=== PATIENT | male | born 1940 | race American Indian/Alaskan Native ===

== ENCOUNTER 2016-05-28 15:01 | Emergency (ER) | payer MEDICARE, OTHER ==
[~2016-05-28 15:01] MED LIST: AMAR1TAB PO; ASPI1TAB PO; ATOR1TAB19 PO; ATOR1TAB21 PO; BD P31MI2 XX; CARV6.25 PO; FERR325T PO; JANU100T PO; LACT10SO29 PO; LACT20EL PO; LANTINJ4 SC; METF1000 PO; METO50TA2 PO; OMEP40CA2 PO; PANT40TA2 PO; VITA-193 PO; VITA100066 PO; VITA400C2 PO; VOLT1GEL24 TOP; XIFA550T PO
[2016-05-28] MEDS ORDERED: MORPHINE 4 MG/ML 1ML SYRINGE As Ordered ONE ×3 (16:36→18:04)
[2016-05-28] MEDS ORDERED: ONDANSETRON 4MG/2ML VIAL (J2405) As Ordered ONE (16:36)
--- NOTE | 2016-05-28 17:15 | REP ---
Clinical: Trauma. Technique: Axial images through the thoracic spine from T1 through T12 with coronal and sagittal re-formations. Findings: There is a mild acute compression fracture involving T12 with approximately 20% loss of anterior superior vertebral body height. No retropulsed fracture fragment is identified and the spinal canal appears relatively patent. Remainder of the thoracic spine demonstrates mild to moderate degenerative changes including anterior osteophytes at multiple levels. Paravertebral soft tissues appear normal. Visualized lung morrissey demonstrate pulmonary vascular congestion with interstitial edema and possible atelectasis. Some dental note is made of TIPS. Impression: 1. Acute mild compression fracture involving T12 without retropulsed fracture fragment or further obvious abnormality. 2. Mild multilevel degenerative changes. Signed by Toney Cortes MD 05/28/2016 05:07 P
--- NOTE | 2016-05-28 17:24 | REP ---
Clinical: Trauma. Technique: AP and lateral views of the right humerus. Findings: Age-related changes at the shoulder and elbow noted. No obvious acute fracture dislocation. No subcutaneous emphysema or radiodense foreign body. Impression: No acute fracture or dislocation. Signed by Toney Cortes MD 05/28/2016 05:16 P
[2016-05-28] MEDS ORDERED: ISOVUE-370 76% 100ML VIAL (Q9967) As Ordered ONE (18:21)
--- NOTE | 2016-05-28 18:41 | REP ---
CT LUMBAR SPINE WITHOUT CONTRAST: HISTORY: Trauma. A diffuse disc bulge is present at the L1-2 level. There is minimal compression of the thecal sac. The L1 nerves exit the neural foramina without compression. A diffuse disc bulge is present at the L2-3 level. There is minimal compression of the thecal sac. The L2 nerves exit the neural foramina without compression. A diffuse disc bulge is present at the L3-4 level. There is hypertrophy of the ligamenta flava and posterior articulating facets. These findings produce minimal central canal stenosis. The L3 nerves exit the neural foramina without compression. A diffuse disc bulge is present at the L4-5 level. There is minimal compression of the thecal sac. There is hypertrophy of the posterior articulating facets. The L4 nerves exit the neural foramina without compression. A diffuse disc bulge is present at the L5-S1 level. There is minimal compression of the thecal sac. There is hypertrophy of the posterior articulating facets. There are 7 mm of grade 1 spondylolisthesis of L5 on S1. This is associated with L5 pars defects. There is compression of the L5 nerves in the neural foramina. The L1-2, L3-4, and L5-S1 intervertebral discs are decreased in height consistent with disc degeneration. There is an old compression fracture of the T12 vertebral body with minimal height loss. IMPRESSION: 1. Diffuse disc bulges at the L1-2, L2-3 and L4-5 levels with minimal thecal sac compression. 2. Minimal central canal stenosis at the L3-4 level secondary to disc bulge, ligamentous and facet hypertrophy. 3. Diffuse disc bulge at the L5-S1 level with minimal thecal sac compression. There is grade 1 spondylolisthesis of L5 on S1 with associated L5 pars defects. There is compression of the L5 nerves in the neural foramina. Signed by Jerald Sheffield MD 05/29/2016 08:22 A
[2016-05-28 18:43] LABS: MEAN CORPUSCULAR HEMOGLOBIN 35.1 pg (27.0-33.0); MEAN CORPUSCULAR HGB CONC 35.8 g/dl (32.0-36.5); MEAN CORPUSCULAR VOLUME 97.8 fl (80.0-96.0); RED CELL DISTRIBUTION WIDTH 16.6 % (11.5-14.5); WHITE BLOOD COUNT 6.5 K/mm3 (4.0-10.0)
--- NOTE | 2016-05-28 18:53 | REP ---
Clinical: Trauma with acute compression fracture at T12 and continued left-sided abdominal pain. Technique: Axial contrast enhanced images from the lung bases to the pubic symphysis using 100 ml Isovue 370 intravenous contrast material with coronal and sagittal re-formations. Comparison: Multiple examinations dating through 01/05/2014. Findings: Lung bases demonstrate cardiomegaly with pulmonary venous congestion. There is no evidence for solid organ injury. There is evidence for cirrhosis with portal hypertension and prior TIPS. Splenomegaly is appreciated. Pancreas, bilateral adrenal glands and kidneys are essentially normal/stable. Complex cyst with perinephric stranding involving the posterolateral aspect of the left kidney is essentially unchanged compared to 2014. The enteric system demonstrates moderate fecal stasis and possible constipation without acute obstruction or inflammatory process. Pelvis demonstrates normal bladder and age appropriate prostate/seminal vesicles. No ascites. Abdominal aorta and vasculature is relatively normal and without evidence for trauma. Surrounding musculoskeletal structures demonstrate degenerative changes as well as known subtle compression fracture at T12 and grade 1 anterolisthesis at the L5-S1 level with chronic spondylolysis. Impression: No evidence for solid organ injury. Diagnosed new acute T12 compression fracture. Cardiomegaly with evidence for pulmonary venous congestion. Chronic changes including cirrhosis and portal hypertension with splenomegaly as well as generative changes the musculoskeletal structures including chronic anterolisthesis at L5-S1 with spondylolysis. Signed by Toney Cortes MD 05/28/2016 06:44 P
[2016-05-28 18:59] LABS: ANION GAP 8 MEQ/L (8-16); BLOOD UREA NITROGEN 17 MG/DL (7-18); CALCIUM LEVEL 8.6 MG/DL (8.8-10.2); CARBON DIOXIDE LEVEL 24 MEQ/L (21-32); CHLORIDE LEVEL 110 MEQ/L (98-107); GLOMERULAR FILTRATION RATE > 60.0 (>42); GLUCOSE, FASTING 179 MG/DL (83-110); POTASSIUM SERUM 4.4 MEQ/L (3.5-5.1); SODIUM LEVEL 142 MEQ/L (136-145)
--- NOTE | 2016-05-28 19:17 | EDDOCDS ---
Physician Documentation [facility] Name: Joaquín Sterling Age: 75 yrs Sex: Male : 1940 Arrival Date: 05/28/2016 Time: 15:01 Bed 11 Private MD: Cedrick King E. Disposition: 05/28/16 18:50 Discharged to Home/Self Care. Impression: Fall on and from ladder, Wedge compression fracture of T11-T12 vertebra. - Condition is Stable. - Discharge Instructions: Back, Compression Fracture, Fall Prevention and Home Safety. - Prescriptions for Percocet 5- 325 mg Oral Tablet - take 1 tablet by ORAL route every 6 hours As needed MDD: 4 tabs; 20 tablet. - Medication Reconciliation, Local Pharmacy Hours form. - Follow up: Cedrick King; When: 4 - 5 days; Reason: Recheck today's complaints, Continuance of care. - Problem is new. - Symptoms are unchanged. - Notes: ICE 20 MIN AN HOUR Historical: - Allergies: Lisinopril"flu-like symptoms"; - Home Meds: 1. carvedilol 6.25 mg oral tab 1 tab 2 times per day 2. Lantus 100 unit/mL Sub-Q soln 32 unit 20 units at night and 32 in am 3. omeprazole 40 mg Oral cpDR 1 cap 2 times per day 4. Protonix 40 mg Oral grps once daily 5. Constulose 10 gram/15 mL oral soln 45 mL every 6 hours 6. atorvastatin 20 mg oral tab 1 tab once daily 7. Xifaxan 550 mg oral tab 1 tab 2 times per day 8. metoprolol tartrate 50 mg oral tab - PMHx: Diabetes - NIDDM: uncontrolled; Hypertension; Anemia; Hypercholesterolemia; Cirrhosis; GIvarices; Aortic Aneurysm; UT; - PSHx: Pacemaker Insertion; Cholecystectomy; Hernia repair; TIPS; - Social history: Smoking status: Patient states was never smoker of tobacco. No barriers to communication noted, The patient speaks fluent Wolof. - Family history: Not pertinent. - : The pt / caregiver states he / she is not on anticoagulants. Home medication list is obtained from the patient, [employer] import data. - Exposure Risk Screening:: None identified. Vital Signs: 05/28 15:02 BP 145 / 70; Pulse 98; Resp 20 S; Temp 96(O); Pulse Ox 97% on R/A; Weight 72.57 kg / gr2 159.99 lbs (M); Height 5 ft. 9 in. (175.26 cm) (M); Pain 10/10; 17:02 BP 138 / 87; Pulse 82; Resp 16; Pulse Ox 97% on R/A; Pain 8/10; ml6 17:22 BP 138 / 62; Pulse 83; Resp 18; Pulse Ox 98% on R/A; Pain 6/10; ml6 18:38 BP 144 / 68; Pulse 85; Resp 16; Temp 98.3; Pulse Ox 98% on R/A; Pain 6/10; ml6 18:40 BP 155 / 87; Pulse 86; Resp 18; Pulse Ox 98% on R/A; Pain 6/10; ml6 15:02 Body Mass Index 23.63 (72.57 kg, 175.26 cm) gr2 MDM: 16:16 ED course: THIS RESORT DESK CLERK INITIALLY EVALUATED PATIENT, PT PRESENTATION AND EXAM REVIEWED ck7 WITH DR CANNON, WILL MOVE PT TO MAIN ED FOR FURTHER EVALUATION AND TREATMENT. 16:31 IV Saline Lock ordered. ke 16:31 NS 0.9% 1000 ml IV at 100 mL/hr continuous ordered. ke 16:31 Ondansetron 4 mg IVP once ordered. ke 16:31 morphine 4 mg IVP every 30 minutes; Document pain score/vitals after each dose (Hold if ke SBP < 90mmHg) x2 ordered. 16:33 Humerus Ordered. EDMS 16:33 CT Spine, Lumbar W/o Contrast Ordered. EDMS 16:33 CT Spine,Thoracic W/o Contrast Ordered. EDMS 16:44 Financial registration complete. lg 17:37 [facility] Payment Agreement was scanned into [employer] and attached to record. gjb 18:02 CT ABD & PELVIS: IV Contrast Only Ordered. EDMS 18:06 Type & Screen Ordered. EDMS 18:07 CBC Ordered. EDMS 18:07 BMP Ordered. EDMS 18:11 morphine 4 mg IVP once ordered. ke Administered Medications: 16:53 Drug: Ondansetron 4 mg [ondansetron HCl 2 mg/mL intravenous solution (2 mL)] Route: ml6 IVP; Site: left antecubital; 16:53 Drug: morphine 4 mg [morphine 4 mg/mL intravenous cartridge (1 mL)] Route: IVP; Site: 6 left antecubital; 16:54 Drug: NS 0.9% 1000 ml [sodium chloride 0.9 % intravenous solution] Route: IV; Rate: 100 ml6 mL/hr; Site: left antecubital; 17:02 Drug: morphine 4 mg [morphine 4 mg/mL intravenous cartridge (1 mL)] Route: IVP; Site: ml6 left antecubital; 17:02 Follow up: BP 138 / 87; Pulse 82 bpm; Resp 16 bpm; Pulse Ox 97% RA; Pain 8/10 Adult ml6 17:22 Follow up: BP 138 / 62; Pulse 83 bpm; Resp 18 bpm; Pulse Ox 98% RA; Pain 6/10 Adult ml6 18:18 Drug: morphine 4 mg [morphine 4 mg/mL intravenous cartridge (1 mL)] Route: IVP; Site: ml6 left antecubital; 18:40 Follow up: BP 155 / 87; Pulse 86 bpm; Resp 18 bpm; Pulse Ox 98% RA; Pain 6/10 Adult ml6 Signatures: Dispatcher [employer] EDMS Heather Thrasher RN RN Deisi Boyd, Reg Reg lg Torito Rodriguez, MANAGER CATEGORY MANAGER CATEGORY Bernarda Mathew RN RN rs3 Misbah Gayle RN RN ml6 Mayo Andrade, RPA-C [id number] Marilu AjRN Kathryn Hilliard The chart was reviewed and I authenticate all verbal orders and agree with the evaluation and treatment provided.Corrections: (The following items were deleted from the chart) 15:21 15:05 Social history Smoking status: Patient states was never smoker of tobacco. No rs3 barriers to communication noted, The patient speaks fluent Wolof, [facility] : 15:10 Allergies: Lisinopril; "flu-like symptoms" [Inactive]; [place] [id number] : 15:10 PMHx: Diabetes - NIDDM: uncontrolled [Inactive]; [place] [id number] : 15:10 PMHx: Hypertension [Inactive]; [place] [id number] : 15:10 PMHx: Anemia [Inactive]; [place] [id number] : 15:10 PMHx: Hypercholesterolemia [Inactive]; [place] [id number] : 15:10 PMHx: Cirrhosis [Inactive]; kcs ml6 15:10 PMHx: GIvarices [Inactive]; kcs ml6 15:10 PMHx: Aortic Aneurysm [Inactive]; kcs ml6 15:10 PMHx: UT [Inactive]; kcs ml6 Attachments: 17:37 [facility] Payment Agreement gjb [email or web address]
--- NOTE | 2016-05-28 19:17 | EDDOCDS ---
Nurse's Notes [facility] Name: Joaquín Sterling Age: 75 yrs Sex: Male : 1940 Arrival Date: 05/28/2016 Time: 15:01 Bed 11 Private MD: Cedrick King E. Diagnosis: Fall on and from ladder;Wedge compression fracture of T11-T12 vertebra Presentation: 05/28 15:05 Presenting complaint: states: patient was in the garage on a ladder and fell off kcs the second step on to his back - happened at 0900 - still having a lot of low back pain. also has pain in his right arm and shoulder. Mechanism of Injury: Fall. Adult Sepsis Screening: The patient does not have new or worsening altered mentation. Patient's respiratory rate is less than 22. Systolic blood pressure is greater than 100. Patient has a qSOFA score of 0- Negative Sepsis Screen. Suicide/Homicide risk assessment- the patient denies having any suicidal and/or homicidal ideations and does not present with any other emotional, behavioral or mental health complaints. Status: Patient is not a director nursing service or dependent. Transition of care: patient was not received from another setting of care. 15:05 Acuity: CALLI Level 3 kcs 15:05 Method Of Arrival: Walkin/Carried/Asstd kcs Triage Assessment: 15:05 General: Appears uncomfortable, well developed, well nourished, well groomed, Behavior kcs is cooperative, crying. Pain: Location: low back, right shoulder and right arm Pain currently is 10 out of 10 on a pain scale. Neurological: Level of Consciousness is awake, alert. Respiratory: Airway is patent Respiratory effort is even, unlabored, Respiratory pattern is regular, symmetrical. Derm: Skin is intact, is healthy with good turgor, Skin is dry, Skin is normal. Historical: - Allergies: Lisinopril"flu-like symptoms"; - Home Meds: 1. carvedilol 6.25 mg oral tab 1 tab 2 times per day 2. Lantus 100 unit/mL Sub-Q soln 32 unit 20 units at night and 32 in am 3. omeprazole 40 mg Oral cpDR 1 cap 2 times per day 4. Protonix 40 mg Oral grps once daily 5. Constulose 10 gram/15 mL oral soln 45 mL every 6 hours 6. atorvastatin 20 mg oral tab 1 tab once daily 7. Xifaxan 550 mg oral tab 1 tab 2 times per day 8. metoprolol tartrate 50 mg oral tab - PMHx: Diabetes - NIDDM: uncontrolled; Hypertension; Anemia; Hypercholesterolemia; Cirrhosis; GIvarices; Aortic Aneurysm; DE; - PSHx: Pacemaker Insertion; Cholecystectomy; Hernia repair; TIPS; - Social history: Smoking status: Patient states was never smoker of tobacco. No barriers to communication noted, The patient speaks fluent Tajik. - Family history: Not pertinent. - : The pt / caregiver states he / she is not on anticoagulants. Home medication list is obtained from the patient, [employer] import data. - Exposure Risk Screening:: None identified. Screenin:04 Screening information is obtained from the patient. Fall risk: No risks identified. ml6 Assistance ADL's: requires no assistance with activities of daily living. Abuse/DV Screen: The patient / caregiver reports he/she is: not in a situation that causes fear, pain or injury. Nutritional screening: No deficits noted. Advance Directives: Currently, there is. home support is adequate. Assessment: 16:56 General: Appears in no apparent distress, comfortable, Behavior is appropriate for age, ml6 cooperative. Pain: Location: lumbar area, left low back and right low back Pain currently is 7 out of 10 on a pain scale. Pain does not radiate. Quality of pain is described as aching, Pain began 4 hours ago Is continuous. Cardiovascular: No deficits noted. Capillary refill < 3 seconds is brisk in bilateral fingers toes. Respiratory: No deficits noted. Airway is patent Respiratory effort is even, unlabored, Respiratory pattern is regular, symmetrical. Musculoskeletal: Circulation, motion, and sensation intact Capillary refill < 3 seconds is brisk in bilateral fingers toes Range of motion intact in all extremities. No deformity noted Swelling absent Signs and Symptoms of Compartment Syndrome: no signs of compartment syndrome Reports pain in back. 18:05 Reassessment: Patient appears in no apparent distress at this time. Patient states ml6 symptoms have not improved. Pain: Location: back Pain currently is 6 out of 10 on a pain scale. Quality of pain is described as aching, Pain began 4 hours ago Is continuous. Cardiovascular: No deficits noted. 19:14 General: Appears in no apparent distress, Behavior is cooperative. Neurological: Level mlc of Consciousness is awake, alert, Oriented to person, place, time. Respiratory: Airway is patent Respiratory effort is even, unlabored, Respiratory pattern is regular. Derm: Skin is pink, warm & dry. Vital Signs: 15:02 BP 145 / 70; Pulse 98; Resp 20 S; Temp 96(O); Pulse Ox 97% on R/A; Weight 72.57 kg (M); gr2 Height 5 ft. 9 in. (175.26 cm) (M); Pain 10/10; 17:02 BP 138 / 87; Pulse 82; Resp 16; Pulse Ox 97% on R/A; Pain 8/10; ml6 17:22 BP 138 / 62; Pulse 83; Resp 18; Pulse Ox 98% on R/A; Pain 6/10; ml6 18:38 BP 144 / 68; Pulse 85; Resp 16; Temp 98.3; Pulse Ox 98% on R/A; Pain 6/10; ml6 18:40 BP 155 / 87; Pulse 86; Resp 18; Pulse Ox 98% on R/A; Pain 6/10; ml6 15:02 Body Mass Index 23.63 (72.57 kg, 175.26 cm) gr2 Vitals: 15:02 Log In Time: May 28, 2016 at 15:02. gr2 ED Course: 15:02 Patient visited by Dustin Mcdowell. gr2 15:02 Cedrick King is Private Physician. gr2 15:02 Patient moved to Waiting gr2 15:04 Patient visited by Dustin Mcdowell. gr2 15:04 Patient moved to Pre RCE gr2 15:06 Triage Initiated kcs 15:11 Patient moved to Triage 2 kcs 16:02 Mayo Andrade RPA-C is [facility]. ck7 16:02 Wesley Gilmore MD is Attending Physician. ck7 16:02 Patient visited by Mayo Andrade RPA-C. ck7 16:15 Patient moved to 11 mk4 16:24 Torito Rodriguez FNP is [facility]. ke 16:24 Patient visited by Torito Rodriguez FNP. ke 16:26 Patient visited by Torito Rodriguez FNP. ke 16:26 Patient visited by Torito Rodriguez FNP. ke 16:46 Inserted saline lock: 18 gauge in left forearm. jo3 16:47 Patient visited by Mee Figueredo,MOY. jo3 17:17 Patient visited by Misbah Gayle, MOY. ml6 17:33 CT Spine,Thoracic W/o Contrast Returned. EDMS 17:33 Humerus Returned. EDMS 17:37 [facility] [place] into [employer] and attached to record. gjb 17:49 Patient visited by Torito Rodriguez FNP. ke 18:18 Patient visited by Torito Rodriguez FNP. ke 18:38 Patient visited by Misbah Gayle, MOY. ml6 18:49 Cedrick King is Referral Physician. ke 19:00 Marilu Aj,MOY is Primary Nurse. mlc 19:03 Patient visited by Danie Sanderson PCA. kb5 19:12 CT Spine, Lumbar W/o Contrast Returned. EDMS 19:12 CT ABD & PELVIS: IV Contrast Only Returned. EDMS 19:14 The patient / caregiver is instructed regarding the plan of care and ED course. mlc 19:14 Discontinued IV lock intact, bleeding controlled, pressure dressing applied, No mlc redness/swelling at site. No procedures done that require assistance. Administered Medications: 16:53 Drug: Ondansetron 4 mg [ondansetron HCl 2 mg/mL intravenous solution (2 mL)] Route: ml6 IVP; Site: left antecubital; 16:53 Drug: morphine 4 mg [morphine 4 mg/mL intravenous cartridge (1 mL)] Route: IVP; Site: ml6 left antecubital; 16:54 Drug: NS 0.9% 1000 ml [sodium chloride 0.9 % intravenous solution] Route: IV; Rate: 100 ml6 mL/hr; Site: left antecubital; 17:02 Drug: morphine 4 mg [morphine 4 mg/mL intravenous cartridge (1 mL)] Route: IVP; Site: ml6 left antecubital; 17:02 Follow up: BP 138 / 87; Pulse 82 bpm; Resp 16 bpm; Pulse Ox 97% RA; Pain 8/10 Adult ml6 17:22 Follow up: BP 138 / 62; Pulse 83 bpm; Resp 18 bpm; Pulse Ox 98% RA; Pain 6/10 Adult ml6 18:18 Drug: morphine 4 mg [morphine 4 mg/mL intravenous cartridge (1 mL)] Route: IVP; Site: ml6 left antecubital; 18:40 Follow up: BP 155 / 87; Pulse 86 bpm; Resp 18 bpm; Pulse Ox 98% RA; Pain 10/24 Adult ml6 Order Results: Lab Order: CBC; SPEC'M 05/28/16 18:17 Test: WHITE BLOOD COUNT; Value: 6.5; Range: 4.0-10.0; Units: K/mm3; Status: F Test: RED BLOOD COUNT; Value: 3.31; Range: 4.30-6.10; Abnormal: Below low normal; Units: M/mm3; Status: F Test: HEMOGLOBIN; Value: 11.6; Range: 14.0-18.0; Abnormal: Below low normal; Units: g/dl; Status: F Test: HEMATOCRIT; Value: 32.3; Range: 42.0-52.0; Abnormal: Below low normal; Units: %; Status: F Test: MEAN CORPUSCULAR VOLUME; Value: 97.8; Range: 80.0-96.0; Abnormal: Above high normal; Units: fl; Status: F Test: MEAN CORPUSCULAR HEMOGLOBIN; Value: 35.1; Range: 27.0-33.0; Abnormal: Above high normal; Units: pg; Status: F Test: MEAN CORPUSCULAR HGB CONC; Value: 35.8; Range: 32.0-36.5; Units: g/dl; Status: F Test: RED CELL DISTRIBUTION WIDTH; Value: 16.6; Range: 11.5-14.5; Abnormal: Above high normal; Units: %; Status: F Test: PLATELET COUNT, AUTOMATED; Value: 63; Range: 150-450; Abnormal: Below low normal; Units: k/mm3; Status: F Test Note: ; RESULTS Lab Order: BMP; SPEC'M 05/28/16 18:17 Test: GLUCOSE, FASTING; Value: 179; Range: 83-110; Abnormal: Above high normal; Units: MG/DL; Status: F Test: BLOOD UREA NITROGEN; Value: 17; Range: 7-18; Units: MG/DL; Status: F Test: CREATININE FOR GFR; Value: 1.20; Range: 0.70-1.30; Units: MG/DL; Status: F Test: GLOMERULAR FILTRATION RATE; Value: > 60.0; Range: >42; Status: F Test: SODIUM LEVEL; Value: 142; Range: 136-145; Units: MEQ/L; Status: F Test: POTASSIUM SERUM; Value: 4.4; Range: 3.5-5.1; Units: MEQ/L; Status: F Test: CHLORIDE LEVEL; Value: 110; Range: 98-107; Abnormal: Above high normal; Units: MEQ/L; Status: F Test: CARBON DIOXIDE LEVEL; Value: 24; Range: 21-32; Units: MEQ/L; Status: F Test: ANION GAP; Value: 8; Range: 8-16; Units: MEQ/L; Status: F Test: CALCIUM LEVEL; Value: 8.6; Range: 8.8-10.2; Abnormal: Below low normal; Units: MG/DL; Status: F Test Note: ; Units are mL/min/1.73 m2 Chronic Kidney Disease Staging per NKF: Stage I & II GFR >=60 Normal to Mildly Decreased Stage III GFR 30-59 Moderately Decreased Stage IV GFR 15-29 Severely Decreased Stage V GFR <15 Very Little GFR Left ESRD GFR <15 on [employer] Lab Order: Type & Screen; SPEC'M 05/28/16 18:18 Test: BLOOD TYPE; Value: A NEG; Status: F Test: AB SCREEN (INDIRECT PAYTON)GEL; Value: NEGATIVE; Status: F Radiology Order: CT Spine, Lumbar W/o Contrast Test: CT Spine, Lumbar W/o Contrast REASON FOR EXAMINATION: Trauma; ; CT LUMBAR SPINE WITHOUT CONTRAST:; ; HISTORY: Trauma.; ; A diffuse disc bulge is present at the L1-2 level. There is minimal compression; of the thecal sac. The L1 nerves exit the neural foramina without compression.; ; A diffuse disc bulge is present at the L2-3 level. There is minimal compression; of the thecal sac. The L2 nerves exit the neural foramina without compression.; ; A diffuse disc bulge is present at the L3-4 level. There is hypertrophy of the; ligamenta flava and posterior articulating facets. These findings produce minimal; central canal stenosis. The L3 nerves exit the neural foramina without; compression.; ; A diffuse disc bulge is present at the L4-5 level. There is minimal compression; of the thecal sac. There is hypertrophy of the posterior articulating facets. The; L4 nerves exit the neural foramina without compression.; ; A diffuse disc bulge is present at the L5-S1 level. There is minimal compression; of the thecal sac. There is hypertrophy of the posterior articulating facets.; There are 7 mm of grade 1 spondylolisthesis of L5 on S1. This is associated with; L5 pars defects. There is compression of the L5 nerves in the neural foramina.; ; The L1-2, L3-4, and L5-S1 intervertebral discs are decreased in height consistent; with disc degeneration. There is an old compression fracture of the T12 vertebral; body with minimal height loss.; ; IMPRESSION:; 1. Diffuse disc bulges at the L1-2, L2-3 and L4-5 levels with minimal thecal sac; compression.; 2. Minimal central canal stenosis at the L3-4 level secondary to disc bulge,; ligamentous and facet hypertrophy.; 3. Diffuse disc bulge at the L5-S1 level with minimal thecal sac compression.; There is grade 1 spondylolisthesis of L5 on S1 with associated L5 pars defects.; There is compression of the L5 nerves in the neural foramina.; ; Unreviewed; Radiology Order: CT Spine,Thoracic W/o Contrast Test: CT Spine,Thoracic W/o Contrast REASON FOR EXAMINATION: Trauma; Clinical: Trauma.; ; Technique: Axial images through the thoracic spine from T1 through T12 with; coronal and sagittal re-formations.; ; Findings:; There is a mild acute compression fracture involving T12 with approximately 20%; loss of anterior superior vertebral body height. No retropulsed fracture; fragment is identified and the spinal canal appears relatively patent. Remainder; of the thoracic spine demonstrates mild to moderate degenerative changes; including anterior osteophytes at multiple levels. Paravertebral soft tissues; appear normal. Visualized lung morrissey demonstrate pulmonary vascular congestion; with interstitial edema and possible atelectasis. Some dental note is made of; TIPS.; ; Impression:; 1. Acute mild compression fracture involving T12 without retropulsed fracture; fragment or further obvious abnormality.; 2. Mild multilevel degenerative changes.; ; ; Signed by; Toney Cortes MD 05/28/2016 05:07 P; Radiology Order: Humerus Test: Humerus REASON FOR EXAMINATION: Trauma; Clinical: Trauma.; ; Technique: AP and lateral views of the right humerus.; ; Findings:; Age-related changes at the shoulder and elbow noted. No obvious acute fracture; dislocation. No subcutaneous emphysema or radiodense foreign body.; ; Impression:; No acute fracture or dislocation.; ; ; Signed by; Toney Cortes MD 05/28/2016 05:16 P; Radiology Order: CT ABD & PELVIS: IV Contrast Only Test: CT ABD & PELVIS: IV Contrast Only REASON FOR EXAMINATION: LUQ PAIN;Trauma; Clinical: Trauma with acute compression fracture at T12 and continued left-sided; abdominal pain.; ; Technique: Axial contrast enhanced images from the lung bases to the pubic; symphysis using 100 ml Isovue 370 intravenous contrast material with coronal and; sagittal re-formations.; ; Comparison: Multiple examinations dating through 01/05/2014.; ; Findings:; Lung bases demonstrate cardiomegaly with pulmonary venous congestion.; ; There is no evidence for solid organ injury. There is evidence for cirrhosis; with portal hypertension and prior TIPS. Splenomegaly is appreciated. Pancreas,; bilateral adrenal glands and kidneys are essentially normal/stable. Complex cyst; with perinephric stranding involving the posterolateral aspect of the left kidney; is essentially unchanged compared to 2013. The enteric system demonstrates; moderate fecal stasis and possible constipation without acute obstruction or; inflammatory process. Pelvis demonstrates normal bladder and age appropriate; prostate/seminal vesicles. No ascites. Abdominal aorta and vasculature is; relatively normal and without evidence for trauma. Surrounding musculoskeletal; structures demonstrate degenerative changes as well as known subtle compression; fracture at T12 and grade 1 anterolisthesis at the L5-S1 level with chronic; spondylolysis.; ; Impression:; No evidence for solid organ injury.; Diagnosed new acute T12 compression fracture.; Cardiomegaly with evidence for pulmonary venous congestion.; Chronic changes including cirrhosis and portal hypertension with splenomegaly as; well as generative changes the musculoskeletal structures including chronic; anterolisthesis at L5-S1 with spondylolysis.; ; ; Signed by; Toney Cortes MD 05/28/2016 06:44 P; Outcome: 18:50 Discharge ordered by Provider. ke 19:14 Discharge Assessment: Patient awake, alert and oriented x 3. No cognitive and/or mlc functional deficits noted. Patient verbalized understanding of disposition instructions. patient administered narcotics - yes. Pt provided with safe discharge. The following High Risk Discharge criteria are identified: None. Discharged to home via wheelchair, with family. Condition: good Condition: stable. Discharge instructions given to patient, Instructed on discharge instructions, follow up and referral plans. medication usage, no driving heavy equipment, Demonstrated understanding of instructions, medications, Pt was receptive of discharge instructions/ teaching. Prescriptions given X 1. CT Study completed. Property sent home with patient. 19:15 Patient left the ED. mlc Signatures: Dispatcher [employer] EDHeather Rodríguez RN RN Torito Gonzalez FNP FNP ke [place], JenniferRN RN jo3 Danie Sanderson, PLANT SPECIALIST PLANT SPECIALIST kb5 Bernarda BerryRN RN rs3 Misbah Gayle RN RN ml6 Mayo Andrade, RPA-C [id number] Dustin Mcdowell gr2 Tamera Florentino RN RN Marilu AzulRN RN Kathryn Viveros Corrections: (The following items were deleted from the chart) 15:21 15:05 Social history Smoking status: Patient states was never smoker of tobacco. No rs3 barriers to communication noted, The patient speaks fluent Tajik, [facility] 15:10 Allergies: Lisinopril; "flu-like symptoms" [Inactive]; [place] [id number] 15:10 PMHx: Diabetes - NIDDM: uncontrolled [Inactive]; [place] [id number] 15:10 PMHx: Hypertension [Inactive]; [place] [id number] 15:10 PMHx: Anemia [Inactive]; [place] [id number] 15:10 PMHx: Hypercholesterolemia [Inactive]; [place] [id number] 15:10 PMHx: Cirrhosis [Inactive]; [place] [id number] 15:10 PMHx: GIvarices [Inactive]; [place] [id number] 15:10 PMHx: Aortic Aneurysm [Inactive]; [place] [id number] 15:10 PMHx: DE [Inactive]; [place] [id number] MTDD
[2016-05-29] MEDS ORDERED: PANT40TA2 PO (17:01)
[2016-05-29] MEDS ORDERED: VITA100072 PO (17:01)
[2016-05-29] MEDS ORDERED: OXYC1TAB23 PO (17:01)
--- NOTE | 2016-05-30 20:16 | EDDOCDS ---
Physician Documentation [facility] Name: Joaqíun Sterling Age: 75 yrs Sex: Male : 1940 Arrival Date: 05/28/2016 Time: 15:01 Bed 11 Private MD: Cedrick King E. Disposition: 05/28/16 18:50 Discharged to Home/Self Care. Impression: Fall on and from ladder, Wedge compression fracture of T11-T12 vertebra. - Condition is Stable. - Discharge Instructions: Back, Compression Fracture, Fall Prevention and Home Safety. - Prescriptions for Percocet 5- 325 mg Oral Tablet - take 1 tablet by ORAL route every 6 hours As needed MDD: 4 tabs; 20 tablet. - Medication Reconciliation, Local Pharmacy Hours form. - Follow up: Cedrick King; When: 4 - 5 days; Reason: Recheck today's complaints, Continuance of care. - Problem is new. - Symptoms are unchanged. - Notes: ICE 20 MIN AN HOUR Historical: - Allergies: Lisinopril"flu-like symptoms"; - Home Meds: 1. carvedilol 6.25 mg oral tab 1 tab 2 times per day 2. Lantus 100 unit/mL Sub-Q soln 32 unit 20 units at night and 32 in am 3. omeprazole 40 mg Oral cpDR 1 cap 2 times per day 4. Protonix 40 mg Oral grps once daily 5. Constulose 10 gram/15 mL oral soln 45 mL every 6 hours 6. atorvastatin 20 mg oral tab 1 tab once daily 7. Xifaxan 550 mg oral tab 1 tab 2 times per day 8. metoprolol tartrate 50 mg oral tab - PMHx: Diabetes - NIDDM: uncontrolled; Hypertension; Anemia; Hypercholesterolemia; Cirrhosis; GIvarices; Aortic Aneurysm; NM; - PSHx: Pacemaker Insertion; Cholecystectomy; Hernia repair; TIPS; - Social history: Smoking status: Patient states was never smoker of tobacco. No barriers to communication noted, The patient speaks fluent [place]olian. - Family history: Not pertinent. - : The pt / caregiver states he / she is not on anticoagulants. Home medication list is obtained from the patient, [employer] import data. - Exposure Risk Screening:: None identified. Vital Signs: 05/28 15:02 BP 145 / 70; Pulse 98; Resp 20 S; Temp 96(O); Pulse Ox 97% on R/A; Weight 72.57 kg / gr2 159.99 lbs (M); Height 5 ft. 9 in. (175.26 cm) (M); Pain 10/10; 17:02 BP 138 / 87; Pulse 82; Resp 16; Pulse Ox 97% on R/A; Pain 8/10; ml6 17:22 BP 138 / 62; Pulse 83; Resp 18; Pulse Ox 98% on R/A; Pain 6/10; ml6 18:38 BP 144 / 68; Pulse 85; Resp 16; Temp 98.3; Pulse Ox 98% on R/A; Pain 6/10; ml6 18:40 BP 155 / 87; Pulse 86; Resp 18; Pulse Ox 98% on R/A; Pain 6/10; ml6 15:02 Body Mass Index 23.63 (72.57 kg, 175.26 cm) gr2 MDM: 16:16 ED course: THIS AERIAL PHOTOGRAPHER INITIALLY EVALUATED PATIENT, PT PRESENTATION AND EXAM REVIEWED ck7 WITH DR CANNON, WILL MOVE PT TO MAIN ED FOR FURTHER EVALUATION AND TREATMENT. 16:31 IV Saline Lock ordered. ke 16:31 NS 0.9% 1000 ml IV at 100 mL/hr continuous ordered. ke 16:31 Ondansetron 4 mg IVP once ordered. ke 16:31 morphine 4 mg IVP every 30 minutes; Document pain score/vitals after each dose (Hold if ke SBP < 90mmHg) x2 ordered. 16:33 Humerus Ordered. EDMS 16:33 CT Spine, Lumbar W/o Contrast Ordered. EDMS 16:33 CT Spine,Thoracic W/o Contrast Ordered. EDMS 16:44 Financial registration complete. lg 17:37 [facility] Payment Agreement was scanned into [employer] and attached to record. gjb 18:02 CT ABD & PELVIS: IV Contrast Only Ordered. EDMS 18:06 Type & Screen Ordered. EDMS 18:07 CBC Ordered. EDMS 18:07 BMP Ordered. EDMS 18:11 morphine 4 mg IVP once ordered. ke 05/29 09:43 T-Sheet-- Draft Copy was scanned into [employer] and attached to record. gb Administered Medications: 05/28 16:53 Drug: Ondansetron 4 mg [ondansetron HCl 2 mg/mL intravenous solution (2 mL)] Route: ml6 IVP; Site: left antecubital; 16:53 Drug: morphine 4 mg [morphine 4 mg/mL intravenous cartridge (1 mL)] Route: IVP; Site: ml6 left antecubital; 16:54 Drug: NS 0.9% 1000 ml [sodium chloride 0.9 % intravenous solution] Route: IV; Rate: 100 ml6 mL/hr; Site: left antecubital; 17:02 Drug: morphine 4 mg [morphine 4 mg/mL intravenous cartridge (1 mL)] Route: IVP; Site: ml6 left antecubital; 17:02 Follow up: BP 138 / 87; Pulse 82 bpm; Resp 16 bpm; Pulse Ox 97% RA; Pain 8/10 Adult ml6 17:22 Follow up: BP 138 / 62; Pulse 83 bpm; Resp 18 bpm; Pulse Ox 98% RA; Pain 6/10 Adult ml6 18:18 Drug: morphine 4 mg [morphine 4 mg/mL intravenous cartridge (1 mL)] Route: IVP; Site: ml6 left antecubital; 18:40 Follow up: BP 155 / 87; Pulse 86 bpm; Resp 18 bpm; Pulse Ox 98% RA; Pain 6/10 Adult ml6 Signatures: Dispatcher MedHost EDMS Heather Thrasher RN RN kcs La Gutierrez, Reg Reg gb Deisi Kirkland, Reg Reg lg Torito Rodriguez, DENTAL RECEPTIONIST DENTAL RECEPTIONIST Bernarda Mathew RN RN rs3 Misbah Gayle RN RN ml6 Mayo Andrade, RPA-C [id number] Marilu Aj RN RN mlc Beck, Gabriela gjb The chart was reviewed and I authenticate all verbal orders and agree with the evaluation and treatment provided.Corrections: (The following items were deleted from the chart) 15:21 15:05 Social history Smoking status: Patient states was never smoker of tobacco. No rs3 barriers to communication noted, The patient speaks fluent [place]ian, [facility] : 15:10 Allergies: Lisinopril; "flu-like symptoms" [Inactive]; [place] [id number] 17: 15:10 PMHx: Diabetes - NIDDM: uncontrolled [Inactive]; [place] [id number] 17: 15:10 PMHx: Hypertension [Inactive]; [place] [id number] 17: 15:10 PMHx: Anemia [Inactive]; kj hill6 15:10 PMHx: Hypercholesterolemia [Inactive]; kj hill6 15:10 PMHx: Cirrhosis [Inactive]; kj gannon 15:10 PMHx: GIvarices [Inactive]; kj hill6 15:10 PMHx: Aortic Aneurysm [Inactive]; kj gannon 15:10 PMHx: NM [Inactive]; kj hill6 Attachments: 17:37 [facility] Payment Agreement gjb 05/29 09:43 T-Sheet-- Draft Copy gb Chart Complete MTDD
--- NOTE | 2016-05-30 20:16 | EDDOCDS ---
Nurse's Notes [facility] Name: Joaquín Sterling Age: 75 yrs Sex: Male : 1940 Arrival Date: 05/28/2016 Time: 15:01 Bed 11 Private MD: Cedrick King E. Diagnosis: Fall on and from ladder;Wedge compression fracture of T11-T12 vertebra Presentation: 05/28 15:05 Presenting complaint: states: patient was in the garage on a ladder and fell off kcs the second step on to his back - happened at 0900 - still having a lot of low back pain. also has pain in his right arm and shoulder. Mechanism of Injury: Fall. Adult Sepsis Screening: The patient does not have new or worsening altered mentation. Patient's respiratory rate is less than 22. Systolic blood pressure is greater than 100. Patient has a qSOFA score of 0- Negative Sepsis Screen. Suicide/Homicide risk assessment- the patient denies having any suicidal and/or homicidal ideations and does not present with any other emotional, behavioral or mental health complaints. Status: Patient is not a mechanical technical service specialist or dependent. Transition of care: patient was not received from another setting of care. 15:05 Acuity: CALLI Level 3 kcs 15:05 Method Of Arrival: Walkin/Carried/Asstd kcs Triage Assessment: 15:05 General: Appears uncomfortable, well developed, well nourished, well groomed, Behavior kcs is cooperative, crying. Pain: Location: low back, right shoulder and right arm Pain currently is 10 out of 10 on a pain scale. Neurological: Level of Consciousness is awake, alert. Respiratory: Airway is patent Respiratory effort is even, unlabored, Respiratory pattern is regular, symmetrical. Derm: Skin is intact, is healthy with good turgor, Skin is dry, Skin is normal. Historical: - Allergies: Lisinopril"flu-like symptoms"; - Home Meds: 1. carvedilol 6.25 mg oral tab 1 tab 2 times per day 2. Lantus 100 unit/mL Sub-Q soln 32 unit 20 units at night and 32 in am 3. omeprazole 40 mg Oral cpDR 1 cap 2 times per day 4. Protonix 40 mg Oral grps once daily 5. Constulose 10 gram/15 mL oral soln 45 mL every 6 hours 6. atorvastatin 20 mg oral tab 1 tab once daily 7. Xifaxan 550 mg oral tab 1 tab 2 times per day 8. metoprolol tartrate 50 mg oral tab - PMHx: Diabetes - NIDDM: uncontrolled; Hypertension; Anemia; Hypercholesterolemia; Cirrhosis; GIvarices; Aortic Aneurysm; [place]; - PSHx: Pacemaker Insertion; Cholecystectomy; Hernia repair; TIPS; - Social history: Smoking status: Patient states was never smoker of tobacco. No barriers to communication noted, The patient speaks fluent American. - Family history: Not pertinent. - : The pt / caregiver states he / she is not on anticoagulants. Home medication list is obtained from the patient, [employer] import data. - Exposure Risk Screening:: None identified. Screenin:04 Screening information is obtained from the patient. Fall risk: No risks identified. ml6 Assistance ADL's: requires no assistance with activities of daily living. Abuse/DV Screen: The patient / caregiver reports he/she is: not in a situation that causes fear, pain or injury. Nutritional screening: No deficits noted. Advance Directives: Currently, there is. home support is adequate. Assessment: 16:56 General: Appears in no apparent distress, comfortable, Behavior is appropriate for age, ml6 cooperative. Pain: Location: lumbar area, left low back and right low back Pain currently is 7 out of 10 on a pain scale. Pain does not radiate. Quality of pain is described as aching, Pain began 4 hours ago Is continuous. Cardiovascular: No deficits noted. Capillary refill < 3 seconds is brisk in bilateral fingers toes. Respiratory: No deficits noted. Airway is patent Respiratory effort is even, unlabored, Respiratory pattern is regular, symmetrical. Musculoskeletal: Circulation, motion, and sensation intact Capillary refill < 3 seconds is brisk in bilateral fingers toes Range of motion intact in all extremities. No deformity noted Swelling absent Signs and Symptoms of Compartment Syndrome: no signs of compartment syndrome Reports pain in back. 18:05 Reassessment: Patient appears in no apparent distress at this time. Patient states ml6 symptoms have not improved. Pain: Location: back Pain currently is 6 out of 10 on a pain scale. Quality of pain is described as aching, Pain began 4 hours ago Is continuous. Cardiovascular: No deficits noted. 19:14 General: Appears in no apparent distress, Behavior is cooperative. Neurological: Level mlc of Consciousness is awake, alert, Oriented to person, place, time. Respiratory: Airway is patent Respiratory effort is even, unlabored, Respiratory pattern is regular. Derm: Skin is pink, warm & dry. Vital Signs: 15:02 BP 145 / 70; Pulse 98; Resp 20 S; Temp 96(O); Pulse Ox 97% on R/A; Weight 72.57 kg (M); gr2 Height 5 ft. 9 in. (175.26 cm) (M); Pain 10/10; 17:02 BP 138 / 87; Pulse 82; Resp 16; Pulse Ox 97% on R/A; Pain 8/10; ml6 17:22 BP 138 / 62; Pulse 83; Resp 18; Pulse Ox 98% on R/A; Pain 6/10; ml6 18:38 BP 144 / 68; Pulse 85; Resp 16; Temp 98.3; Pulse Ox 98% on R/A; Pain 6/10; ml6 18:40 BP 155 / 87; Pulse 86; Resp 18; Pulse Ox 98% on R/A; Pain 6/10; ml6 15:02 Body Mass Index 23.63 (72.57 kg, 175.26 cm) gr2 Vitals: 15:02 Log In Time: May 28, 2016 at 15:02. gr2 ED Course: 15:02 Patient visited by Dustin Mcdowell. gr2 15:02 Cedrick King is Private Physician. gr2 15:02 Patient moved to Waiting gr2 15:04 Patient visited by Dustin Mcdowell. gr2 15:04 Patient moved to Pre RCE gr2 15:06 Triage Initiated kcs 15:11 Patient moved to Triage 2 kcs 16:02 Mayo Andrade RPA-C is [facility]. ck7 16:02 Wesley Gilmore MD is Attending Physician. ck7 16:02 Patient visited by Mayo Andrade RPA-C. ck7 16:15 Patient moved to 11 mk4 16:24 Torito Rodriguez FNP is [facility]. ke 16:24 Patient visited by Torito Rodriguez FNP. ke 16:26 Patient visited by Torito Rodriguez FNP. ke 16:26 Patient visited by Torito Rodriguez FNP. ke 16:46 Inserted saline lock: 18 gauge in left forearm. jo3 16:47 Patient visited by Mee Figueredo,MOY. jo3 17:17 Patient visited by Misbah Gayle, RN. ml6 17:33 CT Spine,Thoracic W/o Contrast Returned. EDMS 17:33 Humerus Returned. EDMS 17:37 [facility] Payment Agreement was scanned into ROBAUT[employer] and attached to record. gjb 17:49 Patient visited by Torito Rodriguez FNP. ke 18:18 Patient visited by Torito Rodriguez FNP. ke 18:38 Patient visited by Misbah Gayle, MOY. ml6 18:49 Cedrick King is Referral Physician. ke 19:00 Marilu Aj,MOY is Primary Nurse. mlc 19:03 Patient visited by Danie Sanderson PCA. kb5 19:12 CT Spine, Lumbar W/o Contrast Returned. EDMS 19:12 CT ABD & PELVIS: IV Contrast Only Returned. EDMS 19:14 The patient / caregiver is instructed regarding the plan of care and ED course. mlc 19:14 Discontinued IV lock intact, bleeding controlled, pressure dressing applied, No mlc redness/swelling at site. No procedures done that require assistance. 05/29 09:43 T-Sheet-- Draft Copy was scanned into ROBAUTO and attached to record. gb Administered Medications: 05/28 16:53 Drug: Ondansetron 4 mg [ondansetron HCl 2 mg/mL intravenous solution (2 mL)] Route: ml6 IVP; Site: left antecubital; 16:53 Drug: morphine 4 mg [morphine 4 mg/mL intravenous cartridge (1 mL)] Route: IVP; Site: ml6 left antecubital; 16:54 Drug: NS 0.9% 1000 ml [sodium chloride 0.9 % intravenous solution] Route: IV; Rate: 100 ml6 mL/hr; Site: left antecubital; 17:02 Drug: morphine 4 mg [morphine 4 mg/mL intravenous cartridge (1 mL)] Route: IVP; Site: ml6 left antecubital; 17:02 Follow up: BP 138 / 87; Pulse 82 bpm; Resp 16 bpm; Pulse Ox 97% RA; Pain 8/10 Adult ml6 17:22 Follow up: BP 138 / 62; Pulse 83 bpm; Resp 18 bpm; Pulse Ox 98% RA; Pain 6/10 Adult ml6 18:18 Drug: morphine 4 mg [morphine 4 mg/mL intravenous cartridge (1 mL)] Route: IVP; Site: ml6 left antecubital; 18:40 Follow up: BP 155 / 87; Pulse 86 bpm; Resp 18 bpm; Pulse Ox 98% RA; Pain 6/10 Adult ml6 Order Results: Lab Order: CBC; SPEC'M 05/28/16 18:17 Test: WHITE BLOOD COUNT; Value: 6.5; Range: 4.0-10.0; Units: K/mm3; Status: F Test: RED BLOOD COUNT; Value: 3.31; Range: 4.30-6.10; Abnormal: Below low normal; Units: M/mm3; Status: F Test: HEMOGLOBIN; Value: 11.6; Range: 14.0-18.0; Abnormal: Below low normal; Units: g/dl; Status: F Test: HEMATOCRIT; Value: 32.3; Range: 42.0-52.0; Abnormal: Below low normal; Units: %; Status: F Test: MEAN CORPUSCULAR VOLUME; Value: 97.8; Range: 80.0-96.0; Abnormal: Above high normal; Units: fl; Status: F Test: MEAN CORPUSCULAR HEMOGLOBIN; Value: 35.1; Range: 27.0-33.0; Abnormal: Above high normal; Units: pg; Status: F Test: MEAN CORPUSCULAR HGB CONC; Value: 35.8; Range: 32.0-36.5; Units: g/dl; Status: F Test: RED CELL DISTRIBUTION WIDTH; Value: 16.6; Range: 11.5-14.5; Abnormal: Above high normal; Units: %; Status: F Test: PLATELET COUNT, AUTOMATED; Value: 63; Range: 150-450; Abnormal: Below low normal; Units: k/mm3; Status: F Test Note: ; RESULTS Lab Order: BMP; SPEC'M 05/28/16 18:17 Test: GLUCOSE, FASTING; Value: 179; Range: 83-110; Abnormal: Above high normal; Units: MG/DL; Status: F Test: BLOOD UREA NITROGEN; Value: 17; Range: 7-18; Units: MG/DL; Status: F Test: CREATININE FOR GFR; Value: 1.20; Range: 0.70-1.30; Units: MG/DL; Status: F Test: GLOMERULAR FILTRATION RATE; Value: > 60.0; Range: >42; Status: F Test: SODIUM LEVEL; Value: 142; Range: 136-145; Units: MEQ/L; Status: F Test: POTASSIUM SERUM; Value: 4.4; Range: 3.5-5.1; Units: MEQ/L; Status: F Test: CHLORIDE LEVEL; Value: 110; Range: 98-107; Abnormal: Above high normal; Units: MEQ/L; Status: F Test: CARBON DIOXIDE LEVEL; Value: 24; Range: 21-32; Units: MEQ/L; Status: F Test: ANION GAP; Value: 8; Range: 8-16; Units: MEQ/L; Status: F Test: CALCIUM LEVEL; Value: 8.6; Range: 8.8-10.2; Abnormal: Below low normal; Units: MG/DL; Status: F Test Note: ; Units are mL/min/1.73 m2 Chronic Kidney Disease Staging per NKF: Stage I & II GFR >=60 Normal to Mildly Decreased Stage III GFR 30-59 Moderately Decreased Stage IV GFR 15-29 Severely Decreased Stage V GFR <15 Very Little GFR Left ESRD GFR <15 on AIRCRAFT [employer]CH [employer]OV[employer] TECHNICIAN Lab Order: Type & Screen; SPEC'M 05/28/16 18:18 Test: BLOOD TYPE; Value: A NEG; Status: F Test: AB SCREEN (INDIRECT PAYTON)GEL; Value: NEGATIVE; Status: F Radiology Order: CT Spine, Lumbar W/o Contrast Test: CT Spine, Lumbar W/o Contrast REASON FOR EXAMINATION: Trauma; CT LUMBAR SPINE WITHOUT CONTRAST:; ; HISTORY: Trauma.; ; A diffuse disc bulge is present at the L1-2 level. There is minimal compression; of the thecal sac. The L1 nerves exit the neural foramina without compression.; ; A diffuse disc bulge is present at the L2-3 level. There is minimal compression; of the thecal sac. The L2 nerves exit the neural foramina without compression.; ; A diffuse disc bulge is present at the L3-4 level. There is hypertrophy of the; ligamenta flava and posterior articulating facets. These findings produce minimal; central canal stenosis. The L3 nerves exit the neural foramina without; compression.; ; A diffuse disc bulge is present at the L4-5 level. There is minimal compression; of the thecal sac. There is hypertrophy of the posterior articulating facets. The; L4 nerves exit the neural foramina without compression.; ; A diffuse disc bulge is present at the L5-S1 level. There is minimal compression; of the thecal sac. There is hypertrophy of the posterior articulating facets.; There are 7 mm of grade 1 spondylolisthesis of L5 on S1. This is associated with; L5 pars defects. There is compression of the L5 nerves in the neural foramina.; ; The L1-2, L3-4, and L5-S1 intervertebral discs are decreased in height consistent; with disc degeneration. There is an old compression fracture of the T12 vertebral; body with minimal height loss.; ; IMPRESSION:; ; 1. Diffuse disc bulges at the L1-2, L2-3 and L4-5 levels with minimal thecal sac; compression.; ; 2. Minimal central canal stenosis at the L3-4 level secondary to disc bulge,; ligamentous and facet hypertrophy.; ; 3. Diffuse disc bulge at the L5-S1 level with minimal thecal sac compression.; There is grade 1 spondylolisthesis of L5 on S1 with associated L5 pars defects.; There is compression of the L5 nerves in the neural foramina.; ; ; Signed by; Jerald Sheffield MD 05/29/2016 08:22 A; Radiology Order: CT Spine,Thoracic W/o Contrast Test: CT Spine,Thoracic W/o Contrast REASON FOR EXAMINATION: Trauma; Clinical: Trauma.; ; Technique: Axial images through the thoracic spine from T1 through T12 with; coronal and sagittal re-formations.; ; Findings:; There is a mild acute compression fracture involving T12 with approximately 20%; loss of anterior superior vertebral body height. No retropulsed fracture; fragment is identified and the spinal canal appears relatively patent. Remainder; of the thoracic spine demonstrates mild to moderate degenerative changes; including anterior osteophytes at multiple levels. Paravertebral soft tissues; appear normal. Visualized lung morrissey demonstrate pulmonary vascular congestion; with interstitial edema and possible atelectasis. Some dental note is made of; TIPS.; ; Impression:; 1. Acute mild compression fracture involving T12 without retropulsed fracture; fragment or further obvious abnormality.; 2. Mild multilevel degenerative changes.; ; ; Signed by; Toney Cortes MD 05/28/2016 05:07 P; Radiology Order: Humerus Test: Humerus REASON FOR EXAMINATION: Trauma; Clinical: Trauma.; ; Technique: AP and lateral views of the right humerus.; ; Findings:; Age-related changes at the shoulder and elbow noted. No obvious acute fracture; dislocation. No subcutaneous emphysema or radiodense foreign body.; ; Impression:; No acute fracture or dislocation.; ; ; Signed by; Toney Cortes MD 05/28/2016 05:16 P; Radiology Order: CT ABD & PELVIS: IV Contrast Only Test: CT ABD & PELVIS: IV Contrast Only REASON FOR EXAMINATION: LUQ PAIN;Trauma; Clinical: Trauma with acute compression fracture at T12 and continued left-sided; abdominal pain.; ; Technique: Axial contrast enhanced images from the lung bases to the pubic; symphysis using 100 ml Isovue 370 intravenous contrast material with coronal and; sagittal re-formations.; ; Comparison: Multiple examinations dating through 01/05/2014.; ; Findings:; Lung bases demonstrate cardiomegaly with pulmonary venous congestion.; ; There is no evidence for solid organ injury. There is evidence for cirrhosis; with portal hypertension and prior TIPS. Splenomegaly is appreciated. Pancreas,; bilateral adrenal glands and kidneys are essentially normal/stable. Complex cyst; with perinephric stranding involving the posterolateral aspect of the left kidney; is essentially unchanged compared to 2013. The enteric system demonstrates; moderate fecal stasis and possible constipation without acute obstruction or; inflammatory process. Pelvis demonstrates normal bladder and age appropriate; prostate/seminal vesicles. No ascites. Abdominal aorta and vasculature is; relatively normal and without evidence for trauma. Surrounding musculoskeletal; structures demonstrate degenerative changes as well as known subtle compression; fracture at T12 and grade 1 anterolisthesis at the L5-S1 level with chronic; spondylolysis.; ; Impression:; No evidence for solid organ injury.; Diagnosed new acute T12 compression fracture.; Cardiomegaly with evidence for pulmonary venous congestion.; Chronic changes including cirrhosis and portal hypertension with splenomegaly as; well as generative changes the musculoskeletal structures including chronic; anterolisthesis at L5-S1 with spondylolysis.; ; ; Signed by; Toney Cortes MD 05/28/2016 06:44 P; Outcome: 18:50 Discharge ordered by Provider. sherry 19:14 Discharge Assessment: Patient awake, alert and oriented x 3. No cognitive and/or mlc functional deficits noted. Patient verbalized understanding of disposition instructions. patient administered narcotics - yes. Pt provided with safe discharge. The following High Risk Discharge criteria are identified: None. Discharged to home via wheelchair, with family. Condition: good Condition: stable. Discharge instructions given to patient, Instructed on discharge instructions, follow up and referral plans. medication usage, no driving heavy equipment, Demonstrated understanding of instructions, medications, Pt was receptive of discharge instructions/ teaching. Prescriptions given X 1. CT Study completed. Property sent home with patient. 19:15 Patient left the ED. [facility] [place] Signatures: Dispatcher [employer] EDMS Heather Thrasher, RN RN kcs La Gutierrez, Joon Reg Torito Calloway, AGENCY SERVICE COORDINATOR AGENCY SERVICE COORDINATOR Mee Daley,RN RN jo3 Danie Sanderson, METEOROLOGY FACULTY MEMBER METEOROLOGY FACULTY MEMBER kb5 Bernarda BerryRN RN rs3 Misbah Gayle RN RN ml6 Mayo Andrade, RPA-C RPA-Cck7 Dustin Mcdowell gr2 Tamera Florentino RN RN Marilu AzulRN RN Kathryn Viveros Corrections: (The following items were deleted from the chart) 15:21 15:05 Social history Smoking status: Patient states was never smoker of tobacco. No rs3 barriers to communication noted, The patient speaks fluent American, [facility] 15:10 Allergies: Lisinopril; "flu-like symptoms" [Inactive]; [place] [id number] 15:10 PMHx: Diabetes - NIDDM: uncontrolled [Inactive]; [place] [id number] 15:10 PMHx: Hypertension [Inactive]; [place] [address] 15:10 PMHx: Anemia [Inactive]; [place] [id number] : 15:10 PMHx: Hypercholesterolemia [Inactive]; [place] [address] 15:10 PMHx: Cirrhosis [Inactive]; [place] [address] 15:10 PMHx: GIvarices [Inactive]; [place] [address] 15:10 PMHx: Aortic Aneurysm [Inactive]; [place] [address] 15:10 PMHx: NJ [Inactive]; kcs ml6 Chart Complete MTDD
--- NOTE | 2016-05-30 20:16 | EDDOCDS ---
Physician Documentation [facility] Name: Joaquín Sterling Age: 75 yrs Sex: Male : 1940 Arrival Date: 05/28/2016 Time: 15:01 Bed 11 Private MD: Cedrick King E. Disposition: 05/28/16 18:50 Discharged to Home/Self Care. Impression: Fall on and from ladder, Wedge compression fracture of T11-T12 vertebra. - Condition is Stable. - Discharge Instructions: Back, Compression Fracture, Fall Prevention and Home Safety. - Prescriptions for Percocet 5- 325 mg Oral Tablet - take 1 tablet by ORAL route every 6 hours As needed MDD: 4 tabs; 20 tablet. - Medication Reconciliation, Local Pharmacy Hours form. - Follow up: Cedrick King; When: 4 - 5 days; Reason: Recheck today's complaints, Continuance of care. - Problem is new. - Symptoms are unchanged. - Notes: ICE 20 MIN AN HOUR Historical: - Allergies: Lisinopril"flu-like symptoms"; - Home Meds: 1. carvedilol 6.25 mg oral tab 1 tab 2 times per day 2. Lantus 100 unit/mL Sub-Q soln 32 unit 20 units at night and 32 in am 3. omeprazole 40 mg Oral cpDR 1 cap 2 times per day 4. Protonix 40 mg Oral grps once daily 5. Constulose 10 gram/15 mL oral soln 45 mL every 6 hours 6. atorvastatin 20 mg oral tab 1 tab once daily 7. Xifaxan 550 mg oral tab 1 tab 2 times per day 8. metoprolol tartrate 50 mg oral tab - PMHx: Diabetes - NIDDM: uncontrolled; Hypertension; Anemia; Hypercholesterolemia; Cirrhosis; GIvarices; Aortic Aneurysm; MD; - PSHx: Pacemaker Insertion; Cholecystectomy; Hernia repair; TIPS; - Social history: Smoking status: Patient states was never smoker of tobacco. No barriers to communication noted, The patient speaks fluent Amharic. - Family history: Not pertinent. - : The pt / caregiver states he / she is not on anticoagulants. Home medication list is obtained from the patient, [employer] import data. - Exposure Risk Screening:: None identified. Vital Signs: 05/28 15:02 BP 145 / 70; Pulse 98; Resp 20 S; Temp 96(O); Pulse Ox 97% on R/A; Weight 72.57 kg / gr2 159.99 lbs (M); Height 5 ft. 9 in. (175.26 cm) (M); Pain 10/10; 17:02 BP 138 / 87; Pulse 82; Resp 16; Pulse Ox 97% on R/A; Pain 8/10; ml6 17:22 BP 138 / 62; Pulse 83; Resp 18; Pulse Ox 98% on R/A; Pain 6/10; ml6 18:38 BP 144 / 68; Pulse 85; Resp 16; Temp 98.3; Pulse Ox 98% on R/A; Pain 6/10; ml6 18:40 BP 155 / 87; Pulse 86; Resp 18; Pulse Ox 98% on R/A; Pain 6/10; ml6 15:02 Body Mass Index 23.63 (72.57 kg, 175.26 cm) gr2 MDM: 16:16 ED course: THIS BLEACH MAKER INITIALLY EVALUATED PATIENT, PT PRESENTATION AND EXAM REVIEWED ck7 WITH DR CANNON, WILL MOVE PT TO MAIN ED FOR FURTHER EVALUATION AND TREATMENT. 16:31 IV Saline Lock ordered. ke 16:31 NS 0.9% 1000 ml IV at 100 mL/hr continuous ordered. ke 16:31 Ondansetron 4 mg IVP once ordered. ke 16:31 morphine 4 mg IVP every 30 minutes; Document pain score/vitals after each dose (Hold if ke SBP < 90mmHg) x2 ordered. 16:33 Humerus Ordered. EDMS 16:33 CT Spine, Lumbar W/o Contrast Ordered. EDMS 16:33 CT Spine,Thoracic W/o Contrast Ordered. EDMS 16:44 Financial registration complete. lg 17:37 [facility] was scanned into qcue and attached to record. gjb 18:02 CT ABD & PELVIS: IV Contrast Only Ordered. EDMS 18:06 Type & Screen Ordered. EDMS 18:07 CBC Ordered. EDMS 18:07 BMP Ordered. EDMS 18:11 morphine 4 mg IVP once ordered. ke 05/29 09:43 T-Sheet-- Draft Copy was scanned into qcue and attached to record. gb Administered Medications: 05/28 16:53 Drug: Ondansetron 4 mg [ondansetron HCl 2 mg/mL intravenous solution (2 mL)] Route: ml6 IVP; Site: left antecubital; 16:53 Drug: morphine 4 mg [morphine 4 mg/mL intravenous cartridge (1 mL)] Route: IVP; Site: ml6 left antecubital; 16:54 Drug: NS 0.9% 1000 ml [sodium chloride 0.9 % intravenous solution] Route: IV; Rate: 100 ml6 mL/hr; Site: left antecubital; 17:02 Drug: morphine 4 mg [morphine 4 mg/mL intravenous cartridge (1 mL)] Route: IVP; Site: ml6 left antecubital; 17:02 Follow up: BP 138 / 87; Pulse 82 bpm; Resp 16 bpm; Pulse Ox 97% RA; Pain 8/10 Adult ml6 17:22 Follow up: BP 138 / 62; Pulse 83 bpm; Resp 18 bpm; Pulse Ox 98% RA; Pain 6/10 Adult ml6 18:18 Drug: morphine 4 mg [morphine 4 mg/mL intravenous cartridge (1 mL)] Route: IVP; Site: ml6 left antecubital; 18:40 Follow up: BP 155 / 87; Pulse 86 bpm; Resp 18 bpm; Pulse Ox 98% RA; Pain 6/10 Adult ml6 Signatures: Dispatcher [employer] EDMS Heather Thrasher RN RN kcs La Gutierrez, Reg Reg gb Deisi Kirkland, Reg Reg lg Torito Rodriguez, FINAL INSPECTOR PAPER FINAL INSPECTOR PAPER Bernarda Mathew RN RN rs3 Misbah Gayle RN RN ml6 Mayo Andrade, RPA-C RPA-Cck7 Marilu Aj RN RN mlc Beck, Gabriela gjb The chart was reviewed and I authenticate all verbal orders and agree with the evaluation and treatment provided.Corrections: (The following items were deleted from the chart) 15:21 15:05 Social history Smoking status: Patient states was never smoker of tobacco. No rs3 barriers to communication noted, The patient speaks fluent Amharic, [facility] : 15:10 Allergies: Lisinopril; "flu-like symptoms" [Inactive]; [place] [id number] 17: 15:10 PMHx: Diabetes - NIDDM: uncontrolled [Inactive]; [place] [id number] 17: 15:10 PMHx: Hypertension [Inactive]; [place] [address] 17: 15:10 PMHx: Anemia [Inactive]; [place] 15:10 PMHx: Hypercholesterolemia [Inactive]; [place] 15:10 PMHx: Cirrhosis [Inactive]; kj [place] 15:10 PMHx: GIvarices [Inactive]; kj [place]6 15:10 PMHx: Aortic Aneurysm [Inactive]; kj gnanon 15:10 PMHx: MD [Inactive]; kj [place]6 Attachments: 17:37 [facility] Payment Agreement gjb 05/29 09:43 T-Sheet-- Draft Copy gb Chart Complete MTDD
== END 2016-05-28 19:15 | disposition home or self-care (01) ==
LOC: M ED 15:01
DX: S22.080A Wedge compression fracture of T11-T12 vertebra, initial encounter for closed fracture (principal); W11.XXXA Fall on and from ladder, initial encounter; Y92.015 Private garage of single-family (private) house as the place of occurrence of the external cause; Y93.89 Activity, other specified; Y99.8 Other external cause status; E11.9 Type 2 diabetes mellitus without complications; I10 Essential (primary) hypertension; D64.9 Anemia, unspecified; E78.00 Pure hypercholesterolemia, unspecified; K74.60 Unspecified cirrhosis of liver; I25.2 Old myocardial infarction; I71.9 Aortic aneurysm of unspecified site, without rupture; Z95.0 Presence of cardiac pacemaker; Z79.899 Other long term (current) drug therapy; Z79.4 Long term (current) use of insulin; Z79.2 Long term (current) use of antibiotics

== ENCOUNTER 2016-05-29 16:01 | Inpatient (IN) | payer MEDICARE, OTHER ==
[~2016-05-29] VITALS: Ht 172.7 cm; Wt 82.8 kg
[2016-05-29] MEDS ORDERED: ONDANSETRON 4MG/2ML VIAL (J2405) As Ordered ONE (16:32)
[2016-05-29] MEDS ORDERED: HYDROmorphone HCL 1 MG/ML SYRINGE (J1170) As Ordered ONE (16:33)
[2016-05-29] MEDS ORDERED: EPIDURAL/PCA KEYS XX PRN (17:00)
[2016-05-29] MEDS ORDERED: ONDANSETRON 4MG/2ML VIAL (J2405) IV PRN (17:00)
[2016-05-29] MEDS ORDERED: DEXTROSE 50% 50 ML SYRINGE IV PRN (17:00)
[2016-05-29] MEDS ORDERED: NALOXONE INJ 0.4 MG/1 ML VIAL (J2310) IV PRN (17:00)
[2016-05-29] MEDS ORDERED: diphenhydrAMINE INJ 50MG/ML VIAL (J1200) IV PRN (17:00)
[2016-05-29] MEDS ORDERED: MORPHINE PCA 1MG/ML 100ML CADD IV PRN (17:00)
[2016-05-29] MEDS ORDERED: GLUCOSE 4 GM CHEW TABLET PO PRN (17:00)
[2016-05-29] MEDS ORDERED: MOM 30ML SUSPENSION UDC PO PRN (17:00)
[2016-05-29] MEDS ORDERED: BISACODYL 5 MG TAB PO PRN (17:00)
[2016-05-29] MEDS ORDERED: MIRALAX *UNIT DOSE* 17GM PACKET PO PRN (17:00)
[2016-05-29] MEDS ORDERED: NALBUPHINE HCL 10 MG/ML AMP (J2300) IV PRN (17:00)
[2016-05-29] MEDS ORDERED: GLUCAGON FOR INJ 1 MG VIAL (J1610) SC PRN (17:00)
[2016-05-29] MEDS ORDERED: OXYC1TAB23 PO (17:01)
[2016-05-29] MEDS ORDERED: PANT40TA2 PO (17:01)
[2016-05-29] MEDS ORDERED: VITA100072 PO (17:01)
[2016-05-29 17:09] LABS: INR 1.29
[2016-05-29 17:10] LABS: BASO % 0.4 % (0.0-1.0); EOS # 0.2 K/mm3 (0.0-0.50); EOS % 3.6 % (0.0-3.0); LARGE UNSTAINED CELL # 0.2 K/mm3 (0.0-0.4); LARGE UNSTAINED CELL % 2.5 % (0.0-4.0); LYMPH % 16.3 % (24.0-44.0); MEAN CORPUSCULAR HEMOGLOBIN 35.3 pg (27.0-33.0); MEAN CORPUSCULAR HGB CONC 35.8 g/dl (32.0-36.5); MEAN CORPUSCULAR VOLUME 98.8 fl (80.0-96.0); MONO # 0.4 K/mm3 (0.0-0.8); MONO % 6.4 % (0.0-5.0); NEUTROPHILS # 4.5 K/mm3 (1.8-7.7); NEUTROPHILS % 70.8 % (36.0-66.0); RED CELL DISTRIBUTION WIDTH 15.5 % (11.5-14.5); WHITE BLOOD COUNT 6.3 K/mm3 (4.0-10.0)
[2016-05-29 17:12] LABS: PLATELET COUNT, AUTOMATED 75 k/mm3 (150-450)
[2016-05-29] MEDS: HumaLOG INSULIN (NovoLOG) PER UNIT SC SCH ×2 (17:30→21:00)
[2016-05-29 17:34] LABS: ALBUMIN/GLOBULIN RATIO 0.88 (1.00-1.93); BILIRUBIN,TOTAL 5.3 MG/DL (0.2-1.0); CALCIUM LEVEL 8.5 MG/DL (8.8-10.2); CREATININE FOR GFR 1.74 MG/DL (0.70-1.30); POTASSIUM SERUM 4.7 MEQ/L (3.5-5.1); TOTAL PROTEIN 6.4 GM/DL (6.4-8.2)
[2016-05-29] MEDS ORDERED: SODIUM CHLORIDE 0.9% 1000 ML IV ONE (19:15)
--- NOTE | 2016-05-29 19:15 | REP ---
Clinical: T12 compression fracture. Technique: AP and lateral views. Comparison: CT examinations dated 05/28/2016 and 04/12/2016. Findings: There is a compression fracture at T12 with approximately 20% loss of anterior superior vertebral body height which represents a new finding when compared to CT of the abdomen and pelvis dated 04/12/2016. Age related osteopenia and multilevel degenerative disc osteophyte complexes noted throughout the lumbosacral spine including anterior osteophytes, endplate sclerosis, disc space narrowing as well as chronic grade 1 anterolisthesis at the L5-S1 level. Impression: Compression fracture involving T12. Multilevel degenerative changes and osteopenia involving the lumbar spine. Signed by Toney Cortes MD 05/29/2016 07:07 P
--- NOTE | 2016-05-29 19:23 | HPEPDOC ---
General Date of Admission May 29, 2016 at 16:48 Primary Care Physician: Cedrick King M.D. Attending Physician: LELAND FERNANDO MD Chief Complaint The patient is a 75-year-old male admitted with a reason for visit of Compression Fracture Of Body Of Thoracic Vertebra. Source: Patient, Family Exam Limitations: No limitations History of Present Illness Mr. Sterling is a 75-year-old male who was in his usual state of health until yesterday when he fell from a ladder while working out a garage door and landed on concrete. He presented to the emergency department yesterday, and was diagnosed with a compression fracture of T12 with approximately 20% loss of anterior superior vertebral body height without retropulsed fracture, fragment, and the spinal canal appeared relatively patent. Imaging yesterday included a CT of the thoracic spine without contrast, a CT of the lumbar spine without contrast, an x-ray of the right humerus which had no acute fracture or dislocation, and a CT of the abdomen and pelvis with contrast. Because he was neurologically intact at the time, and there is no evidence of spinal compression on imaging he was discharged home. The patient continued to have intractable back pain, for which he called his primary care physician Dr. Cedrick King who advised him to return to the emergency room. He did not have any additional fall or injury since yesterday. He continues to be neurologically intact today, with no loss of motor or sensation in the lower extremities, he only has some loss of range of motion in the upper right extremity secondary to pain. His shoulder injury was sustained at the same time when he fell from the ladder yesterday. He is accompanied in the room by his and [id number] who also provide much of the story. Otherwise, he denies having any recent illness, as a matter fact since his TIPS procedure in the summer he has been feeling progressively well, and the reason he decided to attempt to fix a garage door was because of his improved sense of well-being. Home Medications Scheduled Atorvastatin Calcium (Atorvastatin Calcium) 10 Mg Tab 10 MG PO QHS (Reported) Carvedilol (Carvedilol) 6.25 Mg Tab 6.25 MG PO BID (Reported) Cholecalciferol (Vitamin D) 1,000 Unit Tab 1,000 UNIT PO DAILY (Reported) Cyanocobalamin (Vitamin B12) 1,000 Mcg Tab 1,000 MCG PO DAILY (Reported) Insulin Glargine (Lantus Solostar) 100 Unit/Ml Inj 20 UNITS SC QHS (Reported) Insulin Glargine (Lantus Solostar) 100 Unit/Ml Inj 42 UNITS SC QAM (Reported) Pantoprazole Sodium (Pantoprazole Sodium) 40 Mg Tab 40 MG PO BID (Reported) Rifaximin (Xifaxan) 550 Mg Tab 550 MG PO BID (Reported) Vitamin E (Vitamin E) 400 Unit Cap 400 UNIT PO BID (Reported) Scheduled PRN Lactulose (Lactulose) 10 Gm/15 Ml Gretchen 30 ML PO Q6H PRN PRN CONSTIPATION ( Reported) SEE COMMENTS Oxycodone/Acetaminophen (Oxycodone/Acetaminophen 5-325 mg) 1 Tab Tab 1 TAB PO Q6H PRN PRN PAIN (Reported) Allergies Coded Allergies: Lisinopril (Verified Adverse Reaction, Intermediate, ELEVATES POTASSIUM, Violently ill, emesis, 01/22/16) Past Medical History Medical History Anemia of chronic disease Diabetes mellitus type 2 Hypertension Hyperlipidemia Chronic kidney disease stage III 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 Johnson TIPS procedure in summer Remote cholecystectomy Remote hernia repair Family History Family History He has some paternal cousins with heart problems. His mother had diabetes. Father of infirmities of old age. He has 4 children, 3 sons who are healthy , and one daughter who has diabetes Social History * Smoker: non-smoker Alcohol: denies Drugs: denies Psychosocial History: No pertinent psych hx Social History Lives at home with his . 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 Review of Symptoms Constitutional: Denies: Chills, Fever, Night Sweats Eyes: Denies: Pain, Vision change ENT: Denies: Dysphagia, Ear Pain, Head Aches Skin: Reports: Jaundice, Denies: Breakdown, Itching, Lesions, Rash Pulmonary: Denies: Cough, Dyspnea Cardiovascular: Denies: Chest Pain, Palpitations Gastrointestinal: Denies: Abdominal Pain, Diarrhea, Nausea, Vomiting Musculoskeletal: Reports: Back Pain, Denies: Joint Pain, Muscle Pain, Neck Pain, Spasms Neurological: Denies: Change in speech, Confusion, Incoordination, Numbness, Weakness Psych: Reports: Mood Normal, Denies: Depression, Memory Issues Physical Examination General Exam: Positive: Cooperative, Severe Distress Eye Exam: Positive: EOMI, Sclera icteric ENT Exam: Positive: Atraumatic, Mucous membr. moist/pink, Pharynx Normal Chest Exam: Positive: Clear to auscultation, Normal air movement Heart Exam: Positive: Murmurs (1/6 systolic), Rate Normal, Regular Rhythm, Negative: Rubs Abdomen Exam: Positive: Normal bowel sounds, Soft, Negative: Hepatospenomegaly Extremity Exam: Positive: Normal pulses, Other (decreased range of motion in the right shoulder secondary to pain), Negative: Clubbing, Cyanosis, Edema Skin Exam: Positive: Nl turgor and temperature, Negative: Breakdown, Lesion Neuro Exam: Positive: Cranial Nerves 3-12 NL, Normal Speech, Normal Tone, Other (no bowel or bladder incontinence), Sensation Intact, Strength at 5/5 X4 ext Psych Exam: Positive: Mental status NL, Mood NL, Oriented x 3 Vital Signs Blood pressure 144/87, pulse 88, respirations 14, temperature 98.2, oxygen 98% on room air Laboratory Data Labs 24H Laboratory Tests 2 05/29/16 16:46: Aspartate Amino Transf (AST/SGOT) 98H, Alanine Aminotransferase (ALT/SGPT) 69, Alkaline Phosphatase 259H, Total Bilirubin 5.3H, Direct Bilirubin 1.0H, Albumin 3.0L, Albumin/Globulin Ratio 0.88L, Amylase Level 66, Anion Gap 10, White Blood Count 6.3, Red Blood Count 3.52L, Hemoglobin 12.5L, Hematocrit 34.8L, Mean Corpuscular Volume 98.8H, Mean Corpuscular Hemoglobin 35.3H, Mean Corpuscular Hemoglobin Concent 35.8, Red Cell Distribution Width 15.5H, Platelet Count 75L, Neutrophils (%) (Auto) 70.8H, Lymphocytes (%) (Auto) 16.3L, Monocytes (%) (Auto ) 6.4H, Eosinophils (%) (Auto) 3.6H, Basophils (%) (Auto) 0.4, Neutrophils # ( Auto) 4.5, Lymphocytes # (Auto) 1.0L, Monocytes # (Auto) 0.4, Eosinophils # ( Auto) 0.2, Basophils # (Auto) 0.0, Calcium Level 8.5L, Glomerular Filtration Rate 41.0L, Large Unclassified Cells # 0.2, Large Unclassified Cells % 2.5, Lipase 260, Prothromb Time International Ratio 1.29, Prothrombin Time 16.2H, Total Protein 6.4 CBC/BMP Laboratory Tests 05/29/16 16:46 Red Blood Count 3.52 L, Mean Corpuscular Volume 98.8 H, Mean Corpuscular Hemoglobin 35.3 H, Mean Corpuscular Hemoglobin Concent 35.8, Red Cell Distribution Width 15.5 H, Neutrophils (%) (Auto) 70.8 H, Lymphocytes (%) (Auto ) 16.3 L, Monocytes (%) (Auto) 6.4 H, Eosinophils (%) (Auto) 3.6 H, Basophils (% ) (Auto) 0.4, Neutrophils # (Auto) 4.5, Lymphocytes # (Auto) 1.0 L, Monocytes # (Auto) 0.4, Eosinophils # (Auto) 0.2, Basophils # (Auto) 0.0 Assessment/Plan Problems: (1) Compression fracture of body of thoracic vertebra Status: Acute (2) Intractable back pain Status: Acute (3) Acute kidney injury Status: Acute (4) Anemia Status: Chronic (5) CAD (coronary artery disease) Status: Chronic (6) HLD (hyperlipidemia) Status: Chronic (7) Diabetes type 2, uncontrolled Status: Chronic (8) HTN, goal below 130/80 Status: Chronic (9) Esophageal varices determined by endoscopy Status: Chronic (10) Cirrhosis of liver Status: Chronic (11) S/P TIPS (transjugular intrahepatic portosystemic shunt) Status: Chronic Plan / VTE VTE Prophylaxis Ordered?: Yes (Heparin) Plan Plan Will admit patient for observation to [facility] under the care of Dr. Cedrick King for intractable back pain. Orthopedic surgeon Dr. Wang has already been contacted and has agreed to see the patient in consultation. The patient remains neurologically intact at this time. Pain control will be through DESIGN MAINTENANCE ENGINEER pump. We will order thoracolumbar spine films and to determine if there is any change since yesterday, and will also order an MRI of the right shoulder as the patient continues to have pain and decreased range of motion as well. We will request physical therapy to evaluate and treat. He regards to his acute kidney injury, we will give him a 500 mL bolus of normal saline and recheck in the morning, and he does have a very slow IV fluids running with the DESIGN MAINTENANCE ENGINEER pump. Otherwise, we will continue with his home regimen for his chronic conditions. GME ATTESTATION GME ATTESTATION My preceptor for this patient encounter was physically present in the building during the encounter and was fully available. As needed, all aspects of the patient interview, examination, medical decision making process, and medical care plan development were reviewed and approved by the preceptor. Preceptor is aware and concurs with the plan as stated in the body of this note and will attest to such by his/her cosignature. JEFFERY VARELA DO May 29, 2016 19:23
[2016-05-29] MEDS ORDERED: LEVEMIR (INSULIN DETEMIR) 1 UNITS/0.01ML SC SCH (21:00)
[2016-05-29] MEDS ORDERED: HEPARIN SOD (PORCINE) 5000 UNITS/ML VIAL SC SCH (22:00)
--- NOTE | 2016-05-29 22:09 | EDDOCDS ---
Nurse's Notes [facility] Name: Joaquín Sterling Age: 75 yrs Sex: Male : 1940 Arrival Date: 05/29/2016 Time: 16:01 Bed 10 Private MD: Diagnosis: Wedge compression fracture of T11-T12 vertebra Presentation: 05/29 16:07 Presenting complaint: EMS states: seen yesterday from fall ladder, seen here. diagnosed jmb with compression fracture. discharged home, this a.m. pain has gotten worse since yesterday. Called Dr. King whom stated to transport by ambulance to [facility]. Suicide/Homicide risk assessment- the patient denies having any suicidal and/or homicidal ideations and does not present with any other emotional, behavioral or mental health complaints. 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 Transition of care: patient was not received from another setting of care. 16:07 Acuity: CALLI Level 3 b 16:07 Method Of Arrival: Ambulance [facility] 21:44 Adult Sepsis Screening: The patient does not have new or worsening altered mentation. kas2 Patient's respiratory rate is less than 22. Systolic blood pressure is greater than 100. Patient has a qSOFA score of 0- Negative Sepsis Screen. Triage Assessment: 16:09 General: Appears uncomfortable, Behavior is restless. Pain: Location: back Pain jmb currently is 10 out of 10 on a pain scale. Neurological: Level of Consciousness is awake, alert, Oriented to person, place, time, Speech is normal, Facial symmetry appears normal, Facial symmetry: tongue is midline. Respiratory: Airway is patent Respiratory effort is even, unlabored, Respiratory pattern is regular, symmetrical. GI: Abdomen is non- distended. Derm: Skin is pink, warm & dry. Musculoskeletal: Range of motion limited in all extremities. Historical: - Allergies: Lisinopril"flu-like symptoms"; - Home Meds: 1. atorvastatin 20 mg oral tab 1 tab once daily 2. carvedilol 6.25 mg oral tab 1 tab 2 times per day 3. Constulose 10 gram/15 mL oral soln 45 mL every 6 hours 4. Lantus 100 unit/mL Sub-Q soln 32 unit 20 units at night and 32 in am 5. metoprolol tartrate 50 mg Oral tab 6. omeprazole 40 mg Oral cpDR 1 cap 2 times per day 7. Protonix 40 mg Oral grps once daily 8. Xifaxan 550 mg oral tab 1 tab 2 times per day - PMHx: Anemia; Aortic Aneurysm; Cirrhosis; Diabetes - NIDDM: uncontrolled; GIvarices; Hypercholesterolemia; Hypertension; MT; - PSHx: Pacemaker Insertion; Cholecystectomy; Hernia repair; TIPS; - Social history: Smoking status: Patient states was never smoker of tobacco. No barriers to communication noted, The patient speaks fluent Maldivian, Speaks appropriately for age. - Family history: Not pertinent. - : The pt / caregiver states he / she is not on anticoagulants. Home medication list is obtained from the patient. - Exposure Risk Screening:: None identified. Screenin:12 Screening information is obtained from the patient. Fall risk: No risks identified. ml6 Assistance ADL's: requires no assistance with activities of daily living. Abuse/DV Screen: The patient / caregiver reports he/she is: not in a situation that causes fear, pain or injury. Nutritional screening: No deficits noted. Advance Directives: Currently, there is no health care proxy. home support is adequate. Assessment: 16:10 General: Appears distressed, Behavior is flat. Pain: Location: thoracic area Pain ml6 currently is 10 out of 10 on a pain scale. Pain does not radiate. Quality of pain is described as aching, Pain began 2-3 days ago Is continuous Alleviated by nothing. Neurological: No deficits noted. Cardiovascular: No deficits noted. Capillary refill < 3 seconds is brisk in bilateral fingers toes Heart tones S1 S2 present Edema is absent. Pulses are all present. Respiratory: No deficits noted. Airway is patent Respiratory effort is even, unlabored, Respiratory pattern is regular, symmetrical. GI: Abdomen is flat, non- distended Bowel sounds present X 4 quads. Injury Description: No known injury. 17:05 Reassessment: Patient appears in no apparent distress at this time. Patient states ml6 feeling better. Patient states symptoms have improved. patient states pain is 6/10, patient sleeping intermittently. 18:05 Reassessment: Patient appears in no apparent distress at this time. Patient states ml6 feeling better. Patient states symptoms have improved. patient sleeping intermittently, Dr. Bonilla in to see patient. 18:35 General: Spoke with Dr. Chad via phone. Made aware that patient has a pacemaker, jc4 therefore, MRI unable to be done. 19:03 General: Verbal report given by Wolf Gayle RN. Assumed care of patient at this time.. kas2 19:48 General: Appears in no apparent distress, uncomfortable, well nourished, well groomed, kas2 Behavior is appropriate for age, cooperative. Pain: Location: thoracic area and back Pain currently is 2 out of 10 on a pain scale. Pain does not radiate. Neurological: Level of Consciousness is awake, alert, Oriented to person, place, time. Cardiovascular: Capillary refill < 3 seconds Heart tones S1 S2 present Rhythm is sinus rhythm No ectopy. Respiratory: Airway is patent Respiratory effort is even, unlabored, Respiratory pattern is regular, symmetrical, Breath sounds are clear bilaterally. GI: Abdomen is flat, non- distended Bowel sounds present X 4 quads. Derm: Skin is intact, Skin is dry, Skin is pink, warm & dry. Skin temperature is warm. Injury Description: No known injury. 20:50 General: Patient laying in bed with family at bedside. Appears comfortable. Denies pain kas2 or discomfort at this time. No apparent distress noted. Call trinidad within reach. Will continue to monitor.. 21:42 General: Patient sleeping at this time with family at bedside. No apparent distress. kas2 Appears comfortable at this time. Call trinidad within reach. Will continue to monitor.. Vital Signs: 16:09 BP 155 / 84; Pulse 89; Resp 18; Temp 98.2(O); Pulse Ox 98% on R/A; Pain 10/10; ml6 17:20 BP 144 / 87; Pulse 88; Resp 14; Pulse Ox 98% on R/A; Pain 6/10; ml6 19:08 BP 134 / 67 (auto/); kas2 19:08 Pulse 78 MON; Pulse Ox 98% ; kas2 19:50 Resp 18; Temp 97.9(O); Pain 2/10; kas2 21:09 BP 136 / 72; Pulse 89; Resp 18; Temp 98.0; Pulse Ox 99% on R/A; Pain 0/10; kas2 21:45 BP 132 / 62; Pulse 83; Resp 20; Temp 98.8(TE); Pulse Ox 100% on 2 lpm NC; Pain 6/10; jmv Vitals: 16:09 Log In Time N/A - ambulance arrival. [facility] ED Course: 16:02 Patient visited by Angie Bravo, Laborer Tree Tapping. lbd 16:02 Patient moved to Waiting lbd 16:03 Misbah Gayle, RN is Primary Nurse. lbd 16:03 Patient moved to 10 lbd 16:08 Triage Initiated jmb 16:25 Carolann Lange MD is Attending Physician. sd1 16:25 Patient visited by Carolann Lange MD. sd1 16:39 [facility] Payment Agreement was scanned into viblast and attached to record. gjb 16:58 Patient visited by Leonidas Fontaine, JOHN. jlf 17:12 Maintain field IV. Dressing intact. Good blood return noted. Site clean & dry. Gauge & ml6 site: 20g Right FA. 17:13 Patient visited by Misbah Gayle RN. ml6 17:25 Coni Bonilla is Hospitalizing Provider. sd1 19:02 Cate MarieRN is Primary Nurse. kas2 19:03 Patient visited by Cate Marie RN. kas2 19:50 Patient visited by Cate Marie RN. kas2 20:04 Spine, Lumbosacral, partial Returned. EDMS 21:10 Patient visited by Cate Marie RN. kas2 21:44 Patient visited by Cate Marie RN. kas2 21:44 The patient / caregiver is instructed regarding the plan of care and ED course. kas2 21:44 No procedures done that require assistance. kas2 21:46 Patient visited by Boris Barcenas PCA. [facility] Administered Medications: 16:50 Drug: Dilaudid - HYDROmorphone 0.5 mg [hydromorphone 1 mg/mL injection syringe (0.5 ml6 mL)] Route: IVP; Site: right hand; 17:20 Follow up: BP 144 / 87; Pulse 88 bpm; Resp 14 bpm; Pulse Ox 98% RA; Pain 6/10 Adult ml6 16:50 Drug: Ondansetron 4 mg [ondansetron HCl 2 mg/mL intravenous solution (2 mL)] Route: ml6 IVP; Site: right hand; 17:00 Drug: NS 0.9% 1000 ml [sodium chloride 0.9 % intravenous solution] Route: IV; Rate: 100 ml6 mL/hr; Site: right forearm; Order Results: Lab Order: Amylase; SPEC'M 05/29/16 16:46 Test: AMYLASE; Value: 66; Range: 25-115; Units: U/L; Status: F Lab Order: Basic Metabolic Profile; SPEC'M 05/29/16 16:46 Test: GLUCOSE, FASTING; Value: 202; Range: 83-110; Abnormal: Above high normal; Units: MG/DL; Status: F Test: BLOOD UREA NITROGEN; Value: 27; Range: 7-18; Abnormal: High; Units: MG/DL; Status: F Test: CREATININE FOR GFR; Value: 1.74; Range: 0.70-1.30; Abnormal: Above high normal; Units: MG/DL; Status: F Test: GLOMERULAR FILTRATION RATE; Value: 41.0; Range: >42; Abnormal: Below low normal; Status: F Test: SODIUM LEVEL; Value: 140; Range: 136-145; Units: MEQ/L; Status: F Test: POTASSIUM SERUM; Value: 4.7; Range: 3.5-5.1; Units: MEQ/L; Status: F Test: CHLORIDE LEVEL; Value: 106; Range: 98-107; Units: MEQ/L; Status: F Test: CARBON DIOXIDE LEVEL; Value: 24; Range: 21-32; Units: MEQ/L; Status: F Test: ANION GAP; Value: 10; Range: 8-16; Units: MEQ/L; Status: F Test: CALCIUM LEVEL; Value: 8.5; Range: 8.8-10.2; Abnormal: Below low normal; Units: MG/DL; Status: F Test Note: ; Units are mL/min/1.73 m2 Chronic Kidney Disease Staging per NKF: Stage I & II GFR >=60 Normal to Mildly Decreased Stage III GFR 30-59 Moderately Decreased Stage IV GFR 15-29 Severely Decreased Stage V GFR <15 Very Little GFR Left ESRD GFR <15 on PROFESSOR OF THEATRE Lab Order: CBC with Diff; SPEC'M 05/29/16 16:46 Test: WHITE BLOOD COUNT; Value: 6.3; Range: 4.0-10.0; Units: K/mm3; Status: F Test: RED BLOOD COUNT; Value: 3.52; Range: 4.30-6.10; Abnormal: Below low normal; Units: M/mm3; Status: F Test: HEMOGLOBIN; Value: 12.5; Range: 14.0-18.0; Abnormal: Below low normal; Units: g/dl; Status: F Test: HEMATOCRIT; Value: 34.8; Range: 42.0-52.0; Abnormal: Below low normal; Units: %; Status: F Test: MEAN CORPUSCULAR VOLUME; Value: 98.8; Range: 80.0-96.0; Abnormal: Above high normal; Units: fl; Status: F Test: MEAN CORPUSCULAR HEMOGLOBIN; Value: 35.3; Range: 27.0-33.0; Abnormal: Above high normal; Units: pg; Status: F Test: MEAN CORPUSCULAR HGB CONC; Value: 35.8; Range: 32.0-36.5; Units: g/dl; Status: F Test: RED CELL DISTRIBUTION WIDTH; Value: 15.5; Range: 11.5-14.5; Abnormal: Above high normal; Units: %; Status: F Test: PLATELET COUNT, AUTOMATED; Value: 75; Range: 150-450; Abnormal: Below low normal; Units: k/mm3; Status: F Test: NEUTROPHILS %; Value: 70.8; Range: 36.0-66.0; Abnormal: Above high normal; Units: %; Status: F Test: LYMPH %; Value: 16.3; Range: 24.0-44.0; Abnormal: Below low normal; Units: %; Status: F Test: MONO %; Value: 6.4; Range: 0.0-5.0; Abnormal: Above high normal; Units: %; Status: F Test: EOS %; Value: 3.6; Range: 0.0-3.0; Abnormal: Above high normal; Units: %; Status: F Test: BASO %; Value: 0.4; Range: 0.0-1.0; Units: %; Status: F Test: LARGE UNSTAINED CELL %; Value: 2.5; Range: 0.0-4.0; Units: %; Status: F Test: NEUTROPHILS #; Value: 4.5; Range: 1.8-7.7; Units: K/mm3; Status: F Test: LYMPH #; Value: 1.0; Range: 1.5-4.5; Abnormal: Below low normal; Units: K/mm3; Status: F Test: MONO #; Value: 0.4; Range: 0.0-0.8; Units: K/mm3; Status: F Test: EOS #; Value: 0.2; Range: 0.0-0.50; Units: K/mm3; Status: F Test: BASO #; Value: 0.0; Range: 0.0-0.2; Units: K/mm3; Status: F Test: LARGE UNSTAINED CELL #; Value: 0.2; Range: 0.0-0.4; Units: K/mm3; Status: F Lab Order: Lipase; SPEC' 05/29/16 16:46 Test: LIPASE; Value: 260; Range: 73-393; Units: U/L; Status: F Lab Order: Liver Profile; SPEC' 05/29/16 16:46 Test: AST/SGOT; Value: 98; Range: 15-37; Abnormal: Above high normal; Units: U/L; Status: F Test: ALT/SGPT; Value: 69; Range: 12-78; Units: U/L; Status: F Test: ALKALINE PHOSPHATASE; Value: 259; Range: 45-117; Abnormal: Above high normal; Units: U/L; Status: F Test: BILIRUBIN,TOTAL; Value: 5.3; Range: 0.2-1.0; Abnormal: Above high normal; Units: MG/DL; Status: F Test: BILIRUBIN,DIRECT; Value: 1.0; Range: 0.0-0.2; Abnormal: Above high normal; Units: MG/DL; Status: F Test: TOTAL PROTEIN; Value: 6.4; Range: 6.4-8.2; Units: GM/DL; Status: F Test: ALBUMIN; Value: 3.0; Range: 3.2-5.2; Abnormal: Below low normal; Units: GM/DL; Status: F Test: ALBUMIN/GLOBULIN RATIO; Value: 0.88; Range: 1.00-1.93; Abnormal: Below low normal; Status: F Lab Order: Prothrombin Time Profile\\E\\INR; SPEC' 05/29/16 16:46 Test: PROTHROMBIN TIME; Value: 16.2; Range: 12.3-14.5; Abnormal: Above high normal; Units: SECONDS; Status: F Test: INR; Value: 1.29; Status: F Test Note: ; THERAPUTIC HUMAN INR VALUES INDICATIONS NORMAL RANGES PROPHYLAXIS/TREATMENT OF: VENOUS THROMBOSIS 2.0-3.0 PULMONARY EMBOLISM 2.0-3.0 PREVENTION OF SYSTEMIC EMBOLISM FROM: TISSUE HEART VALVES 2.0-3.0 ACUTE MYOCARDIAL INFARCTION 2.0-3.0 VALVULAR HEART DISEASE 2.0-3.0 ATRIAL FIBRILLATION 2.0-3.0 MECHANICAL VALVES(HIGH RISK) 2.5-3.5 RECURRENT MYOCARDIAL INFARCTION 2.5-3.5 Radiology Order: Spine, Lumbosacral, partial Test: Spine, Lumbosacral, partial REASON FOR EXAMINATION: AP / Lateral only. Prior T12 compression fracture.; Clinical: T12 compression fracture.; ; Technique: AP and lateral views.; ; Comparison: CT examinations dated 05/28/2016 and 04/12/2016.; ; Findings:; There is a compression fracture at T12 with approximately 20% loss of anterior; superior vertebral body height which represents a new finding when compared to CT; of the abdomen and pelvis dated 04/12/2016.; ; Age related osteopenia and multilevel degenerative disc osteophyte complexes; noted throughout the lumbosacral spine including anterior osteophytes, endplate; sclerosis, disc space narrowing as well as chronic grade 1 anterolisthesis at the; L5-S1 level.; ; Impression:; Compression fracture involving T12.; Multilevel degenerative changes and osteopenia involving the lumbar spine.; ; ; Signed by; Toney Cortes MD 05/29/2016 07:07 P; Outcome: 17:25 Decision to Hospitalize by Provider. sd1 21:43 Discharge Assessment: patient administered narcotics - yes. Patient was admitted to the [address] or transferred to another facility. The following High Risk Discharge criteria are identified: None. Admitted to Med/Surg accompanied by tech, family with patient, via stretcher, with chart. Condition: good Condition: stable Condition: improved. CT Study completed. Property :Personal belongings accompany Pt. 22:09 Patient left the ED. [facility] Signatures: Dispatcher [employer] EDMS Carolann Lange MD MD sd1 Angie Bravo, Laborer Tree Tapping Unit lbd Misbah Gayle, RN RN ml6 Shabbir, Mee, RN RN jc4 Abraham Nelson,RN RN beckyb Minal, Leonidas, VENEER SPLICER VENEER SPLICER juliettef Kathryn Rodirguez Kim,RN RN kas2 Boris Barcenas, VENEER SPLICER VENEER SPLICER jmv MTDD
--- NOTE | 2016-05-29 22:09 | EDDOCDS ---
Physician Documentation [facility] Name: Joaquín Sterling Age: 75 yrs Sex: Male : 1940 Arrival Date: 05/29/2016 Time: 16:01 Bed 10 Private MD: Disposition: 05/29/16 17:25 Hospitalization ordered by Coni Bonilla for Inpatient Admission. Preliminary diagnosis is Wedge compression fracture of T11-T12 vertebra. - Bed requested for 5 Wagner. - Status is Inpatient Admission. kas2 - Condition is Stable. - Problem is new. - Symptoms have improved. Historical: - Allergies: Lisinopril"flu-like symptoms"; - Home Meds: 1. atorvastatin 20 mg oral tab 1 tab once daily 2. carvedilol 6.25 mg oral tab 1 tab 2 times per day 3. Constulose 10 gram/15 mL oral soln 45 mL every 6 hours 4. Lantus 100 unit/mL Sub-Q soln 32 unit 20 units at night and 32 in am 5. metoprolol tartrate 50 mg Oral tab 6. omeprazole 40 mg Oral cpDR 1 cap 2 times per day 7. Protonix 40 mg Oral grps once daily 8. Xifaxan 550 mg oral tab 1 tab 2 times per day - PMHx: Anemia; Aortic Aneurysm; Cirrhosis; Diabetes - NIDDM: uncontrolled; GIvarices; Hypercholesterolemia; Hypertension; MT; - PSHx: Pacemaker Insertion; Cholecystectomy; Hernia repair; TIPS; - Social history: Smoking status: Patient states was never smoker of tobacco. No barriers to communication noted, The patient speaks fluent [place] Islander, Speaks appropriately for age. - Family history: Not pertinent. - : The pt / caregiver states he / she is not on anticoagulants. Home medication list is obtained from the patient. - Exposure Risk Screening:: None identified. Vital Signs: 05/29 16:09 BP 155 / 84; Pulse 89; Resp 18; Temp 98.2(O); Pulse Ox 98% on R/A; Pain 10/10; ml6 17:20 BP 144 / 87; Pulse 88; Resp 14; Pulse Ox 98% on R/A; Pain 6/10; ml6 19:08 BP 134 / 67 (auto/); kas2 19:08 Pulse 78 MON; Pulse Ox 98% ; kas2 19:50 Resp 18; Temp 97.9(O); Pain 2/10; kas2 21:09 BP 136 / 72; Pulse 89; Resp 18; Temp 98.0; Pulse Ox 99% on R/A; Pain 0/10; kas2 21:45 BP 132 / 62; Pulse 83; Resp 20; Temp 98.8(TE); Pulse Ox 100% on 2 lpm NC; Pain 6/10; jmv MDM: 16:30 IV Saline Lock ordered. sd1 16:31 Dilaudid - HYDROmorphone 0.5 mg IVP once ordered. sd1 16:31 Ondansetron 4 mg IVP once ordered. sd1 16:31 NS 0.9% 1000 ml IV at 100 mL/hr continuous ordered. sd1 16:31 Amylase Ordered. EDMS 16:31 Basic Metabolic Profile Ordered. EDMS 16:31 CBC with Diff Ordered. EDMS 16:31 Lipase Ordered. EDMS 16:31 Liver Profile Ordered. EDMS 16:31 Prothrombin Time Profile\\E\\INR Ordered. EDMS 16:32 BED REQUEST+ADM ordered. EDMS 16:39 [facility] Payment Agreement was scanned into [employer] and attached to record. gjb 16:39 Financial registration complete. gjb 16:57 PHYSICAL THERAPY EVAL & TREAT ordered. EDMS 16:58 Admission / Observation Status ordered. EDMS 16:58 CONSISTENT CARBOHYDRATES ordered. EDMS 18:43 Spine, Lumbosacral, partial Ordered. EDMS 19:31 BASIC METABOLIC PROFILE Ordered. EDMS 19:31 CBC WITH DIFFERENTIAL Ordered. EDMS 19:32 HEMOGLOBIN A1C Ordered. EDMS 20:42 CARDIAC RISK PROFILE Ordered. EDMS Administered Medications: 16:50 Drug: Dilaudid - HYDROmorphone 0.5 mg [hydromorphone 1 mg/mL injection syringe (0.5 ml6 mL)] Route: IVP; Site: right hand; 17:20 Follow up: BP 144 / 87; Pulse 88 bpm; Resp 14 bpm; Pulse Ox 98% RA; Pain 6/10 Adult ml6 16:50 Drug: Ondansetron 4 mg [ondansetron HCl 2 mg/mL intravenous solution (2 mL)] Route: ml6 IVP; Site: right hand; 17:00 Drug: NS 0.9% 1000 ml [sodium chloride 0.9 % intravenous solution] Route: IV; Rate: 100 ml6 mL/hr; Site: right forearm; Signatures: Dispatcher MedHost EDMS Carolann Lange MD MD sd1 Gage SCHULTZ, Kim, RN RN Abraham AnneRN RN Kathryn Serrano Kim, RN RN kas2 Misbah Gayle RN ml6 The chart was reviewed and I authenticate all verbal orders and agree with the evaluation and treatment provided.Corrections: (The following items were deleted from the chart) 16:58 16:55 NO ADDED SALT DIET ordered. EDMS EDMS 18:26 17:50 MRI Shoulder W/O CONTRAST ordered. EDMS EDMS 18:54 18:05 Spine, THORACOLUMBAR 2 VIEW ordered. EDMS EDMS 20:42 19:32 CARDIAC RISK PROFILE ordered. EDMS EDMS Attachments: 16:39 [facility] Payment Agreement gj MTDD
[2016-05-29 22:20] VITALS: BP 160/76
[2016-05-29] MEDS: OMEPRAZOLE 20 MG CAP PO SCH (23:27)
[2016-05-29] MEDS: SENOKOT S TAB PO SCH (23:27)
[2016-05-29] MEDS: ATORVASTATIN 20 MG TAB PO SCH (23:27)
[2016-05-29] MEDS: LIDOCAINE 5% (LIDODERM) PATCH TD SCH (23:28)
[2016-05-29 23:30] VITALS: BP 144/90
[2016-05-30] MEDS ORDERED: LACTULOSE 20 GM/30 ML SYRUP UD PO PRN
[2016-05-30] MEDS: rifAXIMin 550 MG TAB (XIFAXAN) PO SCH ×3 (00:12→20:13)
[2016-05-30] MEDS: CARVedilol 6.25 MG TAB PO SCH ×3 (00:17→20:14)
[2016-05-30] MEDS: NS 1,000 ML IV SCH ×4 (00:20→20:17)
[2016-05-30 02:00] VITALS: BP 142/82
[2016-05-30 06:00] VITALS: BP 146/65
[2016-05-30 06:40] LABS: BASO % 0.2 % (0.0-1.0); EOS # 0.2 K/mm3 (0.0-0.50); EOS % 2.2 % (0.0-3.0); LARGE UNSTAINED CELL # 0.2 K/mm3 (0.0-0.4); LARGE UNSTAINED CELL % 2.3 % (0.0-4.0); LYMPH # 0.7 K/mm3 (1.5-4.5); LYMPH % 9.7 % (24.0-44.0); MEAN CORPUSCULAR HEMOGLOBIN 35.2 pg (27.0-33.0); MEAN CORPUSCULAR HGB CONC 35.7 g/dl (32.0-36.5); MEAN CORPUSCULAR VOLUME 98.7 fl (80.0-96.0); MONO # 0.4 K/mm3 (0.0-0.8); MONO % 5.8 % (0.0-5.0); NEUTROPHILS # 5.4 K/mm3 (1.8-7.7); NEUTROPHILS % 79.8 % (36.0-66.0); RED CELL DISTRIBUTION WIDTH 15.6 % (11.5-14.5); WHITE BLOOD COUNT 6.7 K/mm3 (4.0-10.0)
[2016-05-30 06:43] LABS: PLATELET COUNT, AUTOMATED 60 k/mm3 (150-450)
[2016-05-30 06:57] LABS: CALCIUM LEVEL 8.3 MG/DL (8.8-10.2); CREATININE FOR GFR 1.72 MG/DL (0.70-1.30); GLOMERULAR FILTRATION RATE 41.6 (>42); POTASSIUM SERUM 4.5 MEQ/L (3.5-5.1)
[2016-05-30] MEDS: HumaLOG INSULIN (NovoLOG) PER UNIT SC SCH ×4 (07:30→20:23)
[2016-05-30] MEDS ORDERED: LEVEMIR (INSULIN DETEMIR) 1 UNITS/0.01ML SC SCH ×2 (09:00)
[2016-05-30] MEDS: **NOTE PATIENT COMMENT** MISC XX SCH (09:00)
[2016-05-30] MEDS ORDERED: LACTULOSE 20 GM/30 ML SYRUP UD PO ONE (09:45)
--- NOTE | 2016-05-30 09:49 | IPNPDOC ---
Assessment/Plan Date Seen The patient was seen on 05/30/16. Problems Problems: (1) Compression fracture of body of thoracic vertebra Status: Acute Problem Text: Severe pain Continue PAPER WRAPPING MACHINE OPERATOR ( instructed that patient is the only one who should push PAPER WRAPPING MACHINE OPERATOR button) Dr. Wang on consult as well (2) Intractable back pain Status: Acute Problem Text: This is a very dangerous circumstance for this patient - made aware Pain is limiting his desire and ability to take deep breaths therefore, high risk for developing pneumonia Will attempt to encourage IS as much as possible while getting pain under conttol with PAPER WRAPPING MACHINE OPERATOR He is unable to get anticoagulation for DVT pcx due to thrombocytopenia from cirrhosis - Sequentials are ordered but his risk for DVT is fairly high due to immobility His Cirrhosis makes use of narcotic analgesics difficult due to chronic encephalopathy and AMS and decreased clearance poh pain meds though the liver with risk of toxicity No apnea witnessed thus far. Goal is for him to rest without significant pain but remain arousable. (3) Acute kidney injury Status: Acute Problem Text: Renal function unchanged. May need IVF, but has some pulm venous congestion on Ct abd/pelvis. Start slow rate IVF since he is not taking much po and monitor resp and fluid status. (4) Hepatic encephalopathy Status: Chronic Response to Treatment: Worse Problem Text: He has not moved his bowels luis angel couple of days and his mental status is foggy suggesting his lactulose is likely higher than baseline. Check Ammonia level today and follow daily Increase Lactulose dose to 45 ml q 6H in effort to promote BMs. Continue Rifaximan (Hopefully he will be able to sit up to take the Lactulose - mayneed NG tube to administer if not alert enough or if pain to severe to sit up and take it) (5) Cirrhosis of liver Status: Chronic Problem Text: s/p TIPS. Chronic anemia and thrombocytopenia (6) Anemia Status: Chronic Problem Text: Hgb down since admission but likely dilutional related to IVF bolus given in ER. 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 Events since last encounter Per patient's - he is in a "brain fog" similar to when his ammonia level is high. She reports taht he did not get his Lactulose until after coming up from [facility] ER last night. He has not moved his bowels in a couple of days. He is in severe pain with minimal movement. She was pushing his PAPER WRAPPING MACHINE OPERATOR for him through the night because she felt he was in severe pain but too confused to know how to push the button Constitutional: Denies: Chills, Fever Pulmonary: Denies: Cough, Dyspnea Cardiovascular: Denies: Chest Pain, Palpitations Gastrointestinal: Reports: Constipation, Denies: Abdominal Pain, Diarrhea, Nausea, Vomiting Musculoskeletal: Reports: Back Pain (Severe) Objective Physical Examination General Exam: Positive: Other (Patient is laying with is eyes clothes, grimmacing with pain at times. Arousable but groggy. Knows where he is. ) Chest Exam: Positive: Normal air movement, Rales (+ Bibasilar crackles. No wheezes) Heart Exam: Positive: Murmurs (1/6 systolic), Rate Normal, Regular Rhythm, Negative: Rubs Abdomen Exam: Positive: Normal bowel sounds, Soft, Tenderness (Patient c/o back pain with minimal palpation of his abdomen), Negative: Hepatospenomegaly Extremity Exam: Positive: Other (decreased range of motion in the right shoulder secondary to pain), Negative: Clubbing, Cyanosis, Edema Skin Exam: Negative: Breakdown, Lesion Vital Signs/I&O Vital Signs Date Time Temp Pulse Resp B/P Pulse Ox O2 Delivery O2 Flow Rate FiO2 05/30/16 06:00 99.5 86 20 146/65 96 Room Air I&O- Last 24 Hours up to 6 AM 05/30/16 06:00 Intake Total 500 ml Output Total 500 ml Balance 0 ml Laboratory Data Labs 24H Laboratory Tests 2 05/29/16 16:46: Aspartate Amino Transf (AST/SGOT) 98H, Alanine Aminotransferase (ALT/SGPT) 69, Alkaline Phosphatase 259H, Total Bilirubin 5.3H, Direct Bilirubin 1.0H, Albumin 3.0L, Albumin/Globulin Ratio 0.88L, Amylase Level 66, Anion Gap 10, White Blood Count 6.3, Red Blood Count 3.52L, Hemoglobin 12.5L, Hematocrit 34.8L, Mean Corpuscular Volume 98.8H, Mean Corpuscular Hemoglobin 35.3H, Mean Corpuscular Hemoglobin Concent 35.8, Red Cell Distribution Width 15.5H, Platelet Count 75L, Neutrophils (%) (Auto) 70.8H, Lymphocytes (%) (Auto) 16.3L, Monocytes (%) (Auto ) 6.4H, Eosinophils (%) (Auto) 3.6H, Basophils (%) (Auto) 0.4, Neutrophils # ( Auto) 4.5, Lymphocytes # (Auto) 1.0L, Monocytes # (Auto) 0.4, Eosinophils # ( Auto) 0.2, Basophils # (Auto) 0.0, Calcium Level 8.5L, Glomerular Filtration Rate 41.0L, Large Unclassified Cells # 0.2, Large Unclassified Cells % 2.5, Lipase 260, Prothromb Time International Ratio 1.29, Prothrombin Time 16.2H, Total Protein 6.4 05/29/16 22:19: Bedside Glucose (Misc Panel) 197H 05/30/16 06:15: Anion Gap 7L, White Blood Count 6.7, Red Blood Count 3.00L, Hemoglobin 10.6L, Hematocrit 29.6L, Mean Corpuscular Volume 98.7H, Mean Corpuscular Hemoglobin 35.2H, Mean Corpuscular Hemoglobin Concent 35.7, Red Cell Distribution Width 15.6H, Platelet Count 60L, Neutrophils (%) (Auto) 79.8H, Lymphocytes (%) (Auto) 9.7L, Monocytes (%) (Auto) 5.8H, Eosinophils (%) (Auto) 2.2, Basophils (%) (Auto ) 0.2, Neutrophils # (Auto) 5.4, Lymphocytes # (Auto) 0.7L, Monocytes # (Auto) 0.4, Eosinophils # (Auto) 0.2, Basophils # (Auto) 0.0, Calcium Level 8.3L, Glomerular Filtration Rate 41.6L, Large Unclassified Cells # 0.2, Large Unclassified Cells % 2.3, Triglycerides Level 109, Cholesterol Level 88, HDL Cholesterol 39L, LDL Cholesterol 27.2, Cholesterol/HDL Ratio 2.256, Estimated Mean Plasma Glucose 177H, Hemoglobin A1c 7.8H, Non-HDL Cholesterol (LDL + VLDL) 49 CBC/BMP Laboratory Tests 05/29/16 16:46 Red Blood Count 3.52 L, Mean Corpuscular Volume 98.8 H, Mean Corpuscular Hemoglobin 35.3 H, Mean Corpuscular Hemoglobin Concent 35.8, Red Cell Distribution Width 15.5 H, Neutrophils (%) (Auto) 70.8 H, Lymphocytes (%) (Auto ) 16.3 L, Monocytes (%) (Auto) 6.4 H, Eosinophils (%) (Auto) 3.6 H, Basophils (% ) (Auto) 0.4, Neutrophils # (Auto) 4.5, Lymphocytes # (Auto) 1.0 L, Monocytes # (Auto) 0.4, Eosinophils # (Auto) 0.2, Basophils # (Auto) 0.0 05/30/16 06:15 Red Blood Count 3.00 L, Mean Corpuscular Volume 98.7 H, Mean Corpuscular Hemoglobin 35.2 H, Mean Corpuscular Hemoglobin Concent 35.7, Red Cell Distribution Width 15.6 H, Neutrophils (%) (Auto) 79.8 H, Lymphocytes (%) (Auto ) 9.7 L, Monocytes (%) (Auto) 5.8 H, Eosinophils (%) (Auto) 2.2, Basophils (%) ( Auto) 0.2, Neutrophils # (Auto) 5.4, Lymphocytes # (Auto) 0.7 L, Monocytes # ( Auto) 0.4, Eosinophils # (Auto) 0.2, Basophils # (Auto) 0.0 FSBS Laboratory Tests Test 05/29/16 22:19 Range/Units Bedside Glucose (Misc Panel) 197 83-110 MG/DL HAMMAD HESTER PA-C May 30, 2016 09:49
[2016-05-30] MEDS: OMEPRAZOLE 20 MG CAP PO SCH ×2 (10:32→20:12)
[2016-05-30] MEDS: SENOKOT S TAB PO SCH ×2 (10:32→20:13)
--- NOTE | 2016-05-30 12:34 | CR ---
DATE OF CONSULTATION: 05/30/2016 REASON FOR CONSULTATION: To evaluate back discomfort and associated T12 compression fracture. HISTORY: This is a 75-year-old gentleman who was injured on 05/28/2016 when he fell from a ladder in his garage, diagnosed with a compression fracture of T12. Was sent home initially from the emergency department on pain medicine. He came back yesterday with intractable discomfort and was admitted to the primary service for management of pain. The patient has a complex medical history, which includes cirrhosis of liver and stent placement among the medical issues. ALLERGIES: LISINOPRIL. MEDICATIONS AT HOME: Include: - atorvastatin - carvedilol - vitamin D - vitamin B12 - Lantus - pantoprazole - Xifaxan - vitamin E As needed medications include: - Lactulose - oxycodone MEDICAL HISTORY: Includes: 1. Anemia of chronic disease. 2. Diabetes mellitus. 3. Hypertension. 4. Hyperlipidemia. 5. Chronic kidney disease. 6. Cirrhosis of the liver. 7. Heart block with pacemaker placement. 8. Three myocardial infarctions. SURGICAL HISTORY: Includes: 1. Pacemaker placement. 2. TIPS procedure in 2016. 3. Cholecystectomy. 4. Herniorrhaphy. FAMILY HISTORY: Not contributory. SOCIAL HISTORY: He does not smoke, does not drink. He lives with his . REVIEW OF SYSTEMS: Unable to complete review of systems, the patient is lethargic. CLINICAL EXAMINATION: The patient is lethargic. He is arousable. He complains of some back pain. He is not very communicative. He is not in distress. He is not short of breath. There is no abdominal distension. LABORATORY DATA: Studies reviewed include a hematocrit of 35, creatinine of 1.75, white count 6.3. CT scan reviewed. T12 compression fracture, mild loss of height. No retropulsion. No widening of pedicles appreciated on CT scan. No significant change appreciated on plain films. IMPRESSION 1. T12 compression fracture in a medically complex patient. RECOMMENDATIONS: 1. The patient will require pain management; however, I suspect that he may be getting sedated due to pain control medication at this point. 2. Management of his medical issues with primary care. 3. Brace placement. The patient may benefit symptomatically from use of a [place] brace, and I do recommend contacting [facility] for placement of a [place] brace.
[2016-05-30 14:00] VITALS: BP 140/80
[2016-05-30] MEDS: LACTULOSE 20 GM/30 ML SYRUP UD PO SCH (16:36)
[2016-05-30] MEDS: ACETAMINOPHEN TAB 650MG DOSE (2X325MG) PO PRN (16:36)
[2016-05-30] MEDS: ATORVASTATIN 20 MG TAB PO SCH (20:13)
[2016-05-30] MEDS: LIDOCAINE 5% (LIDODERM) PATCH TD SCH (20:13)
[2016-05-30 22:00] VITALS: BP 135/60
[2016-05-31] MEDS: LACTULOSE 20 GM/30 ML SYRUP UD PO SCH ×4 (00:32→17:08)
[2016-05-31] MEDS: NS 1,000 ML IV SCH ×3 (05:48→17:09)
[2016-05-31 06:00] VITALS: BP 132/64
[2016-05-31 06:22] LABS: MEAN CORPUSCULAR HGB CONC 34.9 g/dl (32.0-36.5); MEAN CORPUSCULAR VOLUME 100.2 fl (80.0-96.0); RED CELL DISTRIBUTION WIDTH 15.3 % (11.5-14.5); WHITE BLOOD COUNT 5.1 K/mm3 (4.0-10.0)
[2016-05-31 06:43] LABS: ALBUMIN/GLOBULIN RATIO 0.74 (1.00-1.93); CREATININE FOR GFR 1.28 MG/DL (0.70-1.30); GLOMERULAR FILTRATION RATE 58.5 (>42); POTASSIUM SERUM 4.3 MEQ/L (3.5-5.1); TOTAL PROTEIN 5.4 GM/DL (6.4-8.2)
[2016-05-31 06:51] LABS: ALBUMIN 2.3 GM/DL (3.2-5.2)
[2016-05-31] MEDS: HumaLOG INSULIN (NovoLOG) PER UNIT SC SCH ×4 (07:30→21:00)
[2016-05-31] MEDS: rifAXIMin 550 MG TAB (XIFAXAN) PO SCH ×2 (08:42→20:38)
[2016-05-31] MEDS: CARVedilol 6.25 MG TAB PO SCH ×2 (08:42→20:39)
[2016-05-31] MEDS: OMEPRAZOLE 20 MG CAP PO SCH ×2 (08:42→20:39)
[2016-05-31] MEDS: SENOKOT S TAB PO SCH ×2 (08:43→20:38)
[2016-05-31] MEDS: LEVEMIR (INSULIN DETEMIR) 1 UNITS/0.01ML SC SCH (08:44)
[2016-05-31] MEDS: **NOTE PATIENT COMMENT** MISC XX SCH (08:44)
--- NOTE | 2016-05-31 12:07 | IPNPDOC ---
Assessment/Plan Date Seen The patient was seen on 05/31/16. Problems Problems: (1) Compression fracture of body of thoracic vertebra Status: Acute Problem Text: Severe pain Continue [employer] ( instructed that patient is the only one who should push [employer] button) Dr. 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 (2) Intractable back pain Status: Acute Problem Text: This is a very dangerous circumstance for this patient - made aware Pain is limiting his desire and ability to take deep breaths therefore, high risk for developing pneumonia Will attempt to encourage IS as much as possible while getting pain under conttol with [employer] He is unable to get anticoagulation for DVT pcx due to thrombocytopenia from cirrhosis - Sequentials are ordered but his risk for DVT is fairly high due to immobility His Cirrhosis makes use of narcotic analgesics difficult due to chronic encephalopathy and AMS and decreased clearance poh pain meds though the liver with risk of toxicity No apnea witnessed thus far. Goal is for him to rest without significant pain but remain arousable. (3) Acute kidney injury Status: Acute Problem Text: Renal function unchanged. May need IVF, but has some pulm venous congestion on Ct abd/pelvis. Start slow rate IVF since he is not taking much po and monitor resp and fluid status. 05/31 - Renal function improving with IVF. Continue IVF x today - probably can d /c in am (4) Hepatic encephalopathy Status: Chronic Response to Treatment: Worse Problem Text: He has not moved his bowels luis angel couple of days and his mental status is foggy suggesting his lactulose is likely higher than baseline. Check Ammonia level today and follow daily Increase Lactulose dose to 45 ml q 6H in effort to promote BMs. Continue Rifaximan (Hopefully he will be able to sit up to take the Lactulose - mayneed NG tube to administer if not alert enough or if pain to severe to sit up and take it) 05/31 - Ammonia level improving with LActulose restarted and usual dose Rifaximin. Still groggy. Ammonia level 70 Monitor trend (5) Cirrhosis of liver Status: Chronic Problem Text: s/p TIPS. Chronic anemia and thrombocytopenia (6) Anemia Status: Chronic Problem Text: Hgb down since admission but likely dilutional related to IVF bolus given in ER. 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 Events since last encounter Still with severe pain. Still groggy. 3 BMs this am Constitutional: Denies: Chills, Fever Pulmonary: Denies: Cough, Dyspnea Cardiovascular: Denies: Chest Pain, Orthopnea, Palpitations Gastrointestinal: Denies: Abdominal Pain, Constipation, Diarrhea, Nausea, Vomiting Objective Physical Examination General Exam: Positive: Other (Patient is laying with is eyes clothes, grimmacing with pain at times. Arousable but groggy. Knows where he is. ) Chest Exam: Positive: Normal air movement, Rales (+ Bibasilar crackles. No wheezes) Heart Exam: Positive: Murmurs (1/6 systolic), Rate Normal, Regular Rhythm, Negative: Rubs Abdomen Exam: Positive: Normal bowel sounds, Soft, Tenderness (Patient c/o back pain with minimal palpation of his abdomen), Negative: Hepatospenomegaly Extremity Exam: Positive: Other (decreased range of motion in the right shoulder secondary to pain), Negative: Clubbing, Cyanosis, Edema Skin Exam: Negative: Breakdown, Lesion Vital Signs/I&O Vital Signs Date Time Temp Pulse Resp B/P Pulse Ox O2 Delivery O2 Flow Rate FiO2 05/31/16 08:42 85 132/64 05/31/16 06:00 98.9 18 97 Room Air I&O- Last 24 Hours up to 6 AM 05/31/16 06:00 Intake Total 1860 ml Output Total 300 ml Balance 1560 ml Laboratory Data Labs 24H Laboratory Tests 2 05/30/16 17:16: Bedside Glucose (Misc Panel) 144H 05/30/16 19:59: Bedside Glucose (Misc Panel) 104 05/31/16 05:48: Blood Urea Nitrogen 26H, Creatinine 1.28, Sodium Level 143, Potassium Level 4.3 , Chloride Level 112H, Carbon Dioxide Level 25, Calcium Level 8.0L, Aspartate Amino Transf (AST/SGOT) 59H, Alanine Aminotransferase (ALT/SGPT) 44, Alkaline Phosphatase 259H, Total Bilirubin 4.0H, Total Protein 5.4L, Albumin 2.3#L, Albumin/Globulin Ratio 0.74L, Ammonia 72H, Anion Gap 6L, Glomerular Filtration Rate 58.5 05/31/16 11:40: Bedside Glucose (Misc Panel) 151H CBC/BMP Laboratory Tests 05/31/16 05:48 Calcium Level 8.0 L, Aspartate Amino Transf (AST/SGOT) 59 H, Alanine Aminotransferase (ALT/SGPT) 44, Alkaline Phosphatase 259 H, Total Bilirubin 4.0 H, Total Protein 5.4 L, Albumin 2.3 #L, Red Blood Count 2.90 L, Mean Corpuscular Volume 100.2 H, Mean Corpuscular Hemoglobin 35.0 H, Mean Corpuscular Hemoglobin Concent 34.9, Red Cell Distribution Width 15.3 H FSBS Laboratory Tests Test 05/30/16 17:16 05/30/16 19:59 05/31/16 11:40 Range/Units Bedside Glucose (Misc Panel) 144 104 151 83-110 MG/DL HAMMAD HESTER PA-C May 31, 2016 12:07
[2016-05-31 14:00] VITALS: BP 131/61
[2016-05-31] MEDS: ACETAMINOPHEN TAB 650MG DOSE (2X325MG) PO PRN (17:08)
[2016-05-31] MEDS: ATORVASTATIN 20 MG TAB PO SCH (20:39)
[2016-05-31] MEDS: LIDOCAINE 5% (LIDODERM) PATCH TD SCH (20:40)
[2016-05-31 22:00] VITALS: BP 159/72
--- NOTE | 2016-05-31 23:10 | EDDOCDS ---
Physician Documentation [facility] Name: Joaquín Sterling Age: 75 yrs Sex: Male : 1940 Arrival Date: 05/29/2016 Time: 16:01 Bed 10 Private MD: Disposition: 05/29/16 17:25 Hospitalization ordered by Coni Bonilla for Inpatient Admission. Preliminary diagnosis is Wedge compression fracture of T11-T12 vertebra. - Bed requested for 5 Wagner. - Status is Inpatient Admission. kas2 - Condition is Stable. - Problem is new. - Symptoms have improved. Historical: - Allergies: Lisinopril"flu-like symptoms"; - Home Meds: 1. atorvastatin 20 mg oral tab 1 tab once daily 2. carvedilol 6.25 mg oral tab 1 tab 2 times per day 3. Constulose 10 gram/15 mL oral soln 45 mL every 6 hours 4. Lantus 100 unit/mL Sub-Q soln 32 unit 20 units at night and 32 in am 5. metoprolol tartrate 50 mg Oral tab 6. omeprazole 40 mg Oral cpDR 1 cap 2 times per day 7. Protonix 40 mg Oral grps once daily 8. Xifaxan 550 mg oral tab 1 tab 2 times per day - PMHx: Anemia; Aortic Aneurysm; Cirrhosis; Diabetes - NIDDM: uncontrolled; GIvarices; Hypercholesterolemia; Hypertension; WA; - PSHx: Pacemaker Insertion; Cholecystectomy; Hernia repair; TIPS; - Social history: Smoking status: Patient states was never smoker of tobacco. No barriers to communication noted, The patient speaks fluent Tu[place], Speaks appropriately for age. - Family history: Not pertinent. - : The pt / caregiver states he / she is not on anticoagulants. Home medication list is obtained from the patient. - Exposure Risk Screening:: None identified. Vital Signs: 05/29 16:09 BP 155 / 84; Pulse 89; Resp 18; Temp 98.2(O); Pulse Ox 98% on R/A; Pain 10/10; ml6 17:20 BP 144 / 87; Pulse 88; Resp 14; Pulse Ox 98% on R/A; Pain 6/10; ml6 19:08 BP 134 / 67 (auto/); kas2 19:08 Pulse 78 MON; Pulse Ox 98% ; kas2 19:50 Resp 18; Temp 97.9(O); Pain 2/10; kas2 21:09 BP 136 / 72; Pulse 89; Resp 18; Temp 98.0; Pulse Ox 99% on R/A; Pain 0/10; kas2 21:45 BP 132 / 62; Pulse 83; Resp 20; Temp 98.8(TE); Pulse Ox 100% on 2 lpm NC; Pain 6/10; jmv MDM: 16:30 IV Saline Lock ordered. sd1 16:31 Dilaudid - HYDROmorphone 0.5 mg IVP once ordered. sd1 16:31 Ondansetron 4 mg IVP once ordered. sd1 16:31 NS 0.9% 1000 ml IV at 100 mL/hr continuous ordered. sd1 16:31 Amylase Ordered. EDMS 16:31 Basic Metabolic Profile Ordered. EDMS 16:31 CBC with Diff Ordered. EDMS 16:31 Lipase Ordered. EDMS 16:31 Liver Profile Ordered. EDMS 16:31 Prothrombin Time Profile\\E\\INR Ordered. EDMS 16:32 BED REQUEST+ADM ordered. EDMS 16:39 [facility] [place] into [employer] and attached to record. gjb 16:39 Financial registration complete. gjb 16:57 PHYSICAL THERAPY EVAL & TREAT ordered. EDMS 16:58 Admission / Observation Status ordered. EDMS 16:58 CONSISTENT CARBOHYDRATES ordered. EDMS 18:43 Spine, Lumbosacral, partial Ordered. EDMS 19:31 BASIC METABOLIC PROFILE Ordered. EDMS 19:31 CBC WITH DIFFERENTIAL Ordered. EDMS 19:32 HEMOGLOBIN A1C Ordered. EDMS 20:42 CARDIAC RISK PROFILE Ordered. EDMS 05/30 08:39 T-Sheet-- Draft Copy was scanned into [employer] and attached to record. [facility] 11:15 PCR was scanned into [employer] and attached to record. gb Administered Medications: 05/29 16:50 Drug: Dilaudid - HYDROmorphone 0.5 mg [hydromorphone 1 mg/mL injection syringe (0.5 ml6 mL)] Route: IVP; Site: right hand; 17:20 Follow up: BP 144 / 87; Pulse 88 bpm; Resp 14 bpm; Pulse Ox 98% RA; Pain 6/10 Adult ml6 16:50 Drug: Ondansetron 4 mg [ondansetron HCl 2 mg/mL intravenous solution (2 mL)] Route: ml6 IVP; Site: right hand; 17:00 Drug: NS 0.9% 1000 ml [sodium chloride 0.9 % intravenous solution] Route: IV; Rate: 100 ml6 mL/hr; Site: right forearm; Signatures: Dispatcher [employer] EDMS Carolann Lange MD MD sd1 Kim Laguerre RN RN daq Barnhardt, Gloria, Joon Reg Abraham Vallejo RN RN jmb Beck, Gabriela gjb Smith, Kim, RN RN kas2 Hoffert, Sarah seh Lowe, Matthew RN ml6 The chart was reviewed and I authenticate all verbal orders and agree with the evaluation and treatment provided.Corrections: (The following items were deleted from the chart) 16:58 16:55 NO ADDED SALT DIET ordered. EDMS EDMS 18:26 17:50 MRI Shoulder W/O CONTRAST ordered. EDMS EDMS 18:54 18:05 Spine, THORACOLUMBAR 2 VIEW ordered. EDMS EDMS 20:42 19:32 CARDIAC RISK PROFILE ordered. EDMS EDMS Attachments: 16:39 [facility] Payment Agreement gjb 05/30 08:39 T-Sheet-- Draft Copy [facility] Chart Complete MTDD
--- NOTE | 2016-05-31 23:10 | EDDOCDS ---
Nurse's Notes [facility] Name: Joaquín Sterling Age: 75 yrs Sex: Male : 1940 Arrival Date: 05/29/2016 Time: 16:01 Bed 10 Private MD: Diagnosis: Wedge compression fracture of T11-T12 vertebra Presentation: 05/29 16:07 Presenting complaint: EMS states: seen yesterday from fall ladder, seen here. diagnosed jmb with compression fracture. discharged home, this a.m. pain has gotten worse since yesterday. Called Dr. King whom stated to transport by ambulance to [facility]. Suicide/Homicide risk assessment- the patient denies having any suicidal and/or homicidal ideations and does not present with any other emotional, behavioral or mental health complaints. Status: Patient is not a travel service consultant or dependent. Transition of care: patient was not received from another setting of care. 16:07 Acuity: CALLI Level 3 b 16:07 [facility] 21[facility]44 Adult Sepsis Screening: The patient does not have new or worsening altered mentation. kas2 Patient's respiratory rate is less than 22. Systolic blood pressure is greater than 100. Patient has a qSOFA score of 0- Negative Sepsis Screen. Triage Assessment: 16:09 General: Appears uncomfortable, Behavior is restless. Pain: Location: back Pain jmb currently is 10 out of 10 on a pain scale. Neurological: Level of Consciousness is awake, alert, Oriented to person, place, time, Speech is normal, Facial symmetry appears normal, Facial symmetry: tongue is midline. Respiratory: Airway is patent Respiratory effort is even, unlabored, Respiratory pattern is regular, symmetrical. GI: Abdomen is non- distended. Derm: Skin is pink, warm & dry. Musculoskeletal: Range of motion limited in all extremities. Historical: - Allergies: Lisinopril"flu-like symptoms"; - Home Meds: 1. atorvastatin 20 mg oral tab 1 tab once daily 2. carvedilol 6.25 mg oral tab 1 tab 2 times per day 3. Constulose 10 gram/15 mL oral soln 45 mL every 6 hours 4. Lantus 100 unit/mL Sub-Q soln 32 unit 20 units at night and 32 in am 5. metoprolol tartrate 50 mg Oral tab 6. omeprazole 40 mg Oral cpDR 1 cap 2 times per day 7. Protonix 40 mg Oral grps once daily 8. Xifaxan 550 mg oral tab 1 tab 2 times per day - PMHx: Anemia; Aortic Aneurysm; Cirrhosis; Diabetes - NIDDM: uncontrolled; GIvarices; Hypercholesterolemia; Hypertension; [place]; - PSHx: Pacemaker Insertion; Cholecystectomy; Hernia repair; TIPS; - Social history: Smoking status: Patient states was never smoker of tobacco. No barriers to communication noted, The patient speaks fluent East [place]orese, Speaks appropriately for age. - Family history: Not pertinent. - : The pt / caregiver states he / she is not on anticoagulants. Home medication list is obtained from the patient. - Exposure Risk Screening:: None identified. Screenin:12 Screening information is obtained from the patient. Fall risk: No risks identified. ml6 Assistance ADL's: requires no assistance with activities of daily living. Abuse/DV Screen: The patient / caregiver reports he/she is: not in a situation that causes fear, pain or injury. Nutritional screening: No deficits noted. Advance Directives: Currently, there is no health care proxy. home support is adequate. Assessment: 16:10 General: Appears distressed, Behavior is flat. Pain: Location: thoracic area Pain ml6 currently is 10 out of 10 on a pain scale. Pain does not radiate. Quality of pain is described as aching, Pain began 2-3 days ago Is continuous Alleviated by nothing. Neurological: No deficits noted. Cardiovascular: No deficits noted. Capillary refill < 3 seconds is brisk in bilateral fingers toes Heart tones S1 S2 present Edema is absent. Pulses are all present. Respiratory: No deficits noted. Airway is patent Respiratory effort is even, unlabored, Respiratory pattern is regular, symmetrical. GI: Abdomen is flat, non- distended Bowel sounds present X 4 quads. Injury Description: No known injury. 17:05 Reassessment: Patient appears in no apparent distress at this time. Patient states ml6 feeling better. Patient states symptoms have improved. patient states pain is 6/10, patient sleeping intermittently. 18:05 Reassessment: Patient appears in no apparent distress at this time. Patient states ml6 feeling better. Patient states symptoms have improved. patient sleeping intermittently, Dr. Bonilla in to see patient. 18:35 General: Spoke with Dr. Chad via phone. Made aware that patient has a pacemaker, jc4 therefore, MRI unable to be done. 19:03 General: Verbal report given by Wolf Gayle RN. Assumed care of patient at this time.. kas2 19:48 General: Appears in no apparent distress, uncomfortable, well nourished, well groomed, kas2 Behavior is appropriate for age, cooperative. Pain: Location: thoracic area and back Pain currently is 2 out of 10 on a pain scale. Pain does not radiate. Neurological: Level of Consciousness is awake, alert, Oriented to person, place, time. Cardiovascular: Capillary refill < 3 seconds Heart tones S1 S2 present Rhythm is sinus rhythm No ectopy. Respiratory: Airway is patent Respiratory effort is even, unlabored, Respiratory pattern is regular, symmetrical, Breath sounds are clear bilaterally. GI: Abdomen is flat, non- distended Bowel sounds present X 4 quads. Derm: Skin is intact, Skin is dry, Skin is pink, warm & dry. Skin temperature is warm. Injury Description: No known injury. 20:50 General: Patient laying in bed with family at bedside. Appears comfortable. Denies pain kas2 or discomfort at this time. No apparent distress noted. Call trinidad within reach. Will continue to monitor.. 21:42 General: Patient sleeping at this time with family at bedside. No apparent distress. kas2 Appears comfortable at this time. Call trinidad within reach. Will continue to monitor.. Vital Signs: 16:09 BP 155 / 84; Pulse 89; Resp 18; Temp 98.2(O); Pulse Ox 98% on R/A; Pain 10/10; ml6 17:20 BP 144 / 87; Pulse 88; Resp 14; Pulse Ox 98% on R/A; Pain 6/10; ml6 19:08 BP 134 / 67 (auto/); kas2 19:08 Pulse 78 MON; Pulse Ox 98% ; kas2 19:50 Resp 18; Temp 97.9(O); Pain 2/10; kas2 21:09 BP 136 / 72; Pulse 89; Resp 18; Temp 98.0; Pulse Ox 99% on R/A; Pain 0/10; kas2 21:45 BP 132 / 62; Pulse 83; Resp 20; Temp 98.8(TE); Pulse Ox 100% on 2 lpm NC; Pain 6/10; jmv Vitals: 16:09 Log In Time N/A - [facility] Course: 16:02 Patient visited by Angie Bravo, Team Leader Surgery. lbd 16:02 Patient moved to Waiting lbd 16:03 Misbah Gayle, RN is Primary Nurse. lbd 16:03 Patient moved to 10 lbd 16:08 Triage Initiated jmb 16:25 Carolann Lange MD is Attending Physician. sd1 16:25 Patient visited by Carolann Lange MD. sd1 16:39 [facility] Payment Agreement was scanned into [employer] and attached to record. gjb 16:58 Patient visited by Leonidas Fontaine PCA. jlf 17:12 Maintain field IV. Dressing intact. Good blood return noted. Site clean & dry. Gauge & ml6 site: 20g Right FA. 17:13 Patient visited by Misbah Gayle RN. ml6 17:25 Coni Bonilla is Hospitalizing Provider. sd1 19:02 Cate MarieRN is Primary Nurse. kas2 19:03 Patient visited by Cate Marie RN. kas2 19:50 Patient visited by Cate Marie RN. kas2 20:04 Spine, Lumbosacral, partial Returned. EDMS 21:10 Patient visited by Cate Marie RN. kas2 21:44 Patient visited by Cate Marie RN. kas2 21:44 The patient / caregiver is instructed regarding the plan of care and ED course. kas2 21:44 No procedures done that require assistance. kas2 21:46 Patient visited by Boris Barcenas PCA. [facility] 05/30 08:39 T-Sheet-- Draft Copy was scanned into [employer] and attached to record. [facility] 11:15 PCR was scanned into [employer] and attached to record. gb Administered Medications: 05/29 16:50 Drug: Dilaudid - HYDROmorphone 0.5 mg [hydromorphone 1 mg/mL injection syringe (0.5 ml6 mL)] Route: IVP; Site: right hand; 17:20 Follow up: BP 144 / 87; Pulse 88 bpm; Resp 14 bpm; Pulse Ox 98% RA; Pain 6/10 Adult ml6 16:50 Drug: Ondansetron 4 mg [ondansetron HCl 2 mg/mL intravenous solution (2 mL)] Route: ml6 IVP; Site: right hand; 17:00 Drug: NS 0.9% 1000 ml [sodium chloride 0.9 % intravenous solution] Route: IV; Rate: 100 ml6 mL/hr; Site: right forearm; Order Results: Lab Order: Amylase; SPEC'M 05/29/16 16:46 Test: AMYLASE; Value: 66; Range: 25-115; Units: U/L; Status: F Lab Order: Basic Metabolic Profile; SPEC' 05/29/16 16:46 Test: GLUCOSE, FASTING; Value: 202; Range: 83-110; Abnormal: Above high normal; Units: MG/DL; Status: F Test: BLOOD UREA NITROGEN; Value: 27; Range: 7-18; Abnormal: High; Units: MG/DL; Status: F Test: CREATININE FOR GFR; Value: 1.74; Range: 0.70-1.30; Abnormal: Above high normal; Units: MG/DL; Status: F Test: GLOMERULAR FILTRATION RATE; Value: 41.0; Range: >42; Abnormal: Below low normal; Status: F Test: SODIUM LEVEL; Value: 140; Range: 136-145; Units: MEQ/L; Status: F Test: POTASSIUM SERUM; Value: 4.7; Range: 3.5-5.1; Units: MEQ/L; Status: F Test: CHLORIDE LEVEL; Value: 106; Range: 98-107; Units: MEQ/L; Status: F Test: CARBON DIOXIDE LEVEL; Value: 24; Range: 21-32; Units: MEQ/L; Status: F Test: ANION GAP; Value: 10; Range: 8-16; Units: MEQ/L; Status: F Test: CALCIUM LEVEL; Value: 8.5; Range: 8.8-10.2; Abnormal: Below low normal; Units: MG/DL; Status: F Test Note: ; Units are mL/min/1.73 m2 Chronic Kidney Disease Staging per NKF: Stage I & II GFR >=60 Normal to Mildly Decreased Stage III GFR 30-59 Moderately Decreased Stage IV GFR 15-29 Severely Decreased Stage V GFR <15 Very Little GFR Left ESRD GFR <15 on [employer] UNDERWRITER Lab Order: CBC with Diff; SPEC'M 05/29/16 16:46 Test: WHITE BLOOD COUNT; Value: 6.3; Range: 4.0-10.0; Units: K/mm3; Status: F Test: RED BLOOD COUNT; Value: 3.52; Range: 4.30-6.10; Abnormal: Below low normal; Units: M/mm3; Status: F Test: HEMOGLOBIN; Value: 12.5; Range: 14.0-18.0; Abnormal: Below low normal; Units: g/dl; Status: F Test: HEMATOCRIT; Value: 34.8; Range: 42.0-52.0; Abnormal: Below low normal; Units: %; Status: F Test: MEAN CORPUSCULAR VOLUME; Value: 98.8; Range: 80.0-96.0; Abnormal: Above high normal; Units: fl; Status: F Test: MEAN CORPUSCULAR HEMOGLOBIN; Value: 35.3; Range: 27.0-33.0; Abnormal: Above high normal; Units: pg; Status: F Test: MEAN CORPUSCULAR HGB CONC; Value: 35.8; Range: 32.0-36.5; Units: g/dl; Status: F Test: RED CELL DISTRIBUTION WIDTH; Value: 15.5; Range: 11.5-14.5; Abnormal: Above high normal; Units: %; Status: F Test: PLATELET COUNT, AUTOMATED; Value: 75; Range: 150-450; Abnormal: Below low normal; Units: k/mm3; Status: F Test: NEUTROPHILS %; Value: 70.8; Range: 36.0-66.0; Abnormal: Above high normal; Units: %; Status: F Test: LYMPH %; Value: 16.3; Range: 24.0-44.0; Abnormal: Below low normal; Units: %; Status: F Test: MONO %; Value: 6.4; Range: 0.0-5.0; Abnormal: Above high normal; Units: %; Status: F Test: EOS %; Value: 3.6; Range: 0.0-3.0; Abnormal: Above high normal; Units: %; Status: F Test: BASO %; Value: 0.4; Range: 0.0-1.0; Units: %; Status: F Test: LARGE UNSTAINED CELL %; Value: 2.5; Range: 0.0-4.0; Units: %; Status: F Test: NEUTROPHILS #; Value: 4.5; Range: 1.8-7.7; Units: K/mm3; Status: F Test: LYMPH #; Value: 1.0; Range: 1.5-4.5; Abnormal: Below low normal; Units: K/mm3; Status: F Test: MONO #; Value: 0.4; Range: 0.0-0.8; Units: K/mm3; Status: F Test: EOS #; Value: 0.2; Range: 0.0-0.50; Units: K/mm3; Status: F Test: BASO #; Value: 0.0; Range: 0.0-0.2; Units: K/mm3; Status: F Test: LARGE UNSTAINED CELL #; Value: 0.2; Range: 0.0-0.4; Units: K/mm3; Status: F Lab Order: Lipase; SPEC' 05/29/16 16:46 Test: LIPASE; Value: 260; Range: 73-393; Units: U/L; Status: F Lab Order: Liver Profile; SPEC' 05/29/16 16:46 Test: AST/SGOT; Value: 98; Range: 15-37; Abnormal: Above high normal; Units: U/L; Status: F Test: ALT/SGPT; Value: 69; Range: 12-78; Units: U/L; Status: F Test: ALKALINE PHOSPHATASE; Value: 259; Range: 45-117; Abnormal: Above high normal; Units: U/L; Status: F Test: BILIRUBIN,TOTAL; Value: 5.3; Range: 0.2-1.0; Abnormal: Above high normal; Units: MG/DL; Status: F Test: BILIRUBIN,DIRECT; Value: 1.0; Range: 0.0-0.2; Abnormal: Above high normal; Units: MG/DL; Status: F Test: TOTAL PROTEIN; Value: 6.4; Range: 6.4-8.2; Units: GM/DL; Status: F Test: ALBUMIN; Value: 3.0; Range: 3.2-5.2; Abnormal: Below low normal; Units: GM/DL; Status: F Test: ALBUMIN/GLOBULIN RATIO; Value: 0.88; Range: 1.00-1.93; Abnormal: Below low normal; Status: F Lab Order: Prothrombin Time Profile\\E\\INR; SPEC'M 05/29/16 16:46 Test: PROTHROMBIN TIME; Value: 16.2; Range: 12.3-14.5; Abnormal: Above high normal; Units: SECONDS; Status: F Test: INR; Value: 1.29; Status: F Test Note: ; THERAPUTIC HUMAN INR VALUES INDICATIONS NORMAL RANGES PROPHYLAXIS/TREATMENT OF: VENOUS THROMBOSIS 2.0-3.0 PULMONARY EMBOLISM 2.0-3.0 PREVENTION OF SYSTEMIC EMBOLISM FROM: TISSUE HEART VALVES 2.0-3.0 ACUTE MYOCARDIAL INFARCTION 2.0-3.0 VALVULAR HEART DISEASE 2.0-3.0 ATRIAL FIBRILLATION 2.0-3.0 MECHANICAL VALVES(HIGH RISK) 2.5-3.5 RECURRENT MYOCARDIAL INFARCTION 2.5-3.5 Lab Order: Fingerstick Blood Sugar; SPEC'M 05/29/16 22:19 Test: BEDSIDE GLUCOSE; Value: 197; Range: 83-110; Abnormal: Above high normal; Units: MG/DL; Status: F Radiology Order: Spine, Lumbosacral, partial Test: Spine, Lumbosacral, partial REASON FOR EXAMINATION: AP / Lateral only. Prior T12 compression fracture.; Clinical: T12 compression fracture.; ; Technique: AP and lateral views.; ; Comparison: CT examinations dated 05/28/2016 and 04/12/2016.; ; Findings:; There is a compression fracture at T12 with approximately 20% loss of anterior; superior vertebral body height which represents a new finding when compared to CT; of the abdomen and pelvis dated 04/12/2016.; ; Age related osteopenia and multilevel degenerative disc osteophyte complexes; noted throughout the lumbosacral spine including anterior osteophytes, endplate; sclerosis, disc space narrowing as well as chronic grade 1 anterolisthesis at the; L5-S1 level.; ; Impression:; Compression fracture involving T12.; Multilevel degenerative changes and osteopenia involving the lumbar spine.; ; ; Signed by; Toney Cortes MD 05/29/2016 07:07 P; Outcome: 17:25 Decision to Hospitalize by Provider. sd1 21:43 Discharge Assessment: patient administered narcotics - yes. Patient was admitted to the [address] or transferred to another facility. The following High Risk Discharge criteria are identified: None. Admitted to Med/Surg accompanied by tech, family with patient, via stretcher, with chart. Condition: good Condition: stable Condition: improved. CT Study completed. Property :Personal belongings accompany Pt. 22:09 Patient left the ED. [email or web address] Signatures: Dispatcher [employer] EDMS Carolann Lange MD MD sd1 Angie Bravo, Team Leader Surgery Unit lbd La Gutierrez, Reg Reg gb Misbah Gayle, RN RN ml6 Mee Shea, RN RN jc4 Abraham Nelson,RN RN beckyb Leonidas Fontaine, OUTPATIENT THERAPIST OUTPATIENT THERAPIST Kathryn Alcantar Kim,RN RN kas2 Carolann Perez Jose, OUTPATIENT THERAPIST OUTPATIENT THERAPIST jm Chart Complete JASON
--- NOTE | 2016-05-31 23:11 | EDDOCDS ---
Physician Documentation [facility] Name: Joaquín Sterling Age: 75 yrs Sex: Male : 1940 Arrival Date: 05/29/2016 Time: 16:01 Bed 10 Private MD: Disposition: 05/29/16 17:25 Hospitalization ordered by Coni Bonilla for Inpatient Admission. Preliminary diagnosis is Wedge compression fracture of T11-T12 vertebra. - Bed requested for 5 Wagner. - Status is Inpatient Admission. kas2 - Condition is Stable. - Problem is new. - Symptoms have improved. Historical: - Allergies: Lisinopril"flu-like symptoms"; - Home Meds: 1. atorvastatin 20 mg oral tab 1 tab once daily 2. carvedilol 6.25 mg oral tab 1 tab 2 times per day 3. Constulose 10 gram/15 mL oral soln 45 mL every 6 hours 4. Lantus 100 unit/mL Sub-Q soln 32 unit 20 units at night and 32 in am 5. metoprolol tartrate 50 mg Oral tab 6. omeprazole 40 mg Oral cpDR 1 cap 2 times per day 7. Protonix 40 mg Oral grps once daily 8. Xifaxan 550 mg oral tab 1 tab 2 times per day - PMHx: Anemia; Aortic Aneurysm; Cirrhosis; Diabetes - NIDDM: uncontrolled; GIvarices; Hypercholesterolemia; Hypertension; [place]; - PSHx: Pacemaker Insertion; Cholecystectomy; Hernia repair; TIPS; - Social history: Smoking status: Patient states was never smoker of tobacco. No barriers to communication noted, The patient speaks fluent Uruguayan, Speaks appropriately for age. - Family history: Not pertinent. - : The pt / caregiver states he / she is not on anticoagulants. Home medication list is obtained from the patient. - Exposure Risk Screening:: None identified. Vital Signs: 05/29 16:09 BP 155 / 84; Pulse 89; Resp 18; Temp 98.2(O); Pulse Ox 98% on R/A; Pain 10/10; ml6 17:20 BP 144 / 87; Pulse 88; Resp 14; Pulse Ox 98% on R/A; Pain 6/10; ml6 19:08 BP 134 / 67 (auto/); kas2 19:08 Pulse 78 MON; Pulse Ox 98% ; kas2 19:50 Resp 18; Temp 97.9(O); Pain 2/10; kas2 21:09 BP 136 / 72; Pulse 89; Resp 18; Temp 98.0; Pulse Ox 99% on R/A; Pain 0/10; kas2 21:45 BP 132 / 62; Pulse 83; Resp 20; Temp 98.8(TE); Pulse Ox 100% on 2 lpm NC; Pain 6/10; jmv MDM: 16:30 IV Saline Lock ordered. sd1 16:31 Dilaudid - HYDROmorphone 0.5 mg IVP once ordered. sd1 16:31 Ondansetron 4 mg IVP once ordered. sd1 16:31 NS 0.9% 1000 ml IV at 100 mL/hr continuous ordered. sd1 16:31 Amylase Ordered. EDMS 16:31 Basic Metabolic Profile Ordered. EDMS 16:31 CBC with Diff Ordered. EDMS 16:31 Lipase Ordered. EDMS 16:31 Liver Profile Ordered. EDMS 16:31 Prothrombin Time Profile\\E\\INR Ordered. EDMS 16:32 BED REQUEST+ADM ordered. EDMS 16:39 [facility] Payment Agreement was scanned into [employer] and attached to record. gjb 16:39 Financial registration complete. gjb 16:57 PHYSICAL THERAPY EVAL & TREAT ordered. EDMS 16:58 Admission / Observation Status ordered. EDMS 16:58 CONSISTENT CARBOHYDRATES ordered. EDMS 18:43 Spine, Lumbosacral, partial Ordered. EDMS 19:31 BASIC METABOLIC PROFILE Ordered. EDMS 19:31 CBC WITH DIFFERENTIAL Ordered. EDMS 19:32 HEMOGLOBIN A1C Ordered. EDMS 20:42 CARDIAC RISK PROFILE Ordered. EDMS 05/30 08:39 T-Sheet-- Draft Copy was scanned into [employer] and attached to record. [facility] 11:15 PCR was scanned into [employer] and attached to record. gb Administered Medications: 05/29 16:50 Drug: Dilaudid - HYDROmorphone 0.5 mg [hydromorphone 1 mg/mL injection syringe (0.5 ml6 mL)] Route: IVP; Site: right hand; 17:20 Follow up: BP 144 / 87; Pulse 88 bpm; Resp 14 bpm; Pulse Ox 98% RA; Pain 6/10 Adult ml6 16:50 Drug: Ondansetron 4 mg [ondansetron HCl 2 mg/mL intravenous solution (2 mL)] Route: ml6 IVP; Site: right hand; 17:00 Drug: NS 0.9% 1000 ml [sodium chloride 0.9 % intravenous solution] Route: IV; Rate: 100 ml6 mL/hr; Site: right forearm; Signatures: Dispatcher [employer] EDMS Carolann Lange MD MD sd1 Kim Laguerre RN RN daq Barnhardt, Gloria, Joon Reg Abraham Vallejo RN RN jmb Beck, Gabriela gjb Smith, Kim, RN RN kas2 Hoffert, Sarah seh Lowe, Matthew RN ml6 The chart was reviewed and I authenticate all verbal orders and agree with the evaluation and treatment provided.Corrections: (The following items were deleted from the chart) 16:58 16:55 NO ADDED SALT DIET ordered. EDMS EDMS 18:26 17:50 MRI Shoulder W/O CONTRAST ordered. EDMS EDMS 18:54 18:05 Spine, THORACOLUMBAR 2 VIEW ordered. EDMS EDMS 20:42 19:32 CARDIAC RISK PROFILE ordered. EDMS EDMS Attachments: 16:39 [facility] Payment Agreement gjb 05/30 08:39 T-Sheet-- Draft Copy [facility] Chart Complete MTDD
[2016-06-01] MEDS: LACTULOSE 20 GM/30 ML SYRUP UD PO SCH ×4 (00:52→18:00)
[2016-06-01] MEDS: NS 1,000 ML IV SCH ×3 (00:53→20:50)
[2016-06-01 02:00] VITALS: BP 132/65
[2016-06-01 06:00] VITALS: BP 139/65
[2016-06-01 06:45] LABS: MEAN CORPUSCULAR HEMOGLOBIN 36.5 pg (27.0-33.0); MEAN CORPUSCULAR HGB CONC 36.7 g/dl (32.0-36.5); MEAN CORPUSCULAR VOLUME 99.6 fl (80.0-96.0); RED CELL DISTRIBUTION WIDTH 15.2 % (11.5-14.5); WHITE BLOOD COUNT 4.2 K/mm3 (4.0-10.0)
[2016-06-01 07:03] LABS: ALBUMIN 2.2 GM/DL (3.2-5.2); ALBUMIN/GLOBULIN RATIO 0.79 (1.00-1.93); ALKALINE PHOSPHATASE 288 U/L (45-117); ALT/SGPT 37 U/L (12-78); ANION GAP 8 MEQ/L (8-16); AST/SGOT 51 U/L (15-37); BILIRUBIN,TOTAL 3.3 MG/DL (0.2-1.0); BLOOD UREA NITROGEN 21 MG/DL (7-18); CALCIUM LEVEL 7.4 MG/DL (8.8-10.2); CARBON DIOXIDE LEVEL 24 MEQ/L (21-32); CHLORIDE LEVEL 109 MEQ/L (98-107); CREATININE FOR GFR 1.16 MG/DL (0.70-1.30); GLOMERULAR FILTRATION RATE > 60.0 (>42); GLUCOSE, FASTING 145 MG/DL (83-110); POTASSIUM SERUM 4.6 MEQ/L (3.5-5.1); SODIUM LEVEL 141 MEQ/L (136-145)
[2016-06-01] MEDS: HumaLOG INSULIN (NovoLOG) PER UNIT SC SCH ×4 (07:54→20:50)
[2016-06-01] MEDS ORDERED: ONDANSETRON 4 MG TAB (S0181) PO PRN (08:00)
[2016-06-01] MEDS ORDERED: PERCOCET 5MG/325MG TAB PO PRN (08:00)
[2016-06-01] MEDS: LEVEMIR (INSULIN DETEMIR) 1 UNITS/0.01ML SC SCH (09:00)
[2016-06-01] MEDS: **NOTE PATIENT COMMENT** MISC XX SCH (09:00)
[2016-06-01] MEDS: SENOKOT S TAB PO SCH ×2 (09:12→20:48)
[2016-06-01] MEDS: MIRALAX *UNIT DOSE* 17GM PACKET PO SCH (09:12)
[2016-06-01] MEDS: OMEPRAZOLE 20 MG CAP PO SCH ×2 (09:12→20:48)
[2016-06-01] MEDS: rifAXIMin 550 MG TAB (XIFAXAN) PO SCH ×2 (09:13→20:49)
[2016-06-01] MEDS: CARVedilol 6.25 MG TAB PO SCH ×2 (09:13→20:49)
[2016-06-01] MEDS: PERCOCET 5MG/325MG TAB PO PRN (09:48)
--- NOTE | 2016-06-01 10:50 | REP ---
RIGHT SHOULDER SERIES: Three views. HISTORY: Question fracture. 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 There is mild glenohumeral osteoarthritic spurring. No fracture is seen. Diffuse osteopenia. IMPRESSION: No fracture noted. 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 Signed by Marcial Meade MD 06/01/2016 01:36 P
[2016-06-01 14:00] VITALS: BP 126/60
[2016-06-01] MEDS: CALCITONIN NASAL SPRAY 3.7 ML BTL SCH (15:51)
--- NOTE | 2016-06-01 16:24 | IPNPDOC ---
Assessment/Plan Date Seen The patient was seen on 06/01/16. Problems Problems: (1) Compression fracture of body of thoracic vertebra Status: Acute Problem Text: Pain controlled off of MEDICAL OFFICER PSYCHIATRY. Pt OOB with TLSO. Will add calcitonin nasal spray for pain. - PO pain management -calcitonin nasal spray - Discharge planning for rehab (2) Intractable back pain Status: Acute Problem Text: - Now on PO percocet and oxy IR. (3) Acute kidney injury Status: Acute Problem Text: Renal function near baseline. (4) Hepatic encephalopathy Status: Chronic Response to Treatment: Improving Problem Text: Pt now on home lactulose and rifaxamin. Mentation improving. (5) Cirrhosis of liver Status: Chronic Problem Text: s/p TIPS. Chronic anemia and thrombocytopenia (6) Anemia Status: Chronic Problem Text: Stable. No sign of bleeding. (7) CAD (coronary artery disease) Status: Chronic Response to Treatment: Stable Problem Text: On Coreg and Statin (8) HLD (hyperlipidemia) Status: Chronic (9) Diabetes type 2, uncontrolled Status: Chronic (10) HTN, goal below 130/80 Status: Chronic (11) Esophageal varices determined by endoscopy Status: Chronic (12) S/P TIPS (transjugular intrahepatic portosystemic shunt) Status: Chronic Plan / VTE VTE Prophylaxis Ordered?: Yes (Heparin) Disposition Discharge planning Subjective Review of Systems CC/HPI The patient is a 75-year-old male admitted with a reason for visit of Compression Fracture Of Body Of Thoracic Vertebra. Events since last encounter Pt cont to have severe pain, although he is managing without MEDICAL OFFICER PSYCHIATRY. He has been up with PT using his TLSO. Constitutional: Denies: Chills, Fever Pulmonary: Denies: Cough, Dyspnea Musculoskeletal: Reports: Back Pain Psych: Reports: Mood Normal Other systems 10 pt ROS otherwise negative Objective Physical Examination General Exam: Positive: Alert, Cooperative, No Acute Distress ENT Exam: Positive: Mucous membr. moist/pink Neck Exam: Positive: JVD Chest Exam: Positive: Clear to auscultation, Normal air movement Heart Exam: Positive: Murmurs (1/6 systolic), Rate Normal, Regular Rhythm, Negative: Rubs Abdomen Exam: Positive: Normal bowel sounds, Soft, Tenderness, Negative: Hepatospenomegaly Extremity Exam: Positive: Other (decreased range of motion in the right shoulder secondary to pain), Negative: Clubbing, Cyanosis, Edema Skin Exam: Negative: Breakdown, Lesion Vital Signs/I&O Vital Signs Date Time Temp Pulse Resp B/P Pulse Ox O2 Delivery O2 Flow Rate FiO2 06/01/16 14:00 97.4 69 20 126/60 96 06/01/16 06:00 Room Air I&O- Last 24 Hours up to 6 AM 06/01/16 06:00 Intake Total 3317 ml Output Total 1728 ml Balance 1589 ml Laboratory Data Labs 24H Laboratory Tests 2 05/31/16 16:45: Bedside Glucose (Misc Panel) 178H 05/31/16 19:53: Bedside Glucose (Misc Panel) 126H 06/01/16 06:15: Blood Urea Nitrogen 21H, Creatinine 1.16, Sodium Level 141, Potassium Level 4.6 , Chloride Level 109H, Carbon Dioxide Level 24, Calcium Level 7.4L, Aspartate Amino Transf (AST/SGOT) 51H, Alanine Aminotransferase (ALT/SGPT) 37, Alkaline Phosphatase 288H, Total Bilirubin 3.3H, Total Protein 5.0L, Albumin 2.2L, Albumin/Globulin Ratio 0.79L, Ammonia 55H, Anion Gap 8, Glomerular Filtration Rate > 60.0 06/01/16 11:45: Bedside Glucose (Misc Panel) 225H CBC/BMP Laboratory Tests 06/01/16 06:15 Calcium Level 7.4 L, Aspartate Amino Transf (AST/SGOT) 51 H, Alanine Aminotransferase (ALT/SGPT) 37, Alkaline Phosphatase 288 H, Total Bilirubin 3.3 H, Total Protein 5.0 L, Albumin 2.2 L, Red Blood Count 2.69 L, Mean Corpuscular Volume 99.6 H, Mean Corpuscular Hemoglobin 36.5 H, Mean Corpuscular Hemoglobin Concent 36.7 H, Red Cell Distribution Width 15.2 H FSBS Laboratory Tests Test 05/31/16 16:45 05/31/16 19:53 06/01/16 11:45 Range/Units Bedside Glucose (Misc Panel) 178 126 225 83-110 MG/DL PRANAY COX MD Jun 01, 2016 16:24 06/01/16 06:15 Calcium Level 7.4 L, Aspartate Amino Transf (AST/SGOT) 51 H, Alanine Aminotransferase (ALT/SGPT) 37, Alkaline Phosphatase 288 H, Total Bilirubin 3.3 H, Total Protein 5.0 L, Albumin 2.2 L, Red Blood Count 2.69 L, Mean Corpuscular Volume 99.6 H, Mean Corpuscular Hemoglobin 36.5 H, Mean Corpuscular Hemoglobin Concent 36.7 H, Red Cell Distribution Width 15.2 H FSBS Laboratory Tests Test 05/31/16 16:45 05/31/16 19:53 06/01/16 11:45 Range/Units Bedside Glucose (Misc Panel) 178 126 225 83-110 MG/DL PRANAY COX MD Jun 01, 2016 16:24
[2016-06-01] MEDS: ATORVASTATIN 20 MG TAB PO SCH (20:49)
[2016-06-01] MEDS: LIDOCAINE 5% (LIDODERM) PATCH TD SCH (20:50)
[2016-06-01 22:00] VITALS: BP 136/63
[2016-06-02] MEDS: LACTULOSE 20 GM/30 ML SYRUP UD PO SCH ×3 (00:06→12:40)
[2016-06-02 06:00] VITALS: BP 130/65
[2016-06-02 07:08] LABS: MEAN CORPUSCULAR HEMOGLOBIN 35.9 pg (27.0-33.0); MEAN CORPUSCULAR HGB CONC 36.2 g/dl (32.0-36.5); MEAN CORPUSCULAR VOLUME 99.3 fl (80.0-96.0); RED CELL DISTRIBUTION WIDTH 15.2 % (11.5-14.5); WHITE BLOOD COUNT 4.1 K/mm3 (4.0-10.0)
[2016-06-02 07:21] LABS: ALBUMIN 2.1 GM/DL (3.2-5.2); ALBUMIN/GLOBULIN RATIO 0.68 (1.00-1.93); ALKALINE PHOSPHATASE 312 U/L (45-117); ALT/SGPT 35 U/L (12-78); ANION GAP 7 MEQ/L (8-16); AST/SGOT 48 U/L (15-37); BILIRUBIN,TOTAL 2.1 MG/DL (0.2-1.0); BLOOD UREA NITROGEN 18 MG/DL (7-18); CALCIUM LEVEL 7.8 MG/DL (8.8-10.2); CARBON DIOXIDE LEVEL 25 MEQ/L (21-32); CHLORIDE LEVEL 107 MEQ/L (98-107); CREATININE FOR GFR 1.15 MG/DL (0.70-1.30); GLOMERULAR FILTRATION RATE > 60.0 (>42); GLUCOSE, FASTING 211 MG/DL (83-110); POTASSIUM SERUM 4.3 MEQ/L (3.5-5.1); SODIUM LEVEL 139 MEQ/L (136-145); TOTAL PROTEIN 5.2 GM/DL (6.4-8.2)
[2016-06-02] MEDS: OMEPRAZOLE 20 MG CAP PO SCH (08:36)
[2016-06-02] MEDS: LEVEMIR (INSULIN DETEMIR) 1 UNITS/0.01ML SC SCH (08:36)
[2016-06-02] MEDS: HumaLOG INSULIN (NovoLOG) PER UNIT SC SCH ×2 (08:36→13:05)
[2016-06-02 08:37] VITALS: BP 130/65
[2016-06-02] MEDS: CARVedilol 6.25 MG TAB PO SCH (08:37)
[2016-06-02] MEDS: SENOKOT S TAB PO SCH (08:37)
[2016-06-02] MEDS: rifAXIMin 550 MG TAB (XIFAXAN) PO SCH (08:37)
[2016-06-02] MEDS: PERCOCET 5MG/325MG TAB PO PRN (08:38)
[2016-06-02] MEDS: NS 1,000 ML IV SCH (08:39)
[2016-06-02] MEDS: CALCITONIN NASAL SPRAY 3.7 ML BTL SCH (08:39)
[2016-06-02] MEDS: MIRALAX *UNIT DOSE* 17GM PACKET PO SCH (08:39)
[2016-06-02] MEDS: **NOTE PATIENT COMMENT** MISC XX SCH (08:40)
[2016-06-02] MEDS ORDERED: PERCOCET PO (14:07)
--- NOTE | 2016-06-02 14:24 | DS.PDOC ---
Discharge Summary General Date of Admission May 30, 2016 at 09:56 Date of Discharge 06/02/16 Discharge Summary PROCEDURES PERFORMED DURING STAY: [None.] COMPLICATIONS/CHIEF COMPLAINT: Compression Fracture Of Body Of Thoracic Vertebra ADMISSION DIAGNOSES: 1. . 2. . 3. . DISCHARGE DIAGNOSES: 1. . 2. . 3. . HISTORY OF PRESENT ILLNESS: Patient is a [AGE]-year-old [GENDER] with HOSPITAL COURSE: Patient was admitted for DISCHARGE MEDICATIONS: Please see below. ALLERGIES: Please see below. PHYSICAL EXAMINATION ON DISCHARGE: VITAL SIGNS: Please see below. GENERAL: HEENT: NECK: CARDIOVASCULAR EXAMINATION: RESPIRATORY EXAMINATION: ABDOMINAL EXAMINATION: EXTREMITIES: SKIN: NEUROLOGICAL EXAMINATION: PSYCHIATRIC EXAMINATION: LABORATORY DATA: Please see below. IMAGING: VTE Prophylaxis ordered?: DISCHARGE CONDITION: DISPOSITION: ACTIVITY: DIET: ITEMS TO FOLLOWUP ON OUTPATIENT: 1. . 2. . 3. . DISCHARGE PLAN AND INSTRUCTIONS: 1. . 2. . 3. . TIME SPENT ON DISCHARGE: Greater than minutes. Vital Signs/I&Os Vital Signs Date Time Temp Pulse Resp B/P Pulse Ox O2 Delivery O2 Flow Rate FiO2 06/02/16 13:53 16 06/02/16 08:42 Room Air 06/02/16 08:37 74 130/65 06/02/16 06:00 96.7 96 I&O- Last 24 Hours up to 6 AM 06/02/16 06:00 Intake Total 1780 ml Output Total 1075 ml Balance 705 ml Laboratory Data Labs 24H Laboratory Tests 2 06/01/16 16:59: Bedside Glucose (Misc Panel) 191H 06/01/16 20:14: Bedside Glucose (Misc Panel) 241H 06/02/16 06:49: Blood Urea Nitrogen 18, Creatinine 1.15, Sodium Level 139, Potassium Level 4.3, Chloride Level 107, Carbon Dioxide Level 25, Calcium Level 7.8L, Aspartate Amino Transf (AST/SGOT) 48H, Alanine Aminotransferase (ALT/SGPT) 35, Alkaline Phosphatase 312H, Total Bilirubin 2.1H, Total Protein 5.2L, Albumin 2.1L, Albumin/Globulin Ratio 0.68L, Ammonia 68H, Anion Gap 7L, Glomerular Filtration Rate > 60.0 06/02/16 11:57: Bedside Glucose (Misc Panel) 238H CBC/BMP Laboratory Tests 06/02/16 06:49 Calcium Level 7.8 L, Aspartate Amino Transf (AST/SGOT) 48 H, Alanine Aminotransferase (ALT/SGPT) 35, Alkaline Phosphatase 312 H, Total Bilirubin 2.1 H, Total Protein 5.2 L, Albumin 2.1 L, Red Blood Count 2.69 L, Mean Corpuscular Volume 99.3 H, Mean Corpuscular Hemoglobin 35.9 H, Mean Corpuscular Hemoglobin Concent 36.2, Red Cell Distribution Width 15.2 H FSBS Laboratory Tests Test 06/01/16 16:59 06/01/16 20:14 06/02/16 11:57 Range/Units Bedside Glucose (Misc Panel) 191 241 238 83-110 MG/DL Medications Scheduled Atorvastatin Calcium (Atorvastatin Calcium) 10 Mg Tab 10 MG PO QHS Carvedilol (Carvedilol) 6.25 Mg Tab 6.25 MG PO BID Cholecalciferol (Vitamin D) 1,000 Unit Tab 1,000 UNIT PO DAILY Cyanocobalamin (Vitamin B12) 1,000 Mcg Tab 1,000 MCG PO DAILY Insulin Glargine (Lantus Solostar) 100 Unit/Ml Inj 20 UNITS SC QHS Insulin Glargine (Lantus Solostar) 100 Unit/Ml Inj 42 UNITS SC QAM Pantoprazole Sodium (Pantoprazole Sodium) 40 Mg Tab 40 MG PO BID Rifaximin (Xifaxan) 550 Mg Tab 550 MG PO BID Vitamin E (Vitamin E) 400 Unit Cap 400 UNIT PO BID Scheduled PRN Lactulose (Lactulose) 10 Gm/15 Ml Gretchen 30 ML PO Q6H PRN PRN CONSTIPATION SEE COMMENTS Oxycodone/Acetaminophen (Percocet 5MG/325MG Tablet) 1 Tab Tab 1 TAB PO Q6HP PRN PRN SEVERE PAIN (PS 8-10) Allergies Coded Allergies: Lisinopril (Verified Adverse Reaction, Intermediate, ELEVATES POTASSIUM, Violently ill, emesis, 01/22/16) PRANAY COX MD Jun 02, 2016 14:24
== END 2016-06-02 14:45 | DRG 552 ==
LOC: M ED 16:01 → M ED INP 16:48 → M MS5PR 22:10 → OBSVTOIN 05-30 09:56
PROVIDERS: ADMIT General Practice; ATTEND Family Medicine
DX: S22.080A Wedge compression fracture of T11-T12 vertebra, initial encounter for closed fracture (principal); I85.10 Secondary esophageal varices without bleeding; I44.2 Atrioventricular block, complete; N17.9 Acute kidney failure, unspecified; W11.XXXA Fall on and from ladder, initial encounter; I25.10 Atherosclerotic heart disease of native coronary artery without angina pectoris; Y92.015 Private garage of single-family (private) house as the place of occurrence of the external cause; Y93.H9 Activity, other involving exterior property and land maintenance, building and construction; E11.65 Type 2 diabetes mellitus with hyperglycemia; D63.8 Anemia in other chronic diseases classified elsewhere; I25.2 Old myocardial infarction; I12.9 Hypertensive chronic kidney disease with stage 1 through stage 4 chronic kidney disease, or unspecified chronic kidney disease; E78.5 Hyperlipidemia, unspecified; N18.3 Chronic kidney disease, stage 3 (moderate); K74.60 Unspecified cirrhosis of liver; Z95.0 Presence of cardiac pacemaker; Z79.4 Long term (current) use of insulin; Z79.899 Other long term (current) drug therapy; K72.90 Hepatic failure, unspecified without coma

== ENCOUNTER 2016-06-02 13:54 | Inpatient (IN) | payer MEDICARE, OTHER ==
[~2016-06-02] VITALS: Ht 175.3 cm; Wt 82.3 kg
[~2016-06-02 13:54] MED LIST changes: +OXYC1TAB23 PO; +VITA100072 PO
[2016-06-02] MEDS ORDERED: PERCOCET PO (14:07)
[2016-06-02 14:49] VITALS: BP 129/63
--- NOTE | 2016-06-02 15:19 | HPEPDOC ---
Lockstitch Machine Operator Note ADMISSION H&P + CODI DATE OF ADMISSION: 06/02/2016 DATE OF SERVICE: 06/02/2016 IDENTIFICATION STATEMENT: Patient is a 75-year-old man status post fall off a ladder with acute T12 compression fracture, hepatic encephalopathy and acute kidney injury admitted for comprehensive integrated inpatient rehabilitation. There have been no significant changes in the patients condition since the preadmission screening. HISTORY OF PRESENT ILLNESS: Patient is a 75-year-old man with multiple medical comorbidities including diabetes mellitus type 2 (insulin-dependent) prior myocardial infarctions and cirrhosis of the liver who initially presented on 04/2017 status post a fall off a ladder whileworking on a garage door. Patient was found to have a T12 compression fracture. He was discharged home from the emergency room with [place] brace and pain medication. He presented the following day on 05/29/2016 with intractable back pain. At that point he was found to have acute kidney injury with encephalopathy. He was started on IV fluids and provided with lactulose. Both his mental status and renal function gradually improved, although he continued to suffer significant pain. Due to decline in the patients baseline functional status and need for continued medical care, recommendation was for acute rehabilitation. On 06/02/2016 the patient was deemed stable for discharge to [facility] inpatient rehabilitation unit. Today, the patient reports persistent severe pain both in his back and right shoulder. He denies any chronic pain issues prior to his fall. He does report falling onto the right side when he fell off a ladder. Pain is a constant dull ache with intermittent sharp pain. It exacerbated by any movement, reduced by rest and neutral positioning. He denies any shooting pain into his lower limbs. He denies any associated neck pain. Denies any paresthesias or numbness. No incontinence of bladder or bowel. PAST MEDICAL HISTORY: Hypertension Hyperlipidemia Diabetes mellitus type 2 (on insulin Anemia chronic disease Chronic kidney disease, stage III Cirrhosis of the liver with esophageal varices status post TIPs procedure 2015 High-grade heart block status post pacemaker in 2016 Myocardial infarctions x 3, last one February 2006 Infection in his mouth at the age of [age] years old resulting in loss of his teeth , has had upper and lower dentures since he was 13 years old. Ariza cataracts PAST SURGICAL HISTORY: Cholecystectomy Abdominal hernia repair Pacemaker insertion 2005 (Dr. Johnson) TIPS procedure summer ALLERGIES: Lisinopril MEDICATIONS: MiraLAX 1 packet by mouth daily Calcitonin 1 spray in nares daily Percocet 1-2 tabs 4 hours when necessary Zofran 4 mg by mouth every 4 hours when necessary Insulin detemir 10 units subcutaneous every morning Lactulose 45 mL by mouth every 6 hours IV normal saline at 100 mLs per hour Lidoderm patch to the low back every 12 hours Senokot-S 1 tab by mouth twice a day Insulin sliding scale before meals and at bedtime Coreg 6.25 mg by mouth twice a day Prilosec 40 mg by mouth twice a day Lipitor 20 mg by mouth daily at bedtime Rifaximin 550mg by mouth twice a day Tylenol 650 mg every 4 hours when necessary Dulcolax 5 mg by mouth daily as needed Zofran 4 mg IV every 6 hours as needed Milk of magnesia 30 mL by mouth every 4 hours as needed SOCIAL HISTORY: Patient lives with his in a two-story home, but there their master bedroom and bathroom on the first floor. There is one 4 inch step to enter the house. 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 He reports a distant history of mild cigarette smoking (2-3 cigarettes per day for less than 1 year) when he was in the . He reports a history of drinking beer over the weekend with his friends when he was younger, as an adult she reports occasional alcohol use sliding beer. He states his last drink was 2-3 years ago. Denies any illicit drug use, past or present. Review of Systems: General: no chills, +fatigue, no weight changes. Eyes: + decreased vision, chronic. no recent change of vision. Ears, Nose & Throat: no sore throat, decreased hearing or nasal discharge. Cardiovascular: + intermittent LL edema, no chest pain, claudication, syncopal episodes. Pul: no cough, SOB, orthopnea. GI: +abdominal pain (radiates from him mid back), no N/V , C/D, loose stools 2nd lactulose, no incontinence. Genitourinary: no frequency or dysuria. Musculoskeletal: Back and right shoulder pain as above, no neck, no muscle pain. Neurological: No numbness, paresthesias, no tremors, progressive weakness, seizures, DAMON. Hematological: No known bleeding disorders. Skin: no rashes. Psychiatric: no depression, anxiety, behavioral issues. VITAL SIGNS: 96.7F, pulse 74, respiratory rate 16, 130/65, 96% saturation on room air. PHYSICAL EXAMINATION: GENERAL: Well nourished, well developed, lying in bed, no acute distress. HEENT: Normocephalic, atraumatic. No facial droop. PERRL, EOMI CARDIOVASCULAR: S1, S2, regular rate. No lower limb edema or calf tenderness LUNGS: Clear to auscultation bilaterally, no wheezing rhonchi or rales ABDOMEN: Soft, nontender, mildly distended, no varcosities. Normoactive bowel sounds throughout. MUSCULOSKELETAL: Right shoulder forward flexion to 60 with end range pain, positive tenderness over right shoulder. MMT: 2/5 Right shoulder forward flexion , 3/5 right elbow flexion (may be give way) 3/5 right rhinologist strength (may be give way). 5/5 left upper limb in all major muscle groups. 5/5 bilateral lower limb strength in all major muscle groups although unable to sustain hip flexion secondary to back pain. Sensation: Intact to soft touch bilateral upper and lower limbs. Deep tendon reflexes: 2+ biceps and patellar bilaterally NEUROLOGICAL: Alert and oriented x 3. Answers all questions appropriately although has some difficulty recollecting correct years. Able to follow commands without difficulty. SKIN: No skin breakdown. LABORATORY DATA: 06/02/2016: WBC 4.1, hemoglobin 9.7, hematocrit 26.8, platelets 65, sodium 139, potassium 4.3, chloride 107, carbon dioxide 25, BUN 18, creatinine 1.15, GFR greater than 60, glucose 211, calcium 7.8, total bili 2.1, AST 48, ALT 35, alkaline phosphatase 12, ammonia 68. IMAGING: CT the record lumbar spine 05/28/2016: T12 compression fracture with approximately 20% loss of anterior superior vertebral body height without retropulsed fracture fragment, the spinal canal relatively patent. X-ray of the right humerus: No acute fracture or dislocation Shoulder x-ray 06/01/2016: Mild degenerative changes, no acute fracture. FUNCTIONAL STATUS: Premorbid: Independent with ADLs and ambulation. Did not drive since the summer secondary to his vision. On Admission: Able to ambulate 3 feet with max assist and a rolling walker, max to mod assist for transfers and bed mobility, min assist for most ADLs. ASSESSMENT AND PLAN: 1. Acute T12 compression fracture and right shoulder injury secondary to fall off a ladder with resultant gait abnormality and dysfunctional ADLs: Continue Deric brace. Due to cirrhosis, will discontinue acetaminophen. Will also change his Percocet to Roxicet on an as-needed basis. Will monitor closely for any cognitive side effects. Pending his demand, may consider long-acting opiate. Regarding his right shoulder pain, imaging was reviewed and did not show any dislocation or fracture. On differential diagnosis includes rotator cuff injury, although it is difficult to assess at this point secondary to his level of pain. Well provide the patient with a Flector patch to the right shoulder along with intermittent nice. Will reassess right shoulder dysfunction and the next 1-2 days. 2. Acute kidney injury: Patient currently on IV and fluids with improvement in his renal function. Likely will be able to discontinue fluids today or tomorrow. Repeat morning labs. 3. 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 Will continue lactulose. It is noted that his ammonium level is slightly increased today as compared to yesterdays. Will repeat labs in the morning. 4. Gait abnormality and dysfunctional ADLs as related to items #1 through 3: Patient will undergo thorough physical and occupational therapy evaluations followed by daily intensive therapy. Rehabilitation nursing for bladder, bowel and medication management 5. Diabetes mellitus type 2, insulin-dependent: Well continue patient on insulin detemir along with sliding scale insulin. Adjustments as needed. 6. Hypertension: Adequately controlled at this time. Maintain Coreg. 7. Diet/nutrition: Well obtain a prealbumin with morning labs. Maintain patient on eye car consistent diet. Nutritional supplements if indicated. POST ADMISSION PHYSICIAN EVALUATION: On evaluation of the patient today there' ve been no significant medical issues or functional changes as compared to those noted in the preadmission screening document. This patient's inpatient rehabilitation remains necessary in light of the above conditions. The patient' s medical condition requires specialized care with physicians specially trained in physical medicine rehabilitation. The patient is capable motivated to participate in a minimum of 3 hours of therapy daily, 5 days minimum per week, and requires intensive inpatient rehabilitation to improve their functional status so that they can be safely to discharge back to their home. PROGNOSIS: Good ESTIMATED LENGTH OF STAY: 14 days. / Vital Signs Vital Sign - Last 24 Hours 06/02/16 14:49 Temp 96.5 Pulse 68 Resp 20 B/P 129/63 Pulse Ox 97 O2 Delivery Room Air Home Medications Scheduled Atorvastatin Calcium (Atorvastatin Calcium) 10 Mg Tab 10 MG PO QHS (Reported) Carvedilol (Carvedilol) 6.25 Mg Tab 6.25 MG PO BID (Reported) Cholecalciferol (Vitamin D) 1,000 Unit Tab 1,000 UNIT PO DAILY (Reported) Cyanocobalamin (Vitamin B12) 1,000 Mcg Tab 1,000 MCG PO DAILY (Reported) Insulin Glargine (Lantus Solostar) 100 Unit/Ml Inj 20 UNITS SC QHS (Reported) Insulin Glargine (Lantus Solostar) 100 Unit/Ml Inj 42 UNITS SC QAM (Reported) Pantoprazole Sodium (Pantoprazole Sodium) 40 Mg Tab 40 MG PO BID (Reported) Rifaximin (Xifaxan) 550 Mg Tab 550 MG PO BID (Reported) Vitamin E (Vitamin E) 400 Unit Cap 400 UNIT PO BID (Reported) Scheduled PRN Lactulose (Lactulose) 10 Gm/15 Ml Gretchen 30 ML PO Q6H PRN PRN CONSTIPATION ( Reported) SEE COMMENTS Oxycodone/Acetaminophen (Percocet 5MG/325MG Tablet) 1 Tab Tab 1 TAB PO Q6HP PRN PRN SEVERE PAIN (PS 8-10) Allergies Coded Allergies: Lisinopril (Verified Adverse Reaction, Intermediate, ELEVATES POTASSIUM, Violently ill, emesis, 01/22/16) TOMASA LYNCH MD Jun 02, 2016 15:19 TOMASA LYNCH MD Jun 02, 2016 15:19
[2016-06-02] MEDS ORDERED: DEXTROSE 50% 50 ML SYRINGE IV PRN (16:45)
[2016-06-02] MEDS ORDERED: GLUCAGON FOR INJ 1 MG VIAL (J1610) SC PRN (16:45)
[2016-06-02] MEDS ORDERED: GLUCOSE 4 GM CHEW TABLET PO PRN (16:45)
[2016-06-02] MEDS: LACTULOSE 20 GM/30 ML SYRUP UD PO SCH (17:43)
[2016-06-02] MEDS: HumaLOG INSULIN (NovoLOG) PER UNIT SC SCH ×2 (17:43→20:51)
[2016-06-02 20:00] VITALS: BP 141/63
[2016-06-02] MEDS: CARVedilol 6.25 MG TAB PO SCH (20:57)
[2016-06-02] MEDS: rifAXIMin 550 MG TAB (XIFAXAN) PO SCH (20:57)
[2016-06-02] MEDS: OMEPRAZOLE 20 MG CAP PO SCH (20:58)
[2016-06-02] MEDS: ATORVASTATIN 20 MG TAB PO SCH (20:58)
[2016-06-02] MEDS: oxyCODONE 5MG TAB PO PRN (20:59)
[2016-06-02] MEDS: DICLOFENAC EPOLAMINE 1.3 % PATCH TOP SCH (20:59)
[2016-06-03] MEDS: LACTULOSE 20 GM/30 ML SYRUP UD PO SCH ×4 (00:23→17:00)
[2016-06-03 06:00] VITALS: BP 131/62
[2016-06-03] MEDS: oxyCODONE 5MG TAB PO PRN ×3 (06:06→16:58)
[2016-06-03 06:58] LABS: MEAN CORPUSCULAR HEMOGLOBIN 35.8 pg (27.0-33.0); MEAN CORPUSCULAR HGB CONC 34.7 g/dl (32.0-36.5); RED CELL DISTRIBUTION WIDTH 16.6 % (11.5-14.5); WHITE BLOOD COUNT 4.1 K/mm3 (4.0-10.0)
[2016-06-03 07:24] LABS: ANION GAP 9 MEQ/L (8-16); BLOOD UREA NITROGEN 14 MG/DL (7-18); CALCIUM LEVEL 7.7 MG/DL (8.8-10.2); CARBON DIOXIDE LEVEL 25 MEQ/L (21-32); CHLORIDE LEVEL 105 MEQ/L (98-107); CREATININE FOR GFR 1.12 MG/DL (0.70-1.30); GLOMERULAR FILTRATION RATE > 60.0 (>42); GLUCOSE, FASTING 197 MG/DL (83-110); POTASSIUM SERUM 4.2 MEQ/L (3.5-5.1); SODIUM LEVEL 139 MEQ/L (136-145)
[2016-06-03] MEDS: OMEPRAZOLE 20 MG CAP PO SCH ×2 (08:13→20:39)
[2016-06-03] MEDS: CARVedilol 6.25 MG TAB PO SCH ×2 (08:13→20:38)
[2016-06-03] MEDS: rifAXIMin 550 MG TAB (XIFAXAN) PO SCH ×2 (08:13→20:39)
[2016-06-03] MEDS: HumaLOG INSULIN (NovoLOG) PER UNIT SC SCH ×4 (08:14→20:44)
[2016-06-03] MEDS: LEVEMIR (INSULIN DETEMIR) 1 UNITS/0.01ML SC SCH (08:14)
[2016-06-03] MEDS: DICLOFENAC EPOLAMINE 1.3 % PATCH TOP SCH ×2 (08:14→20:40)
[2016-06-03] MEDS: CALCIUM/VITAMIN D 500 MG TAB PO SCH ×3 (09:47→20:38)
[2016-06-03] MEDS: GABAPENTIN 100 MG CAP PO SCH ×3 (10:43→20:37)
--- NOTE | 2016-06-03 12:19 | IPNPDOC ---
Portal Developer Progress Note PROGRESS NOTE DATE OF ADMISSION: 06/02/2016 DATE OF SERVICE: 06/03/2016 IDENTIFICATION STATEMENT: Patient is a 75-year-old man status post fall off a ladder with acute T12 compression fracture, hepatic encephalopathy and acute kidney injury admitted for comprehensive integrated inpatient rehabilitation. 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 Ariza cataracts PAST SURGICAL HISTORY: Cholecystectomy Abdominal hernia repair Pacemaker insertion 2005 (Dr. Johnson) TIPS procedure summer ALLERGIES: Lisinopril MEDICATIONS: Insulin detemir 10 units subcutaneous every morning Lactulose 45 mL by mouth every 6 hours Roxicodone 5-10mg q4h prn pain Flector patch to shoulder every 12 hours Insulin sliding scale before meals and at bedtime Coreg 6.25 mg by mouth twice a day Prilosec 40 mg by mouth twice a day Lipitor 20 mg by mouth daily at bedtime Rifaximin 550mg by mouth twice a day SUBJECTIVE: Patient without new complaints. Still with mid back and right shoulder pain, although pain is somewhat better than yesterday. Sharp, achy and intermittent, usually with movement/activity, decreased with rest. Continues to have BMs that are loose, urinating well without any dysuria. Denies any chest pain, shortness of breath, nausea vomiting. VITAL SIGNS: 96.7F, pulse 74, respiratory rate 16, 130/65, 96% saturation on room air. PHYSICAL EXAMINATION: GENERAL: Well nourished, well developed, lying in bed, no acute distress. HEENT: Normocephalic, atraumatic. No facial droop. PERRL, EOMI CARDIOVASCULAR: S1, S2, regular rate. No lower limb edema or calf tenderness LUNGS: Clear to auscultation bilaterally, no wheezing rhonchi or rales ABDOMEN: Soft, LUQ tenderness, mildly distended (~stable). Normoactive bowel sounds throughout. MUSCULOSKELETAL: Right shoulder forward flexion to 60 with end range pain, positive diffuse tenderness over right shoulder. MMT: 2/5 Right shoulder forward flexion, 5/5 right elbow flexion, 4/5 right rooms director strength (may be give way). 5/5 left upper limb in all major muscle groups. 5/5 bilateral lower limb strength in all major muscle groups although unable to sustain hip flexion secondary to back pain. NEUROLOGICAL: Alert and oriented x 3. Answers all questions appropriately. Able to follow commands without difficulty. SKIN: No skin breakdown. LABORATORY DATA: 06/03/2016: reviewed, see below 06/02/2016: WBC 4.1, hemoglobin 9.7, hematocrit 26.8, platelets 65, sodium 139, potassium 4.3, chloride 107, carbon dioxide 25, BUN 18, creatinine 1.15, GFR greater than 60, glucose 211, calcium 7.8, total bili 2.1, AST 48, ALT 35, alkaline phosphatase 12, ammonia 68. IMAGING: CT abdomen & pelvis 05/28/16: reviewed, non acute CT the thoracic & lumbar spine 05/28/2016: T12 compression fracture with approximately 20% loss of anterior superior vertebral body height without retropulsed fracture fragment, the spinal canal relatively patent. X-ray of the right humerus: No acute fracture or dislocation Shoulder x-ray 06/01/2016: Mild degenerative changes, no acute fracture. FUNCTIONAL STATUS: Premorbid: Independent with ADLs and ambulation. Did not drive since the summer secondary to his vision. On Admission: Able to ambulate 3 feet with max assist and a rolling walker, max to mod assist for transfers and bed mobility, min assist for most ADLs. ASSESSMENT AND PLAN: 1. Acute T12 compression fracture and right shoulder injury secondary to fall off a ladder: Continue Deric brace. Pain control (see below). Right shoulder pain differential diagnosis includes rotator cuff injury. Pain management as below. 2. Pain: Due to cirrhosis, discontinued acetaminophen and changed Percocet to Roxicet. Monitor closely for any cognitive side effects. Pending his demand, may consider long-acting opiate. Will trial low dose gabapentin for myofascial pain. Right shoulder pain: Flector patch along with intermittent nice. Will reassess right shoulder dysfunction in am. 3. Acute kidney injury: Resolved status post IV fluids. 4. 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 Continue lactulose. 5. Gait abnormality and dysfunctional ADLs as related to items #1 through 4: Continue daily physical and occupational therapy. Rehabilitation nursing for bladder, bowel and medication management 6. Diabetes mellitus type 2, insulin-dependent: Continue patient on insulin detemir along with sliding scale insulin. Adjustments as needed. 7. Hypertension: Adequately controlled at this time. Maintain Coreg. 8. Diet/severe malnutrition: Prealbumin low. Maintain patient on carb consistent diet with Glucerna nutritional supplements. / Vital Signs Vital Sign - Last 24 Hours 06/02/16 06/02/16 06/02/16 06/02/16 14:49 20:00 20:00 20:57 Temp 96.5 98.0 Pulse 68 77 77 Resp 20 18 B/P 129/63 141/63 141/63 Pulse Ox 97 96 O2 Delivery Room Air Room Air Room Air 06/02/16 06/02/16 06/03/16 06/03/16 20:59 21:29 06:00 06:06 Temp 98.2 Pulse 75 Resp 18 18 18 18 B/P 131/62 Pulse Ox 98 O2 Delivery Room Air 06/03/16 06/03/16 06/03/16 06:36 08:13 12:18 Pulse 75 Resp 18 20 B/P 131/62 Laboratory Data CBC/BMP Laboratory Tests 06/03/16 06:23 Calcium Level 7.7 L, Red Blood Count 2.73 L, Mean Corpuscular Volume 103.0 H, Mean Corpuscular Hemoglobin 35.8 H, Mean Corpuscular Hemoglobin Concent 34.7, Red Cell Distribution Width 16.6 H Labs 24H Laboratory Tests 2 06/02/16 17:00: Bedside Glucose (Misc Panel) 207H 06/02/16 20:10: Bedside Glucose (Misc Panel) 216H 06/03/16 06:23: Anion Gap 9, Blood Urea Nitrogen 14, Creatinine 1.12, Sodium Level 139, Potassium Level 4.2, Chloride Level 105, Carbon Dioxide Level 25, Calcium Level 7.7L, Glomerular Filtration Rate > 60.0, Prealbumin 5.7L 06/03/16 11:32: Bedside Glucose (Misc Panel) 216H FSBS Laboratory Tests Test 06/02/16 17:00 06/02/16 20:10 06/03/16 11:32 Range/Units Bedside Glucose (Misc Panel) 207 216 216 83-110 MG/DL Allergies Allergies: Coded Allergies: Lisinopril (Verified Adverse Reaction, Intermediate, ELEVATES POTASSIUM, Violently ill, emesis, 01/22/16) Current Medications Current Medications Current Medications Atorvastatin Calcium (Lipitor) 20 mg QHS PO Last administered on 06/02/16 20: 58; Start 06/02/16 at 21:00; Stop 07/02/16 at 20:59 Calcium/Vitamin D (Oscal D) 500 mg TID PO Last administered on 06/03/16 09:47 ; Start 06/03/16 at 09:00; Stop 07/03/16 at 08:59 Carvedilol (COReg) 6.25 mg BID PO Last administered on 06/03/16 08:13; Start 06/02/16 at 21:00; Stop 07/02/16 at 20:59 Dextrose (Dextrose 50%) 25 ml ASDIRECTED PRN IV SEE LABEL COMMENTS; Start 06/02 at 16:45; Stop 07/02/16 at 16:44 Diclofenac Epolamine (Flector 1.3%) 1 patch Q12H TOP Last administered on 08:14; Start 06/02/16 at 21:00; Stop 07/02/16 at 20:59 Gabapentin (Neurontin) 100 mg TID PO Last administered on 06/03/16 10:43; Start 06/03/16 at 09:00; Stop 07/03/16 at 08:59 Glucagon (Glucagon) 1 mg ASDIRECTED PRN SC SEE LABEL COMMENTS; Start 06/02/16 at 16:45; Stop 07/02/16 at 16:44 Glucose (Glucose) 16 GM ASDIRECTED PRN PO SEE LABEL COMMENTS; Start 06/02/16 at 16:45; Stop 07/02/16 at 16:44 Insulin Detemir (Levemir Insulin) 10 units DAILY SC Last administered on 08:14; Start 06/03/16 at 09:00; Stop 07/03/16 at 08:59 Insulin Human Lispro (HumaLOG INSULIN) See Protocol Table AC SC Last administered on 06/03/16 12:16; Start 06/02/16 at 17:30; Stop 07/02/16 at 17:29 Insulin Human Lispro (HumaLOG INSULIN) See Protocol Table QHS SC ; Start at 21:00; Stop 07/02/16 at 20:59 Lactulose (Cephulac) 45 ml Q6H PO Last administered on 06/03/16 12:16; Start 06/02/16 at 18:00; Stop 07/02/16 at 17:59 Omeprazole (PriLOSEC) 40 mg BID PO Last administered on 06/03/16 08:13; Start 06/02/16 at 21:00; Stop 07/02/16 at 20:59 Oxycodone HCl (Roxicodone, Oxyir) 5 mg Q4HP PRN PO MILD/MODERATE PAIN (PS 1-7) Last administered on 06/03/16 12:18; Start 06/02/16 at 14:30; Stop 06/09/16 at 14:29 Oxycodone HCl (Roxicodone, Oxyir) 10 mg Q4HP PRN PO SEVERE PAIN (PS 8-10) Last administered on 06/03/16 06:06; Start 06/02/16 at 14:30; Stop 06/09/16 at 14:29 Rifaximin (Xifaxan) 550 mg BID PO Last administered on 06/03/16 08:13; Start 06/02/16 at 21:00; Stop 07/02/16 at 20:59 TOMASA LYNCH MD Jun 03, 2016 12:19
[2016-06-03 14:00] VITALS: BP 139/64
[2016-06-03 19:50] VITALS: BP 140/71
[2016-06-03] MEDS: ATORVASTATIN 20 MG TAB PO SCH (20:38)
[2016-06-04] MEDS: oxyCODONE 5MG TAB PO PRN ×2 (00:16→08:26)
[2016-06-04] MEDS: LACTULOSE 20 GM/30 ML SYRUP UD PO SCH ×4 (00:17→18:10)
[2016-06-04 06:28] VITALS: BP 132/62
[2016-06-04] MEDS: HumaLOG INSULIN (NovoLOG) PER UNIT SC SCH ×4 (07:59→21:00)
[2016-06-04] MEDS: LEVEMIR (INSULIN DETEMIR) 1 UNITS/0.01ML SC SCH (08:20)
[2016-06-04] MEDS: DICLOFENAC EPOLAMINE 1.3 % PATCH TOP SCH ×2 (08:21→21:18)
[2016-06-04] MEDS: OMEPRAZOLE 20 MG CAP PO SCH ×2 (08:26→21:17)
[2016-06-04] MEDS: CALCIUM/VITAMIN D 500 MG TAB PO SCH ×3 (08:26→21:17)
[2016-06-04] MEDS: GABAPENTIN 100 MG CAP PO SCH ×3 (08:27→21:17)
[2016-06-04] MEDS: rifAXIMin 550 MG TAB (XIFAXAN) PO SCH ×2 (08:27→21:17)
[2016-06-04] MEDS: CARVedilol 6.25 MG TAB PO SCH ×2 (08:27→21:18)
--- NOTE | 2016-06-04 12:27 | IPNPDOC ---
Oxygen Therapist Progress Note PROGRESS NOTE DATE OF ADMISSION: 06/02/2016 DATE OF SERVICE: 06/04/2016 IDENTIFICATION STATEMENT: Patient is a 75-year-old man status post fall off a ladder with acute T12 compression fracture, hepatic encephalopathy and acute kidney injury admitted for comprehensive integrated inpatient rehabilitation. 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 Ariza cataracts PAST SURGICAL HISTORY: Cholecystectomy Abdominal hernia repair Pacemaker insertion 2005 (Dr. Johnson) TIPS procedure summer ALLERGIES: Lisinopril MEDICATIONS: Insulin detemir 10 units subcutaneous every morning Lactulose 45 mL by mouth every 6 hours Flector patch to shoulder every 12 hours Insulin sliding scale before meals and at bedtime Coreg 6.25 mg by mouth twice a day Prilosec 40 mg by mouth twice a day Lipitor 20 mg by mouth daily at bedtime Rifaximin 550mg by mouth twice a day Gabapentin 100mg PO tid SUBJECTIVE: Patient without new complaints. Pain less in back and shoulder. Still with abdominal tenderness. Denies any chest pain, shortness of breath, nausea vomiting, diaphoresis. VITAL SIGNS: 96.8F, pulse 80, respiratory rate 18, 140/74, 98% saturation on room air. PHYSICAL EXAMINATION: GENERAL: Well nourished, well developed, sitting in chair, no acute distress. HEENT: Normocephalic, atraumatic. No facial droop. PERRL, EOMI CARDIOVASCULAR: S1, S2, regular rate. No lower limb edema or calf tenderness LUNGS: Clear to auscultation bilaterally, no wheezing rhonchi or rales ABDOMEN: Soft, diffuse L>R tenderness to mild palpation, no rebound, mildly distended (~stable). Normoactive bowel sounds throughout. MUSCULOSKELETAL: Right shoulder forward flexion to 60 with end range pain, positive tenderness over right shoulder. 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 5/5 left upper limb in all major muscle groups. 5/5 bilateral lower limb strength in all major muscle groups although unable to sustain hip flexion secondary to back pain. NEUROLOGICAL: Alert and oriented x 3. Answers all questions appropriately. Able to follow commands without difficulty. SKIN: No skin breakdown. LABORATORY DATA: 06/03/2016: reviewed, see below 06/02/2016: WBC 4.1, hemoglobin 9.7, hematocrit 26.8, platelets 65, sodium 139, potassium 4.3, chloride 107, carbon dioxide 25, BUN 18, creatinine 1.15, GFR greater than 60, glucose 211, calcium 7.8, total bili 2.1, AST 48, ALT 35, alkaline phosphatase 12, ammonia 68. IMAGING: CT abdomen & pelvis 05/28/16: reviewed, non-acute CT the thoracic & lumbar spine 05/28/2016: T12 compression fracture with approximately 20% loss of anterior superior vertebral body height without retropulsed fracture fragment, the spinal canal relatively patent. X-ray of the right humerus: No acute fracture or dislocation Shoulder x-ray 06/01/2016: Mild degenerative changes, no acute fracture. FUNCTIONAL STATUS: Premorbid: Independent with ADLs and ambulation. Did not drive since the summer secondary to his vision. On Admission: Able to ambulate 3 feet with max assist and a rolling walker, max to mod assist for transfers and bed mobility, min assist for most ADLs. ASSESSMENT AND PLAN: 1. Acute T12 compression fracture and right shoulder injury secondary to fall off a ladder: Continue Cisco brace. Pain control (see below). Right shoulder pain differential diagnosis includes rotator cuff injury. Pain management as below. 2. Pain: Due to cirrhosis, discontinued acetaminophen and changed Percocet to Roxicet. Usage reviewed. No cognitive side effects noted. Continue current regimen. Right shoulder pain: Decreased. Continue Flector patch along with intermittent nice. 3. Acute kidney injury: Resolved status post IV fluids. 4. 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 Seems to be at baseline. Ammonia level decreased. Continue lactulose. 5. Gait abnormality and dysfunctional ADLs as related to items #1 through 4: Patient making progress. Continue daily physical and occupational therapy. Rehabilitation nursing for bladder, bowel and medication management 6. Diabetes mellitus type 2, insulin-dependent: Continue patient on insulin detemir along with sliding scale insulin. Adjustments as needed. 7. Hypertension: Adequately controlled. Maintain Coreg. 8. Diet/severe malnutrition: Prealbumin low. Maintain patient on carb consistent diet with Glucerna nutritional supplements. / Vital Signs Vital Sign - Last 24 Hours 06/03/16 06/03/16 06/03/16 06/03/16 14:00 16:58 19:50 20:38 Temp 97.3 97.5 Pulse 69 75 75 Resp 18 20 16 B/P 139/64 140/71 140/71 Pulse Ox 99 98 O2 Delivery Room Air Room Air 06/04/16 06/04/16 06/04/16 06/04/16 00:16 00:46 06:28 08:26 Temp 96.8 Pulse 72 Resp 18 16 18 18 B/P 132/62 Pulse Ox 98 06/04/16 06/04/16 08:27 09:26 Pulse 80 Resp 18 B/P 140/74 Laboratory Data Labs 24H Laboratory Tests 2 06/03/16 12:36: Ammonia 50H 06/03/16 16:39: Bedside Glucose (Misc Panel) 290H 06/03/16 20:32: Bedside Glucose (Misc Panel) 201H 06/04/16 06:33: Bedside Glucose (Misc Panel) 195H 06/04/16 11:31: Bedside Glucose (Misc Panel) 265H FSBS Laboratory Tests Test 06/03/16 16:39 06/03/16 20:32 06/04/16 06:33 06/04/16 11:31 Range/Units Bedside Glucose (Misc Panel) 290 201 195 265 83-110 MG/DL Allergies Allergies: Coded Allergies: Lisinopril (Verified Adverse Reaction, Intermediate, ELEVATES POTASSIUM, Violently ill, emesis, 01/22/16) Current Medications Current Medications Current Medications Atorvastatin Calcium (Lipitor) 20 mg QHS PO Last administered on 06/03/16 20: 38; Start 06/02/16 at 21:00; Stop 07/02/16 at 20:59 Calcium/Vitamin D (Oscal D) 500 mg TID PO Last administered on 06/04/16 08:26 ; Start 06/03/16 at 09:00; Stop 07/03/16 at 08:59 Carvedilol (COReg) 6.25 mg BID PO Last administered on 06/04/16 08:27; Start 06/02/16 at 21:00; Stop 07/02/16 at 20:59 Dextrose (Dextrose 50%) 25 ml ASDIRECTED PRN IV SEE LABEL COMMENTS; Start 06/02 at 16:45; Stop 07/02/16 at 16:44 Diclofenac Epolamine (Flector 1.3%) 1 patch Q12H TOP Last administered on 08:21; Start 06/02/16 at 21:00; Stop 07/02/16 at 20:59 Gabapentin (Neurontin) 100 mg TID PO Last administered on 06/04/16 08:27; Start 06/03/16 at 09:00; Stop 07/03/16 at 08:59 Glucagon (Glucagon) 1 mg ASDIRECTED PRN SC SEE LABEL COMMENTS; Start 06/02/16 at 16:45; Stop 07/02/16 at 16:44 Glucose (Glucose) 16 GM ASDIRECTED PRN PO SEE LABEL COMMENTS; Start 06/02/16 at 16:45; Stop 07/02/16 at 16:44 Insulin Detemir (Levemir Insulin) 10 units DAILY SC Last administered on 08:20; Start 06/03/16 at 09:00; Stop 07/03/16 at 08:59 Insulin Human Lispro (HumaLOG INSULIN) See Protocol Table AC SC Last administered on 06/04/16 12:14; Start 06/02/16 at 17:30; Stop 07/02/16 at 17:29 Insulin Human Lispro (HumaLOG INSULIN) See Protocol Table QHS SC ; Start at 21:00; Stop 07/02/16 at 20:59 Lactulose (Cephulac) 45 ml Q6H PO Last administered on 06/04/16 12:10; Start 06/02/16 at 18:00; Stop 07/02/16 at 17:59 Omeprazole (PriLOSEC) 40 mg BID PO Last administered on 06/04/16 08:26; Start 06/02/16 at 21:00; Stop 07/02/16 at 20:59 Oxycodone HCl (Roxicodone, Oxyir) 5 mg Q4HP PRN PO MILD/MODERATE PAIN (PS 1-7) Last administered on 06/04/16 00:16; Start 06/02/16 at 14:30; Stop 06/09/16 at 14:29 Oxycodone HCl (Roxicodone, Oxyir) 10 mg Q4HP PRN PO SEVERE PAIN (PS 8-10) Last administered on 06/04/16 08:26; Start 06/02/16 at 14:30; Stop 06/09/16 at 14:29 Rifaximin (Xifaxan) 550 mg BID PO Last administered on 06/04/16 08:27; Start 06/02/16 at 21:00; Stop 07/02/16 at 20:59 TOMASA LYNCH MD Jun 04, 2016 12:27
[2016-06-04 14:00] VITALS: BP 125/58
[2016-06-04 20:00] VITALS: BP 124/65
[2016-06-04] MEDS: ATORVASTATIN 20 MG TAB PO SCH (21:17)
[2016-06-05] MEDS: LACTULOSE 20 GM/30 ML SYRUP UD PO SCH ×4 (00:20→17:47)
[2016-06-05] MEDS: oxyCODONE 5MG TAB PO PRN ×3 (05:01→21:58)
[2016-06-05 06:00] VITALS: BP 131/74
[2016-06-05 07:41] LABS: MEAN CORPUSCULAR HEMOGLOBIN 36.1 pg (27.0-33.0); MEAN CORPUSCULAR HGB CONC 35.9 g/dl (32.0-36.5); MEAN CORPUSCULAR VOLUME 100.4 fl (80.0-96.0); RED CELL DISTRIBUTION WIDTH 15.8 % (11.5-14.5)
[2016-06-05 07:55] LABS: ANION GAP 6 MEQ/L (8-16); BLOOD UREA NITROGEN 14 MG/DL (7-18); CALCIUM LEVEL 8.7 MG/DL (8.8-10.2); CARBON DIOXIDE LEVEL 32 MEQ/L (21-32); CHLORIDE LEVEL 101 MEQ/L (98-107); CREATININE FOR GFR 1.15 MG/DL (0.70-1.30); GLOMERULAR FILTRATION RATE > 60.0 (>42); GLUCOSE, FASTING 185 MG/DL (83-110); POTASSIUM SERUM 4.8 MEQ/L (3.5-5.1); SODIUM LEVEL 139 MEQ/L (136-145)
[2016-06-05] MEDS: rifAXIMin 550 MG TAB (XIFAXAN) PO SCH ×2 (09:20→21:57)
[2016-06-05] MEDS: CALCIUM/VITAMIN D 500 MG TAB PO SCH ×3 (09:20→21:58)
[2016-06-05] MEDS: HumaLOG INSULIN (NovoLOG) PER UNIT SC SCH ×4 (09:21→21:00)
[2016-06-05] MEDS: GABAPENTIN 100 MG CAP PO SCH ×3 (09:21→21:58)
[2016-06-05] MEDS: CARVedilol 6.25 MG TAB PO SCH ×2 (09:21→22:00)
[2016-06-05] MEDS: OMEPRAZOLE 20 MG CAP PO SCH ×2 (09:21→21:57)
[2016-06-05] MEDS: DICLOFENAC EPOLAMINE 1.3 % PATCH TOP SCH ×2 (09:22→22:00)
[2016-06-05] MEDS: LEVEMIR (INSULIN DETEMIR) 1 UNITS/0.01ML SC SCH (09:22)
--- NOTE | 2016-06-05 11:47 | IPNPDOC ---
Foot Tender Progress Note PROGRESS NOTE DATE OF ADMISSION: 06/02/2016 DATE OF SERVICE: 06/05/2016 IDENTIFICATION STATEMENT: Patient is a 75-year-old man status post fall off a ladder with acute T12 compression fracture, hepatic encephalopathy and acute kidney injury admitted for comprehensive integrated inpatient rehabilitation. 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 Ariza cataracts PAST SURGICAL HISTORY: Cholecystectomy Abdominal hernia repair Pacemaker insertion 2005 (Dr. Johnson) TIPS procedure summer ALLERGIES: Lisinopril MEDICATIONS: Insulin detemir 10 units subcutaneous every morning Lactulose 45 mL by mouth every 6 hours Flector patch to shoulder every 12 hours Insulin sliding scale before meals and at bedtime Coreg 6.25 mg by mouth twice a day Prilosec 40 mg by mouth twice a day Lipitor 20 mg by mouth daily at bedtime Rifaximin 550mg by mouth twice a day Gabapentin 100mg PO tid SUBJECTIVE: Patient reports increased pain this morning, state it back stomach and right shoulder. He says current pain medication definitely helps. Abdominal pain described as tenderness, non-radiaiting from back, no associated N/V, has moved bowels, urinating w/o difficulty. Didnt sleep well. Denies any chest pain, shortness of breath, nausea vomiting, diaphoresis. VITAL SIGNS: 97.0F, pulse 80, respiratory rate 18, 131/74, 99% saturation on room air. PHYSICAL EXAMINATION: GENERAL: Well nourished, well developed, sitting in chair, no acute distress. HEENT: Normocephalic, atraumatic. No facial droop. PERRL, EOMI CARDIOVASCULAR: S1, S2, regular rate. No lower limb edema or calf tenderness LUNGS: Clear to auscultation bilaterally, no wheezing rhonchi or rales ABDOMEN: Soft, diffuse tenderness to mild palpation, no rebound, and increased distention since yesterday. + bowel sounds. MUSCULOSKELETAL: Right shoulder: + diffuse tenderness, worse posterior. Forward flexion to 60 with end range pain, positive tenderness over right shoulder. MMT: 3/5 Right shoulder forward flexion, 5/5 right elbow flexion, 4/5 right drafting layout man strength (may be give way). 5/5 left upper limb in all major muscle groups. 5/5 bilateral lower limb strength in all major muscle groups although unable to sustain hip flexion secondary to back pain. NEUROLOGICAL: Alert and oriented x 3. Answers all questions appropriately. Able to follow commands without difficulty. SKIN: No skin breakdown. LABORATORY DATA: 06/05/2016: reviewed, see below 06/02/2016: WBC 4.1, hemoglobin 9.7, hematocrit 26.8, platelets 65, sodium 139, potassium 4.3, chloride 107, carbon dioxide 25, BUN 18, creatinine 1.15, GFR greater than 60, glucose 211, calcium 7.8, total bili 2.1, AST 48, ALT 35, alkaline phosphatase 12, ammonia 68. IMAGING: CT abdomen & pelvis 05/28/16: reviewed, non-acute CT the thoracic & lumbar spine 05/28/2016: T12 compression fracture with approximately 20% loss of anterior superior vertebral body height without retropulsed fracture fragment, the spinal canal relatively patent. X-ray of the right humerus: No acute fracture or dislocation Shoulder x-ray 06/01/2016: Mild degenerative changes, no acute fracture. FUNCTIONAL STATUS: Premorbid: Independent with ADLs and ambulation. Did not drive since the summer secondary to his vision. On Admission: Able to ambulate 3 feet with max assist and a rolling walker, max to mod assist for transfers and bed mobility, min assist for most ADLs. ASSESSMENT AND PLAN: 1. Acute T12 compression fracture and right shoulder injury secondary to fall off a ladder: Continue Deric brace. Pain control (see below). Right shoulder pain differential diagnosis includes rotator cuff injury. Will consider MRI. Pain management as below. 2. Pain: Patient states pain medication effective, but still with significant pain. Reviewed usage oxycodone, per RN patient gets sedated with 10mg dose. So have d/cd 10mg and continued 5mg dose. Have ordered CT abdomen. Will increase nighttime dose gabapentin [Hx; Patient due to cirrhosis, discontinued acetaminophen and changed Percocet to Roxicet]. Right shoulder pain: Continue Flector patch which patient reports effective along with intermittent nice. Consider MRI to eval for RC pathology. 3. Acute kidney injury: Resolved status post IV fluids. 4. 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 Seems to be at baseline. Ammonia level decreased. Continue lactulose. 5. Gait abnormality and dysfunctional ADLs as related to items #1 through 4: Continue daily physical and occupational therapy. Rehabilitation nursing for bladder, bowel and medication management 6. Diabetes mellitus type 2, insulin-dependent: Continue patient on insulin detemir along with sliding scale insulin. Adjustments as needed. 7. Hypertension: Adequately controlled. Maintain Coreg. 8. Diet/severe malnutrition: Prealbumin low. Maintain patient on carb consistent diet with Glucerna nutritional supplements. / Vital Signs Vital Sign - Last 24 Hours 06/04/16 06/04/16 06/04/16 06/05/16 14:00 20:00 21:18 05:01 Temp 96.8 98.1 Pulse 71 77 77 Resp 18 18 18 B/P 125/58 124/65 124/65 Pulse Ox 98 98 O2 Delivery Room Air Room Air 06/05/16 06/05/16 06/05/16 06/05/16 06:00 06:26 09:20 09:21 Temp 97.0 Pulse 80 80 Resp 18 18 18 B/P 131/74 131/74 Pulse Ox 99 O2 Delivery Room Air 06/05/16 10:00 Resp 20 Laboratory Data CBC/BMP Laboratory Tests 06/05/16 07:20 Calcium Level 8.7 L, Red Blood Count 2.92 L, Mean Corpuscular Volume 100.4 H, Mean Corpuscular Hemoglobin 36.1 H, Mean Corpuscular Hemoglobin Concent 35.9, Red Cell Distribution Width 15.8 H Labs 24H Laboratory Tests 2 06/04/16 16:34: Bedside Glucose (Misc Panel) 204H 06/04/16 20:24: Bedside Glucose (Misc Panel) 246H 06/05/16 06:57: Bedside Glucose (Misc Panel) 200H 06/05/16 07:20: Ammonia 36H, Anion Gap 6L, Blood Urea Nitrogen 14, Creatinine 1.15, Sodium Level 139, Potassium Level 4.8, Chloride Level 101, Carbon Dioxide Level 32, Calcium Level 8.7L, Glomerular Filtration Rate > 60.0 FSBS Laboratory Tests Test 06/04/16 16:34 06/04/16 20:24 06/05/16 06:57 Range/Units Bedside Glucose (Misc Panel) 204 246 200 83-110 MG/DL Allergies Allergies: Coded Allergies: Lisinopril (Verified Adverse Reaction, Intermediate, ELEVATES POTASSIUM, Violently ill, emesis, 01/22/16) Current Medications Current Medications Current Medications Atorvastatin Calcium (Lipitor) 20 mg QHS PO Last administered on 06/04/16 21: 17; Start 06/02/16 at 21:00; Stop 07/02/16 at 20:59 Calcium/Vitamin D (Oscal D) 500 mg TID PO Last administered on 06/05/16 09:20 ; Start 06/03/16 at 09:00; Stop 07/03/16 at 08:59 Carvedilol (COReg) 6.25 mg BID PO Last administered on 06/05/16 09:21; Start 06/02/16 at 21:00; Stop 07/02/16 at 20:59 Dextrose (Dextrose 50%) 25 ml ASDIRECTED PRN IV SEE LABEL COMMENTS; Start 06/02 at 16:45; Stop 07/02/16 at 16:44 Diclofenac Epolamine (Flector 1.3%) 1 patch Q12H TOP Last administered on 09:22; Start 06/02/16 at 21:00; Stop 07/02/16 at 20:59 Gabapentin (Neurontin) 100 mg TID PO Last administered on 06/05/16 09:21; Start 06/03/16 at 09:00; Stop 07/03/16 at 08:59 Glucagon (Glucagon) 1 mg ASDIRECTED PRN SC SEE LABEL COMMENTS; Start 06/02/16 at 16:45; Stop 07/02/16 at 16:44 Glucose (Glucose) 16 GM ASDIRECTED PRN PO SEE LABEL COMMENTS; Start 06/02/16 at 16:45; Stop 07/02/16 at 16:44 Insulin Detemir (Levemir Insulin) 10 units DAILY SC Last administered on 09:22; Start 06/03/16 at 09:00; Stop 07/03/16 at 08:59 Insulin Human Lispro (HumaLOG INSULIN) See Protocol Table AC SC Last administered on 06/05/16 09:21; Start 06/02/16 at 17:30; Stop 07/02/16 at 17:29 Insulin Human Lispro (HumaLOG INSULIN) See Protocol Table QHS SC ; Start at 21:00; Stop 07/02/16 at 20:59 Lactulose (Cephulac) 45 ml Q6H PO Last administered on 06/05/16 05:02; Start 06/02/16 at 18:00; Stop 07/02/16 at 17:59 Omeprazole (PriLOSEC) 40 mg BID PO Last administered on 06/05/16 09:21; Start 06/02/16 at 21:00; Stop 07/02/16 at 20:59 Oxycodone HCl (Roxicodone, Oxyir) 5 mg Q4HP PRN PO MILD/MODERATE PAIN (PS 1-7) Last administered on 06/05/16 09:20; Start 06/02/16 at 14:30; Stop 06/09/16 at 14:29 Oxycodone HCl (Roxicodone, Oxyir) 10 mg Q4HP PRN PO SEVERE PAIN (PS 8-10) Last administered on 06/05/16 05:01; Start 06/02/16 at 14:30; Stop 06/05/16 at 09:04 ; Status DC Rifaximin (Xifaxan) 550 mg BID PO Last administered on 06/05/16 09:20; Start 06/02/16 at 21:00; Stop 07/02/16 at 20:59 TOMASA LYNCH MD Jun 05, 2016 11:47
[2016-06-05 14:00] VITALS: BP 112/56
[2016-06-05 20:00] VITALS: BP 146/65
[2016-06-05] MEDS: ATORVASTATIN 20 MG TAB PO SCH (21:57)
[2016-06-06] MEDS: LACTULOSE 20 GM/30 ML SYRUP UD PO SCH ×4 (00:03→17:12)
[2016-06-06 06:00] VITALS: BP 144/65
[2016-06-06] MEDS: HumaLOG INSULIN (NovoLOG) PER UNIT SC SCH ×4 (08:36→21:00)
[2016-06-06] MEDS: DICLOFENAC EPOLAMINE 1.3 % PATCH TOP SCH ×2 (08:37→20:54)
[2016-06-06] MEDS: rifAXIMin 550 MG TAB (XIFAXAN) PO SCH ×2 (08:37→20:54)
[2016-06-06] MEDS: LEVEMIR (INSULIN DETEMIR) 1 UNITS/0.01ML SC SCH (08:37)
[2016-06-06] MEDS: CALCIUM/VITAMIN D 500 MG TAB PO SCH ×3 (08:39→20:54)
[2016-06-06] MEDS: OMEPRAZOLE 20 MG CAP PO SCH ×2 (08:39→20:54)
[2016-06-06] MEDS: CARVedilol 6.25 MG TAB PO SCH ×2 (08:39→20:55)
[2016-06-06] MEDS: GABAPENTIN 100 MG CAP PO SCH ×3 (08:40→20:55)
[2016-06-06] MEDS: oxyCODONE 5MG TAB PO PRN ×2 (09:56→16:36)
[2016-06-06 14:47] VITALS: BP 138/62
[2016-06-06 20:00] VITALS: BP 135/60
[2016-06-06] MEDS: ATORVASTATIN 20 MG TAB PO SCH (20:54)
--- NOTE | 2016-06-06 22:00 | REP ---
CT abdomen and pelvis without contrast 06/05/2016 comparison: CT abdomen pelvis 05/28 16, and 04/12/2016, 01/05/2014 Indication: Increased abdominal pain and distension Technique: 3 mm contiguous spiral axial sections were obtained through the abdomen and pelvis without IV or oral contrast. Findings: Interstitial fibrotic scarring is present in the lung bases bilaterally, right greater than left. The heart is mild to moderately enlarged. Right atrial and ventricular pacer leads are present. There is slightly scalloped liver margin as can be seen with cirrhosis. Additionally the patient has a TIPS intravascular stent in the liver No focal hepatic lesions. The spleen is mildly enlarged, 13.8 cm cranial caudal dimension, and was previously 14.5 cm craniocaudal dimension on 05/28/16. Atrophic changes are seen in the pancreas. There has been a prior cholecystectomy. The adrenal glands are normal. Kidneys are without hydronephrosis. There is a complex cyst measuring 1.7 by 0.9 cm with irregular margins off the lower pole left kidney, increased when compared with CT abdomen of 01/05/2014. Stomach and small bowel are within normal limits. Terminal ileum is normal. The appendix is not visualized . Abdominal aorta is of normal course and caliber. Bladder is partially contracted, otherwise unremarkable. Prostate is not enlarged. There is some generalized distension of the colon most compatible with ileus. There is no free air or ascites. Impression 1. TIPS vascular stent again identified within the liver. 2. Mild splenomegaly, slightly improved from 05/28/2016 3. Complex exophytic cyst within the lower pole left kidney decreased in size when compared with studies dating back to 01/05/14. 4. Generalized colonic ileus Signed by Chasity Ragland MD 06/06/2016 09:51 P
[2016-06-07] MEDS: LACTULOSE 20 GM/30 ML SYRUP UD PO SCH ×4 (00:03→21:55)
[2016-06-07] MEDS: oxyCODONE 5MG TAB PO PRN ×4 (05:35→21:58)
[2016-06-07 06:00] VITALS: BP 132/67
[2016-06-07 07:49] LABS: MEAN CORPUSCULAR HEMOGLOBIN 36.9 pg (27.0-33.0); MEAN CORPUSCULAR HGB CONC 36.4 g/dl (32.0-36.5); MEAN CORPUSCULAR VOLUME 101.2 fl (80.0-96.0); RED CELL DISTRIBUTION WIDTH 15.8 % (11.5-14.5); WHITE BLOOD COUNT 5.1 K/mm3 (4.0-10.0)
[2016-06-07 08:00] LABS: ANION GAP 7 MEQ/L (8-16); BLOOD UREA NITROGEN 14 MG/DL (7-18); CALCIUM LEVEL 8.7 MG/DL (8.8-10.2); CARBON DIOXIDE LEVEL 33 MEQ/L (21-32); CHLORIDE LEVEL 99 MEQ/L (98-107); CREATININE FOR GFR 1.15 MG/DL (0.70-1.30); GLOMERULAR FILTRATION RATE > 60.0 (>42); GLUCOSE, FASTING 198 MG/DL (83-110); POTASSIUM SERUM 4.2 MEQ/L (3.5-5.1); SODIUM LEVEL 139 MEQ/L (136-145)
[2016-06-07] MEDS: DICLOFENAC EPOLAMINE 1.3 % PATCH TOP SCH ×2 (08:18→22:06)
[2016-06-07] MEDS: HumaLOG INSULIN (NovoLOG) PER UNIT SC SCH ×4 (08:18→21:00)
[2016-06-07] MEDS: CALCIUM/VITAMIN D 500 MG TAB PO SCH ×3 (08:18→21:56)
[2016-06-07] MEDS: LEVEMIR (INSULIN DETEMIR) 1 UNITS/0.01ML SC SCH (08:18)
[2016-06-07] MEDS: OMEPRAZOLE 20 MG CAP PO SCH ×2 (08:19→21:56)
[2016-06-07] MEDS: GABAPENTIN 100 MG CAP PO SCH ×3 (08:19→21:56)
[2016-06-07] MEDS: rifAXIMin 550 MG TAB (XIFAXAN) PO SCH ×2 (08:20→21:55)
[2016-06-07] MEDS: CARVedilol 6.25 MG TAB PO SCH ×2 (08:20→21:56)
[2016-06-07 14:07] VITALS: BP 108/58
[2016-06-07 20:00] VITALS: BP 116/57
[2016-06-07] MEDS: ATORVASTATIN 20 MG TAB PO SCH (21:56)
[2016-06-08] MEDS: LACTULOSE 20 GM/30 ML SYRUP UD PO SCH ×3 (05:47→17:41)
[2016-06-08] MEDS: oxyCODONE 5MG TAB PO PRN ×2 (05:48→10:19)
[2016-06-08 06:00] VITALS: BP 119/59
[2016-06-08 07:00] LABS: ANION GAP 10 MEQ/L (8-16); BLOOD UREA NITROGEN 17 MG/DL (7-18); CALCIUM LEVEL 8.5 MG/DL (8.8-10.2); CARBON DIOXIDE LEVEL 28 MEQ/L (21-32); CHLORIDE LEVEL 100 MEQ/L (98-107); CREATININE FOR GFR 1.25 MG/DL (0.70-1.30); GLOMERULAR FILTRATION RATE > 60.0 (>42); GLUCOSE, FASTING 175 MG/DL (83-110); POTASSIUM SERUM 4.5 MEQ/L (3.5-5.1); SODIUM LEVEL 138 MEQ/L (136-145)
[2016-06-08] MEDS: HumaLOG INSULIN (NovoLOG) PER UNIT SC SCH ×4 (08:04→20:38)
[2016-06-08 08:07] LABS: MEAN CORPUSCULAR HEMOGLOBIN 36.6 pg (27.0-33.0); MEAN CORPUSCULAR HGB CONC 36.2 g/dl (32.0-36.5); MEAN CORPUSCULAR VOLUME 101.3 fl (80.0-96.0); RED CELL DISTRIBUTION WIDTH 15.4 % (11.5-14.5); WHITE BLOOD COUNT 4.8 K/mm3 (4.0-10.0)
[2016-06-08] MEDS: DICLOFENAC EPOLAMINE 1.3 % PATCH TOP SCH ×2 (08:28→20:42)
[2016-06-08] MEDS: LEVEMIR (INSULIN DETEMIR) 1 UNITS/0.01ML SC SCH (08:29)
[2016-06-08] MEDS: GABAPENTIN 100 MG CAP PO SCH ×3 (08:30→20:39)
[2016-06-08] MEDS: OMEPRAZOLE 20 MG CAP PO SCH ×2 (08:30→20:44)
[2016-06-08] MEDS: rifAXIMin 550 MG TAB (XIFAXAN) PO SCH ×2 (08:30→20:41)
[2016-06-08] MEDS: CALCIUM/VITAMIN D 500 MG TAB PO SCH ×3 (08:30→20:41)
[2016-06-08] MEDS: CARVedilol 6.25 MG TAB PO SCH ×2 (08:30→20:41)
--- NOTE | 2016-06-08 10:53 | IPNPDOC ---
Expert Witness Progress Note PROGRESS NOTE DATE OF ADMISSION: 06/02/2016 DATE OF SERVICE: 06/08/2016 IDENTIFICATION STATEMENT: Patient is a 75-year-old man status post fall off a ladder with acute T12 compression fracture, hepatic encephalopathy and acute kidney injury admitted for comprehensive integrated inpatient rehabilitation. 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 Ariza cataracts PAST SURGICAL HISTORY: Cholecystectomy Abdominal hernia repair Pacemaker insertion 2005 (Dr. Johnson) TIPS procedure summer ALLERGIES: Lisinopril MEDICATIONS: Insulin detemir 10 units subcutaneous every morning Lactulose 45 mL by mouth every 6 hours Flector patch to shoulder every 12 hours Insulin sliding scale before meals and at bedtime Coreg 6.25 mg by mouth twice a day Prilosec 40 mg by mouth twice a day Lipitor 20 mg by mouth daily at bedtime Rifaximin 550mg by mouth twice a day Gabapentin 100mg PO qam and noon, 200mg qhs SUBJECTIVE: Patient reports persistent back and abdominal pain. Abdominal pain decreased as constant achiness/tenderness, exacerbated by palpation. Back pain intermittent, achy and sharp. Thinks gabapentin helping. Sleep well last night , but not the night before. Having BMs, last one this am, partially formed. Denies any chest pain, shortness of breath, nausea/vomiting, diaphoresis. VITAL SIGNS: 97.9F, pulse 80, respiratory rate 18, 119/59, 96% saturation on room air. PHYSICAL EXAMINATION: GENERAL: Well nourished, well developed, sitting in chair, no acute distress. HEENT: Normocephalic, atraumatic. No facial droop. PERRL, EOMI CARDIOVASCULAR: S1, S2, regular rate. + right calf tenderness, no on left, 1+ pitting edema b/l LUNGS: Clear to auscultation bilaterally, no wheezing rhonchi or rales ABDOMEN: Soft, diffuse tenderness to mild palpation(stable), decreased distention since wednesday. + bowel sounds. MUSCULOSKELETAL: MMT: 3/5 Right shoulder forward flexion, 5/5 right elbow flexion, 4/5 right tool grinding technician strength (may be give way). 5/5 left upper limb in all major muscle groups. 5/5 bilateral lower limb strength in all major muscle groups although unable to sustain hip flexion secondary to back pain. NEUROLOGICAL: Alert and oriented x 3. Answers all questions appropriately. Able to follow commands without difficulty. SKIN: + longitudinal lesion left posterior calf (new). LABORATORY DATA: 06/08/2016: reviewed, see below 06/02/2016: WBC 4.1, hemoglobin 9.7, hematocrit 26.8, platelets 65, sodium 139, potassium 4.3, chloride 107, carbon dioxide 25, BUN 18, creatinine 1.15, GFR greater than 60, glucose 211, calcium 7.8, total bili 2.1, AST 48, ALT 35, alkaline phosphatase 12, ammonia 68. IMAGING: CT abdomen & pelvis 05/28/16: reviewed, non-acute CT the thoracic & lumbar spine 05/28/2016: T12 compression fracture with approximately 20% loss of anterior superior vertebral body height without retropulsed fracture fragment, the spinal canal relatively patent. X-ray of the right humerus: No acute fracture or dislocation Shoulder x-ray 06/01/2016: Mild degenerative changes, no acute fracture. FUNCTIONAL STATUS: Premorbid: Independent with ADLs and ambulation. Did not drive since the summer secondary to his vision. On Admission: Able to ambulate 3 feet with max assist and a rolling walker, max to mod assist for transfers and bed mobility, min assist for most ADLs. ASSESSMENT AND PLAN: 1. Acute T12 compression fracture and right shoulder injury secondary to fall off a ladder: Continue Deric brace. Pain control (see below). Right shoulder pain possibly rotator cuff disorder. Pain management as below. 2. Pain: Patient states pain helpful, but still with significant pain. Continue current regimen at this time (defer adjustment until ammonia level decreased). [ Hx; Patient due to cirrhosis, discontinued acetaminophen and changed Percocet to Roxicet, added gabapentin which was increased 06/05/16]. Right shoulder pain: Continue Flector patch which patient reports effective along with intermittent nice. 3. Acute kidney injury: Resolved status post IV fluids. 4. Hepatic encephalopathy secondary to cirrhosis: Mental status stable although ammonia up today [Hx: lactulose decreased Sun 2nd watery diarrhea and ileus on CT, increased today 2nd elevated ammonia]. Continue Xifaxan. 5. Gait abnormality and dysfunctional ADLs as related to items #1 through 4: Continue daily physical and occupational therapy. Rehabilitation nursing for bladder, bowel and medication management 6. Diabetes mellitus type 2, insulin-dependent: Continue patient on insulin detemir along with sliding scale insulin. Adjustments as needed. 7. Hypertension: Adequately controlled. Maintain Coreg. 8. Diet/severe malnutrition: Prealbumin low. Maintain patient on carb consistent diet with Glucerna nutritional supplements. / Vital Signs Vital Sign - Last 24 Hours 06/07/16 06/07/16 06/07/16 06/07/16 14:07 14:48 20:00 21:56 Temp 96.6 97.0 Pulse 71 71 77 Resp 16 18 18 B/P 108/58 116/57 130/61 Pulse Ox 97 96 O2 Delivery Room Air Room Air 06/07/16 06/08/16 06/08/16 06/08/16 21:58 05:48 06:00 06:18 Temp 97.9 Pulse 80 Resp 18 18 18 18 B/P 119/59 Pulse Ox 96 O2 Delivery Room Air 06/08/16 06/08/16 08:30 10:19 Pulse 80 Resp 18 B/P 119/59 O2 Delivery Room Air Laboratory Data CBC/BMP Laboratory Tests 06/08/16 06:14 Calcium Level 8.5 L, Red Blood Count 2.84 L, Mean Corpuscular Volume 101.3 H, Mean Corpuscular Hemoglobin 36.6 H, Mean Corpuscular Hemoglobin Concent 36.2, Red Cell Distribution Width 15.4 H Labs 24H Laboratory Tests 2 06/07/16 11:20: Bedside Glucose (Misc Panel) 271H 06/07/16 16:10: Bedside Glucose (Misc Panel) 212H 06/07/16 19:58: Bedside Glucose (Misc Panel) 156H 06/08/16 06:14: Ammonia 101H, Anion Gap 10, Blood Urea Nitrogen 17, Creatinine 1.25, Sodium Level 138, Potassium Level 4.5, Chloride Level 100, Carbon Dioxide Level 28, Calcium Level 8.5L, Glomerular Filtration Rate > 60.0 06/08/16 06:36: Bedside Glucose (Misc Panel) 189H FSBS Laboratory Tests Test 06/07/16 11:20 06/07/16 16:10 06/07/16 19:58 06/08/16 06:36 Range/Units Bedside Glucose (Misc Panel) 271 212 156 189 83-110 MG/DL Allergies Allergies: Coded Allergies: Lisinopril (Verified Adverse Reaction, Intermediate, ELEVATES POTASSIUM, Violently ill, emesis, 01/22/16) Current Medications Current Medications Current Medications Atorvastatin Calcium (Lipitor) 20 mg QHS PO Last administered on 06/07/16 21: 56; Start 06/02/16 at 21:00; Stop 07/02/16 at 20:59 Calcium/Vitamin D (Oscal D) 500 mg TID PO Last administered on 06/08/16 08:30 ; Start 06/03/16 at 09:00; Stop 07/03/16 at 08:59 Carvedilol (COReg) 6.25 mg BID PO Last administered on 06/08/16 08:30; Start 06/02/16 at 21:00; Stop 07/02/16 at 20:59 Dextrose (Dextrose 50%) 25 ml ASDIRECTED PRN IV SEE LABEL COMMENTS; Start 06/02 at 16:45; Stop 07/02/16 at 16:44 Diclofenac Epolamine (Flector 1.3%) 1 patch Q12H TOP Last administered on 08:28; Start 06/02/16 at 21:00; Stop 07/02/16 at 20:59 Gabapentin (Neurontin) 100 mg BID@09,12 PO Last administered on 06/08/16 08:30 ; Start 06/05/16 at 12:00; Stop 07/05/16 at 11:59 Gabapentin (Neurontin) 100 mg TID PO Last administered on 06/05/16 09:21; Start 06/03/16 at 09:00; Stop 06/05/16 at 14:41; Status DC Gabapentin (Neurontin) 200 mg QHS PO Last administered on 06/07/16 21:56; Start 06/05/16 at 21:00; Stop 07/05/16 at 20:59 Glucagon (Glucagon) 1 mg ASDIRECTED PRN SC SEE LABEL COMMENTS; Start 06/02/16 at 16:45; Stop 07/02/16 at 16:44 Glucose (Glucose) 16 GM ASDIRECTED PRN PO SEE LABEL COMMENTS; Start 06/02/16 at 16:45; Stop 07/02/16 at 16:44 Insulin Detemir (Levemir Insulin) 10 units DAILY SC Last administered on 08:29; Start 06/03/16 at 09:00; Stop 07/03/16 at 08:59 Insulin Human Lispro (HumaLOG INSULIN) See Protocol Table AC SC Last administered on 06/08/16 08:04; Start 06/02/16 at 17:30; Stop 07/02/16 at 17:29 Insulin Human Lispro (HumaLOG INSULIN) See Protocol Table QHS SC ; Start at 21:00; Stop 07/02/16 at 20:59 Lactulose (Cephulac) 45 ml Q6H PO Last administered on 06/07/16 05:29; Start 06/02/16 at 18:00; Stop 06/07/16 at 10:32; Status DC Lactulose (Cephulac) 45 ml Q6H PO ; Start 06/08/16 at 12:00; Stop 07/08/16 at 11 :59 Lactulose (Cephulac) 45 ml Q8H PO Last administered on 06/08/16 05:47; Start 06/07/16 at 14:00; Stop 06/08/16 at 10:08; Status DC Omeprazole (PriLOSEC) 40 mg BID PO Last administered on 06/08/16 08:30; Start 06/02/16 at 21:00; Stop 07/02/16 at 20:59 Oxycodone HCl (Roxicodone, Oxyir) 5 mg Q4HP PRN PO MILD/MODERATE PAIN (PS 1-7) Last administered on 06/08/16 10:19; Start 06/02/16 at 14:30; Stop 06/09/16 at 14:29 Oxycodone HCl (Roxicodone, Oxyir) 10 mg Q4HP PRN PO SEVERE PAIN (PS 8-10) Last administered on 06/05/16 05:01; Start 06/02/16 at 14:30; Stop 06/05/16 at 09:04 ; Status DC Rifaximin (Xifaxan) 550 mg BID PO Last administered on 06/08/16 08:30; Start 06/02/16 at 21:00; Stop 07/02/16 at 20:59 TOMASA LYNCH MD Jun 08, 2016 10:53
[2016-06-08 14:00] VITALS: BP 116/55
[2016-06-08] MEDS: PERCOCET 5MG/325MG TAB PO PRN (18:00)
[2016-06-08 20:30] VITALS: BP 120/57
[2016-06-08] MEDS: ATORVASTATIN 20 MG TAB PO SCH (20:39)
[2016-06-09] MEDS: LACTULOSE 20 GM/30 ML SYRUP UD PO SCH ×4 (00:07→17:06)
[2016-06-09 06:00] VITALS: BP 148/70
[2016-06-09 07:05] LABS: MEAN CORPUSCULAR HEMOGLOBIN 35.3 pg (27.0-33.0); MEAN CORPUSCULAR HGB CONC 34.4 g/dl (32.0-36.5); MEAN CORPUSCULAR VOLUME 102.7 fl (80.0-96.0); RED CELL DISTRIBUTION WIDTH 16.6 % (11.5-14.5); WHITE BLOOD COUNT 5.3 K/mm3 (4.0-10.0)
[2016-06-09 07:33] LABS: ALBUMIN 2.4 GM/DL (3.2-5.2); ALBUMIN/GLOBULIN RATIO 0.83 (1.00-1.93); BILIRUBIN,TOTAL 2.3 MG/DL (0.2-1.0); CALCIUM LEVEL 8.6 MG/DL (8.8-10.2); CREATININE FOR GFR 1.29 MG/DL (0.70-1.30); POTASSIUM SERUM 4.5 MEQ/L (3.5-5.1); TOTAL PROTEIN 5.3 GM/DL (6.4-8.2)
[2016-06-09] MEDS: DICLOFENAC EPOLAMINE 1.3 % PATCH TOP SCH ×2 (08:16→20:57)
[2016-06-09] MEDS: CARVedilol 6.25 MG TAB PO SCH ×2 (08:17→20:57)
[2016-06-09] MEDS: GABAPENTIN 100 MG CAP PO SCH ×3 (08:17→20:57)
[2016-06-09] MEDS: rifAXIMin 550 MG TAB (XIFAXAN) PO SCH ×2 (08:17→20:56)
[2016-06-09] MEDS: OMEPRAZOLE 20 MG CAP PO SCH ×2 (08:17→20:56)
[2016-06-09] MEDS: HumaLOG INSULIN (NovoLOG) PER UNIT SC SCH ×4 (08:17→20:19)
[2016-06-09] MEDS: LEVEMIR (INSULIN DETEMIR) 1 UNITS/0.01ML SC SCH (08:17)
[2016-06-09] MEDS: PERCOCET 5MG/325MG TAB PO PRN ×2 (08:18→15:42)
[2016-06-09] MEDS: CALCIUM/VITAMIN D 500 MG TAB PO SCH ×3 (08:18→20:56)
--- NOTE | 2016-06-09 13:18 | IPNPDOC ---
Plunger Shovel Operator Progress Note PROGRESS NOTE DATE OF ADMISSION: 06/02/2016 DATE OF SERVICE: 06/09/2016 IDENTIFICATION STATEMENT: Patient is a 75-year-old man status post fall off a ladder with acute T12 compression fracture, hepatic encephalopathy and acute kidney injury admitted for comprehensive integrated inpatient rehabilitation. 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 Ariza cataracts PAST SURGICAL HISTORY: Cholecystectomy Abdominal hernia repair Pacemaker insertion 2005 (Dr. Johnson) TIPS procedure summer ALLERGIES: Lisinopril MEDICATIONS: Coreg 6.25 mg by mouth twice a day Prilosec 40 mg by mouth twice a day Lipitor 20 mg by mouth daily at bedtime Lactulose 45 mL by mouth every 6 hours Rifaximin 550mg by mouth twice a day Insulin detemir 10 units subcutaneous every morning Insulin sliding scale before meals and at bedtime Flector patch to shoulder every 12 hours Percocet 1 tab po q6h prn Gabapentin 100mg PO qam and noon, 200mg qhs SUBJECTIVE: Patient w/o new complaints, worst pain is stomach tenderness, constant. Having BMs, last one this am, soft, not watery. Denies any chest pain , shortness of breath, nausea/vomiting, diaphoresis. VITAL SIGNS: 97.2F, pulse 84, respiratory rate 20, 148/70, 98% saturation on room air. PHYSICAL EXAMINATION: GENERAL: Well nourished, well developed, lying in bed, no acute distress. HEENT: Normocephalic, atraumatic. No facial droop. PERRL, EOMI CARDIOVASCULAR: S1, S2, regular rate. LUNGS: Clear to auscultation bilaterally, no wheezing rhonchi or rales ABDOMEN: Soft, diffuse tenderness to mild palpation(stable), distention ~ stable. + bowel sounds. MUSCULOSKELETAL: MMT: 3/5 Right shoulder forward flexion, 5/5 right elbow flexion, 4/5 right chicken picker strength (may be give way). 5/5 left upper limb in all major muscle groups. 5/5 bilateral lower limb strength in all major muscle groups although unable to sustain hip flexion secondary to back pain. NEUROLOGICAL: Alert and oriented x 3. Answers all questions appropriately. Able to follow commands without difficulty. SKIN: + longitudinal lesion left posterior calf foam dressing not removed (no visable blood). LABORATORY DATA: 06/09/2016: reviewed, see below 06/02/2016: WBC 4.1, hemoglobin 9.7, hematocrit 26.8, platelets 65, sodium 139, potassium 4.3, chloride 107, carbon dioxide 25, BUN 18, creatinine 1.15, GFR greater than 60, glucose 211, calcium 7.8, total bili 2.1, AST 48, ALT 35, alkaline phosphatase 12, ammonia 68. IMAGING: CT abdomen & pelvis 05/28/16: reviewed, non-acute CT the thoracic & lumbar spine 05/28/2016: T12 compression fracture with approximately 20% loss of anterior superior vertebral body height without retropulsed fracture fragment, the spinal canal relatively patent. X-ray of the right humerus: No acute fracture or dislocation Shoulder x-ray 06/01/2016: Mild degenerative changes, no acute fracture. FUNCTIONAL STATUS: Premorbid: Independent with ADLs and ambulation. Did not drive since the summer secondary to his vision. On Admission: Able to ambulate 3 feet with max assist and a rolling walker, max to mod assist for transfers and bed mobility, min assist for most ADLs. ASSESSMENT AND PLAN: 1. Acute T12 compression fracture and right shoulder injury secondary to fall off a ladder: Continue [place] brace. Pain control (see below). Right shoulder pain possibly rotator cuff disorder. Pain management as below. 2. Pain: Changed to Percocet yesterday [Hx: discontinued acetaminophen and changed Percocet to Roxicet upon admission no significant improvement in pain levels so d/cd roxicet 06/08/16; added gabapentin which was increased 06/05/16]. Right shoulder pain: Continue Flector patch which patient reports effective along with intermittent nice. 3. Acute kidney injury: Resolved status post IV fluids. 4. Hepatic encephalopathy secondary to cirrhosis: Mental status stable, ammonia down today [Hx: lactulose decreased 06/07/16 2nd watery diarrhea and ileus on CT , increased 06/08/16 2nd elevated ammonia]. Continue Xifaxan. 5. Gait abnormality and dysfunctional ADLs as related to items #1 through 4: Continue daily physical and occupational therapy. Rehabilitation nursing for bladder, bowel and medication management 6. Abdominal pain and distention: Dr. Díaz consultation very much appreciated. Pt scheduled for abdominal US today. 7. Diabetes mellitus type 2, insulin-dependent: Continue patient on insulin detemir along with sliding scale insulin. Adjustments as needed. 8. Hypertension: Adequately controlled. Maintain Coreg. 9. Diet/severe malnutrition: Prealbumin low. Maintain patient on carb consistent diet with Glucerna nutritional supplements. / Vital Signs Vital Sign - Last 24 Hours 06/08/16 06/08/16 06/08/16 06/08/16 14:00 18:00 18:30 20:30 Temp 97.0 97.4 Pulse 78 79 Resp 18 18 20 B/P 116/55 120/57 Pulse Ox 97 99 O2 Delivery Room Air Room Air Room Air Room Air 06/08/16 06/09/16 06/09/16 06/09/16 20:41 06:00 08:17 08:18 Temp 97.2 Pulse 80 84 84 Resp 20 20 B/P 126/64 148/70 148/70 Pulse Ox 98 O2 Delivery Room Air 06/09/16 08:48 Resp 20 Laboratory Data CBC/BMP Laboratory Tests 06/09/16 06:22 Calcium Level 8.6 L, Aspartate Amino Transf (AST/SGOT) 68 H, Alanine Aminotransferase (ALT/SGPT) 47, Alkaline Phosphatase 432 H, Total Bilirubin 2.3 H, Total Protein 5.3 L, Albumin 2.4 L, Red Blood Count 2.96 L, Mean Corpuscular Volume 102.7 H, Mean Corpuscular Hemoglobin 35.3 H, Mean Corpuscular Hemoglobin Concent 34.4, Red Cell Distribution Width 16.6 H Labs 24H Laboratory Tests 2 06/08/16 17:32: Bedside Glucose (Misc Panel) 246H 06/08/16 20:09: Bedside Glucose (Misc Panel) 219H 06/09/16 06:22: Blood Urea Nitrogen 19H, Creatinine 1.29, Sodium Level 140, Potassium Level 4.5 , Chloride Level 100, Carbon Dioxide Level 31, Calcium Level 8.6L, Aspartate Amino Transf (AST/SGOT) 68H, Alanine Aminotransferase (ALT/SGPT) 47, Alkaline Phosphatase 432H, Total Bilirubin 2.3H, Total Protein 5.3L, Albumin 2.4L, Albumin/Globulin Ratio 0.83L, Ammonia 59H, Anion Gap 9, Glomerular Filtration Rate 58.0 06/09/16 06:46: Bedside Glucose (Misc Panel) 205H FSBS Laboratory Tests Test 06/08/16 17:32 06/08/16 20:09 06/09/16 06:46 Range/Units Bedside Glucose (Misc Panel) 246 219 205 83-110 MG/DL Allergies Allergies: Coded Allergies: Lisinopril (Verified Adverse Reaction, Intermediate, ELEVATES POTASSIUM, Violently ill, emesis, 01/22/16) Current Medications Current Medications Current Medications Atorvastatin Calcium (Lipitor) 20 mg QHS PO Last administered on 06/08/16 20: 39; Start 06/02/16 at 21:00; Stop 07/02/16 at 20:59 Calcium/Vitamin D (Oscal D) 500 mg TID PO Last administered on 06/09/16 08:18 ; Start 06/03/16 at 09:00; Stop 07/03/16 at 08:59 Carvedilol (COReg) 6.25 mg BID PO Last administered on 06/09/16 08:17; Start 06/02/16 at 21:00; Stop 07/02/16 at 20:59 Dextrose (Dextrose 50%) 25 ml ASDIRECTED PRN IV SEE LABEL COMMENTS; Start 06/02 at 16:45; Stop 07/02/16 at 16:44 Diclofenac Epolamine (Flector 1.3%) 1 patch Q12H TOP Last administered on 08:16; Start 06/02/16 at 21:00; Stop 07/02/16 at 20:59 Gabapentin (Neurontin) 100 mg BID@09,12 PO Last administered on 06/09/16 08:17 ; Start 06/05/16 at 12:00; Stop 07/05/16 at 11:59 Gabapentin (Neurontin) 100 mg TID PO Last administered on 06/05/16 09:21; Start 06/03/16 at 09:00; Stop 06/05/16 at 14:41; Status DC Gabapentin (Neurontin) 200 mg QHS PO Last administered on 06/08/16 20:39; Start 06/05/16 at 21:00; Stop 07/05/16 at 20:59 Glucagon (Glucagon) 1 mg ASDIRECTED PRN SC SEE LABEL COMMENTS; Start 06/02/16 at 16:45; Stop 07/02/16 at 16:44 Glucose (Glucose) 16 GM ASDIRECTED PRN PO SEE LABEL COMMENTS; Start 06/02/16 at 16:45; Stop 07/02/16 at 16:44 Insulin Detemir (Levemir Insulin) 10 units DAILY SC Last administered on 08:17; Start 06/03/16 at 09:00; Stop 07/03/16 at 08:59 Insulin Human Lispro (HumaLOG INSULIN) See Protocol Table AC SC Last administered on 06/09/16 08:17; Start 06/02/16 at 17:30; Stop 07/02/16 at 17:29 Insulin Human Lispro (HumaLOG INSULIN) See Protocol Table QHS SC ; Start at 21:00; Stop 07/02/16 at 20:59 Lactulose (Cephulac) 45 ml Q6H PO Last administered on 06/07/16 05:29; Start 06/02/16 at 18:00; Stop 06/07/16 at 10:32; Status DC Lactulose (Cephulac) 45 ml Q6H PO Last administered on 06/09/16 05:50; Start 06/08/16 at 12:00; Stop 07/08/16 at 11:59 Lactulose (Cephulac) 45 ml Q8H PO Last administered on 06/08/16 05:47; Start 06/07/16 at 14:00; Stop 06/08/16 at 10:08; Status DC Omeprazole (PriLOSEC) 40 mg BID PO Last administered on 06/09/16 08:17; Start 06/02/16 at 21:00; Stop 07/02/16 at 20:59 Oxycodone HCl (Roxicodone, Oxyir) 5 mg Q4HP PRN PO MILD/MODERATE PAIN (PS 1-7) Last administered on 06/08/16 10:19; Start 06/02/16 at 14:30; Stop 06/08/16 at 16:26; Status DC Oxycodone HCl (Roxicodone, Oxyir) 10 mg Q4HP PRN PO SEVERE PAIN (PS 8-10) Last administered on 06/05/16 05:01; Start 06/02/16 at 14:30; Stop 06/05/16 at 09:04 ; Status DC Oxycodone/ Acetaminophen (Percocet 5mg/ 325mg Tablet) 1 tab Q6HP PRN PO PAIN Last administered on 06/09/16 08:18; Start 06/08/16 at 16:30; Stop 06/15/16 at 16:29 Rifaximin (Xifaxan) 550 mg BID PO Last administered on 06/09/16 08:17; Start 06/02/16 at 21:00; Stop 07/02/16 at 20:59 TOMASA LYNCH MD Jun 09, 2016 13:18
[2016-06-09 14:00] VITALS: BP 108/52
--- NOTE | 2016-06-09 16:25 | REP ---
DUPLEX DOPPLER EVALUATION OF THE HEPATIC VASCULATURE AND TIPS SHUNT: Real-time ultrasound evaluation and duplex Doppler interrogation of the hepatic vasculature is performed with specific attention paid to the TIPS shunt. There is no evidence of acute thrombus involving the hepatic vasculature. The TIPS shunt is patent. Velocity in the proximal aspect of the shunt is 107.6 cm/second, mid-aspect 105.8 cm/second and distally 137.5 cm/second. There is normal direction of flow in the portal veins. There is normal direction of flow in the splenic vein, which is also patent. Peak systolic velocity in the main hepatic artery is 73.4 cm/second, resistive index 0.7. IMPRESSION: No evidence of thrombosis of TIPS shunt. Signed by Jesus Alberto Stokes MD 06/09/2016 07:59 P
[2016-06-09 20:00] VITALS: BP 134/58
[2016-06-09] MEDS: ATORVASTATIN 20 MG TAB PO SCH (20:56)
[2016-06-10] MEDS: LACTULOSE 20 GM/30 ML SYRUP UD PO SCH ×4 (00:40→18:02)
[2016-06-10 06:00] VITALS: BP 118/58
[2016-06-10] MEDS: HumaLOG INSULIN (NovoLOG) PER UNIT SC SCH ×4 (08:30→20:09)
[2016-06-10] MEDS: DICLOFENAC EPOLAMINE 1.3 % PATCH TOP SCH ×2 (08:30→20:09)
[2016-06-10] MEDS: LEVEMIR (INSULIN DETEMIR) 1 UNITS/0.01ML SC SCH (08:30)
[2016-06-10] MEDS: CARVedilol 6.25 MG TAB PO SCH ×2 (08:31→20:08)
[2016-06-10] MEDS: GABAPENTIN 100 MG CAP PO SCH ×2 (08:31→12:04)
[2016-06-10] MEDS: PERCOCET 5MG/325MG TAB PO PRN ×2 (08:31→14:23)
[2016-06-10] MEDS: rifAXIMin 550 MG TAB (XIFAXAN) PO SCH ×2 (08:31→20:07)
[2016-06-10] MEDS: OMEPRAZOLE 20 MG CAP PO SCH ×2 (08:31→20:08)
[2016-06-10] MEDS: CALCIUM/VITAMIN D 500 MG TAB PO SCH ×3 (08:31→20:07)
--- NOTE | 2016-06-10 12:11 | IPNPDOC ---
Transformation Consultant Progress Note PROGRESS NOTE DATE OF ADMISSION: 06/02/2016 DATE OF SERVICE: 06/10/2016 IDENTIFICATION STATEMENT: Patient is a 75-year-old man status post fall off a ladder with acute T12 compression fracture, hepatic encephalopathy and acute kidney injury admitted for comprehensive integrated inpatient rehabilitation. 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 Ariza cataracts PAST SURGICAL HISTORY: Cholecystectomy Abdominal hernia repair Pacemaker insertion 2005 (Dr. Johnson) TIPS procedure summer ALLERGIES: Lisinopril MEDICATIONS: Coreg 6.25 mg by mouth twice a day Prilosec 40 mg by mouth twice a day Lipitor 20 mg by mouth daily at bedtime Lactulose 45 mL by mouth every 6 hours Rifaximin 550mg by mouth twice a day Insulin detemir 10 units subcutaneous every morning Insulin sliding scale before meals and at bedtime Flector patch to shoulder every 12 hours Percocet 1 tab po q6h prn Gabapentin 100mg PO qam and noon, 200mg qhs SUBJECTIVE: No new complaints, still with stomach pain/tenderness. Also back pain. Having BMs soft, not watery. Didnt sleep well last evening since phone kept ringing. Denies any chest pain, shortness of breath, nausea/vomiting, diaphoresis. VITAL SIGNS: 97.0F, pulse 82, respiratory rate 20, 118/58, 97% saturation on room air. PHYSICAL EXAMINATION: GENERAL: Well nourished, well developed, sitting in chair, no acute distress. HEENT: Normocephalic, atraumatic. PERRL, EOMI CARDIOVASCULAR: S1, S2, regular rate. LUNGS: Clear to auscultation bilaterally, no wheezing rhonchi or rales ABDOMEN: Soft, diffuse tenderness to mild palpation(sl less than yesterday), distention ~stable. + bowel sounds. MUSCULOSKELETAL: MMT: 3/5 Right shoulder forward flexion, 5/5 right elbow flexion, 4/5 right assistant golf course superintendent strength (may be give way). 5/5 left upper limb in all major muscle groups. 5/5 bilateral lower limb strength in all major muscle groups although unable to sustain hip flexion secondary to back pain. NEUROLOGICAL: Alert and oriented x 3. Answers all questions appropriately. Able to follow commands without difficulty. SKIN: + longitudinal lesion left posterior calf foam dressing not removed (no visible blood). LABORATORY DATA: 06/09/2016: reviewed, see below 06/02/2016: WBC 4.1, hemoglobin 9.7, hematocrit 26.8, platelets 65, sodium 139, potassium 4.3, chloride 107, carbon dioxide 25, BUN 18, creatinine 1.15, GFR greater than 60, glucose 211, calcium 7.8, total bili 2.1, AST 48, ALT 35, alkaline phosphatase 12, ammonia 68. IMAGING: CT abdomen & pelvis 05/28/16: reviewed, non-acute CT the thoracic & lumbar spine 05/28/2016: T12 compression fracture with approximately 20% loss of anterior superior vertebral body height without retropulsed fracture fragment, the spinal canal relatively patent. X-ray of the right humerus: No acute fracture or dislocation Shoulder x-ray 06/01/2016: Mild degenerative changes, no acute fracture. FUNCTIONAL STATUS: Premorbid: Independent with ADLs and ambulation. Did not drive since the summer secondary to his vision. On Admission: Able to ambulate 3 feet with max assist and a rolling walker, max to mod assist for transfers and bed mobility, min assist for most ADLs. ASSESSMENT AND PLAN: 1. Acute T12 compression fracture and right shoulder injury secondary to fall off a ladder: Continue [place] brace. Pain control (see below). Right shoulder pain possibly rotator cuff disorder. Pain management as below. 2. Pain: Changed to Percocet 06/08/16. Will increase evening dose gabapentin [ Hx: discontinued acetaminophen and changed Percocet to Roxicet upon admission no significant improvement in pain levels so d/cd roxicet 06/08/16; added gabapentin which was increased 06/05/16]. Right shoulder pain: Continue Flector patch which patient reports effective along with intermittent nice. 3. Acute kidney injury: Resolved status post IV fluids. 4. Hepatic encephalopathy secondary to cirrhosis: Mental status stable, ammonia down today [Hx: lactulose decreased 06/07/16 2nd watery diarrhea and ileus on CT , increased 06/08/16 2nd elevated ammonia]. Continue Xifaxan. 5. Gait abnormality and dysfunctional ADLs as related to items #1 through 4: Continue daily physical and occupational therapy. Rehabilitation nursing for bladder, bowel and medication management 6. Abdominal pain and distention: US w/o thrombisis. 7. Diabetes mellitus type 2, insulin-dependent: Continue patient on insulin detemir along with sliding scale insulin. Adjustments as needed. 8. Hypertension: Adequately controlled. Maintain Coreg. 9. Diet/severe malnutrition: Prealbumin low. Maintain patient on carb consistent diet with Glucerna nutritional supplements. / Vital Signs Vital Sign - Last 24 Hours 06/09/16 06/09/16 06/09/16 06/09/16 14:00 15:42 20:00 20:57 Temp 97.6 97.3 Pulse 69 77 77 Resp 20 20 19 B/P 108/52 134/58 134/58 Pulse Ox 100 97 O2 Delivery Room Air Room Air 06/10/16 06/10/16 06/10/16 06/10/16 06:00 08:31 08:31 09:01 Temp 97.0 Pulse 82 82 Resp 19 20 20 B/P 118/58 118/58 Pulse Ox 97 O2 Delivery Room Air Room Air Laboratory Data Labs 24H Laboratory Tests 2 06/09/16 15:45: Bedside Glucose (Misc Panel) 171H 06/09/16 19:54: Bedside Glucose (Misc Panel) 224H 06/10/16 06:43: Bedside Glucose (Misc Panel) 252H 06/10/16 11:11: Bedside Glucose (Misc Panel) 252H FSBS Laboratory Tests Test 06/09/16 15:45 06/09/16 19:54 06/10/16 06:43 06/10/16 11:11 Range/Units Bedside Glucose (Misc Panel) 171 224 252 252 83-110 MG/DL Allergies Allergies: Coded Allergies: Lisinopril (Verified Adverse Reaction, Intermediate, ELEVATES POTASSIUM, Violently ill, emesis, 01/22/16) Current Medications Current Medications Current Medications Atorvastatin Calcium (Lipitor) 20 mg QHS PO Last administered on 06/09/16 20: 56; Start 06/02/16 at 21:00; Stop 07/02/16 at 20:59 Calcium/Vitamin D (Oscal D) 500 mg TID PO Last administered on 06/10/16 08:31 ; Start 06/03/16 at 09:00; Stop 07/03/16 at 08:59 Carvedilol (COReg) 6.25 mg BID PO Last administered on 06/10/16 08:31; Start 06/02/16 at 21:00; Stop 07/02/16 at 20:59 Dextrose (Dextrose 50%) 25 ml ASDIRECTED PRN IV SEE LABEL COMMENTS; Start 06/02 at 16:45; Stop 07/02/16 at 16:44 Diclofenac Epolamine (Flector 1.3%) 1 patch Q12H TOP Last administered on 08:30; Start 06/02/16 at 21:00; Stop 07/02/16 at 20:59 Gabapentin (Neurontin) 100 mg BID@,12 PO Last administered on 06/10/16 12:04 ; Start 06/05/16 at 12:00; Stop 07/05/16 at 11:59 Gabapentin (Neurontin) 100 mg TID PO Last administered on 06/05/16 09:21; Start 06/03/16 at 09:00; Stop 06/05/16 at 14:41; Status DC Gabapentin (Neurontin) 200 mg QHS PO Last administered on 06/09/16 20:57; Start 06/05/16 at 21:00; Stop 07/05/16 at 20:59 Glucagon (Glucagon) 1 mg ASDIRECTED PRN SC SEE LABEL COMMENTS; Start 06/02/16 at 16:45; Stop 07/02/16 at 16:44 Glucose (Glucose) 16 GM ASDIRECTED PRN PO SEE LABEL COMMENTS; Start 06/02/16 at 16:45; Stop 07/02/16 at 16:44 Insulin Detemir (Levemir Insulin) 10 units DAILY SC Last administered on 08:30; Start 06/03/16 at 09:00; Stop 07/03/16 at 08:59 Insulin Human Lispro (HumaLOG INSULIN) See Protocol Table AC SC Last administered on 06/10/16 12:03; Start 06/02/16 at 17:30; Stop 07/02/16 at 17:29 Insulin Human Lispro (HumaLOG INSULIN) See Protocol Table QHS SC ; Start at 21:00; Stop 07/02/16 at 20:59 Lactulose (Cephulac) 45 ml Q6H PO Last administered on 06/07/16 05:29; Start 06/02/16 at 18:00; Stop 06/07/16 at 10:32; Status DC Lactulose (Cephulac) 45 ml Q6H PO Last administered on 06/10/16 12:03; Start 06/08/16 at 12:00; Stop 07/08/16 at 11:59 Lactulose (Cephulac) 45 ml Q8H PO Last administered on 06/08/16 05:47; Start 06/07/16 at 14:00; Stop 06/08/16 at 10:08; Status DC Omeprazole (PriLOSEC) 40 mg BID PO Last administered on 06/10/16 08:31; Start 06/02/16 at 21:00; Stop 07/02/16 at 20:59 Oxycodone HCl (Roxicodone, Oxyir) 5 mg Q4HP PRN PO MILD/MODERATE PAIN (PS 1-7) Last administered on 06/08/16 10:19; Start 06/02/16 at 14:30; Stop 06/08/16 at 16:26; Status DC Oxycodone HCl (Roxicodone, Oxyir) 10 mg Q4HP PRN PO SEVERE PAIN (PS 8-10) Last administered on 06/05/16 05:01; Start 06/02/16 at 14:30; Stop 06/05/16 at 09:04 ; Status DC Oxycodone/ Acetaminophen (Percocet 5mg/ 325mg Tablet) 1 tab Q6HP PRN PO PAIN Last administered on 06/10/16 08:31; Start 06/08/16 at 16:30; Stop 06/15/16 at 16:29 Rifaximin (Xifaxan) 550 mg BID PO Last administered on 06/10/16 08:31; Start 06/02/16 at 21:00; Stop 07/02/16 at 20:59 TOMASA LYNCH MD Jun 10, 2016 12:11
[2016-06-10 14:00] VITALS: BP 126/60
[2016-06-10 20:00] VITALS: BP 129/63
[2016-06-10] MEDS: ATORVASTATIN 20 MG TAB PO SCH (20:08)
[2016-06-10] MEDS: GABAPENTIN 300 MG CAP PO SCH (20:08)
[2016-06-11] MEDS: LACTULOSE 20 GM/30 ML SYRUP UD PO SCH ×5 (00:30→23:44)
[2016-06-11] MEDS: PERCOCET 5MG/325MG TAB PO PRN ×4 (00:34→23:43)
[2016-06-11 06:00] VITALS: BP 133/62
[2016-06-11 06:39] LABS: MEAN CORPUSCULAR HEMOGLOBIN 35.3 pg (27.0-33.0); MEAN CORPUSCULAR HGB CONC 33.9 g/dl (32.0-36.5); MEAN CORPUSCULAR VOLUME 104.4 fl (80.0-96.0); RED CELL DISTRIBUTION WIDTH 16.7 % (11.5-14.5); WHITE BLOOD COUNT 5.1 K/mm3 (4.0-10.0)
[2016-06-11 06:56] LABS: CALCIUM LEVEL 8.3 MG/DL (8.8-10.2); CREATININE FOR GFR 1.27 MG/DL (0.70-1.30); POTASSIUM SERUM 3.9 MEQ/L (3.5-5.1)
[2016-06-11] MEDS: DICLOFENAC EPOLAMINE 1.3 % PATCH TOP SCH ×2 (08:32→23:46)
[2016-06-11] MEDS: HumaLOG INSULIN (NovoLOG) PER UNIT SC SCH ×4 (08:35→23:44)
[2016-06-11] MEDS: CARVedilol 6.25 MG TAB PO SCH ×2 (08:37→23:43)
[2016-06-11] MEDS: rifAXIMin 550 MG TAB (XIFAXAN) PO SCH ×2 (08:37→23:42)
[2016-06-11] MEDS: OMEPRAZOLE 20 MG CAP PO SCH ×2 (08:38→23:42)
[2016-06-11] MEDS: CALCIUM/VITAMIN D 500 MG TAB PO SCH ×3 (08:38→23:42)
[2016-06-11] MEDS: GABAPENTIN 100 MG CAP PO SCH ×2 (08:38→12:20)
[2016-06-11] MEDS: LEVEMIR (INSULIN DETEMIR) 1 UNITS/0.01ML SC SCH (08:54)
--- NOTE | 2016-06-11 13:40 | IPNPDOC ---
[employer] Progress Note PROGRESS NOTE DATE OF ADMISSION: 06/02/2016 DATE OF SERVICE: 06/11/2016 IDENTIFICATION STATEMENT: Patient is a 75-year-old man status post fall off a ladder with acute T12 compression fracture, hepatic encephalopathy and acute kidney injury admitted for comprehensive integrated inpatient rehabilitation. 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 Ariza cataracts PAST SURGICAL HISTORY: Cholecystectomy Abdominal hernia repair Pacemaker insertion 2005 (Dr. Johnson) TIPS procedure summer ALLERGIES: Lisinopril MEDICATIONS: Coreg 6.25 mg by mouth twice a day Prilosec 40 mg by mouth twice a day Lipitor 20 mg by mouth daily at bedtime Lactulose 45 mL by mouth every 6 hours Rifaximin 550mg by mouth twice a day Insulin detemir 15U SQ every morning, 5U qhs Insulin sliding scale before meals and at bedtime Flector patch to shoulder every 12 hours Percocet 1 tab po q6h prn Gabapentin 100mg PO qam and noon, 300mg qhs SUBJECTIVE: Patient states feels good. No abdominal pain. Slept well. Still with some back pain but tolerable. Having BMs soft, not watery. Denies any chest pain, shortness of breath, nausea/vomiting, diaphoresis. VITAL SIGNS: 97.8F, pulse 75, respiratory rate 18, 124/60, 98% saturation on room air. PHYSICAL EXAMINATION: GENERAL: Well nourished, well developed, sitting in chair, no acute distress. HEENT: Normocephalic, atraumatic. PERRL, EOMI CARDIOVASCULAR: S1, S2, regular rate. LUNGS: Clear to auscultation bilaterally, no wheezing rhonchi or rales ABDOMEN: Soft, nontender, distention ~stable. + bowel sounds. MUSCULOSKELETAL: MMT: 3/5 Right shoulder forward flexion, 5/5 right elbow flexion, 4/5 right home care physical therapist strength (may be give way). 5/5 left upper limb in all major muscle groups. 5/5 bilateral lower limb strength in all major muscle groups although unable to sustain hip flexion secondary to back pain. NEUROLOGICAL: Alert and oriented x 3. Answers all questions appropriately. Able to follow commands without difficulty. SKIN: + longitudinal lesion left posterior calf foam dressing not removed (no visible blood). LABORATORY DATA: 06/11/2016: reviewed, see below 06/02/2016: WBC 4.1, hemoglobin 9.7, hematocrit 26.8, platelets 65, sodium 139, potassium 4.3, chloride 107, carbon dioxide 25, BUN 18, creatinine 1.15, GFR greater than 60, glucose 211, calcium 7.8, total bili 2.1, AST 48, ALT 35, alkaline phosphatase 12, ammonia 68. IMAGING: Abdominal US 06/09/16: no thrombosis CT abdomen & pelvis 05/28/16: reviewed, non-acute CT the thoracic & lumbar spine 05/28/2016: T12 compression fracture with approximately 20% loss of anterior superior vertebral body height without retropulsed fracture fragment, the spinal canal relatively patent. X-ray of the right humerus: No acute fracture or dislocation Shoulder x-ray 06/01/2016: Mild degenerative changes, no acute fracture. FUNCTIONAL STATUS: Premorbid: Independent with ADLs and ambulation. Did not drive since the summer secondary to his vision. On Admission: Able to ambulate 3 feet with max assist and a rolling walker, max to mod assist for transfers and bed mobility, min assist for most ADLs. ASSESSMENT AND PLAN: 1. Acute T12 compression fracture and right shoulder injury secondary to fall off a ladder: Continue Deric brace. Pain control (see below). Right shoulder pain possibly rotator cuff disorder. Pain management as below. 2. Pain: Abdominal pain resolved concurrently with increasing gabapentin and decreased ammonia level. [Hx: discontinued acetaminophen and changed Percocet to Roxicet upon admission no significant improvement in pain levels so d/cd roxicet and restarted Percocet 06/08/16; added gabapentin which was increased and again 06/10/16]. Right shoulder pain: Continue Flector patch which patient reports effective along with intermittent nice. 3. Acute kidney injury: Resolved status post IV fluids. 4. 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 Continue Xifaxan. 5. Gait abnormality and dysfunctional ADLs as related to items #1 through 4: Continue daily physical and occupational therapy. Rehabilitation nursing for bladder, bowel and medication management 6. Abdominal pain and distention: resolved [Hx: US w/o thrombosis]. 7. Diabetes mellitus type 2, insulin-dependent: Persistently elevated so increased detrimir. Continue sliding scale insulin. Further adjustments as needed. 8. Hypertension: Adequately controlled. Maintain Coreg. 9. Diet/severe malnutrition: Prealbumin low. Maintain patient on carb consistent diet with Glucerna nutritional supplements. / Vital Signs Vital Sign - Last 24 Hours 06/10/16 06/10/16 06/10/16 06/10/16 14:00 14:23 20:00 20:08 Temp 97.1 97.4 Pulse 76 78 76 Resp 18 20 18 B/P 126/60 129/63 129/63 Pulse Ox 98 96 O2 Delivery Room Air Room Air 06/11/16 06/11/16 06/11/16 06/11/16 00:34 06:00 06:55 07:25 Temp 97.8 Pulse 69 Resp 18 18 18 18 B/P 133/62 Pulse Ox 98 O2 Delivery Room Air 06/11/16 08:37 Pulse 75 B/P 124/60 Laboratory Data CBC/BMP Laboratory Tests 06/11/16 06:21 Calcium Level 8.3 L, Red Blood Count 3.02 L, Mean Corpuscular Volume 104.4 H, Mean Corpuscular Hemoglobin 35.3 H, Mean Corpuscular Hemoglobin Concent 33.9, Red Cell Distribution Width 16.7 H Labs 24H Laboratory Tests 2 06/10/16 16:45: Bedside Glucose (Misc Panel) 234H 06/10/16 19:54: Bedside Glucose (Misc Panel) 223H 06/11/16 06:21: Anion Gap 6L, Blood Urea Nitrogen 16, Creatinine 1.27, Sodium Level 141, Potassium Level 3.9, Chloride Level 102, Carbon Dioxide Level 33H, Calcium Level 8.3L, Glomerular Filtration Rate 59.0 06/11/16 06:22: Ammonia 34H 06/11/16 11:20: Bedside Glucose (Misc Panel) 247H FSBS Laboratory Tests Test 06/10/16 16:45 06/10/16 19:54 06/11/16 11:20 Range/Units Bedside Glucose (Misc Panel) 234 223 247 83-110 MG/DL Allergies Allergies: Coded Allergies: Lisinopril (Verified Adverse Reaction, Intermediate, ELEVATES POTASSIUM, Violently ill, emesis, 01/22/16) Current Medications Current Medications Current Medications Atorvastatin Calcium (Lipitor) 20 mg QHS PO Last administered on 06/10/16 20: 08; Start 06/02/16 at 21:00; Stop 07/02/16 at 20:59 Calcium/Vitamin D (Oscal D) 500 mg TID PO Last administered on 06/11/16 08:38 ; Start 06/03/16 at 09:00; Stop 07/03/16 at 08:59 Carvedilol (COReg) 6.25 mg BID PO Last administered on 06/11/16 08:37; Start 06/02/16 at 21:00; Stop 07/02/16 at 20:59 Dextrose (Dextrose 50%) 25 ml ASDIRECTED PRN IV SEE LABEL COMMENTS; Start 06/02 at 16:45; Stop 07/02/16 at 16:44 Diclofenac Epolamine (Flector 1.3%) 1 patch Q12H TOP Last administered on 08:32; Start 06/02/16 at 21:00; Stop 07/02/16 at 20:59 Gabapentin (Neurontin) 100 mg BID@09,12 PO Last administered on 06/11/16 12:20 ; Start 06/05/16 at 12:00; Stop 07/05/16 at 11:59 Gabapentin (Neurontin) 100 mg TID PO Last administered on 06/05/16 09:21; Start 06/03/16 at 09:00; Stop 06/05/16 at 14:41; Status DC Gabapentin (Neurontin) 200 mg QHS PO Last administered on 06/09/16 20:57; Start 06/05/16 at 21:00; Stop 06/10/16 at 12:13; Status DC Gabapentin (Neurontin) 300 mg QHS PO Last administered on 06/10/16 20:08; Start 06/10/16 at 21:00; Stop 07/10/16 at 20:59 Glucagon (Glucagon) 1 mg ASDIRECTED PRN SC SEE LABEL COMMENTS; Start 06/02/16 at 16:45; Stop 07/02/16 at 16:44 Glucose (Glucose) 16 GM ASDIRECTED PRN PO SEE LABEL COMMENTS; Start 06/02/16 at 16:45; Stop 07/02/16 at 16:44 Insulin Detemir (Levemir Insulin) 5 units QHS SC ; Start 06/11/16 at 21:00; Stop 07/11/16 at 20:59 Insulin Detemir (Levemir Insulin) 10 units DAILY SC Last administered on 08:30; Start 06/03/16 at 09:00; Stop 06/11/16 at 08:36; Status DC Insulin Detemir (Levemir Insulin) 15 units DAILY SC Last administered on 08:54; Start 06/11/16 at 09:00; Stop 07/11/16 at 08:59 Insulin Human Lispro (HumaLOG INSULIN) See Protocol Table AC SC Last administered on 06/11/16 12:21; Start 06/02/16 at 17:30; Stop 07/02/16 at 17:29 Insulin Human Lispro (HumaLOG INSULIN) See Protocol Table QHS SC ; Start at 21:00; Stop 07/02/16 at 20:59 Lactulose (Cephulac) 45 ml Q6H PO Last administered on 06/07/16 05:29; Start 06/02/16 at 18:00; Stop 06/07/16 at 10:32; Status DC Lactulose (Cephulac) 45 ml Q6H PO Last administered on 06/11/16 12:19; Start 06/08/16 at 12:00; Stop 07/08/16 at 11:59 Lactulose (Cephulac) 45 ml Q8H PO Last administered on 06/08/16 05:47; Start 06/07/16 at 14:00; Stop 06/08/16 at 10:08; Status DC Omeprazole (PriLOSEC) 40 mg BID PO Last administered on 06/11/16 08:38; Start 06/02/16 at 21:00; Stop 07/02/16 at 20:59 Oxycodone HCl (Roxicodone, Oxyir) 5 mg Q4HP PRN PO MILD/MODERATE PAIN (PS 1-7) Last administered on 06/08/16 10:19; Start 06/02/16 at 14:30; Stop 06/08/16 at 16:26; Status DC Oxycodone HCl (Roxicodone, Oxyir) 10 mg Q4HP PRN PO SEVERE PAIN (PS 8-10) Last administered on 06/05/16 05:01; Start 06/02/16 at 14:30; Stop 06/05/16 at 09:04 ; Status DC Oxycodone/ Acetaminophen (Percocet 5mg/ 325mg Tablet) 1 tab Q6HP PRN PO PAIN Last administered on 06/11/16 06:55; Start 06/08/16 at 16:30; Stop 06/15/16 at 16:29 Rifaximin (Xifaxan) 550 mg BID PO Last administered on 06/11/16 08:37; Start 06/02/16 at 21:00; Stop 07/02/16 at 20:59 TOMASA LYNCH MD Jun 11, 2016 13:40
[2016-06-11 14:00] VITALS: BP 120/56
[2016-06-11 16:00] VITALS: BP 125/59
[2016-06-11 20:00] VITALS: BP 126/58
[2016-06-11] MEDS ORDERED: LEVEMIR (INSULIN DETEMIR) 1 UNITS/0.01ML SC SCH (21:00)
[2016-06-11] MEDS: ATORVASTATIN 20 MG TAB PO SCH (23:42)
[2016-06-11] MEDS: GABAPENTIN 300 MG CAP PO SCH (23:42)
[2016-06-12 06:00] VITALS: BP 118/59
[2016-06-12] MEDS: LACTULOSE 20 GM/30 ML SYRUP UD PO SCH ×3 (06:14→17:00)
[2016-06-12] MEDS: PERCOCET 5MG/325MG TAB PO PRN (06:15)
[2016-06-12] MEDS: HumaLOG INSULIN (NovoLOG) PER UNIT SC SCH ×4 (08:19→21:09)
[2016-06-12] MEDS: CARVedilol 6.25 MG TAB PO SCH ×2 (08:19→21:04)
[2016-06-12] MEDS: rifAXIMin 550 MG TAB (XIFAXAN) PO SCH ×2 (08:19→21:04)
[2016-06-12] MEDS: CALCIUM/VITAMIN D 500 MG TAB PO SCH ×3 (08:19→21:04)
[2016-06-12] MEDS: DICLOFENAC EPOLAMINE 1.3 % PATCH TOP SCH ×2 (08:19→22:03)
[2016-06-12] MEDS: LEVEMIR (INSULIN DETEMIR) 1 UNITS/0.01ML SC SCH ×2 (08:19→21:05)
[2016-06-12] MEDS: GABAPENTIN 100 MG CAP PO SCH ×2 (08:19→12:16)
[2016-06-12] MEDS: OMEPRAZOLE 20 MG CAP PO SCH ×2 (08:19→21:09)
--- NOTE | 2016-06-12 11:57 | IPNPDOC ---
[employer] Progress Note PROGRESS NOTE DATE OF ADMISSION: 06/02/2016 DATE OF SERVICE: 06/12/2016 IDENTIFICATION STATEMENT: Patient is a 75-year-old man status post fall off a ladder with acute T12 compression fracture, hepatic encephalopathy and acute kidney injury admitted for comprehensive integrated inpatient rehabilitation. 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 Ariza cataracts PAST SURGICAL HISTORY: Cholecystectomy Abdominal hernia repair Pacemaker insertion 2005 (Dr. Johnson) TIPS procedure summer ALLERGIES: Lisinopril MEDICATIONS: Coreg 6.25 mg by mouth twice a day Prilosec 40 mg by mouth twice a day Lipitor 20 mg by mouth daily at bedtime Lactulose 45 mL by mouth every 6 hours Rifaximin 550mg by mouth twice a day Insulin detemir 15U SQ every morning, 5U qhs Insulin sliding scale before meals and at bedtime Flector patch to shoulder every 12 hours Percocet 1 tab po q6h prn Gabapentin 100mg PO qam and noon, 300mg qhs SUBJECTIVE: Patient states I have no complaints. No abdominal pain. Shoulder feels better, decreased back pain. Slept well. Having BMs soft, not watery. Denies any chest pain, shortness of breath, nausea/vomiting, diaphoresis. VITAL SIGNS: 97.5F, pulse 77, respiratory rate 18, 118/59, 96% saturation on room air. PHYSICAL EXAMINATION: GENERAL: Well nourished, well developed, sitting in chair, no acute distress. HEENT: Normocephalic, atraumatic. PERRL, EOMI CARDIOVASCULAR: S1, S2, regular rate. LUNGS: Clear to auscultation bilaterally, no wheezing rhonchi or rales ABDOMEN: Soft, nontender, distention ~stable. + bowel sounds. MUSCULOSKELETAL:AROM right shoulder 0-145 FF, 0-120 abduction w/o pain. MMT: 4/ 5 Right shoulder forward flexion, 5/5 right elbow flexion, 5/5 right hose mender strength (may be give way). 5/5 left upper limb in all major muscle groups. 5/5 bilateral lower limb strength in all major muscle groups. NEUROLOGICAL: Alert and oriented x 3. Answers all questions appropriately. Able to follow commands without difficulty. SKIN: + longitudinal lesion left posterior calf foam dressing not removed (no visible blood). LABORATORY DATA: 06/12/2016: reviewed, see below 06/02/2016: WBC 4.1, hemoglobin 9.7, hematocrit 26.8, platelets 65, sodium 139, potassium 4.3, chloride 107, carbon dioxide 25, BUN 18, creatinine 1.15, GFR greater than 60, glucose 211, calcium 7.8, total bili 2.1, AST 48, ALT 35, alkaline phosphatase 12, ammonia 68. IMAGING: Abdominal US 06/09/16: no thrombosis CT abdomen & pelvis 05/28/16: reviewed, non-acute CT the thoracic & lumbar spine 05/28/2016: T12 compression fracture with approximately 20% loss of anterior superior vertebral body height without retropulsed fracture fragment, the spinal canal relatively patent. X-ray of the right humerus: No acute fracture or dislocation Shoulder x-ray 06/01/2016: Mild degenerative changes, no acute fracture. FUNCTIONAL STATUS: Premorbid: Independent with ADLs and ambulation. Did not drive since the summer secondary to his vision. On Admission: Able to ambulate 3 feet with max assist and a rolling walker, max to mod assist for transfers and bed mobility, min assist for most ADLs. ASSESSMENT AND PLAN: 1. Acute T12 compression fracture and right shoulder injury secondary to fall off a ladder: Continue Leola brace. Pain control (see below). Right shoulder pain resolving. Pain management as below. 2. Pain: Abdominal pain resolved concurrently with increasing gabapentin and decreased ammonia level. Now shoulder pain significantly reduced and patient has significantly improved ROM [Hx: discontinued acetaminophen and changed Percocet to Roxicet upon admission no significant improvement in pain levels so d/cd Roxicet and restarted Percocet 06/08/16; added gabapentin which was increased 06/05/16 and again 06/10/16]. Right shoulder pain: Continue Flector patch which patient reports effective along with intermittent nice. 3. Acute kidney injury: Resolved status post IV fluids. 4. 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 Continue Xifaxan. 5. Gait abnormality and dysfunctional ADLs as related to items #1 through 4: Continue daily physical and occupational therapy. Rehabilitation nursing for bladder, bowel and medication management 6. Abdominal pain and distention: Resolved [Hx: US w/o thrombosis]. 7. Diabetes mellitus type 2, insulin-dependent: Persistently elevated BG still using 18u insulin via ISS so increased detrimir again today 06/12/16. Continue sliding scale insulin. Further adjustments as needed. 8. Hypertension: Adequately controlled. Maintain Coreg. 9. Diet/severe malnutrition: Prealbumin low. Maintain patient on carb consistent diet with Glucerna nutritional supplements. / Vital Signs Vital Sign - Last 24 Hours 06/11/16 06/11/16 06/11/16 06/11/16 14:00 16:00 16:47 20:00 Temp 98.7 98.1 97.4 Pulse 78 77 81 Resp 18 18 17 18 B/P 120/56 125/59 126/58 Pulse Ox 99 98 97 O2 Delivery Room Air Room Air 06/11/16 06/11/16 06/12/16 06/12/16 23:43 23:43 06:00 06:15 Temp 97.5 Pulse 89 77 Resp 18 18 18 B/P 130/69 118/59 Pulse Ox 96 O2 Delivery Room Air 06/12/16 06/12/16 06:45 08:19 Pulse 77 Resp 18 B/P 118/59 Laboratory Data Labs 24H Laboratory Tests 2 06/11/16 16:30: Bedside Glucose (Misc Panel) 261H 06/11/16 21:41: Bedside Glucose (Misc Panel) 337H 06/12/16 06:10: Bedside Glucose (Misc Panel) 183H 06/12/16 11:14: Bedside Glucose (Misc Panel) 286H FSBS Laboratory Tests Test 06/11/16 16:30 06/11/16 21:41 06/12/16 06:10 06/12/16 11:14 Range/Units Bedside Glucose (Misc Panel) 261 337 183 286 83-110 MG/DL Allergies Allergies: Coded Allergies: Lisinopril (Verified Adverse Reaction, Intermediate, ELEVATES POTASSIUM, Violently ill, emesis, 9/7/16) Current Medications Current Medications Current Medications Medications (Trade) Dose Ordered Sig/Pool Route PRN Reason Start Time Stop Time Status Last Admin Dose Admin Atorvastatin Calcium (Lipitor) 20 mg QHS PO 06/02/16 21:00 07/02/16 20:59 06/11/16 23:42 Calcium/Vitamin D (Oscal D) 500 mg TID PO 06/03/16 09:00 07/03/16 08:59 06/12/16 08:19 Carvedilol (COReg) 6.25 mg BID PO 06/02/16 21:00 07/02/16 20:59 06/12/16 08:19 Dextrose (Dextrose 50%) 25 ml ASDIRECTED PRN IV SEE LABEL COMMENTS 06/02/16 16:45 07/02/16 16:44 Diclofenac Epolamine (Flector 1.3%) 1 patch Q12H TOP 06/02/16 21:00 07/02/16 20:59 06/12/16 08:19 Gabapentin (Neurontin) 100 mg BID@09,12 PO 06/05/16 12:00 07/05/16 11:59 06/12/16 08:19 Gabapentin (Neurontin) 100 mg TID PO 06/03/16 09:00 06/05/16 14:41 DC 06/05/16 09:21 Gabapentin (Neurontin) 200 mg QHS PO 06/05/16 21:00 06/10/16 12:13 DC 06/09/16 20:57 Gabapentin (Neurontin) 300 mg QHS PO 06/10/16 21:00 07/10/16 20:59 06/11/16 23:42 Glucagon (Glucagon) 1 mg ASDIRECTED PRN SC SEE LABEL COMMENTS 06/02/16 16:45 07/02/16 16:44 Glucose (Glucose) 16 GM ASDIRECTED PRN PO SEE LABEL COMMENTS 06/02/16 16:45 07/02/16 16:44 Insulin Detemir (Levemir Insulin) 5 units QHS SC 06/11/16 21:00 06/12/16 10:08 DC 06/11/16 23:43 Insulin Detemir (Levemir Insulin) 10 units DAILY SC 06/03/16 09:00 06/11/16 08:36 DC 06/10/16 08:30 Insulin Detemir (Levemir Insulin) 10 units QHS SC 06/12/16 21:00 07/12/16 20:59 Insulin Detemir (Levemir Insulin) 15 units DAILY SC 06/11/16 09:00 07/11/16 08:59 06/12/16 08:19 Insulin Human Lispro (HumaLOG INSULIN) See Protocol Table AC SC 06/02/16 17:30 07/02/16 17:29 06/12/16 08:19 Insulin Human Lispro (HumaLOG INSULIN) See Protocol Table QHS IA 06/02/16 21:00 07/02/16 20:59 06/11/16 23:44 Lactulose (Cephulac) 45 ml Q6H PO 06/02/16 18:00 06/07/16 10:32 DC 06/07/16 05:29 Lactulose (Cephulac) 45 ml Q6H PO 06/08/16 12:00 07/08/16 11:59 06/12/16 06:14 Lactulose (Cephulac) 45 ml Q8H PO 06/07/16 14:00 06/08/16 10:08 DC 06/08/16 05:47 Omeprazole (PriLOSEC) 40 mg BID PO 06/02/16 21:00 07/02/16 20:59 06/12/16 08:19 Oxycodone HCl (Roxicodone, Oxyir) 5 mg Q4HP PRN PO MILD/MODERATE PAIN (PS 1-7) 06/02/16 14:30 06/08/16 16:26 DC 06/08/16 10:19 Oxycodone HCl (Roxicodone, Oxyir) 10 mg Q4HP PRN PO SEVERE PAIN (PS 8-10) 06/02/16 14:30 06/05/16 09:04 DC 06/05/16 05:01 Oxycodone/ Acetaminophen (Percocet 5mg/ 325mg Tablet) 1 tab Q6HP PRN PO PAIN 06/08/16 16:30 06/15/16 16:29 06/12/16 06:15 Rifaximin (Xifaxan) 550 mg BID PO 06/02/16 21:00 07/02/16 20:59 06/12/16 08:19 TOMASA LYNCH MD Jun 12, 2016 11:57
[2016-06-12 14:00] VITALS: BP 115/58
[2016-06-12 20:00] VITALS: BP 150/66
[2016-06-12] MEDS: ATORVASTATIN 20 MG TAB PO SCH (21:04)
[2016-06-12] MEDS: GABAPENTIN 300 MG CAP PO SCH (21:04)
[2016-06-13] MEDS: LACTULOSE 20 GM/30 ML SYRUP UD PO SCH ×4 (00:07→17:17)
[2016-06-13 06:12] LABS: MEAN CORPUSCULAR HEMOGLOBIN 35.6 pg (27.0-33.0); MEAN CORPUSCULAR HGB CONC 34.5 g/dl (32.0-36.5); MEAN CORPUSCULAR VOLUME 103.3 fl (80.0-96.0); RED CELL DISTRIBUTION WIDTH 15.4 % (11.5-14.5); WHITE BLOOD COUNT 3.2 K/mm3 (4.0-10.0)
[2016-06-13 06:20] LABS: ANION GAP 6 MEQ/L (8-16); BLOOD UREA NITROGEN 13 MG/DL (7-18); CALCIUM LEVEL 8.1 MG/DL (8.8-10.2); CARBON DIOXIDE LEVEL 31 MEQ/L (21-32); CHLORIDE LEVEL 105 MEQ/L (98-107); GLOMERULAR FILTRATION RATE > 60.0 (>42); GLUCOSE, FASTING 236 MG/DL (83-110); POTASSIUM SERUM 4.3 MEQ/L (3.5-5.1); SODIUM LEVEL 142 MEQ/L (136-145)
[2016-06-13 06:31] VITALS: BP 139/65
[2016-06-13 07:21] LABS: RETIC HEMOGLOBIN CONTENT CHr 36.7 PG (24-36); RETICULOCYTE % ADVIA2120 1.6 % (0.5-1.5)
[2016-06-13] MEDS: HumaLOG INSULIN (NovoLOG) PER UNIT SC SCH ×4 (07:53→20:38)
[2016-06-13 08:20] LABS: PERCENT SATURATION 27.2 % (19.7-37.4)
[2016-06-13] MEDS: LEVEMIR (INSULIN DETEMIR) 1 UNITS/0.01ML SC SCH ×2 (08:33→20:38)
[2016-06-13] MEDS: rifAXIMin 550 MG TAB (XIFAXAN) PO SCH ×2 (08:33→20:37)
[2016-06-13] MEDS: DICLOFENAC EPOLAMINE 1.3 % PATCH TOP SCH ×2 (08:33→20:39)
[2016-06-13] MEDS: CARVedilol 6.25 MG TAB PO SCH ×2 (08:34→20:41)
[2016-06-13] MEDS: GABAPENTIN 100 MG CAP PO SCH ×2 (08:34→12:32)
[2016-06-13] MEDS: CALCIUM/VITAMIN D 500 MG TAB PO SCH ×3 (08:34→20:37)
[2016-06-13] MEDS: OMEPRAZOLE 20 MG CAP PO SCH ×2 (08:34→20:37)
[2016-06-13] MEDS: PERCOCET 5MG/325MG TAB PO PRN (08:34)
[2016-06-13 14:00] VITALS: BP 119/59
[2016-06-13 20:00] VITALS: BP 135/63
[2016-06-13] MEDS: ATORVASTATIN 20 MG TAB PO SCH (20:37)
[2016-06-13] MEDS: GABAPENTIN 300 MG CAP PO SCH (20:37)
[2016-06-14] MEDS: LACTULOSE 20 GM/30 ML SYRUP UD PO SCH ×4 (00:44→17:44)
[2016-06-14 06:00] VITALS: BP 115/56
[2016-06-14] MEDS: LEVEMIR (INSULIN DETEMIR) 1 UNITS/0.01ML SC SCH ×2 (08:23→20:16)
[2016-06-14] MEDS: HumaLOG INSULIN (NovoLOG) PER UNIT SC SCH ×4 (08:24→20:10)
[2016-06-14] MEDS: CARVedilol 6.25 MG TAB PO SCH ×2 (08:24→19:58)
[2016-06-14] MEDS: OMEPRAZOLE 20 MG CAP PO SCH ×2 (08:24→19:57)
[2016-06-14] MEDS: DICLOFENAC EPOLAMINE 1.3 % PATCH TOP SCH ×2 (08:24→20:00)
[2016-06-14] MEDS: rifAXIMin 550 MG TAB (XIFAXAN) PO SCH ×2 (08:24→19:57)
[2016-06-14] MEDS: GABAPENTIN 100 MG CAP PO SCH ×2 (08:24→12:17)
[2016-06-14] MEDS: CALCIUM/VITAMIN D 500 MG TAB PO SCH ×3 (08:24→19:57)
[2016-06-14] MEDS: ASCORBIC ACID 500 MG TAB PO SCH ×2 (11:11→19:58)
[2016-06-14] MEDS: FERROUS GLUCONATE 324 MG TAB PO SCH ×2 (11:11→19:57)
[2016-06-14] MEDS: PERCOCET 5MG/325MG TAB PO PRN (11:15)
[2016-06-14 14:00] VITALS: BP 114/58
[2016-06-14 19:40] VITALS: BP 145/62
[2016-06-14] MEDS: GABAPENTIN 300 MG CAP PO SCH (19:57)
[2016-06-14] MEDS: ATORVASTATIN 20 MG TAB PO SCH (19:57)
[2016-06-15] MEDS: LACTULOSE 20 GM/30 ML SYRUP UD PO SCH ×4 (00:37→17:06)
[2016-06-15] MEDS: PERCOCET 5MG/325MG TAB PO PRN (05:40)
[2016-06-15 06:00] VITALS: BP 116/58
[2016-06-15 06:46] LABS: MEAN CORPUSCULAR HEMOGLOBIN 35.1 pg (27.0-33.0); MEAN CORPUSCULAR HGB CONC 33.8 g/dl (32.0-36.5); MEAN CORPUSCULAR VOLUME 103.7 fl (80.0-96.0); RED CELL DISTRIBUTION WIDTH 16.6 % (11.5-14.5); WHITE BLOOD COUNT 3.7 K/mm3 (4.0-10.0)
[2016-06-15 07:09] LABS: CALCIUM LEVEL 8.3 MG/DL (8.8-10.2); CREATININE FOR GFR 1.28 MG/DL (0.70-1.30); GLOMERULAR FILTRATION RATE 58.5 (>42); POTASSIUM SERUM 4.1 MEQ/L (3.5-5.1)
[2016-06-15] MEDS: HumaLOG INSULIN (NovoLOG) PER UNIT SC SCH ×4 (08:32→21:00)
[2016-06-15] MEDS: DICLOFENAC EPOLAMINE 1.3 % PATCH TOP SCH ×2 (08:32→20:43)
[2016-06-15] MEDS: LEVEMIR (INSULIN DETEMIR) 1 UNITS/0.01ML SC SCH (08:32)
[2016-06-15] MEDS: rifAXIMin 550 MG TAB (XIFAXAN) PO SCH ×2 (08:32→20:39)
[2016-06-15] MEDS: FERROUS GLUCONATE 324 MG TAB PO SCH ×2 (08:33→20:39)
[2016-06-15] MEDS: ASCORBIC ACID 500 MG TAB PO SCH ×2 (08:33→20:39)
[2016-06-15] MEDS: GABAPENTIN 100 MG CAP PO SCH ×2 (08:33→11:40)
[2016-06-15] MEDS: OMEPRAZOLE 20 MG CAP PO SCH ×2 (08:33→20:39)
[2016-06-15] MEDS: CARVedilol 6.25 MG TAB PO SCH ×2 (08:33→20:42)
[2016-06-15] MEDS: CALCIUM/VITAMIN D 500 MG TAB PO SCH ×3 (08:33→20:39)
--- NOTE | 2016-06-15 12:14 | IPNPDOC ---
Gin Inspector Progress Note PROGRESS NOTE DATE OF ADMISSION: 06/02/2016 DATE OF SERVICE: 06/15/2016 IDENTIFICATION STATEMENT: Patient is a 75-year-old man status post fall off a ladder with acute T12 compression fracture, hepatic encephalopathy and acute kidney injury admitted for comprehensive integrated inpatient rehabilitation. 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 Ariza cataracts PAST SURGICAL HISTORY: Cholecystectomy Abdominal hernia repair Pacemaker insertion 2005 (Dr. Johnson) TIPS procedure summer ALLERGIES: Lisinopril MEDICATIONS: Coreg 6.25 mg by mouth twice a day Prilosec 40 mg by mouth twice a day Lipitor 20 mg by mouth daily at bedtime Lactulose 45 mL by mouth every 6 hours Rifaximin 550mg by mouth twice a day Insulin detemir 20U SQ every morning, 10U qhs Insulin sliding scale before meals and at bedtime Flector patch to shoulder every 12 hours Percocet 1 tab po q6h prn Gabapentin 100mg PO qam and noon, 300mg qhs SUBJECTIVE: Patient w/o complaints. No abdominal pain. No shoulder pain, back pain pretty good now. Slept well. Having BMs soft, not watery. Denies any chest pain, shortness of breath, nausea/vomiting, diaphoresis. VITAL SIGNS: 97.6F, pulse 77, respiratory rate 18, 116/58, 100% saturation on room air. PHYSICAL EXAMINATION: GENERAL: Well nourished, well developed, sitting in chair, no acute distress. HEENT: Normocephalic, atraumatic. PERRL, EOMI CARDIOVASCULAR: S1, S2, regular rate. LUNGS: Clear to auscultation bilaterally, no wheezing rhonchi or rales ABDOMEN: Soft, nontender, distention ~stable. + bowel sounds. MUSCULOSKELETAL:AROM right shoulder 0-145 FF, 0-120 abduction w/o pain. MMT: 5/ 5 Right shoulder forward flexion, 5/5 right elbow flexion, 5/5 right business process modeler strength. 5/5 left upper limb in all major muscle groups. 5/5 bilateral lower limb strength in all major muscle groups. NEUROLOGICAL: Alert and oriented x 3. Answers all questions appropriately. Able to follow commands without difficulty. SKIN: + longitudinal lesion left posterior calf foam dressing not removed (no visible blood). LABORATORY DATA: 06/15/2016: reviewed, see below 06/02/2016: WBC 4.1, hemoglobin 9.7, hematocrit 26.8, platelets 65, sodium 139, potassium 4.3, chloride 107, carbon dioxide 25, BUN 18, creatinine 1.15, GFR greater than 60, glucose 211, calcium 7.8, total bili 2.1, AST 48, ALT 35, alkaline phosphatase 12, ammonia 68. IMAGING: Abdominal US 06/09/16: no thrombosis CT abdomen & pelvis 05/28/16: reviewed, non-acute CT the thoracic & lumbar spine 05/28/2016: T12 compression fracture with approximately 20% loss of anterior superior vertebral body height without retropulsed fracture fragment, the spinal canal relatively patent. X-ray of the right humerus: No acute fracture or dislocation Shoulder x-ray 06/01/2016: Mild degenerative changes, no acute fracture. FUNCTIONAL STATUS: Premorbid: Independent with ADLs and ambulation. Did not drive since the summer secondary to his vision. On Admission: Able to ambulate 3 feet with max assist and a rolling walker, max to mod assist for transfers and bed mobility, min assist for most ADLs. ASSESSMENT AND PLAN: 1. Acute T12 compression fracture and right shoulder injury secondary to fall off a ladder: Continue Deric brace. Pain control (see below). Right shoulder pain resolved. Pain management as below. 2. Pain: Abdominal pain and shoulder pain resolved. Decreased back pain. Continue gabapentin, flector patch, Percocet, intermittent ice. [Hx: discontinued acetaminophen and changed Percocet to Roxicet upon admission no significant improvement in pain levels so d/cd Roxicet and restarted Percocet ; added gabapentin which was increased 06/05/16 and again 06/10/16]. 3. Acute kidney injury: Resolved status post IV fluids. 4. Hepatic encephalopathy secondary to cirrhosis: Mental status stable [Hx: lactulose decreased 06/07/16 2nd watery diarrhea and ileus on CT, increased 2nd elevated ammonia]. Continue lactulose & Xifaxan. 5. Gait abnormality and dysfunctional ADLs as related to items #1 through 4: Patient making gains. Continue daily physical and occupational therapy. Rehabilitation nursing for bladder, bowel and medication management 6. Abdominal pain and distention: Resolved [Hx: US w/o thrombosis]. 7. Diabetes mellitus type 2, insulin-dependent: Persistently elevated BG requiring ISS so will increase detrimir again today 06/15/16. Continue sliding scale insulin. Further adjustments as needed. 8. Hypertension: Adequately controlled. Maintain Coreg. 9. Diet/severe malnutrition: Prealbumin low. Maintain patient on carb consistent diet with Glucerna nutritional supplements. / Vital Signs Vital Sign - Last 24 Hours 06/14/16 06/14/16 06/14/16 06/15/16 14:00 19:40 19:58 05:40 Temp 96.0 96.8 Pulse 70 71 71 Resp 18 18 18 B/P 114/58 145/62 145/62 Pulse Ox 100 99 100 O2 Delivery Room Air Room Air 06/15/16 06/15/16 06/15/16 06:00 06:10 08:33 Temp 97.6 Pulse 77 77 Resp 18 18 B/P 116/58 116/58 Pulse Ox 98 100 O2 Delivery Room Air Laboratory Data CBC/BMP Laboratory Tests 06/15/16 06:24 Calcium Level 8.3 L, Red Blood Count 2.92 L, Mean Corpuscular Volume 103.7 H, Mean Corpuscular Hemoglobin 35.1 H, Mean Corpuscular Hemoglobin Concent 33.8, Red Cell Distribution Width 16.6 H Labs 24H Laboratory Tests 2 06/14/16 16:32: Bedside Glucose (Misc Panel) 529*H 06/14/16 16:35: Bedside Glucose (Misc Panel) 297H 06/14/16 20:09: Bedside Glucose (Misc Panel) 227H 06/15/16 06:24: Ammonia 76H, Anion Gap 8, Blood Urea Nitrogen 13, Creatinine 1.28, Sodium Level 144, Potassium Level 4.1, Chloride Level 108H, Carbon Dioxide Level 28, Calcium Level 8.3L, Glomerular Filtration Rate 58.5, Prealbumin 6.9L 06/15/16 11:20: Bedside Glucose (Misc Panel) 273H FSBS Laboratory Tests Test 06/14/16 16:32 06/14/16 16:35 06/14/16 20:09 06/15/16 11:20 Range/Units Bedside Glucose (Misc Panel) 529 297 227 273 83-110 MG/DL Allergies Allergies: Coded Allergies: Lisinopril (Verified Adverse Reaction, Intermediate, ELEVATES POTASSIUM, Violently ill, emesis, 01/22/16) Current Medications Current Medications Current Medications Medications (Trade) Dose Ordered Sig/Pool Route PRN Reason Start Time Stop Time Status Last Admin Dose Admin Ascorbic Acid (Vitamin C) 500 mg BID PO 06/14/16 09:00 07/14/16 08:59 06/15/16 08:33 Atorvastatin Calcium (Lipitor) 20 mg QHS PO 06/02/16 21:00 07/02/16 20:59 06/14/16 19:57 Calcium/Vitamin D (Oscal D) 500 mg TID PO 06/03/16 09:00 07/03/16 08:59 06/15/16 08:33 Carvedilol (COReg) 6.25 mg BID PO 06/02/16 21:00 07/02/16 20:59 06/15/16 08:33 Dextrose (Dextrose 50%) 25 ml ASDIRECTED PRN IV SEE LABEL COMMENTS 06/02/16 16:45 07/02/16 16:44 Diclofenac Epolamine (Flector 1.3%) 1 patch Q12H TOP 06/02/16 21:00 07/02/16 20:59 06/15/16 08:32 Ferrous Gluconate (Fergon) 324 mg BID PO 06/14/16 09:00 07/14/16 08:59 06/15/16 08:33 Gabapentin (Neurontin) 100 mg BID@09,12 PO 06/05/16 12:00 07/05/16 11:59 06/15/16 11:40 Gabapentin (Neurontin) 100 mg TID PO 06/03/16 09:00 06/05/16 14:41 DC 06/05/16 09:21 Gabapentin (Neurontin) 200 mg QHS PO 06/05/16 21:00 06/10/16 12:13 DC 06/09/16 20:57 Gabapentin (Neurontin) 300 mg QHS PO 06/10/16 21:00 07/10/16 20:59 06/14/16 19:57 Glucagon (Glucagon) 1 mg ASDIRECTED PRN SC SEE LABEL COMMENTS 06/02/16 16:45 07/02/16 16:44 Glucose (Glucose) 16 GM ASDIRECTED PRN PO SEE LABEL COMMENTS 06/02/16 16:45 07/02/16 16:44 Insulin Detemir (Levemir Insulin) 5 units QHS SC 06/11/16 21:00 06/12/16 10:08 DC 06/11/16 23:43 Insulin Detemir (Levemir Insulin) 10 units DAILY SC 06/03/16 09:00 06/11/16 08:36 DC 06/10/16 08:30 Insulin Detemir (Levemir Insulin) 10 units QHS SC 06/12/16 21:00 06/15/16 11:57 DC 06/14/16 20:16 Insulin Detemir (Levemir Insulin) 15 units DAILY SC 06/11/16 09:00 06/13/16 07:00 DC 06/12/16 08:19 Insulin Detemir (Levemir Insulin) 15 units QHS GA 06/15/16 21:00 07/15/16 20:59 Insulin Detemir (Levemir Insulin) 20 units DAILY SC 06/13/16 09:00 06/15/16 11:57 DC 06/15/16 08:32 Insulin Detemir (Levemir Insulin) 25 units DAILY SC 06/16/16 09:00 07/16/16 08:59 UNV Insulin Human Lispro (HumaLOG INSULIN) See Protocol Table AC SC 06/02/16 17:30 07/02/16 17:29 06/15/16 11:41 Insulin Human Lispro (HumaLOG INSULIN) See Protocol Table QHS SC 06/02/16 21:00 07/02/16 20:59 06/12/16 21:09 Lactulose (Cephulac) 45 ml Q6H PO 06/02/16 18:00 06/07/16 10:32 DC 06/07/16 05:29 Lactulose (Cephulac) 45 ml Q6H PO 06/08/16 12:00 07/08/16 11:59 06/15/16 11:41 Lactulose (Cephulac) 45 ml Q8H PO 06/07/16 14:00 06/08/16 10:08 DC 06/08/16 05:47 Omeprazole (PriLOSEC) 40 mg BID PO 06/02/16 21:00 07/02/16 20:59 06/15/16 08:33 Oxycodone HCl (Roxicodone, Oxyir) 5 mg Q4HP PRN PO MILD/MODERATE PAIN (PS 1-7) 06/02/16 14:30 06/08/16 16:26 DC 06/08/16 10:19 Oxycodone HCl (Roxicodone, Oxyir) 10 mg Q4HP PRN PO SEVERE PAIN (PS 8-10) 06/02/16 14:30 06/05/16 09:04 DC 06/05/16 05:01 Oxycodone/ Acetaminophen (Percocet 5mg/ 325mg Tablet) 1 tab Q6HP PRN PO PAIN 06/08/16 16:30 06/21/16 16:29 06/15/16 05:40 Rifaximin (Xifaxan) 550 mg BID PO 06/02/16 21:00 07/02/16 20:59 06/15/16 08:32 TOMASA LYNCH MD Jun 15, 2016 12:14
[2016-06-15 14:00] VITALS: BP 128/60
[2016-06-15 15:32] LABS: FOLATE 14.8 NG/ML (>5.4)
[2016-06-15 20:00] VITALS: BP 118/72
[2016-06-15] MEDS: GABAPENTIN 300 MG CAP PO SCH (20:39)
[2016-06-15] MEDS: ATORVASTATIN 20 MG TAB PO SCH (20:39)
[2016-06-15] MEDS ORDERED: LEVEMIR (INSULIN DETEMIR) 1 UNITS/0.01ML SC SCH (21:00)
[2016-06-16] MEDS: LACTULOSE 20 GM/30 ML SYRUP UD PO SCH ×3 (00:32→11:46)
[2016-06-16 06:00] VITALS: BP 124/60
[2016-06-16] MEDS ORDERED: INSUHUMDS SC ×2 (07:08)
[2016-06-16] MEDS ORDERED: VITA-130 PO (07:08)
[2016-06-16] MEDS ORDERED: ATOR1TAB21 PO (07:08)
[2016-06-16] MEDS ORDERED: PERCOCET PO (07:08)
[2016-06-16] MEDS ORDERED: OMEP20CA3 PO (07:08)
[2016-06-16] MEDS ORDERED: LACT10SO29 PO (07:08)
[2016-06-16] MEDS ORDERED: FERR32TA PO (07:08)
[2016-06-16] MEDS: DICLOFENAC EPOLAMINE 1.3 % PATCH TOP SCH (08:21)
[2016-06-16] MEDS: ASCORBIC ACID 500 MG TAB PO SCH (08:21)
[2016-06-16] MEDS: HumaLOG INSULIN (NovoLOG) PER UNIT SC SCH ×2 (08:21→11:46)
[2016-06-16 08:22] VITALS: BP 124/60
[2016-06-16] MEDS: CARVedilol 6.25 MG TAB PO SCH (08:22)
[2016-06-16] MEDS: OMEPRAZOLE 20 MG CAP PO SCH (08:22)
[2016-06-16] MEDS: rifAXIMin 550 MG TAB (XIFAXAN) PO SCH (08:22)
[2016-06-16] MEDS: FERROUS GLUCONATE 324 MG TAB PO SCH (08:22)
[2016-06-16] MEDS: CALCIUM/VITAMIN D 500 MG TAB PO SCH (08:22)
[2016-06-16] MEDS: GABAPENTIN 100 MG CAP PO SCH ×2 (08:22→11:46)
[2016-06-16] MEDS ORDERED: LEVEMIR (INSULIN DETEMIR) 1 UNITS/0.01ML SC SCH (09:00)
--- NOTE | 2016-06-16 11:51 | DS.PDOC ---
Educational Audiologist Discharge Note DISCHARGE SUMMARY DATE OF ADMISSION: 06/02/2016 DATE OF DISCHARGE: 06/16/2016 DISCHARGE SUMMARY 1. Acute T12 compression fracture and right shoulder injury secondary to fall off a ladder 2. Acute kidney injury 3. Hepatic encephalopathy secondary to cirrhosis 5. Gait abnormality and dysfunctional ADLs 6. Diabetes mellitus type 2, insulin-dependent 7. Hypertension 8. Severe malnutrition IDENTIFICATION STATEMENT: Patient is a 75-year-old man status post fall off a ladder with acute T12 compression fracture, hepatic encephalopathy and acute kidney injury admitted for comprehensive integrated inpatient rehabilitation. 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 PAST SURGICAL HISTORY: Cholecystectomy Abdominal hernia repair Pacemaker insertion 2005 (Dr. Johnson) TIPS procedure summer HOSPITAL COURSE The patient underwent daily physical and occupational therapy. He underwent sequential medication adjustments for pain control. He tolerated therapy sessions well and made progressive gains. On 06/16/16 he was deemed stable for discharge home with [facility]. Other issues addressed while on the rehabilitation unit are outlined as follows: 1. Acute T12 compression fracture Maintained in Deric brace when OOB and with activity. Started on gabapentin which was titrated up. 2. Right shoulder pain and decreased ROM secondary to fall off a ladder: Thought 2nd to subdeltoid bursitis. Resolved after a several days on Flector Patch. 3. Abdominal pain: Obtain imaging and consulted Dr. Corea, his patent drafter 4. Pain: discontinued acetaminophen and changed Percocet to Roxicet upon admission as patient was getting too much APAP no significant improvement in pain levels so d/cd Roxicet and restarted Percocet 06/08/16; added gabapentin which was increased 06/05/16 and then again 06/10/16. Pain adequately controlled thereafter. 5. Acute kidney injury: Resolved status post IV fluids. 6. Hepatic encephalopathy secondary to cirrhosis: lactulose decreased 06/07/16 2 nd watery diarrhea and ileus on CT, increased 06/08/16 2nd elevated ammonia. Continue on Xifaxan. 7. Diabetes mellitus type 2, insulin-dependent: Persistently elevated BG requiring increases in longacting insulin. Continue sliding scale insulin. 8. Hypertension: Maintain Coreg. 9. Severe malnutrition: Prealbumin low so started on Glucerna nutritional supplements. Tracked prealbumin. VITAL SIGNS: 97.4F, pulse 71, respiratory rate 18, 124/60, 99% saturation on room air. PHYSICAL EXAMINATION: GENERAL: Well nourished, well developed, sitting in chair, no acute distress. HEENT: Normocephalic, atraumatic. PERRL, EOMI CARDIOVASCULAR: S1, S2, regular rate. LUNGS: Clear to auscultation bilaterally, no wheezing rhonchi or rales ABDOMEN: Soft, nontender, distention ~stable. + bowel sounds. MUSCULOSKELETAL: AROM right shoulder 0-145 FF, 0-130 abduction w/o pain. MMT: 5 /5 Right shoulder forward flexion, 5/5 right elbow flexion, 5/5 right customer resolution specialist strength. 5/5 left upper limb in all major muscle groups. 5/5 bilateral lower limb strength in all major muscle groups. NEUROLOGICAL: Alert and oriented x 3. Answers all questions appropriately. Able to follow commands without difficulty. SKIN: + longitudinal lesion left posterior calf foam dressing not removed ( healing). LABORATORY DATA: 06/15/2016: reviewed, see below IMAGING: Abdominal US 06/09/16: no thrombosis CT abdomen & pelvis 05/28/16: reviewed, non-acute CT the thoracic & lumbar spine 05/28/2016: T12 compression fracture with approximately 20% loss of anterior superior vertebral body height without retropulsed fracture fragment, the spinal canal relatively patent. X-ray of the right humerus: No acute fracture or dislocation Shoulder x-ray 06/01/2016: Mild degenerative changes, no acute fracture. ALLERGIES: Lisinopril MEDICATIONS: Coreg 6.25 mg by mouth twice a day Prilosec 40 mg by mouth twice a day Lipitor 20 mg by mouth daily at bedtime Lactulose 45 mL by mouth every 6 hours Rifaximin 550mg by mouth twice a day Lantus 20u qhs, 42u qam Insulin sliding scale before meals and at bedtime Percocet 1 tab po q6h prn Gabapentin 100mg PO qam and noon, 300mg qhs DISCHARGE DISPOSITION: 1. The patient discharge home with and [facility] 2. The patient discharged in stable condition 3. Discharged with [facility] to include RN, PT, OT and bath aide. 4. Equipment: 2WW, commode and tub bench 5. Post discharge follow-up medical appointments: PCP, GI. / Vital Signs/I&O Vital Sign - Last 24 Hours 06/15/16 06/15/16 06/15/16 06/16/16 14:00 20:00 20:42 06:00 Temp 96.1 96.7 97.4 Pulse 74 65 65 71 Resp 20 18 18 B/P 128/60 118/72 118/72 124/60 Pulse Ox 100 100 99 O2 Delivery Room Air Room Air Room Air 06/16/16 08:22 Pulse 71 B/P 124/60 I&O- Last 24 Hours up to 6 AM 06/16/16 06:00 Intake Total 840 ml Output Total 0 ml Balance 840 ml Laboratory Data CBC/BMP Laboratory Tests 06/15/16 06:24 Calcium Level 8.3 L, Red Blood Count 2.92 L, Mean Corpuscular Volume 103.7 H, Mean Corpuscular Hemoglobin 35.1 H, Mean Corpuscular Hemoglobin Concent 33.8, Red Cell Distribution Width 16.6 H Labs 48H Laboratory Tests 06/14/16 16:32: Bedside Glucose (Misc Panel) 529*H 06/14/16 16:35: Bedside Glucose (Misc Panel) 297H 06/14/16 20:09: Bedside Glucose (Misc Panel) 227H 06/15/16 06:24: Ammonia 76H, Anion Gap 8, Blood Urea Nitrogen 13, Creatinine 1.28, Sodium Level 144, Potassium Level 4.1, Chloride Level 108H, Carbon Dioxide Level 28, Calcium Level 8.3L, Fasting Glucose 223H, Glomerular Filtration Rate 58.5, White Blood Count 3.7L, Red Blood Count 2.92L, Hemoglobin 10.2L, Hematocrit 30.3L, Mean Corpuscular Volume 103.7H, Mean Corpuscular Hemoglobin 35.1H, Mean Corpuscular Hemoglobin Concent 33.8, Red Cell Distribution Width 16.6H, Platelet Count 101L , Prealbumin 6.9L 06/15/16 11:20: Bedside Glucose (Misc Panel) 273H 06/15/16 20:02: Bedside Glucose (Misc Panel) 216H 06/16/16 06:21: Bedside Glucose (Misc Panel) 164H 06/16/16 11:39: Bedside Glucose (Misc Panel) 306H FSBS Laboratory Tests Test 06/15/16 20:02 06/16/16 06:21 06/16/16 11:39 Range/Units Bedside Glucose (Misc Panel) 216 164 306 83-110 MG/DL Medications Medications Current Medications Medications (Trade) Dose Ordered Sig/Pool Route PRN Reason Start Time Stop Time Status Last Admin Dose Admin Ascorbic Acid (Vitamin C) 500 mg BID PO 06/14/16 09:00 07/14/16 08:59 06/16/16 08:21 Atorvastatin Calcium (Lipitor) 20 mg QHS PO 06/02/16 21:00 07/02/16 20:59 06/15/16 20:39 Calcium/Vitamin D (Oscal D) 500 mg TID PO 06/03/16 09:00 07/03/16 08:59 06/16/16 08:22 Carvedilol (COReg) 6.25 mg BID PO 06/02/16 21:00 07/02/16 20:59 06/16/16 08:22 Dextrose (Dextrose 50%) 25 ml ASDIRECTED PRN IV SEE LABEL COMMENTS 06/02/16 16:45 07/02/16 16:44 Diclofenac Epolamine (Flector 1.3%) 1 patch Q12H TOP 06/02/16 21:00 07/02/16 20:59 06/16/16 08:21 Ferrous Gluconate (Fergon) 324 mg BID PO 06/14/16 09:00 07/14/16 08:59 06/16/16 08:22 Gabapentin (Neurontin) 100 mg BID@09,12 PO 06/05/16 12:00 07/05/16 11:59 06/16/16 11:46 Gabapentin (Neurontin) 100 mg TID PO 06/03/16 09:00 06/05/16 14:41 DC 06/05/16 09:21 Gabapentin (Neurontin) 200 mg QHS PO 06/05/16 21:00 06/10/16 12:13 DC 06/09/16 20:57 Gabapentin (Neurontin) 300 mg QHS PO 06/10/16 21:00 07/10/16 20:59 06/15/16 20:39 Glucagon (Glucagon) 1 mg ASDIRECTED PRN SC SEE LABEL COMMENTS 06/02/16 16:45 07/02/16 16:44 Glucose (Glucose) 16 GM ASDIRECTED PRN PO SEE LABEL COMMENTS 06/02/16 16:45 07/02/16 16:44 Insulin Detemir (Levemir Insulin) 5 units QHS SC 06/11/16 21:00 06/12/16 10:08 DC 06/11/16 23:43 Insulin Detemir (Levemir Insulin) 10 units DAILY SC 06/03/16 09:00 06/11/16 08:36 DC 06/10/16 08:30 Insulin Detemir (Levemir Insulin) 10 units QHS NM 06/12/16 21:00 06/15/16 11:57 DC 06/14/16 20:16 Insulin Detemir (Levemir Insulin) 15 units DAILY SC 06/11/16 09:00 06/13/16 07:00 DC 06/12/16 08:19 Insulin Detemir (Levemir Insulin) 15 units QHS NM 06/15/16 21:00 07/15/16 20:59 06/15/16 20:43 Insulin Detemir (Levemir Insulin) 20 units DAILY NM 06/13/16 09:00 06/15/16 11:57 DC 06/15/16 08:32 Insulin Detemir (Levemir Insulin) 25 units DAILY NM 06/16/16 09:00 07/16/16 08:59 06/16/16 08:21 Insulin Human Lispro (HumaLOG INSULIN) See Protocol Table AC SC 06/02/16 17:30 07/02/16 17:29 06/16/16 11:46 Insulin Human Lispro (HumaLOG INSULIN) See Protocol Table QHS SC 06/02/16 21:00 07/02/16 20:59 06/12/16 21:09 Lactulose (Cephulac) 45 ml Q6H PO 06/02/16 18:00 06/07/16 10:32 DC 06/07/16 05:29 Lactulose (Cephulac) 45 ml Q6H PO 06/08/16 12:00 07/08/16 11:59 06/16/16 11:46 Lactulose (Cephulac) 45 ml Q8H PO 06/07/16 14:00 06/08/16 10:08 DC 06/08/16 05:47 Omeprazole (PriLOSEC) 40 mg BID PO 06/02/16 21:00 07/02/16 20:59 06/16/16 08:22 Oxycodone HCl (Roxicodone, Oxyir) 5 mg Q4HP PRN PO MILD/MODERATE PAIN (PS 1-7) 06/02/16 14:30 06/08/16 16:26 DC 06/08/16 10:19 Oxycodone HCl (Roxicodone, Oxyir) 10 mg Q4HP PRN PO SEVERE PAIN (PS 8-10) 06/02/16 14:30 06/05/16 09:04 DC 06/05/16 05:01 Oxycodone/ Acetaminophen (Percocet 5mg/ 325mg Tablet) 1 tab Q6HP PRN PO PAIN 06/08/16 16:30 06/21/16 16:29 06/15/16 05:40 Rifaximin (Xifaxan) 550 mg BID PO 06/02/16 21:00 07/02/16 20:59 06/16/16 08:22 Scheduled Ascorbic Acid (Vitamin C) 500 Mg Tab 500 MG PO BID Atorvastatin Calcium (Atorvastatin Calcium) 20 Mg Tab 20 MG PO QHS Carvedilol (Carvedilol) 6.25 Mg Tab 6.25 MG PO BID (Reported) Cholecalciferol (Vitamin D) 1,000 Unit Tab 1,000 UNIT PO DAILY (Reported) Ferrous Gluconate (Ferrous Gluconate) 324 Mg Tab 324 MG PO BID Insulin Glargine (Lantus Solostar) 100 Unit/Ml Inj 20 UNITS SC QHS (Reported) Insulin Glargine (Lantus Solostar) 100 Unit/Ml Inj 42 UNITS SC QAM (Reported) Insulin Human Lispro (Humalog) 1 Units/0.01 Ml Inj 0 UNITS SC AC Insulin Human Lispro (Humalog) 1 Units/0.01 Ml Inj 0 UNITS SC QHS Omeprazole (Omeprazole) 20 Mg Cap 40 MG PO DAILY Rifaximin (Xifaxan) 550 Mg Tab 550 MG PO BID (Reported) Vitamin E (Vitamin E) 400 Unit Cap 400 UNIT PO BID (Reported) Scheduled PRN Lactulose (Lactulose) 10 Gm/15 Ml Gretchen 45 ML PO Q6H PRN PRN CONSTIPATION Adjustments in dose per Dr Corea Oxycodone/Acetaminophen (Percocet 5MG/325MG Tablet) 1 Tab Tab 1 TAB PO Q6HP PRN PRN SEVERE PAIN (PS 8-10) Allergies Coded Allergies: Lisinopril (Verified Adverse Reaction, Intermediate, ELEVATES POTASSIUM, Violently ill, emesis, 01/22/16) TOMASA LYNCH MD Jun 16, 2016 11:51
[2016-06-16] MEDS: PERCOCET 5MG/325MG TAB PO PRN (13:36)
== END 2016-06-16 13:45 | disposition home health service (06) | DRG 559 ==
LOC: M PM&R 14:45
PROVIDERS: ADMIT Physical Medicine & Rehabilitation; ATTEND Physical Medicine & Rehabilitation
DX: S22.080D Wedge compression fracture of T11-T12 vertebra, subsequent encounter for fracture with routine healing (principal); E43 Unspecified severe protein-calorie malnutrition; N17.9 Acute kidney failure, unspecified; I44.2 Atrioventricular block, complete; I85.00 Esophageal varices without bleeding; K72.90 Hepatic failure, unspecified without coma; R26.9 Unspecified abnormalities of gait and mobility; E11.9 Type 2 diabetes mellitus without complications; K74.60 Unspecified cirrhosis of liver; M25.511 Pain in right shoulder; I12.9 Hypertensive chronic kidney disease with stage 1 through stage 4 chronic kidney disease, or unspecified chronic kidney disease; E78.5 Hyperlipidemia, unspecified; D63.8 Anemia in other chronic diseases classified elsewhere; N18.3 Chronic kidney disease, stage 3 (moderate); Z95.0 Presence of cardiac pacemaker; Z79.4 Long term (current) use of insulin; Z79.899 Other long term (current) drug therapy; I25.2 Old myocardial infarction; W11.XXXD Fall on and from ladder, subsequent encounter; Y92.015 Private garage of single-family (private) house as the place of occurrence of the external cause; Y93.H9 Activity, other involving exterior property and land maintenance, building and construction; Z90.49 Acquired absence of other specified parts of digestive tract; Z97.2 Presence of dental prosthetic device (complete) (partial); Z88.8 Allergy status to other drugs, medicaments and biological substances; Z87.891 Personal history of nicotine dependence; Y99.9 Unspecified external cause status

== ENCOUNTER → 2016-07-06 | Outpatient (CLI) | payer MEDICARE, OTHER ==
[~2016-07-06] MED LIST changes: +FERR32TA PO; +INSUHUMDS SC; +OMEP20CA3 PO; +PERCOCET PO; +VITA-130 PO
[2016-07-06 15:18] LABS: INR 1.34
[2016-07-06 15:27] LABS: ALBUMIN 2.9 GM/DL (3.2-5.2); ALBUMIN/GLOBULIN RATIO 0.94 (1.00-1.93); ALKALINE PHOSPHATASE 272 U/L (45-117); ALT/SGPT 44 U/L (12-78); ANION GAP 9 MEQ/L (8-16); AST/SGOT 63 U/L (15-37); BILIRUBIN,DIRECT 0.7 MG/DL (0.0-0.2); BILIRUBIN,TOTAL 2.7 MG/DL (0.2-1.0); BLOOD UREA NITROGEN 12 MG/DL (7-18); CALCIUM LEVEL 9.1 MG/DL (8.8-10.2); CARBON DIOXIDE LEVEL 27 MEQ/L (21-32); CHLORIDE LEVEL 110 MEQ/L (98-107); CREATININE FOR GFR 1.19 MG/DL (0.70-1.30); GLOMERULAR FILTRATION RATE > 60.0 (>42); GLUCOSE, FASTING 200 MG/DL (83-110); POTASSIUM SERUM 4.4 MEQ/L (3.5-5.1); SODIUM LEVEL 146 MEQ/L (136-145)
[2016-07-06 15:33] LABS: BASO % 0.4 % (0.0-1.0); EOS # 0.2 K/mm3 (0.0-0.50); EOS % 4.5 % (0.0-3.0); LARGE UNSTAINED CELL # 0.1 K/mm3 (0.0-0.4); LARGE UNSTAINED CELL % 2.8 % (0.0-4.0); LYMPH % 24.1 % (24.0-44.0); MEAN CORPUSCULAR HEMOGLOBIN 35.4 pg (27.0-33.0); MEAN CORPUSCULAR HGB CONC 33.8 g/dl (32.0-36.5); MEAN CORPUSCULAR VOLUME 104.7 fl (80.0-96.0); MONO # 0.3 K/mm3 (0.0-0.8); MONO % 8.5 % (0.0-5.0); NEUTROPHILS # 2.3 K/mm3 (1.8-7.7); NEUTROPHILS % 59.6 % (36.0-66.0); WHITE BLOOD COUNT 3.8 K/mm3 (4.0-10.0)
[2016-07-06 16:46] LABS: PLATELET COUNT, AUTOMATED 71 k/mm3 (150-450)
== END ==
LOC: M LAB 14:32
PROVIDERS: ATTEND Internal Medicine Gastroenterology
DX: G93.40 Encephalopathy, unspecified (principal); K74.60 Unspecified cirrhosis of liver

== ENCOUNTER → 2016-07-07 | Day surgery (SDC) | payer MEDICARE, OTHER ==
[~2016-07-07] VITALS: Ht 172.7 cm; Wt 78.9 kg
[~2016-07-07] MED LIST changes: +LIDOCAINE 1% SDV INJ 30 ML VIAL As Ordered ONE; +LIDOCAINE 1% SDV INJ 30 ML VIAL XX ONE; +LIDOCAINE 2% INJ 100 MG/5 ML SDV (FOR ANES.) As Ordered ONE; +LR 1,000 ML IV SCH; +MIDAZOLAM INJ 2 MG/2 ML VIAL (J2250) As Ordered ONE; +NORCO, ANEXSIA 5/325MG TABLET (HYDROcodone/ACETAMINOPHEN) PO PRN; +ONDANSETRON 4MG/2ML VIAL (J2405) As Ordered ONE; +ONDANSETRON 4MG/2ML VIAL (J2405) IV PRN; +PROPOFOL 200 MG/20 ML VIAL As Ordered ONE; +ceFAZolin SOD 1 GM in D5W MINI-BAG PLUS 50 ML IV ONE; +ePHEDrine SULFATE 25 MG/5 ML(5MG/ML) SYRINGE As Ordered ONE; +fentaNYL 100 MCG/2 ML INJECTION (J3010) As Ordered ONE; +fentaNYL 100 MCG/2 ML INJECTION (J3010) IV PRN
--- NOTE | 2016-07-07 16:24 | RO ---
DATE OF PROCEDURE: 07/07/2016 PREPROCEDURE DIAGNOSIS: Battery depletion of dual-chamber pacemaker pulse generator. POSTPROCEDURE DIAGNOSIS: Battery depletion of dual-chamber pacemaker pulse generator. FINDINGS: Battery depletion of dual-chamber pacemaker pulse generator. PROCEDURE: Explantation of old and implantation of new dual-chamber pacemaker pulse generator. SURGEON: Abdoul Espana MD SUPERVISOR CABINETMAKER: None. ANESTHESIA: Lidocaine 1% local anesthetic/monitored anesthetic care. SPECIMENS: Old [employer] pacemaker pulse generator. ESTIMATED BLOOD LOSS: Less than 10 mL. No blood products replaced. No drains. No complications. DESCRIPTION OF PROCEDURE: The patient was prepped and draped over the left pectoral region. 3M Ioban film was applied. Lidocaine 1% was used for local anesthetic. An incision was made through the existing incision with a #15 blade. Fine scissor dissection was used to get through the fatty layer and through the anterior capsule overlying the pacemaker pulse generator. The pacemaker pulse generator was then removed from the pocket. The set screws were loosened with the hex screwdriver and then the terminal pins of the atrial and then the ventricular leads were placed into their respective ports on the header of the new pacemaker pulse generator and each was secured by tightening the set screws using the hex screwdriver. The new pacemaker pulse generator was placed into the existing pacemaker pocket. Prior to doing that, I expanded the pacemaker pocket in a caudal direction using small amounts of PEAK PlasmaBlade energy. Also, prior to placing the pacemaker pulse generator back into the pocket, I took a medium size TYRX antimicrobial sac and cut it into quarters and placed those quarter pieces into the floor of the pacemaker pocket. Next, the pacemaker pulse generator was placed into the pacemaker pocket. The deep layer was closed using individual sutures consisting of #2-0 Vicryl. The skin was closed using #4-0 Biosyn subcuticular suture, which had the knot buried deep on both ends. Next, two layers of Dermabond was applied. The patient tolerated the procedure well without any immediate complications. The existing pacemaker pulse generator that was explanted was a [employer] model 5816 with serial number [id number], originally implanted by Dr. Espana 03/15/2006. The new pacemaker pulse generator implanted was a [employer] MRI with model number ZP2602 and serial number [id number]. The existing chronic right ventricle lead was a [employer] model 1688T with serial number [id number] implanted 03/15/2006. Device base testing in the operating room with the new pacemaker pulse generator showed in the ventricle capture threshold to be 1.0 volts at 0.4 ms with lead impedance of 460 ohms. No R waves were present as the patient was pacemaker dependent. The exiting right atrial lead was a [employer] model 1782T with serial number [id number] originally implanted 03/15/2006. Testing with the new pacemaker device showed the right atrial capture threshold to be 0.75 volts at 0.4 ms with P wave amplitude of 1.7 mV and lead impedance of 330 ohms. cc: Cedrick King MD
[2016-07-07 16:40] VITALS: BP 170/75
== END | disposition home or self-care (01) ==
LOC: M SDC 11:20
PROVIDERS: ATTEND Internal Medicine Cardiovascular Disease
DX: I44.2 Atrioventricular block, complete (principal); Z45.010 Encounter for checking and testing of cardiac pacemaker pulse generator [battery]; E11.9 Type 2 diabetes mellitus without complications; Z79.4 Long term (current) use of insulin; I10 Essential (primary) hypertension; E78.5 Hyperlipidemia, unspecified; I34.8 Other nonrheumatic mitral valve disorders; I35.9 Nonrheumatic aortic valve disorder, unspecified; K21.9 Gastro-esophageal reflux disease without esophagitis; D64.9 Anemia, unspecified; Z79.899 Other long term (current) drug therapy; Z87.891 Personal history of nicotine dependence; Z46.9 Encounter for fitting and adjustment of unspecified device
CPT/HCPCS: 33228; C1785; C1882; J0690; J2250; J2405; J3010

== ENCOUNTER → 2016-08-04 | Outpatient (CLI) | payer MEDICARE, OTHER ==
[~2016-08-04] VITALS: Ht 162.6 cm; Wt 75.7 kg
[~2016-08-04] MED LIST changes: -LIDOCAINE 1% SDV INJ 30 ML VIAL As Ordered ONE; -LIDOCAINE 1% SDV INJ 30 ML VIAL XX ONE; -LR 1,000 ML IV SCH; -MIDAZOLAM INJ 2 MG/2 ML VIAL (J2250) As Ordered ONE; -NORCO, ANEXSIA 5/325MG TABLET (HYDROcodone/ACETAMINOPHEN) PO PRN; +NS 1,000 ML IV SCH; -ONDANSETRON 4MG/2ML VIAL (J2405) As Ordered ONE; -ONDANSETRON 4MG/2ML VIAL (J2405) IV PRN; -ceFAZolin SOD 1 GM in D5W MINI-BAG PLUS 50 ML IV ONE; -ePHEDrine SULFATE 25 MG/5 ML(5MG/ML) SYRINGE As Ordered ONE; -fentaNYL 100 MCG/2 ML INJECTION (J3010) As Ordered ONE; -fentaNYL 100 MCG/2 ML INJECTION (J3010) IV PRN; +vit b12 PO
--- NOTE | 2016-08-04 09:26 | ROOR ---
Patient Name: Joaquín Sterling Procedure Date: 08/04/2016 9:05 AM Date of : 1940 Age: 75 Room: [facility], [facility]IN 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 Procedure: Pre-Anesthesia Assessment: - The heart rate, respiratory rate, oxygen saturations, blood pressure, adequacy of pulmonary ventilation, and response to care were monitored throughout the procedure. The Endoscope was introduced through the mouth, and advanced to the second part of duodenum. The upper GI endoscopy was accomplished without difficulty. The patient tolerated the procedure well. Findings: Circumferential salmon-colored mucosa was present from 30 to 35 cm. No other visible abnormalities were present. The maximum longitudinal extent of these esophageal mucosal changes was 5 cm in length. Biopsies were taken with a cold forceps for histology. The entire examined stomach was normal. The examined duodenum was normal. There is no endoscopic evidence of varices in the entire esophagus. There is no endoscopic evidence of varices in the cardia. 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 Biopsied. - Normal stomach. - Normal examined duodenum. - No significant varices seen on this exam Recommendation: - Use a proton pump inhibitor PO BID indefinitely. - Await pathology results. - Telephone endoscopist for pathology results in 2 weeks. - Repeat upper endoscopy in 3 years for surveillance. Abdoul Corea MD Abdoul COREA MD 08/04/2016 9:26:04 AM This report has been signed electronically. Number of Addenda: 0 Note Initiated On: 08/04/2016 9:05 AM Estimated Blood Loss: Estimated blood loss: none.
[2016-08-04 09:54] VITALS: BP 117/60
== END | disposition home or self-care (01) ==
LOC: M OPP 07:30
PROVIDERS: ATTEND Internal Medicine Gastroenterology
DX: Z09 Encounter for follow-up examination after completed treatment for conditions other than malignant neoplasm (principal); K22.70 Barrett's esophagus without dysplasia; R12 Heartburn; I71.4 Abdominal aortic aneurysm, without rupture; I25.2 Old myocardial infarction; I12.9 Hypertensive chronic kidney disease with stage 1 through stage 4 chronic kidney disease, or unspecified chronic kidney disease; E78.5 Hyperlipidemia, unspecified; Z86.79 Personal history of other diseases of the circulatory system; Z95.0 Presence of cardiac pacemaker; E10.9 Type 1 diabetes mellitus without complications; K44.9 Diaphragmatic hernia without obstruction or gangrene; K74.60 Unspecified cirrhosis of liver; D64.9 Anemia, unspecified; M19.90 Unspecified osteoarthritis, unspecified site; M54.9 Dorsalgia, unspecified; N18.9 Chronic kidney disease, unspecified; N28.1 Cyst of kidney, acquired; Z96.89 Presence of other specified functional implants; Z87.891 Personal history of nicotine dependence

== ENCOUNTER → 2016-08-31 | Outpatient (REF) | payer MEDICARE, OTHER ==
[~2016-08-31] MED LIST changes: +FERR324T12 PO; +FERR325T16 PO; +FERR325T3 PO; -LIDOCAINE 2% INJ 100 MG/5 ML SDV (FOR ANES.) As Ordered ONE; -NS 1,000 ML IV SCH; +PERC10TA17 PO; -PROPOFOL 200 MG/20 ML VIAL As Ordered ONE
[2016-08-31 16:03] LABS: ALBUMIN 2.8 GM/DL (3.2-5.2); ALKALINE PHOSPHATASE 150 U/L (45-117); ALT/SGPT 31 U/L (12-78); ANION GAP 9 MEQ/L (8-16); AST/SGOT 44 U/L (15-37); BLOOD UREA NITROGEN 17 MG/DL (7-18); CALCIUM LEVEL 8.4 MG/DL (8.8-10.2); CARBON DIOXIDE LEVEL 26 MEQ/L (21-32); CHLORIDE LEVEL 112 MEQ/L (98-107); CREATININE FOR GFR 1.19 MG/DL (0.70-1.30); GLOMERULAR FILTRATION RATE > 60.0 (>42); GLUCOSE, FASTING 173 MG/DL (83-110); POTASSIUM SERUM 4.1 MEQ/L (3.5-5.1); SODIUM LEVEL 147 MEQ/L (136-145); TOTAL PROTEIN 5.9 GM/DL (6.4-8.2)
== END ==
LOC: M SFHCPLAZ 14:44
PROVIDERS: ATTEND Family Medicine
DX: K72.90 Hepatic failure, unspecified without coma (principal)
CPT/HCPCS: 36415; 80053; 82140; G0463

== ENCOUNTER → 2016-10-15 | Outpatient (REF) | payer MEDICARE, OTHER ==
[2016-10-15 12:10] LABS: BASO % 0.8 % (0.0-1.0); EOS # 0.2 K/mm3 (0.0-0.50); EOS % 4.3 % (0.0-3.0); LARGE UNSTAINED CELL # 0.1 K/mm3 (0.0-0.4); LARGE UNSTAINED CELL % 2.3 % (0.0-4.0); LYMPH # 0.9 K/mm3 (1.5-4.5); LYMPH % 23.3 % (24.0-44.0); MEAN CORPUSCULAR HEMOGLOBIN 36.6 pg (27.0-33.0); MEAN CORPUSCULAR HGB CONC 34.2 g/dl (32.0-36.5); MEAN CORPUSCULAR VOLUME 106.9 fl (80.0-96.0); MONO # 0.3 K/mm3 (0.0-0.8); MONO % 8.5 % (0.0-5.0); NEUTROPHILS # 2.3 K/mm3 (1.8-7.7); NEUTROPHILS % 60.9 % (36.0-66.0); RED CELL DISTRIBUTION WIDTH 14.5 % (11.5-14.5); WHITE BLOOD COUNT 3.8 K/mm3 (4.0-10.0)
[2016-10-15 12:44] LABS: ALBUMIN 2.9 GM/DL (3.2-5.2); ALBUMIN/GLOBULIN RATIO 0.83 (1.00-1.93); ALKALINE PHOSPHATASE 144 U/L (45-117); ALT/SGPT 26 U/L (12-78); ANION GAP 7 MEQ/L (8-16); AST/SGOT 42 U/L (15-37); BILIRUBIN,TOTAL 2.5 MG/DL (0.2-1.0); BLOOD UREA NITROGEN 12 MG/DL (7-18); CALCIUM LEVEL 8.8 MG/DL (8.8-10.2); CARBON DIOXIDE LEVEL 29 MEQ/L (21-32); CHLORIDE LEVEL 110 MEQ/L (98-107); CREATININE FOR GFR 1.23 MG/DL (0.70-1.30); FERRITIN 159 NG/ML (26-388); GLOMERULAR FILTRATION RATE > 60.0 (>42); GLUCOSE, FASTING 100 MG/DL (83-110); MAGNESIUM LEVEL 1.7 MG/DL (1.8-2.4); PERCENT SATURATION 79.5 % (19.7-37.4); POTASSIUM SERUM 4.3 MEQ/L (3.5-5.1); SODIUM LEVEL 146 MEQ/L (136-145); TOTAL IRON BINDING CAPACITY 195 UG/DL (250-450); TOTAL PROTEIN 6.4 GM/DL (6.4-8.2)
[2016-10-15 12:52] LABS: PLATELET COUNT, AUTOMATED 56 k/mm3 (150-450)
== END ==
LOC: M SFHCPLAZ 08:52
PROVIDERS: ATTEND Family Medicine
DX: I12.9 Hypertensive chronic kidney disease with stage 1 through stage 4 chronic kidney disease, or unspecified chronic kidney disease (principal); D50.9 Iron deficiency anemia, unspecified; E11.9 Type 2 diabetes mellitus without complications; N18.3 Chronic kidney disease, stage 3 (moderate)

== ENCOUNTER → 2016-12-18 | Outpatient (CLI) | payer MEDICARE, OTHER ==
[~2016-12-18] MED LIST changes: +FERR1TAB8 PO; -FERR325T PO; +LACT10SO3 PO; -METF1000 PO; +METF10004 PO; -METO50TA2 PO; +METO50TA7 PO; -PERC10TA17 PO; +PERC10TA26 PO; -VITA-130 PO; -VITA400C2 PO; +VITA400C7 PO; +VITA500T PO; +VOLT1GEL15 TOP; -VOLT1GEL24 TOP
--- NOTE | 2016-12-18 11:45 | REP ---
Chest two views HISTORY: Shortness of breath Comparison: 08/21/2016 The lungs are clear. The cardiac silhouette is enlarged. The pulmonary vasculature is normal in appearance. The bony structure is intact. A cardiac pacemaker is present. IMPRESSION: Cardiomegaly. Signed by Jerald Sheffield MD 12/18/2016 11:36 A
== END ==
LOC: M SMT 11:19
PROVIDERS: ATTEND Family Medicine
DX: R06.02 Shortness of breath (principal); I51.7 Cardiomegaly; Z95.0 Presence of cardiac pacemaker
CPT/HCPCS: 71020; G0463

== ENCOUNTER → 2017-01-29 | Outpatient (REF) | payer MEDICARE, OTHER ==
[2017-01-29 12:23] LABS: BASO % 0.4 % (0.0-1.0); EOS # 0.2 K/mm3 (0.0-0.50); EOS % 5.5 % (0.0-3.0); LARGE UNSTAINED CELL # 0.1 K/mm3 (0.0-0.4); LARGE UNSTAINED CELL % 1.9 % (0.0-4.0); LYMPH # 0.8 K/mm3 (1.5-4.5); LYMPH % 18.7 % (24.0-44.0); MEAN CORPUSCULAR HGB CONC 35.2 g/dl (32.0-36.5); MEAN CORPUSCULAR VOLUME 105.2 fl (80.0-96.0); MONO # 0.3 K/mm3 (0.0-0.8); NEUTROPHILS % 66.5 % (36.0-66.0); WHITE BLOOD COUNT 4.4 K/mm3 (4.0-10.0)
[2017-01-29 12:34] LABS: INR 1.22
[2017-01-29 12:36] LABS: PLATELET COUNT, AUTOMATED 65 k/mm3 (150-450)
[2017-01-29 12:46] LABS: ALBUMIN 3.1 GM/DL (3.2-5.2); ALBUMIN/GLOBULIN RATIO 0.91 (1.00-1.93); BILIRUBIN,TOTAL 3.4 MG/DL (0.2-1.0); CALCIUM LEVEL 8.4 MG/DL (8.8-10.2); CREATININE FOR GFR 1.26 MG/DL (0.70-1.30); GLOMERULAR FILTRATION RATE 59.4 (>42); PERCENT SATURATION 95.7 % (19.7-50.0); POTASSIUM SERUM 3.6 MEQ/L (3.5-5.1); TOTAL PROTEIN 6.5 GM/DL (6.4-8.2)
== END ==
LOC: M SFHCPLAZ 08:33
PROVIDERS: ATTEND Family Medicine
DX: K72.10 Chronic hepatic failure without coma (principal); E11.9 Type 2 diabetes mellitus without complications; D50.9 Iron deficiency anemia, unspecified; E78.2 Mixed hyperlipidemia

== ENCOUNTER → 2017-02-16 | Outpatient (CLI) | payer MEDICARE, OTHER ==
--- NOTE | 2017-02-16 10:55 | REP ---
RIGHT UPPER QUADRANT SONOGRAPHY: HISTORY: Hepatic cirrhosis. Comparison sonography December 11, 2015. This showed coarse liver texture and irregular liver margin consistent with cirrhosis. Comparison CT abdomen August 21, 2016. FINDINGS: Exam quality is inhibited by patient body habitus and limited scanning windows. Patient status post cholecystectomy. Common bile duct is 0.6 cm thickness. A TIPS shunt is visible at the jennifer hepatis. Irregular liver contours are seen, and there is evidence of mild fatty infiltration with areas of fat sparing near the gallbladder fossa. Coarse echotexture is again noted. No focal liver mass lesion is observed. Limited views of the pancreas show no abnormality. There is no visible ascites. No right renal abnormality is observed. The right kidney measures 11.3 x 5.4 x 4.9 cm. IMPRESSION: Coarse liver texture and micronodular contour consistent with cirrhosis. TIPS shunt noted in place. No ascites seen. Post cholecystectomy. Signed by Marcial Meade MD 02/16/2017 03:29 P
== END ==
LOC: M RAD 08:51
PROVIDERS: ATTEND Internal Medicine Gastroenterology
DX: K74.60 Unspecified cirrhosis of liver (principal); Z90.49 Acquired absence of other specified parts of digestive tract

== ENCOUNTER 2017-09-09 15:39 | Inpatient (IN) | payer MEDICARE, OTHER ==
[2017-09-09] MEDS: NS 500 ML IV (16:30)
[2017-09-09 16:38] LABS: BASO % 0.5 % (0.0-1.0); EOS # 0.2 10^3/uL (0.0-0.50); EOS % 3.7 % (0.0-3.0); HEMATOCRIT 34.6 % (42.0-52.0); HEMOGLOBIN 12.3 g/dl (13.5-17.5); IMMATURE GRANULOCYTE % 0.2 % (0-3.0); LYMPH # 1.3 10^3/uL (1.5-4.5); LYMPH % 22.4 % (24.0-44.0); MEAN CORPUSCULAR HEMOGLOBIN 36.8 pg (27.0-33.0); MEAN CORPUSCULAR HGB CONC 35.5 g/dl (32.0-36.5); MEAN CORPUSCULAR VOLUME 103.6 fl (80.0-96.0); MONO # 0.6 10^3/uL (0.0-0.8); MONO % 9.9 % (0.0-5.0); NEUTROPHILS # 3.6 10^3/uL (1.8-7.7); NEUTROPHILS % 63.3 % (36.0-66.0); RED BLOOD COUNT 3.34 10^6/uL (4.30-6.10); RED CELL DISTRIBUTION WIDTH 15.2 % (11.5-14.5); WHITE BLOOD COUNT 5.7 10^3/uL (4.0-10.0)
[2017-09-09 16:42] LABS: PLATELET COUNT, AUTOMATED 71 10^3/uL (150-450)
[2017-09-09 16:43] LABS: IMMATURE PLATELET FRACTION % 5.2 % (0.0-10.9)
[2017-09-09 16:54] LABS: AMMONIA 76 uMOL/L (<32)
[2017-09-09 17:01] LABS: ACETAMINOPHEN LEVEL < 2.0 UG/ML (10.0-30.0); ALBUMIN 3.1 GM/DL (3.2-5.2); ALBUMIN/GLOBULIN RATIO 0.84 (1.00-1.93); ALKALINE PHOSPHATASE 112 U/L (45-117); ALT/SGPT 34 U/L (12-78); ANION GAP 6 MEQ/L (8-16); AST/SGOT 53 U/L (7-37); BILIRUBIN,DIRECT 0.9 MG/DL (0.0-0.2); BILIRUBIN,TOTAL 3.3 MG/DL (0.2-1.0); BLOOD UREA NITROGEN 16 MG/DL (7-18); CALCIUM LEVEL 8.4 MG/DL (8.8-10.2); CARBON DIOXIDE LEVEL 27 MEQ/L (21-32); CHLORIDE LEVEL 112 MEQ/L (98-107); CPK CREATINE PHOSPHOKINASE 104 U/L (39-308); CREATININE FOR GFR 1.34 MG/DL (0.70-1.30); GLOMERULAR FILTRATION RATE 55.3 (>42); GLUCOSE, FASTING 104 MG/DL (70-100); POTASSIUM SERUM 3.9 MEQ/L (3.5-5.1); SODIUM LEVEL 145 MEQ/L (136-145); TOTAL PROTEIN 6.8 GM/DL (6.4-8.2); TROPONIN I 0.02 NG/ML (< 0.10)
[2017-09-09 17:02] LABS: CK-MB VALUE MASS 1.8 NG/ML (<3.6); ETHYL ALCOHOL (ETHANOL) < 0.003 % (0.000-0.010); MB/CK RELATIVE INDEX 1.73 (< OR =4); SALICYLATE LEVEL < 1.7 MG/DL (5.0-30.0)
[2017-09-09 17:56] LABS: KETONE, URINE AUTO RFX NEGATIVE (NEGATIVE); LEUKOCYTE ESTERASE UR AUTO RFX NEGATIVE (NEGATIVE); MUCUS, URINE RFX SMALL (NEGATIVE); NITRITE, URINE AUTO RFX NEGATIVE (NEGATIVE); RBC, URINE AUTO RFX 1 /HPF (0-3); SPECIFIC GRAVITY UR AUTO RFX 1.011 (1.002-1.035); SQUAM EPITHELIAL CELL UR AURFX 0 /HPF (0-6); WBC, URINE AUTO RFX 0 /HPF (0-3)
[2017-09-09 18:03] LABS: AMPHETAMINES LEVEL URINE NEGATIVE (NEGATIVE); BARBITURATES URINE NEGATIVE (NEGATIVE); BENZODIAZEPINES URINE NEGATIVE (NEGATIVE); CANNABINOIDS URINE NEGATIVE (NEGATIVE); COCAINE METABOLITE URINE NEGATIVE (NEGATIVE); METHADONE URINE NEGATIVE (NEGATIVE); OPIATES URINE NEGATIVE (NEGATIVE); PHENCYCLIDINE URINE NEGATIVE (NEGATIVE)
[2017-09-09] MEDS ORDERED: ISOVUE-370 76% 100ML VIAL (Q9967) As Ordered (18:05)
[2017-09-09] MEDS ORDERED: DEXTROSE 50% 50 ML SYRINGE IV (19:45)
[2017-09-09] MEDS ORDERED: LR 1,000 ML IV (19:45)
[2017-09-09] MEDS ORDERED: GLUCAGON FOR INJ 1 MG VIAL (J1610) SC (19:45)
[2017-09-09] MEDS ORDERED: GLUCOSE 4 GM CHEW TABLET PO (19:45)
[2017-09-09] MEDS ORDERED: SPIRONOLACTONE 25 MG TAB PO (19:45)
[2017-09-09] MEDS ORDERED: ONDANSETRON 4MG/2ML VIAL (J2405) IV (19:45)
[2017-09-09] MEDS: LACTULOSE 20 GM/30 ML SYRUP UD PR (20:00)
[2017-09-09 20:25] LABS: ABG BASE EXCESS 1.1 (-2.0-2.0); ABG HCO3 24.2 MEQ/L (22.0-26.0); ABG O2 SATURATION 97.9 % (95.0-99.0); ABG PARTIAL PRESSURE CO2 33.1 mmHg (35.0-45.0); ABG PARTIAL PRESSURE O2 100.7 mmHg (75.0-100.0); ABG STANDARD HCO3 25.5 MEQ/L (22.0-26.0); ABG TOTAL CO2 25.2 MEQ/L (23.0-31.0); ABG pH (ARTERIAL) 7.481 UNITS (7.350-7.450)
[2017-09-09] MEDS: VITAMIN E 400 INTERNATIONAL UNITS CAP PO (21:00)
[2017-09-09] MEDS: LEVEMIR (INSULIN DETEMIR) 1 UNITS/0.01ML SC (21:00)
[2017-09-09] MEDS ORDERED: LACTULOSE 20 GM/30 ML SYRUP UD PO (21:00)
[2017-09-09] MEDS: HumaLOG INSULIN (NovoLOG) PER UNIT SC (21:00)
[2017-09-09 22:14] LABS: CK-MB VALUE MASS 1.6 NG/ML (<3.6); CPK CREATINE PHOSPHOKINASE 90 U/L (39-308); MB/CK RELATIVE INDEX 1.77 (< OR =4)
[2017-09-09] MEDS: SENOKOT S TAB PO (23:32)
[2017-09-09 23:33] LABS: BEDSIDE GLUCOSE 70 MG/DL (83-110)
[2017-09-09] MEDS: CARVedilol 3.125 MG TAB PO (23:33)
[2017-09-09] MEDS: CYANOCOBALAMIN 500 MCG TAB PO (23:33)
[2017-09-09] MEDS: TAMSULOSIN 0.4 MG CAP PO (23:33)
[2017-09-09] MEDS: ASCORBIC ACID 500 MG TAB PO (23:33)
[2017-09-09] MEDS: rifAXIMin 550 MG TAB (XIFAXAN) PO (23:34)
[2017-09-09] MEDS: VITAMIN D 1,000 INTERNATIONAL UNITS TABLET PO (23:34)
[2017-09-10] MEDS: LACTULOSE 20 GM/30 ML SYRUP UD PO ×4 (03:34→21:37)
[2017-09-10] MEDS: hydrALAZINE INJ 20 MG/ML VIAL IV (04:41)
[2017-09-10 05:08] LABS: HEMATOCRIT 32.9 % (42.0-52.0); HEMOGLOBIN 11.7 g/dl (13.5-17.5); MEAN CORPUSCULAR HEMOGLOBIN 36.7 pg (27.0-33.0); MEAN CORPUSCULAR HGB CONC 35.6 g/dl (32.0-36.5); MEAN CORPUSCULAR VOLUME 103.1 fl (80.0-96.0); RED BLOOD COUNT 3.19 10^6/uL (4.30-6.10); RED CELL DISTRIBUTION WIDTH 14.8 % (11.5-14.5); WHITE BLOOD COUNT 5.2 10^3/uL (4.0-10.0)
[2017-09-10 05:16] LABS: PLATELET COUNT, AUTOMATED 72 10^3/uL (150-450); POS COUNT POS FLAG
[2017-09-10 05:29] LABS: ALBUMIN 2.9 GM/DL (3.2-5.2); ALBUMIN/GLOBULIN RATIO 0.91 (1.00-1.93); ALKALINE PHOSPHATASE 100 U/L (45-117); ALT/SGPT 32 U/L (12-78); ANION GAP 8 MEQ/L (8-16); AST/SGOT 47 U/L (7-37); BILIRUBIN,TOTAL 3.7 MG/DL (0.2-1.0); BLOOD UREA NITROGEN 15 MG/DL (7-18); CALCIUM LEVEL 8.7 MG/DL (8.8-10.2); CARBON DIOXIDE LEVEL 26 MEQ/L (21-32); CHLORIDE LEVEL 112 MEQ/L (98-107); CREATININE FOR GFR 1.21 MG/DL (0.70-1.30); GLOMERULAR FILTRATION RATE > 60.0 (>42); GLUCOSE, FASTING 180 MG/DL (70-100); MAGNESIUM LEVEL 1.9 MG/DL (1.8-2.4); POTASSIUM SERUM 3.8 MEQ/L (3.5-5.1); SODIUM LEVEL 146 MEQ/L (136-145); TOTAL PROTEIN 6.1 GM/DL (6.4-8.2)
[2017-09-10 05:30] LABS: AMMONIA 105 uMOL/L (<32)
[2017-09-10] MEDS: OMEPRAZOLE 20 MG CAP PO (09:00)
[2017-09-10] MEDS: SENOKOT S TAB PO ×2 (09:00→21:39)
[2017-09-10] MEDS: CARVedilol 3.125 MG TAB PO ×2 (09:00→21:40)
[2017-09-10] MEDS: rifAXIMin 550 MG TAB (XIFAXAN) PO ×2 (09:00→21:40)
[2017-09-10] MEDS: LACTULOSE 20 GM/30 ML SYRUP UD PR ×2 (10:00→17:30)
[2017-09-10 10:56] LABS: BEDSIDE GLUCOSE 320 MG/DL (83-110)
[2017-09-10] MEDS: NS 1,000 ML IV (11:11)
[2017-09-10] MEDS: HumaLOG INSULIN (NovoLOG) PER UNIT SC ×4 (11:11→21:41)
[2017-09-10] MEDS: LEVEMIR (INSULIN DETEMIR) 1 UNITS/0.01ML SC ×2 (11:13→21:38)
[2017-09-10 11:38] LABS: INR 1.26
[2017-09-10 11:39] LABS: PARTIAL THROMBOPLASTIN TIME 33.4 SECONDS (26.8-37.9)
[2017-09-10] MEDS: NS 0.45% 1,000 ML IV (12:51)
[2017-09-10 13:20] LABS: BEDSIDE GLUCOSE 279 MG/DL (83-110)
[2017-09-10 17:16] LABS: BEDSIDE GLUCOSE 270 MG/DL (83-110)
[2017-09-10 21:37] LABS: BEDSIDE GLUCOSE 222 MG/DL (83-110)
[2017-09-10] MEDS: CYANOCOBALAMIN 500 MCG TAB PO (21:39)
[2017-09-10] MEDS: TAMSULOSIN 0.4 MG CAP PO (21:40)
[2017-09-10] MEDS: VITAMIN E 400 INTERNATIONAL UNITS CAP PO (21:40)
[2017-09-10] MEDS: VITAMIN D 1,000 INTERNATIONAL UNITS TABLET PO (21:41)
[2017-09-10] MEDS: ASCORBIC ACID 500 MG TAB PO (21:42)
[2017-09-11] MEDS: NS 0.45% 1,000 ML IV ×2 (01:24→16:15)
[2017-09-11] MEDS: LACTULOSE 20 GM/30 ML SYRUP UD PR ×2 (01:56→10:00)
[2017-09-11] MEDS: LACTULOSE 20 GM/30 ML SYRUP UD PO ×4 (03:08→22:00)
[2017-09-11 04:22] LABS: HEMATOCRIT 28.3 % (42.0-52.0); MEAN CORPUSCULAR HEMOGLOBIN 36.3 pg (27.0-33.0); MEAN CORPUSCULAR HGB CONC 34.3 g/dl (32.0-36.5); RED BLOOD COUNT 2.67 10^6/uL (4.30-6.10); RED CELL DISTRIBUTION WIDTH 15.2 % (11.5-14.5); WHITE BLOOD COUNT 6.3 10^3/uL (4.0-10.0)
[2017-09-11 04:23] LABS: PLATELET COUNT, AUTOMATED 63 10^3/uL (150-450)
[2017-09-11 04:24] LABS: HEMOGLOBIN 9.7 g/dl (13.5-17.5)
[2017-09-11 04:26] LABS: IMMATURE PLATELET FRACTION % 5.1 % (0.0-10.9)
[2017-09-11 04:40] LABS: ALBUMIN 2.4 GM/DL (3.2-5.2); ALBUMIN/GLOBULIN RATIO 0.83 (1.00-1.93); ALKALINE PHOSPHATASE 90 U/L (45-117); ALT/SGPT 28 U/L (12-78); ANION GAP 6 MEQ/L (8-16); AST/SGOT 43 U/L (7-37); BILIRUBIN,TOTAL 1.9 MG/DL (0.2-1.0); BLOOD UREA NITROGEN 16 MG/DL (7-18); CALCIUM LEVEL 8.2 MG/DL (8.8-10.2); CARBON DIOXIDE LEVEL 28 MEQ/L (21-32); CHLORIDE LEVEL 112 MEQ/L (98-107); CREATININE FOR GFR 1.33 MG/DL (0.70-1.30); GLOMERULAR FILTRATION RATE 55.8 (>42); GLUCOSE, FASTING 155 MG/DL (70-100); MAGNESIUM LEVEL 1.6 MG/DL (1.8-2.4); SODIUM LEVEL 146 MEQ/L (136-145); TOTAL PROTEIN 5.3 GM/DL (6.4-8.2)
[2017-09-11] MEDS: SENOKOT S TAB PO ×2 (08:40→21:59)
[2017-09-11] MEDS: HumaLOG INSULIN (NovoLOG) PER UNIT SC ×4 (08:40→21:58)
[2017-09-11] MEDS: OMEPRAZOLE 20 MG CAP PO (08:40)
[2017-09-11] MEDS: LEVEMIR (INSULIN DETEMIR) 1 UNITS/0.01ML SC ×2 (08:40→21:58)
[2017-09-11] MEDS: CARVedilol 3.125 MG TAB PO ×2 (08:45→21:59)
[2017-09-11] MEDS: rifAXIMin 550 MG TAB (XIFAXAN) PO ×2 (08:45→21:59)
[2017-09-11 12:18] LABS: BEDSIDE GLUCOSE 285 MG/DL (83-110)
[2017-09-11] MEDS: MAGNESIUM OXIDE 400 MG TAB (MAG-OX) PO ×2 (13:25→22:00)
[2017-09-11 17:15] LABS: BEDSIDE GLUCOSE 239 MG/DL (83-110)
[2017-09-11 18:32] LABS: HEMATOCRIT 27.4 % (42.0-52.0); HEMOGLOBIN 9.6 g/dl (13.5-17.5); MEAN CORPUSCULAR HEMOGLOBIN 37.1 pg (27.0-33.0); MEAN CORPUSCULAR VOLUME 105.8 fl (80.0-96.0); RED BLOOD COUNT 2.59 10^6/uL (4.30-6.10); RED CELL DISTRIBUTION WIDTH 15.2 % (11.5-14.5); WHITE BLOOD COUNT 4.9 10^3/uL (4.0-10.0)
[2017-09-11 18:34] LABS: PLATELET COUNT, AUTOMATED 58 10^3/uL (150-450)
[2017-09-11] MEDS: VITAMIN D 1,000 INTERNATIONAL UNITS TABLET PO (21:59)
[2017-09-11] MEDS: ASCORBIC ACID 500 MG TAB PO (21:59)
[2017-09-11] MEDS: VITAMIN E 400 INTERNATIONAL UNITS CAP PO (21:59)
[2017-09-11] MEDS: TAMSULOSIN 0.4 MG CAP PO (21:59)
[2017-09-11] MEDS: CYANOCOBALAMIN 500 MCG TAB PO (21:59)
[2017-09-12] MEDS: LACTULOSE 20 GM/30 ML SYRUP UD PO ×4 (03:29→21:23)
[2017-09-12 05:08] LABS: HEMATOCRIT 26.5 % (42.0-52.0); HEMOGLOBIN 9.2 g/dl (13.5-17.5); MEAN CORPUSCULAR HEMOGLOBIN 36.7 pg (27.0-33.0); MEAN CORPUSCULAR HGB CONC 34.7 g/dl (32.0-36.5); MEAN CORPUSCULAR VOLUME 105.6 fl (80.0-96.0); RED BLOOD COUNT 2.51 10^6/uL (4.30-6.10); RED CELL DISTRIBUTION WIDTH 14.9 % (11.5-14.5); WHITE BLOOD COUNT 4.1 10^3/uL (4.0-10.0)
[2017-09-12 05:12] LABS: PLATELET COUNT, AUTOMATED 53 10^3/uL (150-450)
[2017-09-12 05:13] LABS: IMMATURE PLATELET FRACTION % 5.4 % (0.0-10.9)
[2017-09-12 05:22] LABS: AMMONIA 89 uMOL/L (<32)
[2017-09-12 05:25] LABS: ALBUMIN 2.4 GM/DL (3.2-5.2); ALBUMIN/GLOBULIN RATIO 0.77 (1.00-1.93); ALKALINE PHOSPHATASE 91 U/L (45-117); ALT/SGPT 34 U/L (12-78); ANION GAP 5 MEQ/L (8-16); AST/SGOT 49 U/L (7-37); BILIRUBIN,TOTAL 1.6 MG/DL (0.2-1.0); BLOOD UREA NITROGEN 16 MG/DL (7-18); CALCIUM LEVEL 8.1 MG/DL (8.8-10.2); CARBON DIOXIDE LEVEL 28 MEQ/L (21-32); CHLORIDE LEVEL 108 MEQ/L (98-107); GLOMERULAR FILTRATION RATE 57.3 (>42); GLUCOSE, FASTING 261 MG/DL (70-100); MAGNESIUM LEVEL 1.6 MG/DL (1.8-2.4); POTASSIUM SERUM 4.1 MEQ/L (3.5-5.1); SODIUM LEVEL 141 MEQ/L (136-145); TOTAL PROTEIN 5.5 GM/DL (6.4-8.2)
[2017-09-12] MEDS: OMEPRAZOLE 20 MG CAP PO (08:10)
[2017-09-12] MEDS: HumaLOG INSULIN (NovoLOG) PER UNIT SC ×4 (08:11→21:25)
[2017-09-12] MEDS: MAGNESIUM OXIDE 400 MG TAB (MAG-OX) PO ×2 (08:12→21:23)
[2017-09-12] MEDS: LEVEMIR (INSULIN DETEMIR) 1 UNITS/0.01ML SC ×2 (08:12→21:24)
[2017-09-12] MEDS: CARVedilol 3.125 MG TAB PO ×2 (08:12→21:23)
[2017-09-12] MEDS: rifAXIMin 550 MG TAB (XIFAXAN) PO ×2 (08:12→21:23)
[2017-09-12] MEDS: SENOKOT S TAB PO ×2 (08:12→21:23)
[2017-09-12] MEDS: NS 0.45% 1,000 ML IV (15:09)
[2017-09-12 16:01] LABS: APPEARANCE, URINE CLOUDY (CLEAR); BACTERIA, URINE AUTO NEGATIVE (NEGATIVE); BILIRUBIN, URINE AUTO NEGATIVE (NEGATIVE); BLOOD, URINE BLOOD 3+ (NEGATIVE); COLOR, URINE AMBER (YELLOW); GLUCOSE, URINE (UA) AUTO 3+ mg/dL (NEGATIVE); KETONE, URINE AUTO NEGATIVE (NEGATIVE); LEUKOCYTE ESTERASE, URINE AUTO NEGATIVE (NEGATIVE); NITRITE, URINE AUTO NEGATIVE (NEGATIVE); PROTEIN, URINE AUTO NEGATIVE (NEGATIVE); RBC, URINE AUTO 146 /HPF (0-3); SPECIFIC GRAVITY URINE AUTO 1.022 (1.002-1.035); SQUAMOUS EPITHELIAL CELL UR AU 1 /HPF (0-6); UROBILINOGEN, URINE AUTO 0.2 mg/dL (0.0-2.0); WBC, URINE AUTO 0 /HPF (0-3)
[2017-09-12 17:34] LABS: BEDSIDE GLUCOSE 353 MG/DL (83-110)
[2017-09-12 17:35] LABS: BEDSIDE GLUCOSE 318 MG/DL (83-110)
[2017-09-12] MEDS: VITAMIN E 400 INTERNATIONAL UNITS CAP PO (21:22)
[2017-09-12] MEDS: TAMSULOSIN 0.4 MG CAP PO (21:23)
[2017-09-12] MEDS: VITAMIN D 1,000 INTERNATIONAL UNITS TABLET PO (21:23)
[2017-09-12] MEDS: ASCORBIC ACID 500 MG TAB PO (21:23)
[2017-09-12] MEDS: CYANOCOBALAMIN 500 MCG TAB PO (21:23)
[2017-09-13] MEDS: LACTULOSE 20 GM/30 ML SYRUP UD PO ×2 (03:33→08:22)
[2017-09-13 05:26] LABS: HEMATOCRIT 26.1 % (42.0-52.0); HEMOGLOBIN 9.1 g/dl (13.5-17.5); MEAN CORPUSCULAR HEMOGLOBIN 36.5 pg (27.0-33.0); MEAN CORPUSCULAR HGB CONC 34.9 g/dl (32.0-36.5); MEAN CORPUSCULAR VOLUME 104.8 fl (80.0-96.0); RED BLOOD COUNT 2.49 10^6/uL (4.30-6.10); WHITE BLOOD COUNT 4.4 10^3/uL (4.0-10.0)
[2017-09-13 05:27] LABS: PLATELET COUNT, AUTOMATED 53 10^3/uL (150-450)
[2017-09-13 05:28] LABS: IMMATURE PLATELET FRACTION % 6.5 % (0.0-10.9)
[2017-09-13 05:43] LABS: AMMONIA 90 uMOL/L (<32)
[2017-09-13 05:50] LABS: ALBUMIN 2.4 GM/DL (3.2-5.2); ALKALINE PHOSPHATASE 91 U/L (45-117); ALT/SGPT 34 U/L (12-78); ANION GAP 3 MEQ/L (8-16); AST/SGOT 46 U/L (7-37); BILIRUBIN,TOTAL 1.7 MG/DL (0.2-1.0); BLOOD UREA NITROGEN 15 MG/DL (7-18); CALCIUM LEVEL 8.4 MG/DL (8.8-10.2); CARBON DIOXIDE LEVEL 30 MEQ/L (21-32); CHLORIDE LEVEL 108 MEQ/L (98-107); CREATININE FOR GFR 1.42 MG/DL (0.70-1.30); GLOMERULAR FILTRATION RATE 51.7 (>42); GLUCOSE, FASTING 192 MG/DL (70-100); MAGNESIUM LEVEL 1.7 MG/DL (1.8-2.4); SODIUM LEVEL 141 MEQ/L (136-145); TOTAL PROTEIN 5.4 GM/DL (6.4-8.2)
[2017-09-13 05:57] LABS: POTASSIUM SERUM 5.2 MEQ/L (3.5-5.1)
[2017-09-13] MEDS: HumaLOG INSULIN (NovoLOG) PER UNIT SC (07:30)
[2017-09-13] MEDS: LEVEMIR (INSULIN DETEMIR) 1 UNITS/0.01ML SC (08:24)
[2017-09-13] MEDS: rifAXIMin 550 MG TAB (XIFAXAN) PO (08:24)
[2017-09-13] MEDS: OMEPRAZOLE 20 MG CAP PO (08:24)
[2017-09-13] MEDS: MAGNESIUM OXIDE 400 MG TAB (MAG-OX) PO (08:26)
[2017-09-13] MEDS: SENOKOT S TAB PO (08:26)
[2017-09-13] MEDS: CARVedilol 3.125 MG TAB PO (08:26)
[2017-09-13 17:21] LABS: BEDSIDE GLUCOSE 355 MG/DL (83-110)
[2017-09-13 17:21] LABS: BEDSIDE GLUCOSE 280 MG/DL (83-110)
== END 2017-09-13 12:51 | disposition home or self-care (01) | DRG 442 ==
LOC: M ED 15:39 → M ED INP 19:37 → M PCU 22:41
DX: K72.00 Acute and subacute hepatic failure without coma (principal); I50.32 Chronic diastolic (congestive) heart failure; I13.0 Hypertensive heart and chronic kidney disease with heart failure and stage 1 through stage 4 chronic kidney disease, or unspecified chronic kidney disease; I85.10 Secondary esophageal varices without bleeding; E11.22 Type 2 diabetes mellitus with diabetic chronic kidney disease; N18.3 Chronic kidney disease, stage 3 (moderate); K74.60 Unspecified cirrhosis of liver; E11.65 Type 2 diabetes mellitus with hyperglycemia; K22.70 Barrett's esophagus without dysplasia; K56.41 Fecal impaction; E78.5 Hyperlipidemia, unspecified; D64.9 Anemia, unspecified; R33.9 Retention of urine, unspecified; E53.8 Deficiency of other specified B group vitamins; I71.4 Abdominal aortic aneurysm, without rupture; Z95.0 Presence of cardiac pacemaker; Z95.828 Presence of other vascular implants and grafts; Z79.4 Long term (current) use of insulin; Z79.899 Other long term (current) drug therapy

== ENCOUNTER → 2017-09-20 | Outpatient (REF) | payer MEDICARE, OTHER ==
[2017-09-20 16:35] LABS: APPEARANCE, URINE CLEAR (CLEAR); BACTERIA, URINE AUTO NEGATIVE (NEGATIVE); BILIRUBIN, URINE AUTO NEGATIVE (NEGATIVE); BLOOD, URINE BLOOD NEGATIVE (NEGATIVE); COLOR, URINE YELLOW (YELLOW); ESTIMATED AVERAGE GLUCOSE 120 MG/DL (60-110); GLUCOSE, URINE (UA) AUTO NEGATIVE (NEGATIVE); HEMOGLOBIN A1c 5.8 %; KETONE, URINE AUTO NEGATIVE (NEGATIVE); LEUKOCYTE ESTERASE, URINE AUTO NEGATIVE (NEGATIVE); NITRITE, URINE AUTO NEGATIVE (NEGATIVE); PROTEIN, URINE AUTO NEGATIVE (NEGATIVE); RBC, URINE AUTO 1 /HPF (0-3); SPECIFIC GRAVITY URINE AUTO 1.006 (1.002-1.035); SQUAMOUS EPITHELIAL CELL UR AU 0 /HPF (0-6); UROBILINOGEN, URINE AUTO 0.2 mg/dL (0.0-2.0); WBC, URINE AUTO 0 /HPF (0-3)
[2017-09-20 16:37] LABS: BASO % 0.5 % (0.0-1.0); EOS # 0.2 10^3/uL (0.0-0.50); EOS % 4.6 % (0.0-3.0); HEMATOCRIT 31.1 % (42.0-52.0); HEMOGLOBIN 10.7 g/dl (13.5-17.5); IMMATURE GRANULOCYTE % 0.5 % (0-3.0); LYMPH % 22.9 % (24.0-44.0); MEAN CORPUSCULAR HEMOGLOBIN 37.3 pg (27.0-33.0); MEAN CORPUSCULAR HGB CONC 34.4 g/dl (32.0-36.5); MEAN CORPUSCULAR VOLUME 108.4 fl (80.0-96.0); MONO # 0.5 10^3/uL (0.0-0.8); MONO % 11.1 % (0.0-5.0); NEUTROPHILS # 2.6 10^3/uL (1.8-7.7); NEUTROPHILS % 60.4 % (36.0-66.0); RED BLOOD COUNT 2.87 10^6/uL (4.30-6.10); RED CELL DISTRIBUTION WIDTH 15.7 % (11.5-14.5); RETICULOCYTE # 54.2 10^9/L (17-77); RETICULOCYTE % 1.9 % (0.5-1.5); WHITE BLOOD COUNT 4.3 10^3/uL (4.0-10.0)
[2017-09-20 16:38] LABS: ALBUMIN 3.2 GM/DL (3.2-5.2); ALKALINE PHOSPHATASE 115 U/L (45-117); ALT/SGPT 30 U/L (12-78); ANION GAP 7 MEQ/L (8-16); AST/SGOT 43 U/L (7-37); BILIRUBIN,TOTAL 2.2 MG/DL (0.2-1.0); BLOOD UREA NITROGEN 15 MG/DL (7-18); CALCIUM LEVEL 8.7 MG/DL (8.8-10.2); CARBON DIOXIDE LEVEL 26 MEQ/L (21-32); CHLORIDE LEVEL 112 MEQ/L (98-107); CREATININE FOR GFR 1.27 MG/DL (0.70-1.30); GLOMERULAR FILTRATION RATE 58.9 (>42); GLUCOSE, FASTING 92 MG/DL (70-100); POTASSIUM SERUM 4.5 MEQ/L (3.5-5.1); PSA SCREENING 0.16 NG/ML (< 4.0); SODIUM LEVEL 145 MEQ/L (136-145); TOTAL PROTEIN 6.4 GM/DL (6.4-8.2)
[2017-09-20 16:39] LABS: PTH INTACT 22.6 PG/ML (18.5-88.0); TOTAL 25(OH) VITAMIN D 23.3 NG/ML (30.0-100.0); VITAMIN B12 LEVEL 1124 PG/ML (247-911)
[2017-09-20 16:42] LABS: PLATELET COUNT, AUTOMATED 65 10^3/uL (150-450); POS COUNT POS FLAG
[2017-09-20 16:43] LABS: IMMATURE PLATELET FRACTION % 7.4 % (0.0-10.9)
[2017-09-21 12:37] LABS: ALPHA FETOPROTEIN TUMOR QUANT 8.1 NG/ML (<8.1)
== END ==
LOC: M SFHCPLAZ 13:19
DX: N18.3 Chronic kidney disease, stage 3 (moderate) (principal); D69.6 Thrombocytopenia, unspecified; D50.9 Iron deficiency anemia, unspecified; E11.22 Type 2 diabetes mellitus with diabetic chronic kidney disease; E55.9 Vitamin D deficiency, unspecified; N40.1 Benign prostatic hyperplasia with lower urinary tract symptoms; Z79.4 Long term (current) use of insulin; Z79.899 Other long term (current) drug therapy; K72.10 Chronic hepatic failure without coma; K42.9 Umbilical hernia without obstruction or gangrene; I12.9 Hypertensive chronic kidney disease with stage 1 through stage 4 chronic kidney disease, or unspecified chronic kidney disease; G93.41 Metabolic encephalopathy; K22.719 Barrett's esophagus with dysplasia, unspecified; M47.814 Spondylosis without myelopathy or radiculopathy, thoracic region; E78.3 Hyperchylomicronemia; E78.2 Mixed hyperlipidemia; D72.819 Decreased white blood cell count, unspecified
CPT/HCPCS: 82607

== ENCOUNTER 2017-10-02 08:44 | Inpatient (IN) | payer MEDICARE, OTHER ==
[2017-10-02] MEDS: NS 1,000 ML IV ×6 (07:38→21:28)
[2017-10-02 07:40] LABS: BEDSIDE GLUCOSE 183 MG/DL (83-110)
[2017-10-02 07:50] LABS: BASO % 0.7 % (0.0-1.0); EOS # 0.2 10^3/uL (0.0-0.50); EOS % 3.7 % (0.0-3.0); HEMATOCRIT 31.9 % (42.0-52.0); IMMATURE GRANULOCYTE % 0.5 % (0-3.0); LYMPH # 0.9 10^3/uL (1.5-4.5); LYMPH % 20.8 % (24.0-44.0); MEAN CORPUSCULAR HEMOGLOBIN 36.8 pg (27.0-33.0); MEAN CORPUSCULAR HGB CONC 34.5 g/dl (32.0-36.5); MEAN CORPUSCULAR VOLUME 106.7 fl (80.0-96.0); MONO # 0.5 10^3/uL (0.0-0.8); NEUTROPHILS # 2.6 10^3/uL (1.8-7.7); NEUTROPHILS % 63.3 % (36.0-66.0); RED BLOOD COUNT 2.99 10^6/uL (4.30-6.10); RED CELL DISTRIBUTION WIDTH 14.7 % (11.5-14.5); WHITE BLOOD COUNT 4.1 10^3/uL (4.0-10.0)
[2017-10-02 07:55] LABS: PLATELET COUNT, AUTOMATED 54 10^3/uL (150-450)
[2017-10-02 07:56] LABS: IMMATURE PLATELET FRACTION % 4.9 % (0.0-10.9)
[2017-10-02 08:12] LABS: AMMONIA 198 uMOL/L (<32)
[2017-10-02 08:16] LABS: OSMOLALITY SERUM 307 MOSM/KG (280-301)
[2017-10-02 08:17] LABS: ACETAMINOPHEN LEVEL < 2.0 UG/ML (10.0-30.0); ALBUMIN/GLOBULIN RATIO 0.83 (1.00-1.93); ALKALINE PHOSPHATASE 117 U/L (45-117); ALT/SGPT 29 U/L (12-78); ANION GAP 8 MEQ/L (8-16); AST/SGOT 45 U/L (7-37); BILIRUBIN,DIRECT 0.7 MG/DL (0.0-0.2); BILIRUBIN,TOTAL 2.1 MG/DL (0.2-1.0); BLOOD UREA NITROGEN 17 MG/DL (7-18); CALCIUM LEVEL 8.6 MG/DL (8.8-10.2); CARBON DIOXIDE LEVEL 24 MEQ/L (21-32); CHLORIDE LEVEL 112 MEQ/L (98-107); CPK CREATINE PHOSPHOKINASE 119 U/L (39-308); CREATININE FOR GFR 1.31 MG/DL (0.70-1.30); ETHYL ALCOHOL (ETHANOL) 0.003 % (0.000-0.010); GLOMERULAR FILTRATION RATE 56.8 (>42); GLUCOSE, FASTING 186 MG/DL (70-100); SODIUM LEVEL 144 MEQ/L (136-145); TOTAL PROTEIN 6.6 GM/DL (6.4-8.2); TROPONIN I 0.02 NG/ML (< 0.10)
[2017-10-02 08:23] LABS: CK-MB VALUE MASS 1.8 NG/ML (<3.6); MB/CK RELATIVE INDEX 1.51 (< OR =4); SALICYLATE LEVEL < 1.7 MG/DL (5.0-30.0)
[2017-10-02] MEDS: LACTULOSE 20 GM/30 ML SYRUP UD PR ×4 (08:30→22:31)
[2017-10-02 08:40] LABS: ABG BASE EXCESS 3.9 (-2.0-2.0); ABG HCO3 27.7 MEQ/L (22.0-26.0); ABG O2 SATURATION 98.1 % (95.0-99.0); ABG PARTIAL PRESSURE CO2 38.6 mmHg (35.0-45.0); ABG PARTIAL PRESSURE O2 106.2 mmHg (75.0-100.0); ABG TOTAL CO2 28.9 MEQ/L (23.0-31.0); ABG pH (ARTERIAL) 7.474 UNITS (7.350-7.450)
[2017-10-02 10:04] LABS: KETONE, URINE AUTO RFX NEGATIVE (NEGATIVE); LEUKOCYTE ESTERASE UR AUTO RFX NEGATIVE (NEGATIVE); NITRITE, URINE AUTO RFX NEGATIVE (NEGATIVE); RBC, URINE AUTO RFX 1 /HPF (0-3); SPECIFIC GRAVITY UR AUTO RFX 1.017 (1.002-1.035); SQUAM EPITHELIAL CELL UR AURFX 0 /HPF (0-6); WBC, URINE AUTO RFX 0 /HPF (0-3)
[2017-10-02 10:19] LABS: AMPHETAMINES LEVEL URINE NEGATIVE (NEGATIVE); BARBITURATES URINE NEGATIVE (NEGATIVE); BENZODIAZEPINES URINE NEGATIVE (NEGATIVE); CANNABINOIDS URINE NEGATIVE (NEGATIVE); COCAINE METABOLITE URINE NEGATIVE (NEGATIVE); METHADONE URINE NEGATIVE (NEGATIVE); OPIATES URINE NEGATIVE (NEGATIVE); PHENCYCLIDINE URINE NEGATIVE (NEGATIVE)
[2017-10-02] MEDS ORDERED: BISACODYL 10 MG SUPP PR (13:45)
[2017-10-02] MEDS ORDERED: ACETAMINOPHEN 650 MG SUPP PR (13:45)
[2017-10-02] MEDS ORDERED: ONDANSETRON 4MG/2ML VIAL (J2405) IV (13:45)
[2017-10-02] MEDS ORDERED: GLUCAGON FOR INJ 1 MG VIAL (J1610) SC (14:30)
[2017-10-02] MEDS ORDERED: DEXTROSE 50% 50 ML SYRINGE IV (14:30)
[2017-10-02] MEDS ORDERED: GLUCOSE 4 GM CHEW TABLET PO (14:30)
[2017-10-02] MEDS: HumaLOG INSULIN (NovoLOG) PER UNIT SC ×2 (15:20→19:30)
[2017-10-02] MEDS: hydrALAZINE INJ 20 MG/ML VIAL IV (18:34)
[2017-10-02 18:51] LABS: BEDSIDE GLUCOSE 184 MG/DL (83-110)
[2017-10-02 18:58] LABS: AMMONIA 98 uMOL/L (<32)
[2017-10-02 21:55] LABS: BEDSIDE GLUCOSE 156 MG/DL (83-110)
[2017-10-02] MEDS: LEVEMIR (INSULIN DETEMIR) 1 UNITS/0.01ML SC (22:31)
[2017-10-03 00:17] LABS: BEDSIDE GLUCOSE 153 MG/DL (83-110)
[2017-10-03] MEDS: HumaLOG INSULIN (NovoLOG) PER UNIT SC ×5 (00:21→21:00)
[2017-10-03] MEDS: LACTULOSE 20 GM/30 ML SYRUP UD PR ×2 (01:52→05:52)
[2017-10-03 06:18] LABS: BEDSIDE GLUCOSE 100 MG/DL (83-110)
[2017-10-03 06:19] LABS: BASO % 0.8 % (0.0-1.0); EOS # 0.2 10^3/uL (0.0-0.50); EOS % 3.8 % (0.0-3.0); HEMATOCRIT 30.6 % (42.0-52.0); HEMOGLOBIN 10.6 g/dl (13.5-17.5); IMMATURE GRANULOCYTE % 0.4 % (0-3.0); LYMPH % 18.8 % (24.0-44.0); MEAN CORPUSCULAR HEMOGLOBIN 36.9 pg (27.0-33.0); MEAN CORPUSCULAR HGB CONC 34.6 g/dl (32.0-36.5); MEAN CORPUSCULAR VOLUME 106.6 fl (80.0-96.0); MONO # 0.5 10^3/uL (0.0-0.8); MONO % 9.5 % (0.0-5.0); NEUTROPHILS # 3.5 10^3/uL (1.8-7.7); NEUTROPHILS % 66.7 % (36.0-66.0); RED BLOOD COUNT 2.87 10^6/uL (4.30-6.10); RED CELL DISTRIBUTION WIDTH 14.6 % (11.5-14.5); WHITE BLOOD COUNT 5.3 10^3/uL (4.0-10.0)
[2017-10-03 06:27] LABS: PLATELET COUNT, AUTOMATED 57 10^3/uL (150-450)
[2017-10-03 06:28] LABS: INR 1.38; PROTHROMBIN TIME 17.3 SECONDS (12.4-14.5)
[2017-10-03 06:46] LABS: ALBUMIN 2.5 GM/DL (3.2-5.2); ALBUMIN/GLOBULIN RATIO 0.78 (1.00-1.93); ALKALINE PHOSPHATASE 96 U/L (45-117); ALT/SGPT 24 U/L (12-78); ANION GAP 5 MEQ/L (8-16); AST/SGOT 35 U/L (7-37); BILIRUBIN,TOTAL 3.5 MG/DL (0.2-1.0); BLOOD UREA NITROGEN 18 MG/DL (7-18); CARBON DIOXIDE LEVEL 25 MEQ/L (21-32); CHLORIDE LEVEL 115 MEQ/L (98-107); CREATININE FOR GFR 0.99 MG/DL (0.70-1.30); GLOMERULAR FILTRATION RATE > 60.0 (>42); GLUCOSE, FASTING 92 MG/DL (70-100); MAGNESIUM LEVEL 1.7 MG/DL (1.8-2.4); POTASSIUM SERUM 3.8 MEQ/L (3.5-5.1); SODIUM LEVEL 145 MEQ/L (136-145); TOTAL PROTEIN 5.7 GM/DL (6.4-8.2)
[2017-10-03 06:47] LABS: AMMONIA 90 uMOL/L (<32)
[2017-10-03] MEDS: NS 1,000 ML IV (07:36)
[2017-10-03] MEDS: LACTULOSE 20 GM/30 ML SYRUP UD PO ×4 (09:40→21:31)
[2017-10-03 11:34] LABS: BEDSIDE GLUCOSE 227 MG/DL (83-110)
[2017-10-03] MEDS: CARVedilol 3.125 MG TAB PO ×2 (12:02→21:31)
[2017-10-03] MEDS: rifAXIMin 550 MG TAB (XIFAXAN) PO ×2 (12:02→21:30)
[2017-10-03] MEDS ORDERED: SLF 3 ML SYR IV (12:45)
[2017-10-03] MEDS: LEVEMIR (INSULIN DETEMIR) 1 UNITS/0.01ML SC ×2 (13:39→21:31)
[2017-10-03] MEDS: MAGNESIUM CHLORIDE 64 MG TABCR (SLO MAG) PO (13:39)
[2017-10-03] MEDS: SLF 3 ML SYR IV ×2 (13:40→21:32)
[2017-10-03 17:23] LABS: BEDSIDE GLUCOSE 225 MG/DL (83-110)
[2017-10-03 21:07] LABS: BEDSIDE GLUCOSE 174 MG/DL (83-110)
[2017-10-03] MEDS: TAMSULOSIN 0.4 MG CAP PO (21:31)
[2017-10-04] MEDS: SLF 3 ML SYR IV ×3 (06:00→22:00)
[2017-10-04 06:34] LABS: BASO % 0.5 % (0.0-1.0); EOS # 0.2 10^3/uL (0.0-0.50); EOS % 3.8 % (0.0-3.0); HEMATOCRIT 28.7 % (42.0-52.0); IMMATURE GRANULOCYTE % 0.5 % (0-3.0); LYMPH # 1.1 10^3/uL (1.5-4.5); LYMPH % 25.5 % (24.0-44.0); MEAN CORPUSCULAR HEMOGLOBIN 37.3 pg (27.0-33.0); MEAN CORPUSCULAR HGB CONC 34.8 g/dl (32.0-36.5); MEAN CORPUSCULAR VOLUME 107.1 fl (80.0-96.0); MONO # 0.5 10^3/uL (0.0-0.8); MONO % 11.7 % (0.0-5.0); NEUTROPHILS # 2.4 10^3/uL (1.8-7.7); RED BLOOD COUNT 2.68 10^6/uL (4.30-6.10); RED CELL DISTRIBUTION WIDTH 14.7 % (11.5-14.5); WHITE BLOOD COUNT 4.2 10^3/uL (4.0-10.0)
[2017-10-04 06:37] LABS: INR 1.31; PROTHROMBIN TIME 16.6 SECONDS (12.4-14.5)
[2017-10-04 06:40] LABS: PLATELET COUNT, AUTOMATED 54 10^3/uL (150-450)
[2017-10-04 06:41] LABS: IMMATURE PLATELET FRACTION % 5.7 % (0.0-10.9)
[2017-10-04 06:52] LABS: ALBUMIN 2.4 GM/DL (3.2-5.2); ALBUMIN/GLOBULIN RATIO 0.77 (1.00-1.93); ALKALINE PHOSPHATASE 99 U/L (45-117); ALT/SGPT 26 U/L (12-78); ANION GAP 8 MEQ/L (8-16); AST/SGOT 37 U/L (7-37); BILIRUBIN,TOTAL 2.8 MG/DL (0.2-1.0); BLOOD UREA NITROGEN 16 MG/DL (7-18); CALCIUM LEVEL 7.3 MG/DL (8.8-10.2); CARBON DIOXIDE LEVEL 24 MEQ/L (21-32); CHLORIDE LEVEL 112 MEQ/L (98-107); CREATININE FOR GFR 1.05 MG/DL (0.70-1.30); GLOMERULAR FILTRATION RATE > 60.0 (>42); GLUCOSE, FASTING 111 MG/DL (70-100); POTASSIUM SERUM 3.7 MEQ/L (3.5-5.1); SODIUM LEVEL 144 MEQ/L (136-145); TOTAL PROTEIN 5.5 GM/DL (6.4-8.2)
[2017-10-04] MEDS: LACTULOSE 20 GM/30 ML SYRUP UD PO ×4 (08:11→20:35)
[2017-10-04] MEDS: HumaLOG INSULIN (NovoLOG) PER UNIT SC ×4 (08:12→20:41)
[2017-10-04] MEDS: rifAXIMin 550 MG TAB (XIFAXAN) PO ×2 (08:12→20:36)
[2017-10-04] MEDS: LEVEMIR (INSULIN DETEMIR) 1 UNITS/0.01ML SC ×2 (08:13→20:37)
[2017-10-04] MEDS: CARVedilol 3.125 MG TAB PO ×2 (08:13→20:36)
[2017-10-04 12:06] LABS: BEDSIDE GLUCOSE 244 MG/DL (83-110)
[2017-10-04 17:05] LABS: BEDSIDE GLUCOSE 233 MG/DL (83-110)
[2017-10-04] MEDS: TAMSULOSIN 0.4 MG CAP PO (20:36)
[2017-10-04 20:40] LABS: BEDSIDE GLUCOSE 173 MG/DL (83-110)
[2017-10-04 23:14] LABS: BEDSIDE GLUCOSE 252 MG/DL (83-110)
[2017-10-05] MEDS: SLF 3 ML SYR IV (05:27)
[2017-10-05 06:00] LABS: BASO % 0.7 % (0.0-1.0); EOS # 0.2 10^3/uL (0.0-0.50); EOS % 5.3 % (0.0-3.0); HEMATOCRIT 29.2 % (42.0-52.0); HEMOGLOBIN 10.1 g/dl (13.5-17.5); IMMATURE GRANULOCYTE % 0.5 % (0-3.0); LYMPH # 1.1 10^3/uL (1.5-4.5); LYMPH % 25.2 % (24.0-44.0); MEAN CORPUSCULAR HEMOGLOBIN 36.7 pg (27.0-33.0); MEAN CORPUSCULAR HGB CONC 34.6 g/dl (32.0-36.5); MEAN CORPUSCULAR VOLUME 106.2 fl (80.0-96.0); MONO # 0.5 10^3/uL (0.0-0.8); MONO % 11.7 % (0.0-5.0); NEUTROPHILS # 2.5 10^3/uL (1.8-7.7); NEUTROPHILS % 56.6 % (36.0-66.0); RED BLOOD COUNT 2.75 10^6/uL (4.30-6.10); RED CELL DISTRIBUTION WIDTH 14.4 % (11.5-14.5); WHITE BLOOD COUNT 4.4 10^3/uL (4.0-10.0)
[2017-10-05 06:01] LABS: IMMATURE PLATELET FRACTION % 5.6 % (0.0-10.9); PLATELET COUNT, AUTOMATED 53 10^3/uL (150-450)
[2017-10-05 06:09] LABS: INR 1.27; PROTHROMBIN TIME 16.2 SECONDS (12.4-14.5)
[2017-10-05 06:19] LABS: AMMONIA 57 uMOL/L (<32)
[2017-10-05 06:36] LABS: ALBUMIN 2.4 GM/DL (3.2-5.2); ALKALINE PHOSPHATASE 115 U/L (45-117); ALT/SGPT 26 U/L (12-78); ANION GAP 6 MEQ/L (8-16); AST/SGOT 41 U/L (7-37); BILIRUBIN,TOTAL 1.9 MG/DL (0.2-1.0); BLOOD UREA NITROGEN 17 MG/DL (7-18); CALCIUM LEVEL 7.5 MG/DL (8.8-10.2); CARBON DIOXIDE LEVEL 24 MEQ/L (21-32); CHLORIDE LEVEL 110 MEQ/L (98-107); CREATININE FOR GFR 1.06 MG/DL (0.70-1.30); GLOMERULAR FILTRATION RATE > 60.0 (>42); GLUCOSE, FASTING 173 MG/DL (70-100); POTASSIUM SERUM 4.1 MEQ/L (3.5-5.1); SODIUM LEVEL 140 MEQ/L (136-145); TOTAL PROTEIN 5.4 GM/DL (6.4-8.2)
[2017-10-05] MEDS: CARVedilol 3.125 MG TAB PO (08:31)
[2017-10-05] MEDS: LACTULOSE 20 GM/30 ML SYRUP UD PO (08:32)
[2017-10-05] MEDS: rifAXIMin 550 MG TAB (XIFAXAN) PO (08:32)
[2017-10-05] MEDS: LEVEMIR (INSULIN DETEMIR) 1 UNITS/0.01ML SC (08:32)
[2017-10-05] MEDS: HumaLOG INSULIN (NovoLOG) PER UNIT SC (08:32)
== END 2017-10-05 11:36 | disposition home or self-care (01) | DRG 432 ==
LOC: M MSPAV 10-04 20:55 → M ED 08:44 → M MSPAV 10-04 21:10 → M ED INP 13:55 → M PCU 21:16
PROVIDERS: Family Medicine
DX: K74.60 Unspecified cirrhosis of liver (principal); K72.00 Acute and subacute hepatic failure without coma; I13.0 Hypertensive heart and chronic kidney disease with heart failure and stage 1 through stage 4 chronic kidney disease, or unspecified chronic kidney disease; I50.32 Chronic diastolic (congestive) heart failure; E72.20 Disorder of urea cycle metabolism, unspecified; Z66 Do not resuscitate; N18.3 Chronic kidney disease, stage 3 (moderate); E11.22 Type 2 diabetes mellitus with diabetic chronic kidney disease; D69.6 Thrombocytopenia, unspecified; E80.6 Other disorders of bilirubin metabolism; K59.00 Constipation, unspecified; E55.9 Vitamin D deficiency, unspecified; N40.1 Benign prostatic hyperplasia with lower urinary tract symptoms; R33.9 Retention of urine, unspecified; E78.5 Hyperlipidemia, unspecified; E53.8 Deficiency of other specified B group vitamins; K22.70 Barrett's esophagus without dysplasia; Z95.0 Presence of cardiac pacemaker; Z90.49 Acquired absence of other specified parts of digestive tract; Z88.0 Allergy status to penicillin; Z79.4 Long term (current) use of insulin; Z79.899 Other long term (current) drug therapy

== ENCOUNTER → 2017-11-01 | Outpatient (REF) | payer MEDICARE, OTHER ==
[2017-11-01 11:35] LABS: BASO % 0.8 % (0.0-1.0); EOS # 0.2 10^3/uL (0.0-0.50); EOS % 3.8 % (0.0-3.0); HEMATOCRIT 32.5 % (42.0-52.0); HEMOGLOBIN 11.1 g/dl (13.5-17.5); IMMATURE GRANULOCYTE % 0.3 % (0-3.0); LYMPH # 0.8 10^3/uL (1.5-4.5); MEAN CORPUSCULAR HEMOGLOBIN 36.5 pg (27.0-33.0); MEAN CORPUSCULAR HGB CONC 34.2 g/dl (32.0-36.5); MEAN CORPUSCULAR VOLUME 106.9 fl (80.0-96.0); MONO # 0.4 10^3/uL (0.0-0.8); MONO % 10.6 % (0.0-5.0); NEUTROPHILS # 2.5 10^3/uL (1.8-7.7); NEUTROPHILS % 63.5 % (36.0-66.0); RED BLOOD COUNT 3.04 10^6/uL (4.30-6.10); RETIC HEMOGLOBIN EQUIVALENT 42.3 pg (24-36); RETICULOCYTE # 43.2 10^9/L (17-77); RETICULOCYTE % 1.4 % (0.5-1.5)
[2017-11-01 11:37] LABS: PLATELET COUNT, AUTOMATED 59 10^3/uL (150-450)
[2017-11-01 11:38] LABS: IMMATURE PLATELET FRACTION % 7.2 % (0.0-10.9)
[2017-11-01 11:49] LABS: PTH INTACT 29.1 PG/ML (18.5-88.0); TOTAL 25(OH) VITAMIN D 19.2 NG/ML (30.0-100.0)
[2017-11-01 11:55] LABS: ALBUMIN 2.8 GM/DL (3.2-5.2); ALBUMIN/GLOBULIN RATIO 0.85 (1.00-1.93); ALKALINE PHOSPHATASE 143 U/L (45-117); ALT/SGPT 30 U/L (12-78); ANION GAP 8 MEQ/L (8-16); AST/SGOT 43 U/L (7-37); BILIRUBIN,TOTAL 1.5 MG/DL (0.2-1.0); BLOOD UREA NITROGEN 13 MG/DL (7-18); CALCIUM LEVEL 8.4 MG/DL (8.8-10.2); CARBON DIOXIDE LEVEL 27 MEQ/L (21-32); CHLORIDE LEVEL 109 MEQ/L (98-107); CHOLESTEROL LEVEL 128 MG/DL (<200); CHOLESTEROL RISK RATIO 3.282 (<5); CREATININE FOR GFR 1.24 MG/DL (0.70-1.30); GLOMERULAR FILTRATION RATE > 60.0 (>42); GLUCOSE, FASTING 180 MG/DL (70-100); HDL CHOLESTEROL 39 MG/DL (>40); LDL CHOLESTEROL 63.4 MG/DL (<100); MAGNESIUM LEVEL 1.8 MG/DL (1.8-2.4); NON-HDL-C 89 MG/DL; POTASSIUM SERUM 4.7 MEQ/L (3.5-5.1); PROSTATIC SPECIFIC AG MONITOR 0.21 NG/ML (< 4.0); SODIUM LEVEL 144 MEQ/L (136-145); TOTAL PROTEIN 6.1 GM/DL (6.4-8.2); TRIGLYCERIDES LEVEL 128 MG/DL (<150)
[2017-11-01 15:26] LABS: ESTIMATED AVERAGE GLUCOSE 137 MG/DL (60-110); HEMOGLOBIN A1c 6.4 %
== END ==
LOC: M SFHCPLAZ 08:23
DX: D50.9 Iron deficiency anemia, unspecified (principal); I10 Essential (primary) hypertension; E11.9 Type 2 diabetes mellitus without complications; E55.9 Vitamin D deficiency, unspecified; E78.2 Mixed hyperlipidemia; N40.1 Benign prostatic hyperplasia with lower urinary tract symptoms
CPT/HCPCS: 83735

== ENCOUNTER → 2017-12-14 | Outpatient (CLI) | payer MEDICARE, OTHER | LOC: M RAD 14:56 | DX: M89.8X6 Other specified disorders of bone, lower leg (principal) | CPT/HCPCS: 73700 ==

== ENCOUNTER → 2017-12-24 | Outpatient (CLI) | payer MEDICARE, OTHER ==
[2017-12-24 10:38] LABS: BASO # 0.1 10^3/uL (0.0-0.2); EOS # 0.2 10^3/uL (0.0-0.50); EOS % 3.2 % (0.0-3.0); HEMATOCRIT 34.8 % (42.0-52.0); IMMATURE GRANULOCYTE % 0.4 % (0-3.0); LYMPH # 0.9 10^3/uL (1.5-4.5); LYMPH % 18.3 % (24.0-44.0); MEAN CORPUSCULAR HEMOGLOBIN 36.5 pg (27.0-33.0); MEAN CORPUSCULAR HGB CONC 34.5 g/dl (32.0-36.5); MEAN CORPUSCULAR VOLUME 105.8 fl (80.0-96.0); MONO # 0.6 10^3/uL (0.0-0.8); MONO % 11.5 % (0.0-5.0); NEUTROPHILS # 3.3 10^3/uL (1.8-7.7); NEUTROPHILS % 65.6 % (36.0-66.0); PLATELET COUNT, AUTOMATED 101 10^3/uL (150-450); RED BLOOD COUNT 3.29 10^6/uL (4.30-6.10); RED CELL DISTRIBUTION WIDTH 14.6 % (11.5-14.5)
[2017-12-24 11:08] LABS: TOTAL PROTEIN 6.5 GM/DL (6.4-8.2)
[2017-12-28 00:07] LABS: FREE KAPPA LIGHT CHAINS SERUM 59.9 mg/L (3.3-19.4); FREE LAMBDA LIGHT CHAINS SERUM 48.1 mg/L (5.7-26.3); FREE LAMBDA LIGHT CHAINS URINE <0.25 mg/L (0.24-6.66); KAPPA/LAMBDA RATIO SERUM 1.25 (0.26-1.65); KAPPA/LAMBDA RATIO URINE >8.40 (2.04-10.37)
[2017-12-28 12:12] LABS: ALBUMIN 3.41 GM/DL (3.29-5.55); ALBUMIN % 52.5 % (55.8-66.1); ALPHA-1-GLOBULIN % 3.7 % (2.9-4.9); ALPHA-1-GLOBULINS 0.24 GM/DL (0.17-0.41); ALPHA-2-GLOBULINS 0.55 GM/DL (0.42-0.99); ALPHA-2-GLOBULINS % 8.5 % (7.1-11.8); BETA-1-GLOBULINS 0.31 GM/DL (0.28-0.60); BETA-1-GLOBULINS % 4.8 % (4.7-7.2); BETA-2-GLOBULINS 0.46 GM/DL (0.19-0.55); BETA-2-GLOBULINS % 7.1 % (3.2-6.5); GAMMA GLOBULIN % 23.4 % (11.1-18.8); GAMMA GLOBULINS 1.52 GM/DL (0.65-1.58)
== END ==
LOC: M LAB 09:57
DX: M89.9 Disorder of bone, unspecified (principal)
CPT/HCPCS: 77075

== ENCOUNTER → 2018-01-07 | Outpatient (CLI) | payer MEDICARE, OTHER | LOC: M RAD 09:42 | DX: M48.50XA Collapsed vertebra, not elsewhere classified, site unspecified, initial encounter for fracture (principal); M47.816 Spondylosis without myelopathy or radiculopathy, lumbar region | CPT/HCPCS: 78306 ==

== ENCOUNTER → 2018-01-18 | Outpatient (CLI) | payer MEDICARE, OTHER | LOC: M WHC 10:42 | DX: M48.50XA Collapsed vertebra, not elsewhere classified, site unspecified, initial encounter for fracture (principal) | CPT/HCPCS: 77080 ==

== ENCOUNTER 2018-03-18 13:01 | Day surgery (SDC) | payer MEDICARE, OTHER ==
[2018-03-18] MEDS: NS 1,000 ML IV (06:30)
[~2018-03-18 13:01] MED LIST changes: -AMAR1TAB PO; -ASPI1TAB PO; -ATOR1TAB19 PO; -ATOR1TAB21 PO; -BD P31MI2 XX; -CARV6.25 PO; -FERR1TAB8 PO; -FERR324T12 PO; -FERR325T16 PO; -FERR325T3 PO; -FERR32TA PO; -INSUHUMDS SC; -JANU100T PO; -LACT10SO29 PO; -LACT10SO3 PO; -LACT20EL PO; -LANTINJ4 SC; +LIDOCAINE 2% INJ 100 MG/5 ML SDV (FOR ANES.) As Ordered; -METF10004 PO; -METO50TA7 PO; -OMEP20CA3 PO; -OMEP40CA2 PO; -OXYC1TAB23 PO; -PANT40TA2 PO; -PERC10TA26 PO; -PERCOCET PO; +PROPOFOL 200 MG/20 ML VIAL As Ordered; -VITA-193 PO; -VITA100066 PO; -VITA100072 PO; -VITA400C7 PO; -VITA500T PO; -VOLT1GEL15 TOP; -XIFA550T PO; -vit b12 PO
[2018-03-18 14:52] LABS: BEDSIDE GLUCOSE 120 MG/DL (83-110)
[2018-03-18] MEDS ORDERED: fentaNYL 100 MCG/2 ML INJECTION (J3010) As Ordered (14:56)
== END 2018-03-18 16:19 | disposition home or self-care (01) ==
LOC: M OPP 13:01
DX: K22.70 Barrett's esophagus without dysplasia (principal); K74.60 Unspecified cirrhosis of liver; K21.9 Gastro-esophageal reflux disease without esophagitis; E78.00 Pure hypercholesterolemia, unspecified; I10 Essential (primary) hypertension; R07.9 Chest pain, unspecified; I44.30 Unspecified atrioventricular block; R60.0 Localized edema; I71.4 Abdominal aortic aneurysm, without rupture; I25.119 Atherosclerotic heart disease of native coronary artery with unspecified angina pectoris; I25.2 Old myocardial infarction; I05.9 Rheumatic mitral valve disease, unspecified; Z79.4 Long term (current) use of insulin; Z79.899 Other long term (current) drug therapy; Z88.8 Allergy status to other drugs, medicaments and biological substances; Z90.49 Acquired absence of other specified parts of digestive tract; Z95.0 Presence of cardiac pacemaker
CPT/HCPCS: 43239

== ENCOUNTER 2018-11-07 17:51 | Inpatient (IN) | payer MEDICARE, OTHER ==
[~2018-11-07] VITALS: Ht 172.7 cm; Wt 82.4 kg
[~2018-11-07 17:51] MED LIST changes: +AMAR1TAB PO; +ASPI81TA26 PO; +ATOR1TAB19 PO; +ATOR1TAB21 PO; +BD P31MI2 XX; +CARV3.12 PO; +CARV6.25 PO; +FERR1TAB8 PO; +FERR324T12 PO; +FERR325T16 PO; +FERR325T3 PO; +FERR32TA PO; +FLOM0.4C39 PO; +INSUHUMDS SC; +INSULANT SC; +IRON65TA PO; +JANU100T PO; +LACT10SO29 PO; +LACT10SO3 PO; +LACT10SO7 PO; +LANTINJ4 SC; -LIDOCAINE 2% INJ 100 MG/5 ML SDV (FOR ANES.) As Ordered; +MAG400TA PO; +MAGN1TAB26 PO; +METF10004 PO; +METO50TA7 PO; +MILK300C PO; +OMEP20CA3 PO; +OMEP40CA2 PO; +OXYC1TAB23 PO; +PANT40TA3 PO; +PERC10TA26 PO; +PERCOCET PO; -PROPOFOL 200 MG/20 ML VIAL As Ordered; +SPIR-10 PO; +SPIR50TA4 PO; +VITA-193 PO; +VITA100018 PO; +VITA10002 PO; +VITA100066 PO; +VITA400C7 PO; +VITA500T PO; +VOLT1GEL15 TOP; +XIFA550T PO; +vit b12 PO
[2018-11-07 18:41] LABS: BASO % 0.7 % (0.0-1.0); EOS # 0.2 10^3/uL (0.0-0.50); EOS % 3.3 % (0.0-3.0); HEMATOCRIT 35.3 % (42.0-52.0); HEMOGLOBIN 12.4 g/dl (13.5-17.5); LYMPH # 1.1 10^3/uL (1.5-4.5); LYMPH % 20.2 % (24.0-44.0); MEAN CORPUSCULAR HEMOGLOBIN 37.3 pg (27.0-33.0); MEAN CORPUSCULAR HGB CONC 35.1 g/dl (32.0-36.5); MEAN CORPUSCULAR VOLUME 106.3 fl (80.0-96.0); MONO # 0.6 10^3/uL (0.0-0.8); MONO % 11.1 % (0.0-5.0); NEUTROPHILS # 3.5 10^3/uL (1.8-7.7); NEUTROPHILS % 64.3 % (36.0-66.0); RED BLOOD COUNT 3.32 10^6/uL (4.30-6.10); WHITE BLOOD COUNT 5.5 10^3/uL (4.0-10.0)
[2018-11-07] MEDS ORDERED: NS 1,000 ML IV ONE (18:45)
[2018-11-07 18:49] LABS: PLATELET COUNT, AUTOMATED 70 10^3/uL (150-450)
--- NOTE | 2018-11-07 19:24 | REP ---
Clinical: Acute altered mental status. Comparison: 10/02/2017 . Findings: Age-related atrophy with periventricular leukomalacia and microvascular ischemic changes are appreciated. The ventricles and sulci are symmetric. Stokes-white differentiation is maintained. There is no evidence for acute intracranial hemorrhage, mass/mass effect, pathology or infarction. No extra-axial fluid collection. Calvarium is intact. Paranasal sinuses and mastoid air cells are clear. Impression: Atrophy periventricular leukomalacia and microvascular ischemic changes. No acute intracranial hemorrhage, obvious infarction, or mass/mass effect. Electronically Signed by Toney Cortes MD 11/07/2018 07:15 P
[2018-11-07 19:28] LABS: ACETAMINOPHEN LEVEL < 2.0 UG/ML (10.0-30.0); ALBUMIN 3.3 GM/DL (3.2-5.2); ALT/SGPT 36 U/L (12-78); BILIRUBIN,TOTAL 2.9 MG/DL (0.2-1.0); BLOOD UREA NITROGEN 23 MG/DL (7-18); CALCIUM LEVEL 9.3 MG/DL (8.8-10.2); CARBON DIOXIDE LEVEL 26 MEQ/L (21-32); CHLORIDE LEVEL 107 MEQ/L (98-107); CK-MB VALUE MASS 2.5 NG/ML (<3.6); CPK CREATINE PHOSPHOKINASE 175 U/L (39-308); CREATININE FOR GFR 1.75 MG/DL (0.70-1.30); GLOMERULAR FILTRATION RATE 40.5 (>42); GLUCOSE, FASTING 211 MG/DL (70-100); MB/CK RELATIVE INDEX 1.43 (< OR =4); POTASSIUM SERUM 4.8 MEQ/L (3.5-5.1); SALICYLATE LEVEL < 1.7 MG/DL (5.0-30.0); SODIUM LEVEL 141 MEQ/L (136-145); TOTAL PROTEIN 6.9 GM/DL (6.4-8.2); TROPONIN I < 0.02 NG/ML (< 0.10)
[2018-11-07] MEDS ORDERED: SOD POLYSTYRENE SULFONATE SUSP 15 GM/60 ML UD PO ONE (19:30)
[2018-11-07] MEDS ORDERED: VITA500T40 PO (19:47)
[2018-11-07] MEDS ORDERED: MAGN400C PO (19:47)
[2018-11-07] MEDS ORDERED: VITA-245 PO (19:47)
[2018-11-07] MEDS ORDERED: MILK175T PO (19:47)
[2018-11-07] MEDS ORDERED: LACT10SO29 PO (19:48)
[2018-11-07] MEDS ORDERED: LACTULOSE 20 GM/30 ML SYRUP UD PO ONE (20:00)
--- NOTE | 2018-11-07 20:17 | REP ---
Clinical: Altered mental status. Comparison: 10/02/2017. Findings: Mediastinum and cardiac silhouette are stable with pacemaker again noted. Lung morrissey demonstrate diffuse chronic interstitial changes. No focal consolidation, obvious effusion, or pneumothorax. Skeletal structures intact. Impression: Chronic stable changes. No obvious acute cardiopulmonary process appreciated although mild interstitial edema cannot be excluded. Electronically Signed by Toney Cortes MD 11/07/2018 08:09 P
[2018-11-07 20:56] LABS: ETHYL ALCOHOL (ETHANOL) < 0.003 % (0.000-0.010)
[2018-11-07] MEDS ORDERED: HEPARIN SOD (PORCINE) 5000 UNITS/ML VIAL SC SCH (21:00)
[2018-11-07] MEDS ORDERED: LACTULOSE 20 GM/30 ML SYRUP UD PO SCH (21:00)
[2018-11-07] MEDS ORDERED: GLUCOSE 4 GM CHEW TABLET PO PRN (21:00)
[2018-11-07] MEDS ORDERED: DEXTROSE 50% 50 ML SYRINGE IV PRN (21:00)
[2018-11-07] MEDS: HumaLOG INSULIN (NovoLOG) PER UNIT SC SCH (21:00)
[2018-11-07] MEDS ORDERED: GLUCAGON FOR INJ 1 MG VIAL (J1610) SC PRN (21:00)
--- NOTE | 2018-11-07 21:34 | HPEPDOC ---
General Date of Admission 11/07/2018 Date of Service: Nov 07, 2018 Attending Physician: JAZMINE COX MD Chief Complaint The patient is a 77-year-old male admitted with a reason for visit of TIRED. Source: Patient, Family Exam Limitations: Clinical conditions Timing/Duration: Day(s) Severity: Moderate History of Present Illness Patient is a 77-year-old male, past medical history significant for liver disease S/P TIPS procedure. He was brought in by today on account of confusion. She states patient started getting foggy and shaky 2-3 days ago. states she felt maybe his ammonia level was up and called primary care physician, Dr. King who advised. Patient to the emergency room. Patient states he feels a little bit confused at time of assessment. added that his mental status at time of assessment was much improved from when he presented to the emergency room. At home, patient takes lactulose 3 tablespoons every 6 hours. reports he has been very adherent with his dosing and is only held briefly for diarrhea. Patient denied any other symptoms with chills, fever, chest pain, shortness of breath. He also denied abdominal discomfort, nausea or vomiting. On assessment in the emergency room, CT brain was negative for acute intracranial process, chest x-ray was negative for acute cardiopulmonary process. Laboratory data was remarkable for ammonia level of 113, and total bilirubin levels of 2.9. 1L IVF with NS was administered also with lactulose. Home Medications Scheduled Ascorbic Acid (Vitamin C) 500 Mg Tab, 500 MG PO QHS, (Reported) Carvedilol (Carvedilol) 3.125 Mg Tab, 3.125 MG PO BID, (Reported) Cholecalciferol (Vitamin D3) (Vitamin D3) 1,000 Unit Tab, 1,000 UNIT PO QHS, (Reported) Cyanocobalamin (Vitamin B-12) (Vitamin B-12) 500 Mcg Tablet, 500 MCG PO QHS, (Reported) Insulin Glargine (Lantus) 1 Units/0.01 Ml Susp, 40 UNITS SC QAM, (Reported) Insulin Glargine (Lantus) 1 Units/0.01 Ml Susp, 20 UNITS SC QHS, (Reported) Insulin Human Lispro (Humalog) 1 Units/0.01 Ml Inj, 1 DOSE SC AC, (Reported) PER SLIDING SCALE Lactulose (Lactulose) 10 Gm/15 Ml Solution, 45 ML PO QID, (Reported) Magnesium Oxide (Magnesium) 400 Mg Capsule, 400 MG PO BID, (Reported) Milk Thistle (Milk Thistle) 175 Mg Tablet, 175 MG PO QHS, (Reported) Omeprazole (Omeprazole) 20 Mg Cap, 20 MG PO BID, (Reported) Rifaximin (Xifaxan) 550 Mg Tab, 550 MG PO BID, (Reported) Spironolactone (Spironolactone) 50 Mg Tab, 50 MG PO DAILY, (Reported) Tamsulosin HCl (Flomax) 0.4 Mg Cap, 0.4 MG PO QHS, (Reported) Vitamin E (Vitamin E) 400 Unit Capsule, 400 UNIT PO QHS, (Reported) Allergies Coded Allergies: lisinopril (Verified Adverse Reaction, Intermediate, HYPERKALEMIA, 11/07/18) Past Medical History Medical History Hypertension Type 2 diabetes mellitus Chronic kidney disease stage III Urinary retention. Liver cirrhosis S/P TIPS procedure Tyler's esophagus Complete heart block S/P permanent pacemaker placement Surgical History Pacemaker insertion Pacemaker/Battery Replacement Jun 2016 TIPS procedure Jan 2016 Dr. Esposito Hernia Repair Cholecystectomy Family History Mother: Diabetes mellitus, Valenzuela Sibling: CAD, PAD, DVT Social History * Smoker: Denies Alcohol: Denies Drugs: denies A-FIB/CHADSVASC A-FIB History Current/History of A-Fib/PAF?: No Current PO Anticoag Therapy: No Review of Systems Other systems A limited 10 point review of systems is completed due to patient's clinical condition with hepatic encephalopathy Physical Examination Other physical findings GENERAL: NAD SKIN : Warm, dry intact HEENT: Atraumatic, normocephalic, PERRL, moist mucous membrane CARDIOVASCULAR: Regular rate and rhythm, S1S2, no JVD, no edema, distal pulses + and palpable RESP: CTAB, no accessory muscle use noted ABDOMEN: BS+ non distended non tender MS: no joint deformities NEURO: Alert and oriented x 3, CN2-12 grossly intact Vital Signs Vital Signs Date Time Temp Pulse Resp B/P (MAP) Pulse Ox O2 Delivery O2 Flow Rate FiO2 11/07/18 19:27 79 20 152/90 (110) 100 Room Air 11/07/18 17:52 98.4 Laboratory Data Labs 24H Laboratory Tests 2 11/07/18 18:31: Immature Granulocyte % (Auto) 0.4, White Blood Count 5.5, Red Blood Count 3.32L, Hemoglobin 12.4L, Hematocrit 35.3L, Mean Corpuscular Volume 106.3H, Mean Corpus cular Hemoglobin 37.3H, Mean Corpuscular Hemoglobin Concent 35.1, Red Cell Distribution Width 14.3, Platelet Count 70L, Neutrophils (%) (Auto) 64.3, Lymphocytes (%) (Auto) 20.2L, Monocytes (%) (Auto) 11.1H, Eosinophils (%) (Auto) 3.3H, Basophils (%) (Auto) 0.7, Neutrophils # (Auto) 3.5, Lymphocytes # (Auto) 1.1L, Monocytes # (Auto) 0.6, Eosinophils # (Auto) 0.2, Basophils # (Auto) 0.0, Nucleated Red Blood Cells % (auto) 0.0, Immature Platelet Fraction 6.8, Anion Gap 8, Glomerular Filtration Rate 40.5L, Blood Urea Nitrogen 23H, Creatinine 1.75H, Sodium Level 141, Potassium Level 4.8, Chloride Level 107, Carbon Dioxide Level 26, Calcium Level 9.3, Aspartate Amino Transf (AST/SGOT) 50H, Alanine Aminotransferase (ALT/SGPT) 36, Total Creatine Kinase 175, Alkaline Phosphatase 119H, Total Bilirubin 2.9H, Direct Bilirubin 1.0H, Total Protein 6.9, Albumin 3.3, Ammonia 113H, Creatine Kinase MB 2.5, Creatine Kinase MB Relative Index 1.43, Troponin I < 0.02, Albumin/Globulin Ratio 0.92L, Thyroid Stimulating Hormone (TSH) 3.270, Salicylates Level < 1.7L, Acetaminophen Level < 2.0L, Ethyl Alcohol Level < 0.003 CBC/BMP Laboratory Tests 11/07/18 18:31 Red Blood Count 3.32 L, Mean Corpuscular Volume 106.3 H, Mean Corpuscular Hemoglobin 37.3 H, Mean Corpuscular Hemoglobin Concent 35.1, Red Cell Distribution Width 14.3, Neutrophils (%) (Auto) 64.3, Lymphocytes (%) (Auto) 20. 2 L, Monocytes (%) (Auto) 11.1 H, Eosinophils (%) (Auto) 3.3 H, Basophils (%) (Auto) 0.7, Neutrophils # (Auto) 3.5, Lymphocytes # (Auto) 1.1 L, Monocytes # (Auto) 0.6, Eosinophils # (Auto) 0.2, Basophils # (Auto) 0.0, Calcium Level 9.3, Aspartate Amino Transf (AST/SGOT) 50 H, Alanine Aminotransferase (ALT/SGPT) 36, Total Creatine Kinase 175, Alkaline Phosphatase 119 H, Total Bilirubin 2.9 H, Direct Bilirubin 1.0 H, Total Protein 6.9, Albumin 3.3 Assessment/Plan Acute hepatitic encephalopathy -In a patient with past medical history significant for liver disease, status post TIPS procedure -Acute intracranial process has been ruled out -Presenting ammonia level 113 -Bilirubin level 2.9 markedly elevated from prior levels -Continue lactulose, monitor levels tomorrow -If persistently elevated or worsening, will need to consult with GI for evaluation for possible stent occlusion Type 2 diabetes mellitus -Continue insulin -finger stick checks prior to meals and at bedtime -Diabetic diet Chronic kidney disease -Avoid nephrotoxic medications -hold Spironolactone DVT prophylaxis ACE stockings due to underlying Thrombocytopenia Plan / VTE VTE Prophylaxis Ordered?: Yes RK PIZARROP Nov 07, 2018 21:34
[2018-11-07 21:50] VITALS: BP 125/72
[2018-11-07] MEDS: ASCORBIC ACID 500 MG TAB PO SCH (22:31)
[2018-11-07] MEDS: VITAMIN D 1,000 INTERNATIONAL UNITS TABLET PO SCH (22:31)
[2018-11-07] MEDS: rifAXIMin 550 MG TAB (XIFAXAN) PO SCH (22:31)
[2018-11-07] MEDS: DOCUSATE SODIUM 100 MG CAP PO SCH (22:31)
[2018-11-07] MEDS: TAMSULOSIN 0.4 MG CAP PO SCH (22:31)
[2018-11-07] MEDS: LEVEMIR (INSULIN DETEMIR) 1 UNITS/0.01ML SC SCH (22:32)
[2018-11-07] MEDS: CARVedilol 3.125 MG TAB PO SCH (22:32)
[2018-11-08 01:05] VITALS: BP 125/71
[2018-11-08] MEDS: LACTULOSE 20 GM/30 ML SYRUP UD PO SCH ×6 (02:55→21:11)
[2018-11-08 06:40] VITALS: BP 124/70
[2018-11-08 06:40] LABS: HEMOGLOBIN 12.1 g/dl (13.5-17.5); MEAN CORPUSCULAR HEMOGLOBIN 38.7 pg (27.0-33.0); MEAN CORPUSCULAR HGB CONC 35.6 g/dl (32.0-36.5); MEAN CORPUSCULAR VOLUME 108.6 fl (80.0-96.0); RED BLOOD COUNT 3.13 10^6/uL (4.30-6.10); WHITE BLOOD COUNT 4.7 10^3/uL (4.0-10.0)
[2018-11-08 07:07] LABS: ALBUMIN 2.7 GM/DL (3.2-5.2); BILIRUBIN,TOTAL 2.4 MG/DL (0.2-1.0); CREATININE FOR GFR 1.5 MG/DL (0.70-1.30); GLOMERULAR FILTRATION RATE 48.4 (>42); POTASSIUM SERUM 4.3 MEQ/L (3.5-5.1); TOTAL PROTEIN 6.3 GM/DL (6.4-8.2)
[2018-11-08 07:10] LABS: PLATELET COUNT, AUTOMATED 58 10^3/uL (150-450)
[2018-11-08] MEDS: rifAXIMin 550 MG TAB (XIFAXAN) PO SCH ×2 (08:55→21:13)
[2018-11-08] MEDS: HumaLOG INSULIN (NovoLOG) PER UNIT SC SCH ×4 (08:55→21:12)
[2018-11-08] MEDS: OMEPRAZOLE 20 MG CAP PO SCH ×2 (08:55→21:12)
[2018-11-08] MEDS: CARVedilol 3.125 MG TAB PO SCH ×2 (08:55→21:13)
[2018-11-08] MEDS: LEVEMIR (INSULIN DETEMIR) 1 UNITS/0.01ML SC SCH ×2 (08:55→21:12)
[2018-11-08] MEDS: DOCUSATE SODIUM 100 MG CAP PO SCH ×2 (08:55→21:12)
--- NOTE | 2018-11-08 09:33 | IPNPDOC ---
Subjective Date Seen The patient was seen on 11/08/18. Subjective Chief Complaint/HPI No complaints today Constitutional: Denies: Chills, Fever Pulmonary: Denies: Dyspnea, Cough Cardiovascular: Denies: Chest Pain, Palpitations Gastrointestinal: Denies: Nausea, Vomiting, Abdominal Pain, Diarrhea, Constipation Genitourinary: Denies: Dysuria Objective Physical Examination General Exam: Positive: Alert, No Acute Distress Chest Exam: Positive: Clear to auscultation; Negative: Rales, Rhonchi, Wheezing Heart Exam: Positive: Rate Normal, Regular Rhythm Abdomen Exam: Positive: Normal bowel sounds, Soft; Negative: Tenderness Extremity Exam: Negative: Edema Assessment /Plan Problems (1) Hepatic encephalopathy Status: Acute Response to Treatment: Improving Problem Text: Ammonia level down to 57 after Kayexalte and dose of Lactulose in ER Cont. Lactulose and Rifaximan as prior to admission Mental status back to baseline PT ordered If Ammonia level remains stable, will likely d/c in am. U/C pending due to suspicious U/A (2) Altered mental status Status: Acute (3) Cirrhosis of liver Status: Chronic Problem Text: monitor platelets Plan/VTE VTE Prophylaxis Ordered?: Yes VS, I&O, 24H, Fishbone Vital Signs/I&O Vital Signs Date Time Temp Pulse Resp B/P (MAP) Pulse Ox O2 Delivery O2 Flow Rate FiO2 11/08/18 08:55 77 124/70 11/08/18 06:40 98.0 20 96 11/07/18 21:13 Room Air I&O- Last 24 Hours up to 6 AM 11/08/18 06:00 Intake Total 1360 ml Output Total 900 ml Balance 460 ml Laboratory Data 24H LABS Laboratory Tests 2 11/07/18 18:31: Immature Granulocyte % (Auto) 0.4, White Blood Count 5.5, Red Blood Count 3.32L, Hemoglobin 12.4L, Hematocrit 35.3L, Mean Corpuscular Volume 106.3H, Mean Corpuscular Hemoglobin 37.3H, Mean Corpuscular Hemoglobin Concent 35.1, Red Cell Distribution Width 14.3, Platelet Count 70L, Neutrophils (%) (Auto) 64.3, Lymphocytes (%) (Auto) 20.2L, Monocytes (%) (Auto) 11.1H, Eosinophils (%) (Auto) 3.3H, Basophils (%) (Auto) 0.7, Neutrophils # (Auto) 3.5, Lymphocytes # (Auto) 1.1L, Monocytes # (Auto) 0.6, Eosinophils # (Auto) 0.2, Basophils # (Auto) 0.0, Nucleated Red Blood Cells % (auto) 0.0, Immature Platelet Fraction 6.8, Anion Gap 8, Glomerular Filtration Rate 40.5L, Blood Urea Nitrogen 23H, Creatinine 1.7 5H, Sodium Level 141, Potassium Level 4.8, Chloride Level 107, Carbon Dioxide Level 26, Calcium Level 9.3, Aspartate Amino Transf (AST/SGOT) 50H, Alanine Aminotransferase (ALT/SGPT) 36, Total Creatine Kinase 175, Alkaline Phosphatase 119H, Total Bilirubin 2.9H, Direct Bilirubin 1.0H, Total Protein 6.9, Albumin 3.3, Ammonia 113H, Creatine Kinase MB 2.5, Creatine Kinase MB Relative Index 1.43, Troponin I < 0.02, Albumin/Globulin Ratio 0.92L, Thyroid Stimulating Hormone (TSH) 3.270, Salicylates Level < 1.7L, Acetaminophen Level < 2.0L, Ethyl Alcohol Level < 0.003 11/07/18 22:04: Bedside Glucose (Misc Panel) 187H 11/08/18 06:10: Urine Color YELLOW, Urine Appearance CLEAR, Urine pH 5.0, Urine Specific [place] 1.017, Urine Protein NEGATIVE, Urine Glucose (UA) 3+H, Urine Ketones NEGATIVE, Urine Blood NEGATIVE, Urine Nitrite NEGATIVE, Urine Bilirubin NEGATIVE, Urine Urobilinogen 0.2, Urine Leukocyte Esterase NEGATIVE, Urine WBC (Auto) 14H, Urine RBC (Auto) 3, Urine Hyaline Casts (Auto) 0, Urine Bacteria (Auto) NEGATIVE, Urine Squamous Epithelial Cells 0, Urine Amorphous Sediment SMALLH, Urine Sperm (Auto) 11/08/18 06:22: Nucleated Red Blood Cells % (auto) 0.0, Anion Gap 8, Glomerular Filtration Rate 48.4, Blood Urea Nitrogen 20H, Creatinine 1.50H, Sodium Level 141, Potassium Level 4.3, Chloride Level 110H, Carbon Dioxide Level 23, Calcium Level 9.0, Aspartate Amino Transf (AST/SGOT) 44H, Alanine Aminotransferase (ALT/SGPT) 31, Alkaline Phosphatase 98, Total Bilirubin 2.4H, Total Protein 6.3L, Albumin 2.7L, Albumin/Globulin Ratio 0.75L 11/08/18 06:56: Ammonia 57H CBC/BMP Laboratory Tests 11/07/18 18:31 Red Blood Count 3.32 L, Mean Corpuscular Volume 106.3 H, Mean Corpuscular Hemoglobin 37.3 H, Mean Corpuscular Hemoglobin Concent 35.1, Red Cell Distribution Width 14.3, Neutrophils (%) (Auto) 64.3, Lymphocytes (%) (Auto) 20.2 L, Monocytes (%) (Auto) 11.1 H, Eosinophils (%) (Auto) 3.3 H, Basophils (%) (Auto) 0.7, Neutrophils # (Auto) 3.5, Lymphocytes # (Auto) 1.1 L, Monocytes # (Auto) 0.6, Eosinophils # (Auto) 0.2, Basophils # (Auto) 0.0, Calcium Level 9.3, Aspartate Amino Transf (AST/SGOT) 50 H, Alanine Aminotransferase (ALT/SGPT) 36, Total Creatine Kinase 175, Alkaline Phosphatase 119 H, Total Bilirubin 2.9 H, Direct Bilirubin 1.0 H, Total Protein 6.9, Albumin 3.3 11/08/18 06:22 Red Blood Count 3.13 L, Mean Corpuscular Volume 108.6 H, Mean Corpuscular Hemoglobin 38.7 H, Mean Corpuscular Hemoglobin Concent 35.6, Red Cell Distribution Width 14.4, Calcium Level 9.0, Aspartate Amino Transf (AST/SGOT) 44 H, Alanine Aminotransferase (ALT/SGPT) 31, Alkaline Phosphatase 98, Total Bilirubin 2.4 H, Total Protein 6.3 L, Albumin 2.7 L Microbiology Microbiology 11/08/18 Urine Culture, Received Pending HAMMAD HESTER PA-C Nov 08, 2018 09:33
[2018-11-08 14:49] VITALS: BP 123/67
--- NOTE | 2018-11-08 15:32 | ECGEPIP ---
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
[2018-11-08] MEDS: ASCORBIC ACID 500 MG TAB PO SCH (21:12)
[2018-11-08] MEDS: TAMSULOSIN 0.4 MG CAP PO SCH (21:12)
[2018-11-08] MEDS: VITAMIN D 1,000 INTERNATIONAL UNITS TABLET PO SCH (21:13)
[2018-11-08 22:00] VITALS: BP 136/68
[2018-11-09] MEDS: LACTULOSE 20 GM/30 ML SYRUP UD PO SCH ×5 (00:52→15:00)
[2018-11-09 02:00] VITALS: BP 123/60
[2018-11-09 06:00] VITALS: BP 121/61
[2018-11-09 06:58] LABS: BASO % 0.9 % (0.0-1.0); EOS # 0.2 10^3/uL (0.0-0.50); EOS % 4.3 % (0.0-3.0); HEMATOCRIT 33.4 % (42.0-52.0); HEMOGLOBIN 11.7 g/dl (13.5-17.5); LYMPH # 1.1 10^3/uL (1.5-4.5); MEAN CORPUSCULAR HEMOGLOBIN 37.9 pg (27.0-33.0); MEAN CORPUSCULAR VOLUME 108.1 fl (80.0-96.0); MONO # 0.5 10^3/uL (0.0-0.8); MONO % 9.6 % (0.0-5.0); NEUTROPHILS # 2.9 10^3/uL (1.8-7.7); NEUTROPHILS % 61.6 % (36.0-66.0); RED BLOOD COUNT 3.09 10^6/uL (4.30-6.10); WHITE BLOOD COUNT 4.7 10^3/uL (4.0-10.0)
[2018-11-09 07:01] LABS: PLATELET COUNT, AUTOMATED 55 10^3/uL (150-450)
[2018-11-09 07:10] LABS: CALCIUM LEVEL 8.9 MG/DL (8.8-10.2); CREATININE FOR GFR 1.49 MG/DL (0.70-1.30); GLOMERULAR FILTRATION RATE 48.8 (>42); POTASSIUM SERUM 4.1 MEQ/L (3.5-5.1)
[2018-11-09] MEDS: DOCUSATE SODIUM 100 MG CAP PO SCH (08:14)
[2018-11-09] MEDS: rifAXIMin 550 MG TAB (XIFAXAN) PO SCH (08:14)
[2018-11-09 08:15] VITALS: BP 121/61
[2018-11-09] MEDS: CARVedilol 3.125 MG TAB PO SCH (08:15)
[2018-11-09] MEDS: OMEPRAZOLE 20 MG CAP PO SCH (08:15)
[2018-11-09] MEDS: LEVEMIR (INSULIN DETEMIR) 1 UNITS/0.01ML SC SCH (08:16)
[2018-11-09] MEDS: HumaLOG INSULIN (NovoLOG) PER UNIT SC SCH ×2 (08:16→13:06)
--- NOTE | 2018-11-09 23:27 | DSES ---
DATE OF ADMISSION: 11/07/2018 DATE OF DISCHARGE: 11/09/2018 REASON FOR ADMISSION Mr. Sterling was admitted after presenting to the ED with complaint of tired, confusion. He has a history of cirrhosis. CT showed no acute process. Bilirubin was 2.19. He had some fluids. He also had lactulose. With that treatment his ammonia level came down, his mental status seemed to clear. It was 113 on admission. The day following his admission his ammonia level was a little better, but today it has risen a bit again. His mental status remains clear, therefore it is suitable for him to return home. CURRENT MEDICATIONS: Unchanged from before admission. - insulin glargine 20 at bedtime, 40 in the morning - vitamin D3 1000 units daily - carvedilol 3.125 mg twice a day - vitamin C 500 mg at bedtime - lactulose 45 mL four times a day - mag oxide 400 mg twice a day - milk thistle tablet once a day - omeprazole 20 mg twice a day - Xifaxan 550 mg by mouth twice a day - spironolactone 50 mg daily - tamsulosin 0.4 mg daily - vitamin E 400 units daily DISCHARGE DIAGNOSIS Hepatic encephalopathy, cirrhosis, Tyler's esophagitis by history. PLAN: Followup primary care physician within 2 weeks. Medications as listed. Activity as tolerated. 2 grams sodium diet. Avoid alcohol. Avoid other known hepatotoxins, avoid nonsteroidal anti-inflammatory drugs and aspirin.
== END 2018-11-09 15:50 | disposition home or self-care (01) | DRG 443 ==
LOC: M ED 17:51 → M ED INP 20:58 → M MS5PR 22:00
PROVIDERS: ADMIT Internal Medicine Nephrology; ATTEND Family Medicine
DX: K72.00 Acute and subacute hepatic failure without coma (principal); Z79.4 Long term (current) use of insulin; Z79.899 Other long term (current) drug therapy; K74.60 Unspecified cirrhosis of liver; K22.70 Barrett's esophagus without dysplasia; Z88.8 Allergy status to other drugs, medicaments and biological substances; I12.9 Hypertensive chronic kidney disease with stage 1 through stage 4 chronic kidney disease, or unspecified chronic kidney disease; N18.3 Chronic kidney disease, stage 3 (moderate); Z95.0 Presence of cardiac pacemaker

== ENCOUNTER → 2018-11-24 | Outpatient (REF) | payer MEDICARE, OTHER ==
[~2018-11-24] MED LIST changes: +CYAN100049 PO; +MAGN400C PO; +MILK175T PO; -OMEP20CA3 PO; +OMEP20CA4 PO; +VITA-245 PO; -VITA10002 PO; +VITA500T40 PO
[2018-11-24 16:12] LABS: ALBUMIN 3.3 GM/DL (3.2-5.2); BILIRUBIN,TOTAL 2.8 MG/DL (0.2-1.0); CALCIUM LEVEL 8.8 MG/DL (8.8-10.2); CREATININE FOR GFR 1.59 MG/DL (0.70-1.30); GLOMERULAR FILTRATION RATE 45.3 (>42); MAGNESIUM LEVEL 1.9 MG/DL (1.8-2.4); POTASSIUM SERUM 4.4 MEQ/L (3.5-5.1); TOTAL PROTEIN 6.6 GM/DL (6.4-8.2)
[2018-11-24 16:25] LABS: HEMOGLOBIN A1c 7.3 %
== END ==
LOC: M SFHCPLAZ 13:40
PROVIDERS: ATTEND Family Medicine
DX: K72.10 Chronic hepatic failure without coma (principal); I50.42 Chronic combined systolic (congestive) and diastolic (congestive) heart failure; E78.2 Mixed hyperlipidemia; E11.9 Type 2 diabetes mellitus without complications
CPT/HCPCS: 36415; 80053; 82105; 83036; 83735; 83880; 99495; G0463

== ENCOUNTER → 2018-11-29 | Outpatient (CLI) | payer MEDICARE, OTHER ==
[~2018-11-29] MED LIST changes: +CYAN500T9 PO; +OMEP1CAP73 PO; -OMEP20CA4 PO; -OMEP40CA2 PO; +OMEP40CA97 PO; -VITA-193 PO
--- NOTE | 2018-11-29 19:19 | REP ---
CT RIGHT LOWER LEG WITHOUT CONTRAST: CT right lower leg was performed without the use of intravenous contrast in the axial plane. Sagittal and coronal reconstruction images are performed. Comparison is made with prior study of 12/14/2017. No fracture or dislocation is seen. In the proximal tibia posteriorly there is a rounded lytic lesion 8 mm in diameter which is fairly well defined. This is stable. Just inferior and anterior to that is a second lytic lesion with endosteal scalloping of the anteromedial tibial cortex, also unchanged measuring about 11 x 16 x 7 mm. There is no associated soft tissue mass or periosteal reaction. No other discrete lesion is seen. There is diffuse osteopenia. Arthritic changes are again seen at the knee with diffuse chondrocalcinosis. There is mild lateral patellofemoral compartment narrowing. Subcutaneous soft-tissue edema is seen diffusely in the more inferior aspect of the lower leg which appears to have increased since prior study. No other new findings are seen. IMPRESSION: There are two stable small lytic lesions in the proximal right tibia as discussed above. No new bone lesions identified. There does appear to be somewhat increased subcutaneous soft-tissue edema in the more inferior aspect of the lower leg. Electronically Signed by Jesus Alberto Stokes MD 12/01/2018 11:34 A
== END ==
LOC: M RAD 15:44
PROVIDERS: ATTEND Family Medicine
DX: M89.9 Disorder of bone, unspecified (principal); M85.861 Other specified disorders of bone density and structure, right lower leg

== ENCOUNTER 2018-12-11 00:04 | Inpatient (IN) | payer MEDICARE, OTHER ==
[~2018-12-11] VITALS: Ht 165.1 cm; Wt 83.6 kg
[~2018-12-11 00:04] MED LIST changes: -CYAN500T9 PO; -OMEP1CAP73 PO; +OMEP20CA4 PO; +OMEP40CA2 PO; -OMEP40CA97 PO; +VITA-193 PO
[2018-12-11 00:28] LABS: BASO # 0.1 10^3/uL (0.0-0.2); BASO % 0.9 % (0.0-1.0); EOS # 0.2 10^3/uL (0.0-0.50); EOS % 3.7 % (0.0-3.0); HEMATOCRIT 36.8 % (42.0-52.0); HEMOGLOBIN 12.8 g/dl (13.5-17.5); LYMPH # 1.1 10^3/uL (1.5-4.5); LYMPH % 19.5 % (24.0-44.0); MEAN CORPUSCULAR HEMOGLOBIN 37.9 pg (27.0-33.0); MEAN CORPUSCULAR HGB CONC 34.8 g/dl (32.0-36.5); MEAN CORPUSCULAR VOLUME 108.9 fl (80.0-96.0); MONO # 0.6 10^3/uL (0.0-0.8); NEUTROPHILS # 3.5 10^3/uL (1.8-7.7); NEUTROPHILS % 64.5 % (36.0-66.0); RED BLOOD COUNT 3.38 10^6/uL (4.30-6.10); WHITE BLOOD COUNT 5.4 10^3/uL (4.0-10.0)
[2018-12-11 00:32] LABS: PLATELET COUNT, AUTOMATED 64 10^3/uL (150-450)
--- NOTE | 2018-12-11 01:13 | REPVR ---
EXAM: CT Head Without Contrast EXAM DATE/TIME: 12/11/2018 12:22 AM CLINICAL HISTORY: 77 years old, male; Altered mental status/memory loss; Confusion or disorientation TECHNIQUE: Imaging protocol: Computed tomography images of the head without contrast. Radiation optimization: All CT scans at this facility use at least one of these dose optimization techniques: automated exposure control; mA and/or kV adjustment per patient size (includes targeted exams where dose is matched to clinical indication); or iterative reconstruction. COMPARISON: CT Head without contrast 11/07/2018 6:52 PM FINDINGS: Brain: There is minimal patchy low attenuation of deep white matter. Upper normal sulci. Ventricles: Normal. No ventriculomegaly. Bones/joints: Unremarkable. No acute fracture. Sinuses: Visualized sinuses are unremarkable. No fluid levels. Mastoid air cells: Visualized mastoid air cells are well aerated. No mastoid effusion. Soft tissues: Unremarkable. IMPRESSION: 1. Minimal chronic ischemic white matter change which is similar to 11/07/2018. 2. Otherwise negative noncontrast head CT. Electronically signed by: Melvin Newton On 12/11/2018 01:12:41 AM
[2018-12-11 01:37] LABS: ACETAMINOPHEN LEVEL < 2.0 UG/ML (10.0-30.0); ALBUMIN 2.9 GM/DL (3.2-5.2); ALT/SGPT 43 U/L (12-78); BILIRUBIN,DIRECT 1.1 MG/DL (0.0-0.2); BILIRUBIN,TOTAL 3.5 MG/DL (0.2-1.0); BLOOD UREA NITROGEN 15 MG/DL (7-18); CALCIUM LEVEL 8.5 MG/DL (8.8-10.2); CARBON DIOXIDE LEVEL 28 MEQ/L (21-32); CHLORIDE LEVEL 108 MEQ/L (98-107); CK-MB VALUE MASS 2.1 NG/ML (<3.6); CPK CREATINE PHOSPHOKINASE 151 U/L (39-308); CREATININE FOR GFR 1.63 MG/DL (0.70-1.30); ETHYL ALCOHOL (ETHANOL) < 0.003 % (0.000-0.010); GLUCOSE, FASTING 139 MG/DL (70-100); MB/CK RELATIVE INDEX 1.39 (< OR =4); POTASSIUM SERUM 4.3 MEQ/L (3.5-5.1); SALICYLATE LEVEL < 1.7 MG/DL (5.0-30.0); SODIUM LEVEL 142 MEQ/L (136-145); TOTAL PROTEIN 6.4 GM/DL (6.4-8.2); TROPONIN I 0.05 NG/ML (< 0.10)
[2018-12-11] MEDS ORDERED: LACTULOSE 20 GM/30 ML SYRUP UD PO ONE (02:00)
[2018-12-11 02:05] LABS: INR 1.31
[2018-12-11 02:06] LABS: PARTIAL THROMBOPLASTIN TIME 36.8 SECONDS (25.0-38.4)
--- NOTE | 2018-12-11 02:39 | HPEPDOC ---
General Date of Admission 12/11/18 Date of Service: Dec 11, 2018 Primary Care Physician: Cedrick King M.D. Attending Physician: AARON CERVANTES MD Chief Complaint The patient is a 77-year-old male admitted with a reason for visit of Altered Mental. Source: Family Exam Limitations: Clinical conditions Timing/Duration: Unsure Severity: Mild Associated Symptoms: Other History of Present Illness This is 77 years old white male with past medical history of liver disease status post He Was Brought His with Chief Complaints of Altered Mental Status and Confusion. As per Patient's , He Is Beginning Progressively More Confused Last 2-3 Days and His Ammonia Level Was High, so He Was Brought into the Emergency Room for Admission. Patient Follows with Dr. King As an Outpatient. Home Medications Scheduled Ascorbic Acid (Vitamin C) 500 Mg Tab, 500 MG PO QHS, (Reported) Cholecalciferol (Vitamin D3) (Vitamin D3) 1,000 Unit Tab, 1,000 UNIT PO QHS, (Reported) Cyanocobalamin (Vitamin B-12) (Vitamin B-12) 500 Mcg Tablet, 500 MCG PO QHS, (Reported) Insulin Glargine (Lantus) 1 Units/0.01 Ml Susp, 40 UNITS SC QAM, (Reported) Insulin Glargine (Lantus) 1 Units/0.01 Ml Susp, 20 UNITS SC QHS, (Reported) Insulin Human Lispro (Humalog) 1 Units/0.01 Ml Inj, 1 DOSE SC AC, (Reported) PER SLIDING SCALE Lactulose (Lactulose) 10 Gm/15 Ml Solution, 45 ML PO QID, (Reported) Magnesium Oxide (Magnesium) 400 Mg Capsule, 400 MG PO BID, (Reported) Milk Thistle (Milk Thistle) 175 Mg Tablet, 175 MG PO QHS, (Reported) Omeprazole (Omeprazole) 20 Mg Cap, 20 MG PO BID, (Reported) Rifaximin (Xifaxan) 550 Mg Tab, 550 MG PO BID, (Reported) Spironolactone (Spironolactone) 50 Mg Tab, 50 MG PO DAILY, (Reported) Tamsulosin HCl (Flomax) 0.4 Mg Cap, 0.4 MG PO QHS, (Reported) Vitamin E (Vitamin E) 400 Unit Capsule, 400 UNIT PO QHS, (Reported) Allergies Coded Allergies: lisinopril (Verified Adverse Reaction, Intermediate, HYPERKALEMIA, ) Past Medical History Medical History Hypertension, type 2 diabetes mellitus, chronic kidney disease stage III, urinary retention, liver cirrhosis status post TIPS Tyler's esophagus, complete heart block status post permanent pacemaker placement Surgical History Pacemaker insertion pacemaker battery replacement TIPS procedure, hernia repair and cholecystectomy Family History Mother has diabetes mellitus and an GREG and siblings have CAD and PVD Social History * Smoker: Denies Alcohol: Denies Drugs: denies A-FIB/CHADSVASC A-FIB History Current/History of A-Fib/PAF?: No Review of Systems Constitutional: Reports: Other (unable to obtained review of systems from patient secondary to clinical status of altered mental status) Physical Examination General Exam: Positive: Other (, awake but not alert and oriented 0) Eye Exam: Positive: PERRLA, Conjunctiva & lids normal ENT Exam: Positive: Atraumatic, Mucous membr. moist/pink Neck Exam: Positive: Supple Chest Exam: Positive: Clear to auscultation Heart Exam: Positive: Rate Normal, Normal S1, Normal S2 Abdomen Exam: Positive: Normal bowel sounds, Soft Extremity Exam: Positive: Normal pulses Skin Exam: Positive: Nl turgor and temperature Neuro Exam: Positive: Other (unable to do neuro exam) Psych Exam: Positive: Other (. We'll do psych exam) Vital Signs Vital Signs Date Time Temp Pulse Resp B/P (MAP) Pulse Ox O2 Delivery O2 Flow Rate FiO2 12/11/18 01:34 74 100 12/11/18 00:13 97.3 18 149/83 (105) Room Air Laboratory Data Labs 24H Laboratory Tests 2 12/11/18 00:16: Prothrombin Time 16.0H, Prothromb Time International Ratio 1.31, Activated Partial Thromboplast Time 36.8 12/11/18 00:17: Immature Granulocyte % (Auto) 0.4, White Blood Count 5.4, Red Blood Count 3.38L, Hemoglobin 12.8L, Hematocrit 36.8L, Mean Corpuscular Volume 108.9H, Mean Corpuscular Hemoglobin 37.9H, Mean Corpuscular Hemoglobin Concent 34.8, Red Cell Distribution Width 14.2, Platelet Count 64L, Neutrophils (%) (Auto) 64.5, L ymphocytes (%) (Auto) 19.5L, Monocytes (%) (Auto) 11.0H, Eosinophils (%) (Auto) 3.7H, Basophils (%) (Auto) 0.9, Neutrophils # (Auto) 3.5, Lymphocytes # (Auto) 1.1L, Monocytes # (Auto) 0.6, Eosinophils # (Auto) 0.2, Basophils # (Auto) 0.1, Nucleated Red Blood Cells % (auto) 0.0, Immature Platelet Fraction 5.7, Anion Gap 6L, Glomerular Filtration Rate 44.0, Lactic Acid Level 2.0, Calcium Level 8.5L, Aspartate Amino Transf (AST/SGOT) 54H, Alanine Aminotransferase (ALT/SGPT) 43, Alkaline Phosphatase 134H, Total Bilirubin 3.5H, Direct Bilirubin 1.1H, Ammonia 111H, Total Creatine Kinase 151, Creatine Kinase MB 2.1, Creatine Kinase MB Relative Index 1.39, Troponin I 0.05, Total Protein 6.4, Albumin 2.9L, Albumin/Globulin Ratio 0.83L, Thyroid Stimulating Hormone (TSH) 4.290H, Salicylates Level < 1.7L, Acetaminophen Level < 2.0L, Ethyl Alcohol Level < 0.003 12/11/18 00:50: POC pH (Misc Panel) 7.428, POC Base Excess (Misc Panel) -2.0, POC Saturated Percent O2 (Misc) 97, POC pO2 (Misc Panel) 91.0, POC pCO2 (Misc Panel) 33.9L, POC HCO3 (Misc Panel) 22.4, POC Total CO2 (Misc Panel) 23.0 CBC/BMP Laboratory Tests 12/11/18 00:17 Red Blood Count 3.38 L, Mean Corpuscular Volume 108.9 H, Mean Corpuscular Hemoglobin 37.9 H, Mean Corpuscular Hemoglobin Concent 34.8, Red Cell Distribution Width 14.2, Neutrophils (%) (Auto) 64.5, Lymphocytes (%) (Auto) 19.5 L, Monocytes (%) (Auto) 11.0 H, Eosinophils (%) (Auto) 3.7 H, Basophils (%) (Auto) 0.9, Neutrophils # (Auto) 3.5, Lymphocytes # (Auto) 1.1 L, Monocytes # (Auto) 0.6, Eosinophils # (Auto) 0.2, Basophils # (Auto) 0.1 Microbiology Microbiology 12/11/18 Blood Culture, Received Pending 12/11/18 Blood Culture, Received Pending Problems (1) Hepatic encephalopathy Status: Acute Problem Text: 77 years old white male with past medical history of cirrhosis or liver status post TIPS recently was admitted in November 07 06/25/2018 with the similar complaints of altered mental status and hyperammonia again patient been brought in with the similar complaints and his ammonia level is 111 and will been asked to admit this patient for observation. Continue patient's present medication including lactulose and rifaximin Repeat Ammonia levels in a.m. Probably will need GI consult if the ammonia levels do not respond to the current current conservative management Continue all other home meds Further, as per Dr. King's recommendations (2) CKD (chronic kidney disease), stage III Status: Chronic Problem Text: Continue all present home meds Monitoring of renal function, recommended Nephrology consult with acute kidney failure does not improve (3) Hypertension Status: Chronic Problem Text: Under control Continue home meds (4) Diabetes type 2, uncontrolled Status: Chronic Problem Text: Hold long-acting insulin regimen as patient will be nothing by mouth DC Short acting insulin regimen instead Finger stick blood sugar every 6 hours with coverage And will be nothing by mouth to his mentally more alert, awake, alert and oriented (5) Cirrhosis of liver Status: Chronic Problem Text: End-stage liver cirrhosis with a status post taps Follow-up from hepatic functions and ammonia level Plan / VTE VTE Prophylaxis Ordered?: Yes AARON CERVANTES MD Dec 11, 2018 02:39
[2018-12-11] MEDS ORDERED: GLUCOSE 4 GM CHEW TABLET PO PRN (02:45)
[2018-12-11] MEDS ORDERED: GLUCAGON FOR INJ 1 MG VIAL (J1610) SC PRN (02:45)
[2018-12-11] MEDS ORDERED: DEXTROSE 50% 50 ML SYRINGE IV PRN (02:45)
[2018-12-11] MEDS: HumaLOG INSULIN (NovoLOG) PER UNIT SC SCH ×5 (03:38→21:03)
[2018-12-11 03:40] VITALS: BP 152/85
[2018-12-11 06:00] VITALS: BP 154/87
[2018-12-11] MEDS ORDERED: LEVEMIR (INSULIN DETEMIR) 1 UNITS/0.01ML SC SCH ×2 (09:00→21:00)
[2018-12-11] MEDS: rifAXIMin 550 MG TAB (XIFAXAN) PO SCH ×2 (09:21→20:38)
[2018-12-11] MEDS: MAGNESIUM OXIDE 400 MG TAB (MAG-OX) PO SCH ×2 (09:21→20:38)
[2018-12-11] MEDS: OMEPRAZOLE 20 MG CAP PO SCH ×2 (09:21→20:38)
[2018-12-11] MEDS: SPIRONOLACTONE 50 MG TAB PO SCH (09:22)
[2018-12-11] MEDS: LACTULOSE 20 GM/30 ML SYRUP UD PO SCH ×4 (09:22→20:38)
[2018-12-11 14:11] VITALS: BP 146/81
--- NOTE | 2018-12-11 16:41 | IPNPDOC ---
Subjective Date Seen The patient was seen on 12/11/18. Subjective Chief Complaint/HPI close to baseline MS Constitutional: Denies: Chills Eyes: Denies: Pain ENT: Denies: Head Aches Skin: Denies: Rash, Lesions Pulmonary: Denies: Dyspnea, Cough Cardiovascular: Denies: Chest Pain Gastrointestinal: Denies: Nausea, Vomiting Genitourinary: Denies: Dysuria Objective Physical Examination General Exam: Positive: Other (, awake but not alert and oriented 0) Eye Exam: Positive: PERRLA, Conjunctiva & lids normal ENT Exam: Positive: Atraumatic, Mucous membr. moist/pink Neck Exam: Positive: Supple Chest Exam: Positive: Clear to auscultation Heart Exam: Positive: Rate Normal, Normal S1, Normal S2 Abdomen Exam: Positive: Normal bowel sounds, Soft Extremity Exam: Positive: Normal pulses Skin Exam: Positive: Nl turgor and temperature Neuro Exam: Positive: Other (unable to do neuro exam) Psych Exam: Positive: Other (. We'll do psych exam) Assessment /Plan Problems (1) Hepatic encephalopathy Status: Acute Problem Text: recurrent continue HD lact 45 QID, rifax 550 BID 12/11 NH3 111 (10/2018 baseline ~60s) 11/11 BCX2 P 11/11 UCX P 11/11 CXR PA/lat NAD (2) CKD (chronic kidney disease), stage III Status: Chronic Problem Text: at baseline cr ~1.6, K 4.3 (3) Hypertension Status: Chronic Problem Text: stable on HD abhi (4) Diabetes type 2, uncontrolled Status: Chronic Problem Text: DM2 ID HD glar 40/20 c SSLI BG low 100s on SSLI (5) Anemia Status: Chronic Problem Text: ACD/Fe def at baseline hgb 12s (6) Systolic and diastolic CHF, chronic Status: Chronic Problem Text: Euvolemic on HD abhi 50 Plan/VTE VTE Prophylaxis Ordered?: No VTE Exclusion Pharmacological: Bleeding Risk VS, I&O, 24H, Fishbone Vital Signs/I&O Vital Signs Date Time Temp Pulse Resp B/P (MAP) Pulse Ox O2 Delivery O2 Flow Rate FiO2 12/11/18 14:11 97.8 92 146/81 (102) 100 12/11/18 06:00 20 12/11/18 00:13 Room Air I&O- Last 24 Hours up to 6 AM 12/11/18 06:00 Intake Total 0 ml Output Total 0 ml Balance 0 ml Laboratory Data 24H LABS Laboratory Tests 2 12/11/18 00:16: Prothrombin Time 16.0H, Prothromb Time International Ratio 1.31, Activated Partial Thromboplast Time 36.8 12/11/18 00:17: Immature Granulocyte % (Auto) 0.4, White Blood Count 5.4, Red Blood Count 3.38L, Hemoglobin 12.8L, Hematocrit 36.8L, Mean Corpuscular Volume 108.9H, Mean Corpuscular Hemoglobin 37.9H, Mean Corpuscular Hemoglobin Concent 34.8, Red Cell Distribution Width 14.2, Platelet Count 64L, Neutrophils (%) (Auto) 64.5, Lymphocytes (%) (Auto) 19.5L, Monocytes (%) (Auto) 11.0H, Eosinophils (%) (Auto) 3.7H, Basophils (%) (Auto) 0.9, Neutrophils # (Auto) 3.5, Lymphocytes # (Auto) 1.1L, Monocytes # (Auto) 0.6, Eosinophils # (Auto) 0.2, Basophils # (Auto) 0.1, Nucleated Red Blood Cells % (auto) 0.0, Immature Platelet Fraction 5.7, Anion Gap 6L, Glomerular Filtration Rate 44.0, Lactic Acid Level 2.0, Calcium Level 8.5L, Aspartate Amino Transf (AST/SGOT) 54H, Alanine Aminotransferase (ALT/SGPT) 43, Alkaline Phosphatase 134H, Total Bilirubin 3.5H, Direct Bilirubin 1.1H, Ammonia 111H, Total Creatine Kinase 151, Creatine Kinase MB 2.1, Creatine Kinase MB Relative Index 1.39, Troponin I 0.05, Total Protein 6.4, Albumin 2.9L, Albumin/Globulin Ratio 0.83L, Thyroid Stimulating Hormone (TSH) 4.290H, Salicylates Level < 1.7L, Acetaminophen Level < 2.0L, Ethyl Alcohol Level < 0.003 12/11/18 00:50: POC pH (Misc Panel) 7.428, POC Base Excess (Misc Panel) -2.0, POC Saturated Percent O2 (Misc) 97, POC pO2 (Misc Panel) 91.0, POC pCO2 (Misc Panel) 33.9L, POC HCO3 (Misc Panel) 22.4, POC Total CO2 (Misc Panel) 23.0 12/11/18 05:42: Bedside Glucose (Misc Panel) 124H 12/11/18 12:01: Bedside Glucose (Misc Panel) 304H CBC/BMP Laboratory Tests 12/11/18 00:17 Red Blood Count 3.38 L, Mean Corpuscular Volume 108.9 H, Mean Corpuscular Hemoglobin 37.9 H, Mean Corpuscular Hemoglobin Concent 34.8, Red Cell Distribution Width 14.2, Neutrophils (%) (Auto) 64.5, Lymphocytes (%) (Auto) 19.5 L, Monocytes (%) (Auto) 11.0 H, Eosinophils (%) (Auto) 3.7 H, Basophils (%) (Auto) 0.9, Neutrophils # (Auto) 3.5, Lymphocytes # (Auto) 1.1 L, Monocytes # (Auto) 0.6, Eosinophils # (Auto) 0.2, Basophils # (Auto) 0.1 Microbiology Microbiology 12/11/18 Blood Culture, Received Pending 12/11/18 Blood Culture, Received Pending Cedrick King M.D. Dec 11, 2018 16:41
[2018-12-11 20:21] VITALS: BP 143/81
[2018-12-11] MEDS: VITAMIN D 1,000 INTERNATIONAL UNITS TABLET PO SCH (20:38)
[2018-12-11] MEDS: ASCORBIC ACID 500 MG TAB PO SCH (20:38)
[2018-12-11] MEDS: TAMSULOSIN 0.4 MG CAP PO SCH (20:39)
--- NOTE | 2018-12-11 21:20 | ECGEPIP ---
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
[2018-12-11 22:00] VITALS: BP 143/81
[2018-12-12 06:00] VITALS: BP 129/77
[2018-12-12 06:30] LABS: HEMATOCRIT 34.6 % (42.0-52.0); HEMOGLOBIN 12.1 g/dl (13.5-17.5); MEAN CORPUSCULAR HEMOGLOBIN 37.7 pg (27.0-33.0); MEAN CORPUSCULAR VOLUME 107.8 fl (80.0-96.0); RED BLOOD COUNT 3.21 10^6/uL (4.30-6.10); WHITE BLOOD COUNT 4.8 10^3/uL (4.0-10.0)
[2018-12-12 06:31] LABS: PLATELET COUNT, AUTOMATED 60 10^3/uL (150-450)
[2018-12-12 07:01] LABS: ALBUMIN 2.7 GM/DL (3.2-5.2); CALCIUM LEVEL 8.8 MG/DL (8.8-10.2); CREATININE FOR GFR 1.49 MG/DL (0.70-1.30); GLOMERULAR FILTRATION RATE 48.8 (>42); MAGNESIUM LEVEL 1.7 MG/DL (1.8-2.4); POTASSIUM SERUM 4.5 MEQ/L (3.5-5.1); TOTAL PROTEIN 5.8 GM/DL (6.4-8.2)
[2018-12-12] MEDS: MAGNESIUM OXIDE 400 MG TAB (MAG-OX) PO SCH ×2 (08:06→20:38)
[2018-12-12] MEDS: HumaLOG INSULIN (NovoLOG) PER UNIT SC SCH ×4 (08:06→20:39)
[2018-12-12] MEDS: OMEPRAZOLE 20 MG CAP PO SCH ×2 (08:06→20:38)
[2018-12-12] MEDS: rifAXIMin 550 MG TAB (XIFAXAN) PO SCH ×2 (08:07→20:38)
[2018-12-12] MEDS: LACTULOSE 20 GM/30 ML SYRUP UD PO SCH ×4 (08:07→20:38)
[2018-12-12] MEDS: SPIRONOLACTONE 50 MG TAB PO SCH (08:07)
[2018-12-12] MEDS: LEVEMIR (INSULIN DETEMIR) 1 UNITS/0.01ML SC SCH (12:16)
[2018-12-12] MEDS: VITAMIN D 1,000 INTERNATIONAL UNITS TABLET PO SCH (20:38)
[2018-12-12] MEDS: TAMSULOSIN 0.4 MG CAP PO SCH (20:38)
[2018-12-12] MEDS: ASCORBIC ACID 500 MG TAB PO SCH (20:38)
[2018-12-12] MEDS ORDERED: LEVEMIR (INSULIN DETEMIR) 1 UNITS/0.01ML SC SCH (21:00)
[2018-12-12 22:00] VITALS: BP 149/70
[2018-12-13 06:00] VITALS: BP 135/76
[2018-12-13] MEDS: HumaLOG INSULIN (NovoLOG) PER UNIT SC SCH (08:04)
[2018-12-13] MEDS: LACTULOSE 20 GM/30 ML SYRUP UD PO SCH (08:05)
[2018-12-13] MEDS: LEVEMIR (INSULIN DETEMIR) 1 UNITS/0.01ML SC SCH (08:05)
[2018-12-13] MEDS: OMEPRAZOLE 20 MG CAP PO SCH (08:06)
[2018-12-13] MEDS: MAGNESIUM OXIDE 400 MG TAB (MAG-OX) PO SCH (08:06)
[2018-12-13] MEDS: SPIRONOLACTONE 50 MG TAB PO SCH (08:06)
[2018-12-13] MEDS: rifAXIMin 550 MG TAB (XIFAXAN) PO SCH (08:06)
--- NOTE | 2018-12-13 14:44 | DSES ---
DATE OF ADMISSION: 12/12/2018 DATE OF DISCHARGE: 12/13/2018 REASON FOR ADMISSION: Mr. Joaquín Sterling was admitted because of a hepatic encephalopathy. His ammonia level was elevated from his baseline. He has a history of chronic liver disease. His ammonia was 111, it was 76 yesterday showing clear improvement and it is usually in the 60s. His creatinine was 1.49, BUN was 15, 18 yesterday. He seemed to be clinically improved but did not pass home safety evaluation yesterday, so he stayed overnight. If he does pass today, he will be discharged. DISCHARGE DIAGNOSES: Hepatic cephalopathy. Stage III chronic kidney disease. 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 History of Tyler's esophagus. History of complete heart block status post pacemaker implantation. He also sees Dr. Corea in consultation for his chronic liver disease. DISCHARGE MEDICATIONS WILL INCLUDE: - vitamin C 500 mg daily - vitamin D 1000 units daily - vitamin B12 500 mcg daily - insulin Lantus 40 units subcu daily 20 units subcu nightly. - Humalog dosed before meals - lactulose 40 mL four times a day - magnesium oxide 40 mg twice a day - milk thistle 175 mg daily - omeprazole 20 mg twice a day - Xifaxan 550 mg by mouth twice a day. - spironolactone 50 mg daily - tamsulosin 0.4 mg daily - vitamin E 40 mg daily Activity will be as tolerated. He is encouraged to be physically active but to avoid dehydration particulate if he is outside working in the heat since volume contraction can worsen his ammonia level. Maintain stable diet. Avoid excessive protein loading. Followup with Dr. King in 1 week.
--- NOTE | 2018-12-13 15:08 | REP ---
Portable chest, 12:25 a.m., single AP view with the patient semi upright: Comparison is a 11/07/2018. There is an incomplete inspiratory effort with under aeration of the lung morrissey. There are no focal infiltrates. Cardiac size is mildly enlarged, unchanged. There is a dual-chamber pacemaker, unchanged. Impression: There is no interval change. Electronically Signed by Jesus Alberto Carrion MD 12/11/2018 07:43 A
== END 2018-12-13 11:30 | disposition home health service (06) | DRG 442 ==
LOC: M ED 00:04 → M ED INP 00:05 → M MS5PR 03:40 → OBSVTOIN 12-12 11:17
PROVIDERS: ADMIT Family Medicine; ATTEND Family Medicine
DX: K72.00 Acute and subacute hepatic failure without coma (principal); I50.42 Chronic combined systolic (congestive) and diastolic (congestive) heart failure; I13.0 Hypertensive heart and chronic kidney disease with heart failure and stage 1 through stage 4 chronic kidney disease, or unspecified chronic kidney disease; N18.3 Chronic kidney disease, stage 3 (moderate); K74.60 Unspecified cirrhosis of liver; K22.70 Barrett's esophagus without dysplasia; Z95.0 Presence of cardiac pacemaker; Z79.899 Other long term (current) drug therapy; Z79.4 Long term (current) use of insulin; D64.9 Anemia, unspecified

== ENCOUNTER → 2018-12-28 | Outpatient (REF) | payer MEDICARE, OTHER ==
[~2018-12-28] MED LIST changes: +CYAN500T9 PO; -VITA-193 PO
[2018-12-28 14:55] LABS: BASO % 0.9 % (0.0-1.0); EOS # 0.1 10^3/uL (0.0-0.50); EOS % 2.5 % (0.0-3.0); HEMOGLOBIN 11.7 g/dl (13.5-17.5); LYMPH # 0.9 10^3/uL (1.5-4.5); MEAN CORPUSCULAR HEMOGLOBIN 38.7 pg (27.0-33.0); MEAN CORPUSCULAR HGB CONC 34.4 g/dl (32.0-36.5); MEAN CORPUSCULAR VOLUME 112.6 fl (80.0-96.0); MONO # 0.5 10^3/uL (0.0-0.8); MONO % 10.9 % (0.0-5.0); NEUTROPHILS # 2.9 10^3/uL (1.8-7.7); RED BLOOD COUNT 3.02 10^6/uL (4.30-6.10); WHITE BLOOD COUNT 4.4 10^3/uL (4.0-10.0)
[2018-12-28 15:02] LABS: PLATELET COUNT, AUTOMATED 60 10^3/uL (150-450)
[2018-12-28 15:19] LABS: ALBUMIN 2.8 GM/DL (3.2-5.2); BILIRUBIN,TOTAL 2.6 MG/DL (0.2-1.0); CALCIUM LEVEL 8.7 MG/DL (8.8-10.2); CREATININE FOR GFR 1.64 MG/DL (0.70-1.30); GLOMERULAR FILTRATION RATE 43.6 (>42); POTASSIUM SERUM 4.9 MEQ/L (3.5-5.1); TOTAL PROTEIN 6.1 GM/DL (6.4-8.2)
== END ==
LOC: M SFHCPLAZ 11:08
PROVIDERS: ATTEND Physician Assistant Medical
DX: K52.1 Toxic gastroenteritis and colitis (principal); K72.90 Hepatic failure, unspecified without coma
CPT/HCPCS: 36415; 80053; 82140; 85025; 85049; 85055; G0463

== ENCOUNTER → 2019-01-26 | Outpatient (CLI) | payer MEDICARE, OTHER ==
[2019-01-26 08:02] LABS: BASO % 0.7 % (0.0-1.0); EOS # 0.1 10^3/uL (0.0-0.5); EOS % 3.2 % (0.0-3.0); HEMATOCRIT 34.3 % (42.0-52.0); HEMOGLOBIN 11.7 g/dl (13.5-17.5); LYMPH # 0.9 10^3/uL (1.5-5.0); LYMPH % 21.3 % (24.0-44.0); MEAN CORPUSCULAR HEMOGLOBIN 38.2 pg (27.0-33.0); MEAN CORPUSCULAR HGB CONC 34.1 g/dl (32.0-36.5); MEAN CORPUSCULAR VOLUME 112.1 fl (80.0-96.0); MONO # 0.4 10^3/uL (0.0-0.8); MONO % 9.6 % (0.0-5.0); NEUTROPHILS # 2.8 10^3/uL (1.5-8.5); NEUTROPHILS % 64.7 % (36.0-66.0); PLATELET COUNT, AUTOMATED 51 10^3/uL (150-450); RED BLOOD COUNT 3.06 10^6/uL (4.30-6.10); WHITE BLOOD COUNT 4.4 10^3/uL (4.0-10.0)
[2019-01-26 08:10] LABS: INR 1.26; PROTHROMBIN TIME 15.5 SECONDS (11.8-14.0)
[2019-01-26 08:30] LABS: ALBUMIN 2.9 GM/DL (3.2-5.2); BILIRUBIN,TOTAL 2.7 MG/DL (0.2-1.0); CALCIUM LEVEL 8.6 MG/DL (8.8-10.2); CREATININE FOR GFR 1.39 MG/DL (0.70-1.30); GLOMERULAR FILTRATION RATE 52.7 (>42); POTASSIUM SERUM 4.3 MEQ/L (3.5-5.1)
--- NOTE | 2019-01-26 11:02 | REP ---
ABDOMINAL ULTRASOUND WITH DUPLEX DOPPLER EVALUATION OF THE PORTAL VASCULATURE: Real-time sonographic evaluation of the abdomen performed. Patient has had a prior cholecystectomy. There is no intrahepatic or extrahepatic biliary dilatation. Common bile duct measures 5 mm. The liver is not well seen due to the surrounding bowel. No gross liver mass is seen. Echotexture is diffusely heterogeneous. The visualized pancreas is grossly unremarkable, not optimally seen due to overlying bowel gas. Spleen is enlarged with a splenic index of 1910, measuring 14.7 x 14.6 x 8.9 cm. Kidneys are normal in size and echotexture, right kidney measuring 11.7 x 4.8 x 5.1 cm and left kidney 10.4 x 4.6 x 5.1 cm. There is no renal mass or hydronephrosis. Abdominal aorta is normal in caliber. No ascites is seen. Duplex Doppler evaluation of the portal vasculature is performed. There is normal direction of flow in the splenic vein, superior mesenteric vein and the portal vein with normal flow velocities. TIPS shunt is noted. Velocity proximally is about 5 cm/s, mid aspect 96 cm/s and distally 222.5 cm/s, decreasing to the 4.7 cm/s, varying with respiration. There is no duplex Doppler sonographic evidence of TIPS shunt stenosis. The intrahepatic portal vein branches are not visualized. Peak systolic velocity in the main hepatic arteries are 120 cm/s. Right hepatic vein could not be visualized. Middle and left hepatic veins are patent with no thrombus, with somewhat dampened phasicity. IMPRESSION: Status post cholecystectomy. No biliary dilatation or free fluid. Limited visualization of heterogeneous liver due to overlying bowel. Splenomegaly. Normal direction of flow in the portal vasculature with no evidence of TIPS shunt stenosis. Electronically Signed by Jesus Alberto Stokes MD 01/26/2019 02:06 P
== END ==
LOC: M LAB 07:29
PROVIDERS: ATTEND Internal Medicine Gastroenterology
DX: R16.1 Splenomegaly, not elsewhere classified (principal); K76.6 Portal hypertension; K74.60 Unspecified cirrhosis of liver
CPT/HCPCS: 36415; 76700; 80053; 82105; 85025; 85049; 85055; 85610; 93975; G0463

== ENCOUNTER → 2019-02-14 | Outpatient (CLI) | payer MEDICARE, OTHER ==
[2019-02-14 13:03] LABS: CREATININE FOR GFR 1.56 MG/DL (0.70-1.30); GLOMERULAR FILTRATION RATE 46.2 (>42)
== END ==
LOC: M LAB 11:46
PROVIDERS: ATTEND Internal Medicine Gastroenterology
DX: R97.8 Other abnormal tumor markers (principal); K74.60 Unspecified cirrhosis of liver; R93.2 Abnormal findings on diagnostic imaging of liver and biliary tract

== ENCOUNTER → 2019-02-17 | Outpatient (CLI) | payer MEDICARE, OTHER ==
[~2019-02-17] MED LIST changes: +GASTROGRAFIN SOLUTION 30ML (Q9963) As Ordered ONE; +ISOVUE-370 76% 100ML VIAL (Q9967) As Ordered ONE
--- NOTE | 2019-02-17 15:28 | REP ---
HISTORY: History of hepatic encephalopathy. Status post TIPS procedure. COMPARISON: Multiple, the latest prior from an outside institution dated 12/23/2018. CONTRAST: 100 mL Isovue-370 Patchy and ground glass lung base opacities are present representing a change from the prior exam, likely subsegmental atelectatic changes. There are no pleural or pericardial effusions. There is mild cardiomegaly, status quo. The precontrast enhanced portion of the examination again shows a low density lesion in the right lobe of the liver hepatic dome, unchanged in size from the prior exam and again having water density Hounsfield unit readings. In the posterior segment of the right lobe of the liver there is a tiny subcentimeter sized focal area of low density also unchanged from the prior exam and too small for precise CT characterization. There are multiple nonobstructing right nephroliths. Once is unchanged from the prior exam and one has gotten slightly larger. The nonobstructing left nephrolith seen on the prior exam is no longer present. There are no left nephroliths. Bilateral perinephric stranding is noted, status quo. The contrast enhanced portion of the examination on all three phases shows internal contrast enhancement of the aforementioned lesion seen at the hepatic dome. Arterial phase imaging shows an increase in density from 2.56 Hounsfield unit readings to 13.53 with further increase in density on the venous phase imaging where the density increases to 29.92 with 5 mm delayed imaging showing the density to decrease to 11.95. No definite septations or focal areas of enhancement are noted. Note is again made of splenomegaly and a micronodular surface to the liver along with an abnormal caudate to left lobe of the liver ratio. This is all stable. Once again, patient is status post TIPS procedure with cholecystectomy. Mild perisplenic varices are again noted. There is no change in the appearance of the pancreas or adrenal glands. There are no enhancing renal lesions. The abdominal aorta is again seen to be within normal limits. No periaortic adenopathy has developed. There is no significant change in the appearance of the bowel loops and their mesenteries. There is no free fluid or free air. There is evidence to suggest early minimal recanalization of the umbilical vein, status quo. Bone window technique throughout the exam shows no significant change in the appearance of the osseous structures. IMPRESSION: 1. Lung base findings as described above. 2. Lesion in the liver showing mild contrast enhancement as described above. Exact etiology uncertain. When an old CT of 09/09/2017 is reviewed, the lesion was only faintly visible and smaller. Followup is recommended. Consider pre- and post gadolinium enhanced hepatic MRI if the patient is MRI compatible. 3. Cirrhosis of the liver with splenomegaly and varicosities essentially unchanged. 4. Bilateral renal findings as described above without obstructive phenomenon. 5. Other findings as described above. Electronically Signed by Tony Ervin DO 02/17/2019 04:33 P
== END ==
LOC: M RAD 08:57
PROVIDERS: ATTEND Internal Medicine Gastroenterology
DX: R91.8 Other nonspecific abnormal finding of lung field (principal)
CPT/HCPCS: 74170; Q9963; Q9967

== ENCOUNTER → 2019-03-14 | Outpatient (CLI) | payer MEDICARE, OTHER ==
[~2019-03-14] MED LIST changes: -GASTROGRAFIN SOLUTION 30ML (Q9963) As Ordered ONE; -ISOVUE-370 76% 100ML VIAL (Q9967) As Ordered ONE; -OMEP40CA2 PO; +OMEP40CA97 PO
[2019-03-14 13:28] LABS: BASO % 0.6 % (0.0-1.0); EOS # 0.2 10^3/uL (0.0-0.5); EOS % 3.2 % (0.0-3.0); HEMATOCRIT 34.3 % (42.0-52.0); HEMOGLOBIN 11.7 g/dl (13.5-17.5); LYMPH # 0.9 10^3/uL (1.5-5.0); LYMPH % 19.8 % (24.0-44.0); MEAN CORPUSCULAR HEMOGLOBIN 37.5 pg (27.0-33.0); MEAN CORPUSCULAR HGB CONC 34.1 g/dl (32.0-36.5); MEAN CORPUSCULAR VOLUME 109.9 fl (80.0-96.0); MONO # 0.4 10^3/uL (0.0-0.8); MONO % 8.7 % (0.0-5.0); NEUTROPHILS # 3.1 10^3/uL (1.5-8.5); NEUTROPHILS % 67.1 % (36.0-66.0); RED BLOOD COUNT 3.12 10^6/uL (4.30-6.10); WHITE BLOOD COUNT 4.7 10^3/uL (4.0-10.0)
[2019-03-14 13:29] LABS: PLATELET COUNT, AUTOMATED 51 10^3/uL (150-450)
[2019-03-14 13:58] LABS: ALBUMIN 2.7 GM/DL (3.2-5.2); BILIRUBIN,TOTAL 3.1 MG/DL (0.2-1.0); CALCIUM LEVEL 8.4 MG/DL (8.8-10.2); CREATININE FOR GFR 1.29 MG/DL (0.70-1.30); FREE T4 1.11 NG/DL (0.76-1.46); GLOMERULAR FILTRATION RATE 57.5 (>42); MAGNESIUM LEVEL 1.6 MG/DL (1.8-2.4); POTASSIUM SERUM 4.4 MEQ/L (3.5-5.1); THYROID STIMULATING HORMONE 2.61 uIU/ML (0.358-3.740); TOTAL PROTEIN 5.9 GM/DL (6.4-8.2)
[2019-03-14 14:30] LABS: HEMOGLOBIN A1c 6.8 %
== END ==
LOC: M LAB 12:44
PROVIDERS: ATTEND Family Medicine
DX: D50.9 Iron deficiency anemia, unspecified (principal); K76.9 Liver disease, unspecified; Z79.899 Other long term (current) drug therapy

== ENCOUNTER 2019-10-26 13:44 | Emergency (ER) | payer MEDICARE, OTHER ==
[~2019-10-26] VITALS: Ht 175.3 cm; Wt 82.3 kg
[~2019-10-26 13:44] MED LIST changes: +CYAN500T10 PO; -CYAN500T9 PO; -LACT10SO29 PO; +LACT20EL PO; +OMEP1CAP73 PO; -OMEP20CA4 PO; +PANT40TA29 PO; -PANT40TA3 PO; +VITA-243 PO; -VITA500T PO
[2019-10-26] MEDS ORDERED: TAMS1CAP17 PO (14:06)
[2019-10-26 14:31] LABS: BASO % 0.4 % (0.0-1.0); EOS # 0.1 10^3/uL (0.0-0.5); EOS % 2.1 % (0.0-3.0); HEMATOCRIT 36.4 % (42.0-52.0); HEMOGLOBIN 12.4 g/dl (13.5-17.5); LYMPH # 0.8 10^3/uL (1.5-5.0); LYMPH % 16.8 % (24.0-44.0); MEAN CORPUSCULAR HGB CONC 34.1 g/dl (32.0-36.5); MEAN CORPUSCULAR VOLUME 108.7 fl (80.0-96.0); MONO # 0.4 10^3/uL (0.0-0.8); MONO % 8.1 % (0.0-5.0); NEUTROPHILS # 3.4 10^3/uL (1.5-8.5); NEUTROPHILS % 72.2 % (36.0-66.0); RED BLOOD COUNT 3.35 10^6/uL (4.30-6.10); WHITE BLOOD COUNT 4.7 10^3/uL (4.0-10.0)
[2019-10-26 14:33] LABS: PLATELET COUNT, AUTOMATED 55 10^3/uL (150-450)
[2019-10-26] MEDS ORDERED: ISOVUE-370 76% 100ML VIAL As Ordered ONE (14:45)
[2019-10-26 14:48] LABS: INR 1.31
[2019-10-26 14:58] LABS: ALBUMIN 2.7 GM/DL (3.2-5.2); BILIRUBIN,DIRECT 1.2 MG/DL (0.0-0.2); BILIRUBIN,TOTAL 3.8 MG/DL (0.2-1.0); CK-MB VALUE MASS 2.4 NG/ML (<3.6); MB/CK RELATIVE INDEX 2.7 (< OR =4); TOTAL PROTEIN 6.5 GM/DL (6.4-8.2); TROPONIN I 0.05 NG/ML (< 0.10)
--- NOTE | 2019-10-26 15:52 | REP ---
CHEST, SINGLE VIEW: Single view of the chest is performed and compared to prior studies dating back to 11/07/2018. There is cardiomegaly. Increased interstitial densities bilaterally appear essentially stable with no new infiltrate. Findings may represent interstitial fibrosis, but some degree of interstitial edema is not excluded. Mediastinal silhouette is unchanged. There is calcification of the thoracic aorta. Left dual-lead pacemaker is again noted, unchanged. IMPRESSION: Stable chronic findings. Electronically Signed by Jesus Alberto Stokes MD 10/31/2019 06:12 P
--- NOTE | 2019-10-26 16:17 | REP ---
CT ANGIOGRAM CHEST: TECHNIQUE: Axial contrast-enhanced images from the thoracic inlet to the upper abdomen using 100 mL Isovue-370 intravenous contrast material with multiplanar reformations. There is no CT evidence of thoracic aortic aneurysm or dissection. Ascending thoracic aorta is ectatic measuring 4 cm in AP dimension. There is mild atherosclerotic calcification. There is mild cardiomegaly. No gross pulmonary embolism is seen. There is no evidence of mediastinal, hilar, or chest wall lymphadenopathy. There is no pleural or pericardial effusion. There is diffuse moderate interstitial fibrosis in the lungs. A mass at the right dome of the liver measures 2.9 cm in maximum AP dimension. On the prior study, 02/17/2019, it measured 2.3 cm and therefore has mildly enlarged. There is a cirrhotic appearance to the liver. There is a TIPS shunt. The patient has had a prior cholecystectomy. There is splenomegaly. There is a punctate left renal calculus in the upper pole of the left kidney. There are degenerative changes of the spine. There is an old compression deformity of T12, unchanged. IMPRESSION: No CT evidence of thoracic aneurysm or dissection. No pulmonary embolism. Moderate interstitial fibrosis in the lungs. There are again findings of cirrhosis and splenomegaly. A mass at the right dome of the liver has mildly increased in size. Malignant lesion cannot be excluded. Electronically Signed by Jesus Alberto Stokes MD 10/31/2019 06:15 P
--- NOTE | 2019-10-26 17:14 | REP ---
REASON: Assess common bile duct. COMPARISON: 01/26/2019 This patient is status post cholecystectomy. The common bile duct measures 4 mm in its greatest transverse dimension. There are multiple hyperechoic lesions seen in the liver. All three are in the right lobe with the largest measuring 2.4 cm. These were not imaged on the prior exam, likely due to poor scanning parameters. There is no intrahepatic ductal dilatation. The pancreas could not be assessed due to the patient's intestinal gas pattern. Imaged portion of the right kidney is unremarkable. The TIPS appeared patent by color Doppler imaging. The technologist has made note on the worksheet that scanning windows were limited. IMPRESSION: Limited examination shows no evidence of ductal dilatation. The multiple echogenic areas seen in the liver likely represent hemangiomas, however, pre- and post contrast enhanced CT is recommended for complete evaluation. Color Doppler shows a patent TIPS. Electronically Signed by Tony Ervin DO 10/27/2019 09:21 A
[2019-10-26] MEDS ORDERED: MORPHINE 2 MG/ML 1ML VIAL (J2270) IV ONE (17:15)
[2019-10-26 19:08] LABS: CK-MB VALUE MASS 2.5 NG/ML (<3.6); MB/CK RELATIVE INDEX 3.33 (< OR =4); TROPONIN I 0.06 NG/ML (< 0.10)
[2019-10-26 19:30] VITALS: BP 136/66
[2019-10-26] MEDS ORDERED: NORC1TAB7 PO (19:38)
--- NOTE | 2019-10-26 21:35 | ECGEPIP ---
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
--- NOTE | 2019-10-26 21:38 | ECGEPIP ---
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
--- NOTE | 2019-10-28 07:04 | ED PDOC ---
Post-Departure Follow-Up dr oviedo faxed liver us for fu Christiano Hunter MD Oct 28, 2019 07:04
== END 2019-10-26 20:22 | disposition home or self-care (01) ==
LOC: M ED 13:44
DX: M54.6 Pain in thoracic spine (principal); G89.29 Other chronic pain; R06.02 Shortness of breath; I13.0 Hypertensive heart and chronic kidney disease with heart failure and stage 1 through stage 4 chronic kidney disease, or unspecified chronic kidney disease; I50.9 Heart failure, unspecified; E78.5 Hyperlipidemia, unspecified; E11.22 Type 2 diabetes mellitus with diabetic chronic kidney disease; K21.9 Gastro-esophageal reflux disease without esophagitis; I25.2 Old myocardial infarction; N18.3 Chronic kidney disease, stage 3 (moderate); N40.0 Benign prostatic hyperplasia without lower urinary tract symptoms; Z95.0 Presence of cardiac pacemaker; Z87.891 Personal history of nicotine dependence; Z88.8 Allergy status to other drugs, medicaments and biological substances; Z79.899 Other long term (current) drug therapy; Z79.4 Long term (current) use of insulin; Z79.2 Long term (current) use of antibiotics
CPT/HCPCS: 71045; 71275; 76705; 80047; 80076; 82550; 82553; 83690; 83880; 84484; 85025; 85049; 85055; 85610; 93005; 93041; 94760; 96374; 99285; J2270; Q9967

== ENCOUNTER 2019-10-31 12:45 | Inpatient (IN) | payer MEDICARE, OTHER ==
[~2019-10-31] VITALS: Ht 172.7 cm; Wt 84.0 kg
[~2019-10-31 12:45] MED LIST changes: -CYAN500T10 PO; -MAG400TA PO; +MAGN400T35 PO; +NORC1TAB7 PO; +TAMS1CAP17 PO; +VITA500T37 PO
[2019-10-31] MEDS ORDERED: HYDR-4571 PO (12:58)
[2019-10-31 13:24] LABS: BASO % 0.6 % (0.0-1.0); EOS # 0.1 10^3/uL (0.0-0.5); EOS % 1.6 % (0.0-3.0); HEMATOCRIT 36.3 % (42.0-52.0); HEMOGLOBIN 12.4 g/dl (13.5-17.5); LYMPH # 0.7 10^3/uL (1.5-5.0); MEAN CORPUSCULAR HEMOGLOBIN 37.3 pg (27.0-33.0); MEAN CORPUSCULAR HGB CONC 34.2 g/dl (32.0-36.5); MEAN CORPUSCULAR VOLUME 109.3 fl (80.0-96.0); MONO # 0.4 10^3/uL (0.0-0.8); NEUTROPHILS # 3.9 10^3/uL (1.5-8.5); NEUTROPHILS % 76.2 % (36.0-66.0); RED BLOOD COUNT 3.32 10^6/uL (4.30-6.10); WHITE BLOOD COUNT 5.1 10^3/uL (4.0-10.0)
[2019-10-31 13:26] LABS: PLATELET COUNT, AUTOMATED 66 10^3/uL (150-450)
[2019-10-31] MEDS ORDERED: ISOVUE-370 76% 100ML VIAL As Ordered ONE (13:30)
[2019-10-31 13:33] LABS: INR 1.34; PROTHROMBIN TIME 16.3 SECONDS (11.8-14.0)
[2019-10-31 13:34] LABS: PARTIAL THROMBOPLASTIN TIME 36.5 SECONDS (25.0-38.4)
[2019-10-31 13:56] LABS: ALBUMIN 2.8 GM/DL (3.2-5.2); BILIRUBIN,DIRECT 1.2 MG/DL (0.0-0.2); BILIRUBIN,TOTAL 3.4 MG/DL (0.2-1.0); C REACTIVE PROTEIN QUANTITATIV 0.9 MG/DL (0.00-0.30); FREE T4 1.13 NG/DL (0.76-1.46); THYROID STIMULATING HORMONE 3.69 uIU/ML (0.358-3.740); TOTAL PROTEIN 6.5 GM/DL (6.4-8.2)
--- NOTE | 2019-10-31 14:15 | REP ---
SITTING AP VIEW OF THE CHEST: SINGLE VIEW. HISTORY: Chest pain. Comparison chest x-ray: October 26, 2019 FINDINGS: Monitoring electrodes overlie the chest. A bipolar pacemaker is seen in the enlarged heart, unchanged. Today's view is exposed at a somewhat lesser level of inspiration. There are increased markings in right upper lobe and I cannot exclude a right upper lobe infiltrate. Pleural angles are sharp. No acute bony abnormality. IMPRESSION: Increased parenchymal markings right upper lobe question infiltrate. Relatively low level of inspiration. Cardiomegaly with pacemaker. Electronically Signed by Marcial Meade MD 11/01/2019 08:08 A
[2019-10-31 14:16] LABS: ERYTHROCYTE SEDIMENTATION RATE 25 mm/hr (0-20)
--- NOTE | 2019-10-31 14:18 | REP ---
CT PULMONARY ANGIOGRAM: WITH IV CONTRAST. HISTORY: Chest and abdomen pain. Uncontrolled hypertension. Comparison study, October 26, 2019. CONTRAST DOSE: 100 mL of Isovue [address] TECHNIQUE: Helical scanning is acquired and overlapping 1.5 mm and contiguous 3 mm axial images are reformatted. In addition, maximum intensity projection and multiplanar re-formation images are generated in sagittal and coronal imaging projections. CT PULMONARY ANGIOGRAPHIC FINDINGS: There is no evidence of aortic aneurysm or dissection. There is good opacification of the aortic lumen and the pulmonary arterial tree. No filling defect or vessel cutoff is seen in the pulmonary arterial tree to suggest pulmonary embolism. Maximum intensity projection images show no additional pulmonary arterial finding. There is four-chamber cardiac enlargement and a pacemaker is noted. A TIPS shunt is visible in the liver. There is some vascular calcification. No pleural or pericardial effusion is evident. IMPRESSION: No CT evidence of pulmonary embolus or thoracic aneurysm or dissection. Cardiomegaly with pacemaker. No significant change from the study done 5 days ago. Electronically Signed by Marcial Meade MD 11/01/2019 08:08 A
--- NOTE | 2019-10-31 14:28 | REP ---
CT ANGIOGRAPHY OF THE ABDOMEN AND PELVIS WITH IV CONTRAST: HISTORY: Chest and abdominal pain. Uncontrolled hypertension. Comparison CT study, February 17, 2019. CT CONTRAST DOSE: 100 mL of intravenous Isovue 370. CT FINDINGS: Preliminary digital athletic scout radiograph demonstrates several loops of air-filled small bowel in the central abdomen, question ileus. There is evidence of hepatic cirrhosis. A TIPS shunt catheter is seen. There is a low-density lesion in the right lobe of the liver measuring 3.0 cm in diameter, unchanged from the comparison study, February 17, 2019. No other liver lesion is seen. No adrenal lesion is observed. The spleen is enlarged measuring up to 15.9 cm. There are some venous collaterals in the left upper quadrant. There is no evidence of abdominal ascites. Small and large bowel loops show no evidence of obstruction, mass, or adenopathy. Prostate, seminal vesicles, and urinary bladder are unremarkable. No abdominal wall defect is seen. Normal caliber abdominal aorta. The main renal arteries are observed and are patent bilaterally although there are weblike stenoses at the origin of both the right renal artery and the left renal artery proximally. There is a tiny accessory upper pole renal artery on the left. Celiac and superior mesenteric artery origins appear intact. The inferior mesenteric artery is intact and patent. IMPRESSION: 1. Evidence of cirrhosis with TIPS shunt in place. Splenomegaly. Stable 3 cm hypodense liver lesion. 2. Evidence of bilateral renal artery stenosis, high-grade on the left, moderate on the right. Tiny accessory upper pole renal artery on the left. 3. No acute abdominal or pelvic abnormality seen. Question mild ileus pattern. Electronically Signed by Marcial Meade MD 11/01/2019 08:08 A
[2019-10-31] MEDS ORDERED: D31000TA2 PO (14:47)
[2019-10-31] MEDS ORDERED: MILK500C PO (14:47)
[2019-10-31] MEDS ORDERED: TRAV04OPD OU (14:47)
[2019-10-31] MEDS ORDERED: SM M250T PO (14:47)
[2019-10-31] MEDS ORDERED: NS 500 ML IV ONE (15:00)
[2019-10-31] MEDS ORDERED: LACTULOSE 20 GM/30 ML SYRUP UD PO ONE (15:00)
[2019-10-31] MEDS ORDERED: GLUCOSE 4GM CHEW TABLET PO PRN (16:15)
[2019-10-31] MEDS ORDERED: DEXTROSE 50% 50 ML SYRINGE IV PRN (16:15)
[2019-10-31] MEDS ORDERED: GLUCAGON INJ 1MG VIAL SC PRN (16:15)
[2019-10-31] MEDS ORDERED: PILL CUTTER 1 EACH XX PRN (16:45)
[2019-10-31] MEDS ORDERED: cefTRIAXone SOD 1 GM in D5W MINI-BAG PLUS 50 ML IV SCH (17:00)
[2019-10-31] MEDS: HumaLOG INSULIN (NovoLOG) PER UNIT SC SCH ×2 (17:30→21:00)
[2019-10-31 18:50] VITALS: BP 139/84
[2019-10-31] MEDS: LACTULOSE 20 GM/30 ML SYRUP UD PO SCH ×2 (19:33→23:50)
[2019-10-31] MEDS: metroNIDAZOLE 500 MG in IV 1 EA IV SCH (19:34)
[2019-10-31] MEDS: NORCO, ANEXSIA 5/325MG TABLET (HYDROcodone/ACETAMINOPHEN) PO PRN (19:35)
--- NOTE | 2019-10-31 20:56 | HPEPDOC ---
[facility] Medical History & Physical Date of Admission Oct 31, 2019 Date of Service: Oct 31, 2019 Primary Care Physician: Cedrick King M.D. Attending Physician: YANIQUE HUNG MD History and Physical CHIEF COMPLAINT: Altered Mental Status HISTORY OF PRESENT ILLNESS: Patient is a 78 year old male who presented to the [facility] ER with complaint of chest discomfort and abdominal. Additionally noted to have altered mental status per the patients . In the ED the patient appears slightly confused. He now denies chest pain. He states that he has some abdominal pain. He denies nausea, vomiting, diarrhea or constipation. He denies chills or fevers. He denies cough. In the ER he was hypertensive. He was afebrile but tachycardic. There was no leukocytosis. Ammonia level was elevated at 84. Hospitalist service was consulted and the patient was admitted for further evaluation and management PAST MEDICAL HISTORY: 1. Hypertension 2. Diabetes Mellitus Type 2 3. Liver Cirrhosis s/p TIPS procedure 4. Complete Heart Block s/p Pacemaker placement 5. CKD Stage III PAST SURGICAL HISTORY: 1. Hernia repair 2. Cholecystectomy 3. TIPS procedure 4. Pacemaker Placement SOCIAL HISTORY: Patient lives at home with . He denies alcohol use, smoking or iv illicit drug use FAMILY HISTORY: Patients mother has diabetes mellitus type 2. His siblings have CAD and PVD ALLERGIES: Please see below. REVIEW OF SYSTEMS: CONSTITUTIONAL: Denies fevers, chills, unintentional weightloss or weight gain HEENT: Denies dysphagia. Denies changes in vision. Denies pain on swallowing CARDIOVASCULAR: Denies chest pain, palpitations or feelings of the heart racing RESPIRATORY: Denies shortness of breath. Denies cough GASTROINTESTINAL: Admits to mild abdominal pain. Denies diarrhea or constipation. Admits to loose stools. Denies blood in stool or dark tarry stool GENITOURINARY: Denies dysuria. Denies increased frequency. SKIN: Denies rashes or lesion MUSCULOSKELETAL: Denies muscle weakness . NEUROLOGICAL: Denies changes in gait or speech. PSYCHIATRIC: Denies depression or anxiety ENDOCRINE: Admits to diabetes. HEMATOLOGIC/LYMPHATIC: Admits to easy bruising. Denies easy bleeding. Denies history of DVT or PE HOME MEDICATIONS: Please see below. PHYSICAL EXAMINATION: VITAL SIGNS: Temperature 97.9, pulse 108, respiratory rate 16, blood pressure 134/84, pulse oximetry 97% on room air. GENERAL APPEARANCE: Awake and alert. Oriented to person and place not time. Appears in no acute distress HEENT:Atraumatic, normocephalic. Eyes are nonicteric. Trachea is midline. Mucous membranes are pink and moist CARDIOVASCULAR: Normals S1, S2. Tachycardic rate. Regular rhythm. No clicks, rubs or murmurs LUNGS: Clear vesicular breath sounds bilaterally. Good respiratory effort. No wheezes, rhonchi, or rales ABDOMEN: Soft. Slightly distended. No abdominal bruising or dilated abdominal veins. Normoactive bowel sounds. Mild diffuse tenderness. No rebound tenderness or guarding EXTREMITIES: 2+ pitting edema in bilateral lower extremities. Full and equal pulses in bilateral upper and lower extremities NEUROLOGICAL: No focal neurological deficits. Patient does appear confused PSYCHIATRIC: Mood and affect appear appropriate LABORATORY DATA: See below. IMAGING: SITTING AP VIEW OF THE CHEST: SINGLE VIEW. HISTORY: Chest pain. Comparison chest x-ray: October 26, 2019 FINDINGS: Monitoring electrodes overlie the chest. A bipolar pacemaker is seen in the enlarged heart, unchanged. Today's view is exposed at a somewhat lesser level of inspiration. There are increased markings in right upper lobe and I cannot exclude a right upper lobe infiltrate. Pleural angles are sharp. No acute bony abnormality. IMPRESSION: Increased parenchymal markings right upper lobe question infiltrate. Relatively low level of inspiration. Cardiomegaly with pacemaker. CT ANGIOGRAPHY OF THE ABDOMEN AND PELVIS WITH IV CONTRAST: HISTORY: Chest and abdominal pain. Uncontrolled hypertension. Comparison CT study, February 17, 2019. CT CONTRAST DOSE: 100 mL of intravenous Isovue 370. CT FINDINGS: Preliminary digital manager wholesale radiograph demonstrates several loops of air-filled small bowel in the central abdomen, question ileus. There is evidence of hepatic cirrhosis. A TIPS shunt catheter is seen. There is a low-density lesion in the right lobe of the liver measuring 3.0 cm in diameter, unchanged from the comparison study, February 17, 2019. No other liver lesion is seen. No adrenal lesion is observed. The spleen is enlarged measuring up to 15.9 cm. There are some venous collaterals in the left upper quadrant. There is no evidence of abdominal ascites. Small and large bowel loops show no evidence of obstruction, mass, or adenopathy. Prostate, seminal vesicles, and urinary bladder are unremarkable. No abdominal wall defect is seen. Normal caliber abdominal aorta. The main renal arteries are observed and are patent bilaterally although there are weblike stenoses at the origin of both the right renal artery and the left renal artery proximally. There is a tiny accessory upper pole renal artery on the left. Celiac and superior mesenteric artery origins appear intact. The inferior mesenteric artery is intact and patent. IMPRESSION: 1. Evidence of cirrhosis with TIPS shunt in place. Splenomegaly. Stable 3 cm hypodense liver lesion. 2. Evidence of bilateral renal artery stenosis, high-grade on the left, moderate on the right. Tiny accessory upper pole renal artery on the left. 3. No acute abdominal or pelvic abnormality seen. Question mild ileus pattern. CT PULMONARY ANGIOGRAM: WITH IV CONTRAST. HISTORY: Chest and abdomen pain. Uncontrolled hypertension. Comparison study, October 26, 2019. CONTRAST DOSE: 100 mL of Isovue [address] TECHNIQUE: Helical scanning is acquired and overlapping 1.5 mm and contiguous 3 mm axial images are reformatted. In addition, maximum intensity projection and multiplanar re-formation images are generated in sagittal and coronal imaging projections. CT PULMONARY ANGIOGRAPHIC FINDINGS: There is no evidence of aortic aneurysm or dissection. There is good opacification of the aortic lumen and the pulmonary arterial tree. No filling defect or vessel cutoff is seen in the pulmonary arterial tree to suggest pulmonary embolism. Maximum intensity projection images show no additional pulmonary arterial finding. There is four-chamber cardiac enlargement and a pacemaker is noted. A TIPS shunt is visible in the liver. There is some vascular calcification. No pleural or pericardial effusion is evident. IMPRESSION: No CT evidence of pulmonary embolus or thoracic aneurysm or dissection. Cardiomegaly with pacemaker. No significant change from the study done 5 days ago. Unreviewed MICROBIOLOGY: Please see below. ASSESSMENT: Patient is a 78 year old male who presented to the [facility] ER with altered mental status and vague abdominal pain . PLAN: 1. 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 Ammonia level is elevated at 84. From previous recorded his baseline appears close to 50. It was reported that the patient may have been noncompliant with medications. He does not have an elevated white blood cell count and he has been afebrile. Imaging has been n egative for any acute pathology. He has had a TIPS procedure and does not appear to have ascites. -Rocephin for SBP prophylaxis -Liver ultrasound and doppler -If ascites is present will need paracentesis to r/o SBP -Lactulose 30mg po titrate for 3-4 bowel movements -Rifaximin -repeat Ammonia level in AM -Falgyl IV given abdominal pain 2. Decompensated Liver Cirrhosis -Possibly due to intra-abdominal infection or medication noncompliance. Patient is receiving Rocephin and Flagyl for empiric coverage -Continue Spironolactone -Continue protonix 3. DMII -Sliding scale insulin coverage ACHS 4. Hypertension -Currently normotensive. His only BP medication from home is Spironolactone. His normotensive state is likely secondary to longstanding liver cirrhosis -Will continue to monitor 5. DVT Prophylaxis -Mechanical Vital Signs Vital Signs Date Time Temp Pulse Resp B/P (MAP) Pulse Ox O2 Delivery O2 Flow Rate FiO2 10/31/19 16:16 105 18 143/73 (96) 97 Room Air 10/31/19 12:45 98.1 Laboratory Data Labs 24H Laboratory Tests 2 10/31/19 12:59: Ammonia 84H 10/31/19 13:00: Immature Granulocyte % (Auto) 0.6, Neutrophils (%) (Auto) 76.2H, Lymphocytes (%) (Auto) 14.0L, Monocytes (%) (Auto) 7.0H, Eosinophils (%) (Auto) 1.6, Basophils (%) (Auto) 0.6, Neutrophils # (Auto) 3.9, Lymphocytes # (Auto) 0.7L, Monocytes # (Auto) 0.4, Eosinophils # (Auto) 0.1, Basophils # (Auto) 0.0, Nucleated Red Blood Cells % (auto) 0.0, Immature Platelet Fraction 4.3, Erythrocyte Sedimentation Rate 25H, Prothrombin Time 16.3H, Prothromb Time International Ratio 1.34, Activated Partial Thromboplast Time 36.5, POC Glucose (Misc Panel) 164H, POC Sodium (Misc Panel) 137, POC Potassium (Misc Panel) 4.9, POC Chloride (Misc Panel) 99, POC Total CO2 (Misc Panel) 24.0, POC Blood Urea Nitrogen (Misc Panel 18, POC Ionized Calcium (Misc Panel) 4.8, POC Creatinine (Misc Panel) 1.3, POC Hematocrit (Misc Panel) 38.0, Total Bilirubin 3.4H, Direct Bilirubin 1.2H, Aspartate Amino Transf (AST/SGOT) 56H, Alanine Aminotransferase (ALT/SGPT) 36, Alkaline Phosphatase 134H, C-Reactive Protein, Quantitative 0.90H, VG-Svo-E-Type Natriuretic Peptide 240, Total Protein 6.5, Albumin 2.8L, Albumin/Globulin Ratio 0.8, Lipase 81, Thyroid Stimulating Hormone (TSH) 3.690, Free Thyroxine 1.13 10/31/19 13:14: POC Total CO2 (Misc Panel) 24.0, POC pH (Misc Panel) 7.400, POC Base Excess (Misc Panel) -2.0, POC Saturated Percent O2 (Misc) 97, POC pO2 (Misc Panel) 96.0, POC pCO2 (Misc Panel) 37.3, POC HCO3 (Misc Panel) 23.1 CBC/BMP Laboratory Tests 10/31/19 13:00 Microbiology Microbiology 10/31/19 Blood Culture, Received Pending 10/31/19 Blood Culture, Received Pending Home Medications Scheduled Ascorbic Acid (Vitamin C) 500 Mg Tab, 500 MG PO QHS Cholecalciferol (Vitamin D3) (Vitamin D3) 1,000 Unit Tablet, 1,000 UNITS PO QHS Cyanocobalamin (Vitamin B-12) (Vitamin B-12) 500 Mcg Tablet, 500 MCG PO QHS Insulin Glargine (Lantus) 1 Units/0.01 Ml Susp, 40 UNITS SC QAM Insulin Glargine (Lantus) 1 Units/0.01 Ml Susp, 20 UNITS SC QHS Insulin Human Lispro (Humalog) 1 Units/0.01 Ml Inj, 1 DOSE SC AC PER SLIDING SCALE Lactulose (Lactulose) 10 Gm/15 Ml Solution, 45 ML PO QID Magnesium (Magnesium) 250 Mg Tablet, 250 MG PO BID Milk Thistle (Milk Thistle) 500 Mg Capsule, 500 MG PO BID Omeprazole (Omeprazole) 20 Mg Cap, 20 MG PO BID Rifaximin (Xifaxan) 550 Mg Tab, 550 MG PO BID Spironolactone (Spironolactone) 50 Mg Tab, 50 MG PO DAILY Tamsulosin Hcl (Tamsulosin HCl) 0.4 Mg Capsule, 0.4 MG PO QHS Travoprost (Travatan Z) 0.004% 2.5ML Drops, 1 DROP OU QHS Vitamin E (Vitamin E) 400 Unit Capsule, 400 UNIT PO QHS Scheduled PRN Hydrocodone/Acetaminophen (Hydrocodone-Acetamin 5-325 mg) 1 Each Tablet, 0.5 TAB PO TID PRN for PAIN TAKES 1/2 - 1 TAB Allergies Coded Allergies: lisinopril (Verified Adverse Reaction, Intermediate, HYPERKALEMIA, 11/07/18 ) A-FIB/CHADSVASC A-FIB History Current/History of A-Fib/PAF?: No GME ATTESTATION GME ATTESTATION My faculty preceptor for this patient encounter was physically present during the encounter and was fully available. All aspects of the patient interview, examination, medical decision making process, and medical care plan development were reviewed and approved by the faculty preceptor. The faculty preceptor is aware and concurs with the plan as stated in the body of this note and will attest to such by his/her cosignature. ATTENDING NOTE I, Yanique Hung, have independently examined this patient and performed my own physical exam, as well as reviewed the documentation and edited where necessary. I have discussed in detail with the resident / student the findings and plan of treatment as documented by the resident / student and edited their note. I agree with their findings and treatment plan and have edited their documentation. I will continue to follow the patient during this hospital stay. KAYLEN REYES DO Oct 31, 2019 17:45 YANIQUE HUNG MD Oct 31, 2019 21:08
[2019-10-31] MEDS: CYANOCOBALAMIN 500 MCG TAB PO SCH (21:33)
[2019-10-31] MEDS: OMEPRAZOLE 20 MG CAP PO SCH (21:33)
[2019-10-31] MEDS: TAMSULOSIN 0.4 MG CAP PO SCH (21:33)
[2019-10-31] MEDS: ASCORBIC ACID 500 MG TAB PO SCH (21:33)
[2019-10-31] MEDS: VITAMIN D 1,000 INTERNATIONAL UNITS TABLET PO SCH (21:34)
[2019-10-31] MEDS: LATANOPROST 0.005% OPHTH SOLN 2.5 ML OU SCH (21:36)
--- NOTE | 2019-10-31 21:44 | ECGEPIP ---
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
[2019-10-31 22:00] VITALS: BP 141/91
[2019-11-01] MEDS: metroNIDAZOLE 500 MG in IV 1 EA IV SCH ×3 (02:26→18:57)
[2019-11-01] MEDS: LACTULOSE 20 GM/30 ML SYRUP UD PO SCH ×3 (05:21→17:38)
[2019-11-01 06:00] VITALS: BP 129/61
[2019-11-01 06:42] LABS: BASO # 0.1 10^3/uL (0.0-0.2); BASO % 0.8 % (0.0-1.0); EOS # 0.2 10^3/uL (0.0-0.5); EOS % 2.5 % (0.0-3.0); HEMATOCRIT 32.8 % (42.0-52.0); HEMOGLOBIN 11.3 g/dl (13.5-17.5); LYMPH # 1.1 10^3/uL (1.5-5.0); LYMPH % 18.7 % (24.0-44.0); MEAN CORPUSCULAR HEMOGLOBIN 36.9 pg (27.0-33.0); MEAN CORPUSCULAR HGB CONC 34.5 g/dl (32.0-36.5); MEAN CORPUSCULAR VOLUME 107.2 fl (80.0-96.0); MONO # 0.5 10^3/uL (0.0-0.8); MONO % 8.3 % (0.0-5.0); NEUTROPHILS # 4.1 10^3/uL (1.5-8.5); NEUTROPHILS % 69.2 % (36.0-66.0); PLATELET COUNT, AUTOMATED 63 10^3/uL (150-450); RED BLOOD COUNT 3.06 10^6/uL (4.30-6.10)
[2019-11-01 07:04] LABS: ALBUMIN 2.6 GM/DL (3.2-5.2); BILIRUBIN,TOTAL 4.3 MG/DL (0.2-1.0); CALCIUM LEVEL 8.6 MG/DL (8.8-10.2); CREATININE FOR GFR 1.47 MG/DL (0.70-1.30); GLOMERULAR FILTRATION RATE 49.5 (>42); POTASSIUM SERUM 4.3 MEQ/L (3.5-5.1); TOTAL PROTEIN 5.9 GM/DL (6.4-8.2)
[2019-11-01] MEDS: HumaLOG INSULIN (NovoLOG) PER UNIT SC SCH ×4 (07:30→21:54)
[2019-11-01] MEDS: OMEPRAZOLE 20 MG CAP PO SCH (10:02)
[2019-11-01] MEDS: NORCO, ANEXSIA 5/325MG TABLET (HYDROcodone/ACETAMINOPHEN) PO PRN (10:03)
[2019-11-01] MEDS: SPIRONOLACTONE 50 MG TAB PO SCH (10:04)
--- NOTE | 2019-11-01 11:34 | REP ---
COMPLETE ABDOMINAL SONOGRAPHY WITH PORTAL VENOUS DOPPLER ASSESSMENT: HISTORY: Hepatic encephalopathy. Comparison study January 26, 2019. MORPHOLOGIC FINDINGS: The gallbladder is surgically absent. Scan quality is inhibited by a patient's limited ability cooperate with suspend breathing and immobility. Coarse liver texture is seen. There are two hyperechoic lesions in the right lobe of the liver measuring 2.4 and 1.8 cm in greatest diameter respectively. There is an equivocal isoechoic or hypoechoic area 3.2 cm in greatest diameter anteriorly in the right lobe. This is felt to correspond to the lesion visible on CT. A TIPS shunt is noted in place. The liver is not enlarged. The spleen is mildly enlarged measuring 13.8 x 13.6 x 4.5 cm. No focal splenic lesion is seen. There is no visible ascites. Renal cortical echogenicity pattern is normal and contours are smooth. Right kidney measures 9.1 x 4.3 x 4.1 cm. Left renal dimensions are 9.4 x 4.3 x 4.5 cm. PORTAL DOPPLER ASSESSMENT FINDINGS: Patent TIPS shunt is noted. Normal direction of flow is seen in the peripheral portion of the splenic vein with splenic vein velocity 22.6 cm/s. The proximal splenic vein, the proximal SMV, are not seen due to bowel gas. Hepatic artery flow could not be identified due to bowel gas. Portal venous velocity is normal at 114.7 cm/s in the TIPS shunt. IMPRESSION: Limited study. Three lesions in the liver as above. Patent TIPS shunt. No evidence of ascites. Electronically Signed by Marcial Meade MD 11/01/2019 05:13 P
[2019-11-01] MEDS ORDERED: MORPHINE 2 MG/ML 1ML VIAL (J2270) IV PRN (12:15)
[2019-11-01] MEDS: cefTRIAXone SOD 2 GM in D5W MINI-BAG PLUS 50 ML IV SCH (13:46)
[2019-11-01 14:00] VITALS: BP 106/62
[2019-11-01 17:25] LABS: APPEARANCE, URINE CLEAR (CLEAR); BACTERIA, URINE AUTO NEGATIVE (NEGATIVE); BILIRUBIN, URINE AUTO NEGATIVE (NEGATIVE); BLOOD, URINE BLOOD NEGATIVE (NEGATIVE); COLOR, URINE YELLOW (YELLOW); GLUCOSE, URINE (UA) AUTO 3+ mg/dL (NEGATIVE); KETONE, URINE AUTO NEGATIVE (NEGATIVE); LEUKOCYTE ESTERASE, URINE AUTO NEGATIVE (NEGATIVE); MUCUS, URINE SMALL (NEGATIVE); NITRITE, URINE AUTO NEGATIVE (NEGATIVE); PROTEIN, URINE AUTO NEGATIVE (NEGATIVE); RBC, URINE AUTO 2 /HPF (0-3); SPECIFIC GRAVITY URINE AUTO 1.018 (1.002-1.035); SQUAMOUS EPITHELIAL CELL UR AU 1 /HPF (0-6); UROBILINOGEN, URINE AUTO 0.2 mg/dL (0.0-2.0); WBC, URINE AUTO 0 /HPF (0-3)
--- NOTE | 2019-11-01 18:57 | IPNPDOC ---
Date Seen The patient was seen on 11/01/19. Progress Note SUBJECTIVE: Patient was seen and examined this morning. He continues to have intermittent confusion. He does continue to complain of abdominal pain. His ammonia level has come down with lactulose. He has stated that he is not having bowel movement however it has been reported that he has. He had a liver ultrasound completed which revealed no ascites. He has remained afebrile. He does not have a leukocytosis. There has otherwise been no adverse events reported overnight OBJECTIVE PHYSICAL EXAMINATION: VITAL SIGNS: Please see below. GENERAL APPEARANCE: Awake and alert. Oriented to person and place not time. Appears in no acute distress HEENT:Atraumatic, normocephalic. Eyes are nonicteric. Trachea is midline. Mucous membranes are pink and moist CARDIOVASCULAR: Normals S1, S2. Regular rate. Regular rhythm. No clicks, rubs or murmurs LUNGS: Clear vesicular breath sounds bilaterally. Good respiratory effort. No wheezes, rhonchi, or rales ABDOMEN: Soft. Slightly distended. No abdominal bruising or dilated abdominal veins. Normoactive bowel sounds. Mild diffuse tenderness. No rebound tenderness or guarding EXTREMITIES: 2+ pitting edema in bilateral lower extremities. Full and equal pulses in bilateral upper and lower extremities NEUROLOGICAL: No focal neurological deficits. Patient does appear confused PSYCHIATRIC: Mood and affect appear appropriate LABORATORY DATA, IMAGING STUDIES, MICROBIOLOGY: Please see below. DVT prophylaxis ordered?: Mechanical ASSESSMENT AND PLAN: ASSESSMENT: Patient is a 78 year old male who presented to the [facility] ER with altered mental status and vague abdominal pain . PLAN: 1. 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 Ammonia level was elevated at 84. From previous recorded his baseline appears close to 50. It was reported that the patient may have been noncompliant with medications although this remains unclear. This morning his ammonia level has come down to 48. He does still continue to have confusion. He does not have a leukocytosis. He has remained afebrile. Liver ultrasound does not demonstrate ascites. -Patient is on empiric intra-abodminal antibiotics with Rocephin and Flagyl -Liver ultrasound no ascites -Lactulose 30mg po titrate for 3-4 bowel movements -Rifaximin -Procalcitonin pending -Urinalysis negative 2. Decompensated Liver Cirrhosis -Possibly due to intra-abdominal infection or medication noncompliance. Patient is receiving Rocephin and Flagyl for empiric coverage -Continue Spironolactone -Continue protonix -No sign of portal vein thrombosis on CT angiography 3. DMII -Sliding scale insulin coverage ACHS 4. Hypertension -Currently normotensive. His only BP medication from home is Spironolactone. His normotensive state is likely secondary to longstanding liver cirrhosis -Will continue to monitor 5. DVT Prophylaxis -Mechanical VS, I&O, 24H, Fishbone Vital Signs/I&O Vital Signs Date Time Temp Pulse Resp B/P (MAP) Pulse Ox O2 Delivery O2 Flow Rate FiO2 11/01/19 14:00 97.2 60 18 106/62 (77) 98 Room Air I&O- Last 24 Hours up to 6 AM 11/01/19 06:00 Intake Total 250 ml Output Total 450 ml Balance -200 ml Laboratory Data 24H LABS Laboratory Tests 2 10/31/19 18:53: Bedside Glucose (Misc Panel) 153H 10/31/19 19:23: Lactic Acid Level 1.9 11/01/19 06:00: 11/01/19 06:24: Immature Granulocyte % (Auto) 0.5, Neutrophils (%) (Auto) 69.2H, Lymphocytes (%) (Auto) 18.7L, Monocytes (%) (Auto) 8.3H, Eosinophils (%) (Auto) 2.5, Basophils (%) (Auto) 0.8, Neutrophils # (Auto) 4.1, Lymphocytes # (Auto) 1.1L, Monocytes # (Auto) 0.5, Eosinophils # (Auto) 0.2, Basophils # (Auto) 0.1, Nucleated Red Blood Cells % (auto) 0.0, Anion Gap 5L, Glomerular Filtration Rate 49.5, Calcium Level 8.6L, Total Bilirubin 4.3H, Aspartate Amino Transf (AST/SGOT) 47H, Alanine Aminotransferase (ALT/SGPT) 28, Alkaline Phosphatase 118H, Ammonia 48H, Total Protein 5.9L, Albumin 2.6L, Albumin/Globulin Ratio 0.8 11/01/19 11:54: Bedside Glucose (Misc Panel) 178H 11/01/19 16:34: Bedside Glucose (Misc Panel) 404H 11/01/19 16:49: Urine Color YELLOW, Urine Appearance CLEAR, Urine pH 5.0, Urine Specific [place] 1.018, Urine Protein NEGATIVE, Urine Glucose (Auto)(UA) 3+H, Urine Ketones (Auto) NEGATIVE, Urine Blood NEGATIVE, Urine Nitrite NEGATIVE, Urine Bilirubin NEGATIVE, Urine Urobilinogen 0.2, Urine Leukocyte Esterase (Auto) NEGATIVE, Urine WBC (Auto) 0, Urine RBC (Auto) 2, Urine Hyaline Casts (Auto) 0, Urine Bacteria (Auto) NEGATIVE, Urine Squamous Epithelial Cells 1, Urine Mucus (Auto) SMALL, Urine Sperm (Auto) CBC/BMP Laboratory Tests 11/01/19 06:24 Microbiology Microbiology 10/31/19 Blood Culture - Preliminary, Resulted No growth after 24 hours . All specim... 10/31/19 Blood Culture - Preliminary, Resulted No growth after 24 hours . All specim... GME ATTESTATION GME ATTESTATION My faculty preceptor for this patient encounter was physically present during e encounter and was fully available. All aspects of the patient interview, examination, medical decision making process, and medical care plan development were reviewed and approved by the faculty preceptor. The faculty preceptor is aware and concurs with the plan as stated in the body of this note and will attest to such by his/her cosignature. ATTENDING NOTE PT WAS SEEN AND EXAMINED BY ME, AGREE WITH THE ABOVE ASSESSMENT AND PLAN. KAYLEN REYES DO Nov 01, 2019 18:57 SOFIA JOHNSON MD Nov 03, 2019 14:20
[2019-11-01] MEDS: CYANOCOBALAMIN 500 MCG TAB PO SCH (21:54)
[2019-11-01] MEDS: PANTOPRAZOLE 40MG VIAL (C9113 PER 1) IV SCH (21:54)
[2019-11-01] MEDS: TAMSULOSIN 0.4 MG CAP PO SCH (21:54)
[2019-11-01] MEDS: ASCORBIC ACID 500 MG TAB PO SCH (21:54)
[2019-11-01] MEDS: VITAMIN D 1,000 INTERNATIONAL UNITS TABLET PO SCH (21:55)
[2019-11-01] MEDS: LATANOPROST 0.005% OPHTH SOLN 2.5 ML OU SCH (21:56)
[2019-11-01 22:00] VITALS: BP 104/63
[2019-11-01 23:33] LABS: MAGNESIUM LEVEL 1.5 MG/DL (1.8-2.4); PHOSPHORUS LEVEL 2.8 MG/DL (2.5-4.9)
[2019-11-02] MEDS: MAG SULF 1GM/100ML (MAG RUN) 1 GM in IV 1 EA IV SCH ×3 (00:23→02:46)
[2019-11-02] MEDS: LACTULOSE 20 GM/30 ML SYRUP UD PO SCH ×4 (00:23→18:00)
[2019-11-02] MEDS: metroNIDAZOLE 500 MG in IV 1 EA IV SCH ×3 (03:56→18:06)
[2019-11-02 06:00] VITALS: BP 118/64
[2019-11-02 06:34] LABS: BASO # 0.1 10^3/uL (0.0-0.2); BASO % 1.1 % (0.0-1.0); EOS # 0.1 10^3/uL (0.0-0.5); EOS % 2.4 % (0.0-3.0); HEMATOCRIT 32.1 % (42.0-52.0); HEMOGLOBIN 11.1 g/dl (13.5-17.5); LYMPH # 1.2 10^3/uL (1.5-5.0); LYMPH % 21.1 % (24.0-44.0); MEAN CORPUSCULAR HEMOGLOBIN 37.2 pg (27.0-33.0); MEAN CORPUSCULAR HGB CONC 34.6 g/dl (32.0-36.5); MEAN CORPUSCULAR VOLUME 107.7 fl (80.0-96.0); MONO # 0.6 10^3/uL (0.0-0.8); MONO % 10.3 % (0.0-5.0); NEUTROPHILS # 3.5 10^3/uL (1.5-8.5); NEUTROPHILS % 64.7 % (36.0-66.0); RED BLOOD COUNT 2.98 10^6/uL (4.30-6.10); WHITE BLOOD COUNT 5.5 10^3/uL (4.0-10.0)
[2019-11-02 06:40] LABS: PLATELET COUNT, AUTOMATED 60 10^3/uL (150-450)
[2019-11-02 06:56] LABS: ALBUMIN 2.4 GM/DL (3.2-5.2); BILIRUBIN,TOTAL 2.3 MG/DL (0.2-1.0); CALCIUM LEVEL 8.6 MG/DL (8.8-10.2); CREATININE FOR GFR 1.55 MG/DL (0.70-1.30); GLOMERULAR FILTRATION RATE 46.5 (>42); POTASSIUM SERUM 4.3 MEQ/L (3.5-5.1); TOTAL PROTEIN 5.9 GM/DL (6.4-8.2)
[2019-11-02] MEDS: SPIRONOLACTONE 50 MG TAB PO SCH (08:50)
[2019-11-02] MEDS: HumaLOG INSULIN (NovoLOG) PER UNIT SC SCH ×4 (08:50→22:02)
[2019-11-02] MEDS: PANTOPRAZOLE 40MG VIAL (C9113 PER 1) IV SCH ×2 (08:50→22:04)
[2019-11-02 09:55] LABS: MAGNESIUM LEVEL 2.2 MG/DL (1.8-2.4)
[2019-11-02] MEDS: cefTRIAXone SOD 2 GM in D5W MINI-BAG PLUS 50 ML IV SCH (12:52)
[2019-11-02 14:00] VITALS: BP 130/60
[2019-11-02 22:00] VITALS: BP 124/66
[2019-11-02] MEDS: LATANOPROST 0.005% OPHTH SOLN 2.5 ML OU SCH (22:00)
[2019-11-02] MEDS: ASCORBIC ACID 500 MG TAB PO SCH (22:02)
[2019-11-02] MEDS: TAMSULOSIN 0.4 MG CAP PO SCH (22:02)
[2019-11-02] MEDS: CYANOCOBALAMIN 500 MCG TAB PO SCH (22:03)
[2019-11-02] MEDS: VITAMIN D 1,000 INTERNATIONAL UNITS TABLET PO SCH (22:03)
[2019-11-03] MEDS: LACTULOSE 20 GM/30 ML SYRUP UD PO SCH ×3 (00:58→12:00)
[2019-11-03] MEDS: metroNIDAZOLE 500 MG in IV 1 EA IV SCH ×2 (04:00→09:51)
[2019-11-03 06:00] VITALS: BP 121/65
[2019-11-03 06:14] LABS: BASO % 0.5 % (0.0-1.0); EOS # 0.1 10^3/uL (0.0-0.5); EOS % 1.7 % (0.0-3.0); HEMATOCRIT 29.7 % (42.0-52.0); HEMOGLOBIN 10.2 g/dl (13.5-17.5); LYMPH # 0.7 10^3/uL (1.5-5.0); LYMPH % 18.4 % (24.0-44.0); MEAN CORPUSCULAR HEMOGLOBIN 37.1 pg (27.0-33.0); MEAN CORPUSCULAR HGB CONC 34.3 g/dl (32.0-36.5); MONO # 0.4 10^3/uL (0.0-0.8); MONO % 10.9 % (0.0-5.0); NEUTROPHILS # 2.7 10^3/uL (1.5-8.5); RED BLOOD COUNT 2.75 10^6/uL (4.30-6.10)
[2019-11-03 06:15] LABS: PLATELET COUNT, AUTOMATED 47 10^3/uL (150-450)
[2019-11-03 06:42] LABS: ALBUMIN 2.3 GM/DL (3.2-5.2); BILIRUBIN,TOTAL 1.7 MG/DL (0.2-1.0); CALCIUM LEVEL 8.2 MG/DL (8.8-10.2); CREATININE FOR GFR 1.43 MG/DL (0.70-1.30); POTASSIUM SERUM 4.5 MEQ/L (3.5-5.1); TOTAL PROTEIN 5.5 GM/DL (6.4-8.2)
--- NOTE | 2019-11-03 07:15 | IPN ---
DATE: 11/02/2019 SUBJECTIVE: Patient was seen and examined this morning. Since yesterday's examination, the patient's mentation has improved significantly. There is no longer any intermittent confusion. He states he does not have any more abdominal pain. The patient has been moving around in his room. He has been afebrile. He does not have any leukocytosis. There have been no other events reported overnight. The patient has been seen by physical therapy. Reportedly, the patient has some balance issues today. OBJECTIVE: VITAL SIGNS: Temperature 97.2, pulse 60, respiratory rate 18, blood pressure 106/62, pulse oximetry 98% on room air. GENERAL APPEARANCE: The patient is awake, alert. He is oriented to person, place, and time. He does not appear in any acute distress. He is lying comfortably in bed. HEENT: Atraumatic, normocephalic. Eyes are nonicteric. Trachea is midline. Mucous membranes are pink and moist. CARDIOVASCULAR: Normal S1, S2. Regular rate and rhythm. No clicks, rubs, or murmurs. LUNGS: Clear vesicular breath sounds bilaterally. Good respiratory effort. No wheezes, rhonchi, or rales. ABDOMINAL: Soft. Slightly distended. Nontender. Normoactive bowel sounds. No abdominal bruising or dilated abdominal veins. No rebound tenderness or guarding. EXTREMITIES: No edema in the bilateral lower extremities. Full and equal pulses bilateral upper and lower extremities. NEUROLOGIC: No focal neurological deficits. PSYCHIATRIC: Mood and affect appear appropriate. LABORATORY DATA: Hematology: White blood cell 5.5, hemoglobin 11.1, hematocrit 32.1, platelet count 60. Chemistries: Sodium 139, potassium 4.3, chloride 105, CO2 of 27, BUN 19, creatinine 1.5, fasting glucose 206, calcium 8.6, magnesium 2.2, total bilirubin 2.3. Liver profile: AST 44, ALT 30, alkaline phosphatase 126. Microbiology: Blood cultures times two negative after 48 hours of growth. INPATIENT MEDICATIONS: - ceftriaxone 2 grams every 24 hours - Flagyl 500 mg every 8 hours - Protonix 40 mg twice a day IV - spironolactone 50 mg daily by mouth - morphine 2 mg every 6 hours as needed for pain - ascorbic acid 500 mg nightly by mouth - vitamin D 1000 nightly - vitamin B12 at 500 mcg nightly - Flomax 0.4 mg nightly - rifaximin 400 mg three times a day by mouth - lactulose 30 mL every 6 hours by mouth - hydrocodone 0.5 tablets three times a day as needed - sliding scale insulin Deep venous thrombosis (DVT) prophylaxis mechanical. ASSESSMENT: Patient is a 78-year-old male who presented to the [facility] with altered mental status and vague abdominal pain and found to be in decompensated liver cirrhosis. PLAN: 1. 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 - Patient had presented to [facility] with altered mental status. At the time, his ammonia level was elevated at 84. His baseline appears to be 50. It had been reported that the patient was apparently noncompliant with medications at home, although this morning he states that he has been taking his medications. Regardless, the patient has been having bowel movements and has been continued on lactulose and rifaximin. His ammonia level has come down to 48. This morning, his mentation has improved significantly since admission. He does not have any leukocytosis. He has remained afebrile. There is no ascites on ultrasound. The source of his decompensation is unknown but likely medication noncompliance. - The patient has received empiric intra-abdominal antibiotics with Rocephin and Flagyl. Pending his discharge, these will be discontinued, as there is no ascites and less likely to be spontaneous bacterial peritonitis (SBP). - Continue lactulose 30 ml q6h for titration three/four bowel movements. - Continue rifaximin. - Urinalysis was negative. - Procalcitonin currently pending but likely to be negative. 2. Decompensated liver cirrhosis. - Thought to be possibly due to intra-abdominal infection due to his abdominal pain. Today, there is no abdominal pain. He has received Rocephin and Flagyl for empiric coverage. There is no ascites on liver ultrasound, making SBP less likely. - We will continue spironolactone. - We will continue Protonix. - No sign of portal vein thrombosis on CT angiography. 3. Diabetes mellitus type 2. - The patient is currently on sliding scale insulin with coverage before meals and nightly. 4. Hypertension. - Patient remains normotensive. He is only spironolactone. He has longstanding liver cirrhosis, which has likely cured his past diagnosis of hypertension. - We will continue to monitor. 5. Deep venous thrombosis prophylaxis. - Patient is on mechanical DVT prophylaxis. DISPOSITION: Patient will likely be discharged within 24-48 hours, pending physical therapy clearance. Patient was noted to have a balance and gait issue this morning; however, this will likely correct by tomorrow and he can be discharged. MTDD
[2019-11-03] MEDS: HumaLOG INSULIN (NovoLOG) PER UNIT SC SCH ×2 (07:30→12:00)
[2019-11-03] MEDS: PANTOPRAZOLE 40MG VIAL (C9113 PER 1) IV SCH (09:51)
[2019-11-03] MEDS: SPIRONOLACTONE 50 MG TAB PO SCH (09:51)
--- NOTE | 2019-11-05 17:28 | DSES ---
DATE OF ADMISSION: 10/31/2019 DATE OF DISCHARGE: 11/03/2019 ADMITTING DIAGNOSES: 1. 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 2. Diabetes mellitus, type 2. 3. Hypertension. DISCHARGE DIAGNOSES: 1. 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 2. Diabetes mellitus, type 2. 3. Hypertension. CHIEF COMPLAINT: Altered mental status, abdominal pain. HISTORY OF PRESENT ILLNESS: Mr. 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 He was noted to have altered mental status per his . The patient was brought to the emergency department and found to be slightly confused. However, he was able to answer questions appropriately. He did state that he had abdominal pain. However, he denied any nausea, vomiting, diarrhea or constipation. He denied any chills or fevers. He denied any cough. In the emergency room, the patient was found to be hypertensive. He was afebrile but tachycardic. There was no leukocytosis on initial laboratory findings. His ammonia level was elevated at 84. At that time, the hospitalist service was consulted and the patient was admitted for further evaluation and management. On admission to [facility], the patient was given both lactulose and rifaximin with titrations of 3-4 bowel movements. It appeared from his past medical records that his baseline ammonia is approximately 50. Additionally, the patient had a liver ultrasound ordered to assess for possible ascites. He was started on both Rocephin and Flagyl to cover for possible spontaneous bacterial peritonitis (SBP), although the patient's physical examination was rather benign for abdominal tenderness. The patient was continued on all of his other home medications. The following day, the patient did remain to have some altered mentation. He once again remained afebrile. There was no source of infection. His blood cultures were negative. His urine culture was negative. His liver ultrasound resulted in no ascites. His chest x-ray was clear. The patient's ammonia level did come down to approximately 48. He was kept for another day and the following day, the patient's mentation had improved significantly. He was transitioned off of antibiotics and was seen by physical therapy and was cleared for discharge. On the day of discharge, the patient was placed on his home medications. He had stated that he believed that he may have been noncompliant at home with his medications which is likely the source of his decompensated liver cirrhosis. We do not believe that his decompensated liver cirrhosis was due to a failed transjugular intrahepatic portosystemic shunt (TIPS) procedure. It appears that it is likely associated with medication noncompliance. The patient was once again educated on continuing his medications as prescribed and to titrate for approximately 3-4 bowel movements. He is recommended to followup with his primary care physician within a week for reassessment. DISCHARGE MEDICATIONS: - ascorbic acid 500 mg by mouth at bedtime - vitamin D3 1000 units by mouth at bedtime - vitamin B12 500 mcg tablets at bedtime - hydrocodone/acetaminophen 5/325 one-half tablet three times a day as needed for pain - insulin glargine 40 units subcutaneous every morning - insulin glargine 20 units subcutaneous at bedtime - Humalog sliding scale before meals - lactulose 45 mL by mouth four times a day - magnesium 250 mg by mouth four times a day - mild thistle 500 mg by mouth twice a day - omeprazole 20 mg by mouth twice a day - rifaximin 500 mg by mouth twice a day - spironolactone 50 mg by mouth twice a day - Flomax 0.4 mg by mouth at bedtime - Travoprost eye drops one drop in each eye at bedtime - vitamin E 400 unit capsule 400 units by mouth at bedtime PHYSICAL EXAMINATION: VITAL SIGNS: Temperature 98.6, pulse 98, respiratory rate 16, blood pressure 121/65, pulse oximetry 97% on room air. GENERAL: The patient is awake, alert, and oriented. He does not appear in any acute distress. He is lying in his bed comfortably. HEENT: Normocephalic, atraumatic. Eyes nonicteric. Trachea midline. Mucous membranes are pink and moist. NECK: No palpable cervical, axillary or supraclavicular lymphadenopathy. CARDIOVASCULAR: Normal S1, S2, regular rate and rhythm. No clicks, rubs, or murmurs. PULMONARY: Clear vesicular breath sounds bilaterally. Good respiratory effort. No wheezes, rales, or rhonchi. ABDOMEN: Soft, slight distension. No fluid wave. Nontender. Normoactive bowel sounds. No abdominal bruises or dilated abdominal veins. No rebound tenderness or guarding. EXTREMITIES: No edema in the bilateral lower extremities. Full and equal pulses bilaterally in upper and lower extremities. NEUROLOGIC: No focal neurological deficits. PSYCHIATRIC: Mood and affect appear appropriate. LABORATORY DATA: Hematology: White blood cells 4.0, hemoglobin 10.2, hematocrit 29.7, platelet count 47. Chemistries: Sodium 135, potassium 4.5, chloride 103, carbon dioxide 28, BUN 21, creatinine 1.43, fasting glucose 318. Calcium 8.2. Total bilirubin 1.7. AST 35, ALT 26, alkaline phosphatase 119. MICROBIOLOGY: Blood cultures times two negative. Urinalysis negative. IMAGING STUDIES: Chest x-ray demonstrating increased parenchymal markings in the right upper lobe with a questionable infiltrate but relatively low level of inspiration, otherwise clear. CT angiography demonstrating evidence of cirrhosis with TIPS shunt in place, splenomegaly, stable 3 cm hypodense liver lesion, evidence of bilateral renal artery stenosis, high-grade on the left, moderate on the right with a tiny accessory upper pole renal artery in the left, otherwise no acute abdominopelvic abnormality. Angiography CT of the chest demonstrating no evidence of pulmonary embolus or thoracic aneurysm or dissection, cardiomegaly with pacemaker, no significant change from study done five days ago. Abdominal ultrasound demonstrating three lesions in the liver as above, TIPS procedure. No evidence of ascites. PROGNOSIS: Fair. ACTIVITY: As tolerated. DIET: Sodium restricted. DISCHARGE PLAN: The patient was discharged with recommendation to followup with his primary care physician in 7-10 days. It appears that his decompensated liver cirrhosis may be secondary to medication noncompliance. However, it also may be secondary to constipation as it seems the imaging had revealed possible small ileus but the patient was having bowel movements while in the hospital. The patient's was contacted and stated that she thought the patient may have been constipated. This could have led to his increased ammonia levels. The patient was made aware of this. The patient was instructed to take his medication as prescribed and if he becomes constipated to contact his primary care physician. DISCHARGE CONDITION: Stable. TIME SPENT ON DISCHARGE: Greater than 35 minutes. Patient was seen and examined by me. Agree with the above assessment and plan [facility]
== END 2019-11-03 12:20 | disposition home or self-care (01) | DRG 442 ==
LOC: M ED 12:45 → M ED INP 16:25 → ENRESERV 18:06 → M MSPAV 18:53
PROVIDERS: ADMIT Internal Medicine; ATTEND Internal Medicine
DX: K72.90 Hepatic failure, unspecified without coma (principal); I44.2 Atrioventricular block, complete; I12.9 Hypertensive chronic kidney disease with stage 1 through stage 4 chronic kidney disease, or unspecified chronic kidney disease; E11.22 Type 2 diabetes mellitus with diabetic chronic kidney disease; K74.60 Unspecified cirrhosis of liver; K59.00 Constipation, unspecified; R41.82 Altered mental status, unspecified; N18.3 Chronic kidney disease, stage 3 (moderate); Z95.0 Presence of cardiac pacemaker; Z90.49 Acquired absence of other specified parts of digestive tract; Z79.4 Long term (current) use of insulin; Z79.899 Other long term (current) drug therapy; Z88.8 Allergy status to other drugs, medicaments and biological substances; Z91.14 Patient's other noncompliance with medication regimen; Z96.89 Presence of other specified functional implants

== ENCOUNTER → 2019-11-09 | Outpatient (CLI) | payer MEDICARE, OTHER ==
[~2019-11-09] MED LIST changes: +D31000TA2 PO; +HYDR-4571 PO; +MILK500C PO; +SM M250T PO; +TRAV04OPD OU
--- NOTE | 2019-11-09 14:40 | REPPI ---
THORACIC SPINE SERIES: Three views. HISTORY: Chronic hepatic failure without coma. Comparison is made with imaging from chest, abdomen and pelvis CT study dated October 31, 2019. FINDINGS: There is a bipolar pacemaker in the enlarged heart. A stent is visible in the right upper quadrant consistent with a TIPS. There is diffuse osteopenia. No paravertebral soft-tissue mass or hematoma is seen. There is mild anterior wedge compression deformity at T5 and moderate anterior wedging is seen at T12. Other thoracic vertebral body heights are preserved. These findings are unchanged from the CT study October 31, 2019. Swimmer's lateral view shows mild degenerative changes in the cervical spine. IMPRESSION: Anterior wedge compression deformities at T5 and T12 as noted above. Diffuse osteopenia. Electronically Signed by Marcial Meade MD 11/09/2019 03:05 P
--- NOTE | 2019-11-09 14:42 | REPPI ---
ABDOMEN SERIES: Three views. HISTORY: Chronic liver failure. FINDINGS: Supine and erect views of the abdomen demonstrate a TIPS shunt in place in the right upper quadrant adjacent to some surgical clips. There is air and fluid in the transverse colon and in a few loops of right-sided small bowel with air-fluid levels. These are nonspecific. Psoas margins are symmetric. No mass organomegaly is appreciated. There is no evidence of large ascites. IMPRESSION: Air-fluid levels in large and small bowel loops question ileus. No obstructive lesion is seen. Status post TIPS and cholecystectomy. Pacemaker noted. No evidence of free air. Electronically Signed by Marcial Meade MD 11/09/2019 03:05 P
== END ==
LOC: M PLAIMG 11:53
PROVIDERS: ATTEND Family Medicine
DX: M85.88 Other specified disorders of bone density and structure, other site (principal); K72.10 Chronic hepatic failure without coma; Z95.0 Presence of cardiac pacemaker; Z90.49 Acquired absence of other specified parts of digestive tract

== ENCOUNTER → 2019-11-09 | Outpatient (REF) | payer MEDICARE, OTHER ==
[2019-11-09 12:59] LABS: BILIRUBIN,TOTAL 3.3 MG/DL (0.2-1.0); CALCIUM LEVEL 8.9 MG/DL (8.8-10.2); CREATININE FOR GFR 1.4 MG/DL (0.70-1.30); GLOMERULAR FILTRATION RATE 52.3 (>42); MAGNESIUM LEVEL 1.8 MG/DL (1.8-2.4); TOTAL PROTEIN 6.7 GM/DL (6.4-8.2)
[2019-11-09 15:51] LABS: HEMOGLOBIN A1c 6.4 %
== END ==
LOC: M SFHCPLAZ 11:51
PROVIDERS: ATTEND Family Medicine
DX: E11.9 Type 2 diabetes mellitus without complications (principal); K72.10 Chronic hepatic failure without coma; E78.2 Mixed hyperlipidemia

== ENCOUNTER → 2019-11-11 | Outpatient (REF) | payer MEDICARE, OTHER ==
[~2019-11-11] MED LIST changes: +CYAN500T9 PO; -D31000TA2 PO; +MAG400TA PO; -MAGN400T35 PO; -PANT40TA29 PO; +PANT40TA3 PO; -VITA500T37 PO; +VITAD1000T PO
== END ==
LOC: M SFHCPLAZ 10:16
PROVIDERS: ATTEND Family Medicine
DX: E11.9 Type 2 diabetes mellitus without complications (principal)

== ENCOUNTER → 2020-02-08 | Outpatient (CLI) | payer MEDICARE, OTHER ==
[~2020-02-08] MED LIST changes: +CYAN500T10 PO; -CYAN500T9 PO; +D31000TA2 PO; +PANT40TA29 PO; -PANT40TA3 PO; -VITAD1000T PO
[2020-02-14 14:12] LABS: AFP TUMOR L3% 8.8 % (0.0-9.9); AFP TUMOR TOTAL 9.3 ng/mL (0.0-8.0)
== END ==
LOC: M LAB 10:56
PROVIDERS: ATTEND Internal Medicine Gastroenterology
DX: K74.60 Unspecified cirrhosis of liver (principal)

== ENCOUNTER → 2020-04-23 | Outpatient (REF) | payer MEDICARE, OTHER ==
[2020-04-23 15:59] LABS: BASO # 0.1 10^3/uL (0.0-0.2); BASO % 0.8 % (0.0-1.0); EOS # 0.2 10^3/uL (0.0-0.5); HEMATOCRIT 35.4 % (42.0-52.0); HEMOGLOBIN 11.7 g/dl (13.5-17.5); LYMPH # 1.2 10^3/uL (1.5-5.0); LYMPH % 17.9 % (24.0-44.0); MEAN CORPUSCULAR HEMOGLOBIN 37.3 pg (27.0-33.0); MEAN CORPUSCULAR HGB CONC 33.1 g/dl (32.0-36.5); MEAN CORPUSCULAR VOLUME 112.7 fl (80.0-96.0); MONO # 0.7 10^3/uL (0.0-0.8); MONO % 10.4 % (0.0-5.0); NEUTROPHILS # 4.5 10^3/uL (1.5-8.5); NEUTROPHILS % 67.1 % (36.0-66.0); RED BLOOD COUNT 3.14 10^6/uL (4.30-6.10); WHITE BLOOD COUNT 6.7 10^3/uL (4.0-10.0)
[2020-04-23 16:10] LABS: INR 1.32; PROTHROMBIN TIME 16.7 SECONDS (12.5-14.3)
[2020-04-23 16:12] LABS: PARTIAL THROMBOPLASTIN TIME 36.3 SECONDS (24.2-38.5)
[2020-04-23 16:14] LABS: PLATELET COUNT, AUTOMATED 65 10^3/uL (150-450)
[2020-04-23 16:31] LABS: ALBUMIN 2.7 GM/DL (3.2-5.2); ALT/SGPT 35 U/L (12-78); BILIRUBIN,TOTAL 2.4 MG/DL (0.2-1.0); BLOOD UREA NITROGEN 20 MG/DL (7-18); CARBON DIOXIDE LEVEL 30 MEQ/L (21-32); CHLORIDE LEVEL 109 MEQ/L (98-107); CHOLESTEROL LEVEL 143 MG/DL (<200); CHOLESTEROL RISK RATIO 2.918 (<5); CREATININE FOR GFR 1.49 MG/DL (0.70-1.30); FERRITIN 692 NG/ML (26-388); FREE T4 1.19 NG/DL (0.76-1.46); GLOMERULAR FILTRATION RATE 48.6 (>42); GLUCOSE, FASTING 85 MG/DL (70-100); HDL CHOLESTEROL 49 MG/DL (>40); IRON (FE) 161 UG/DL (65-175); LDL CHOLESTEROL 74 MG/DL (<100); MAGNESIUM LEVEL 1.8 MG/DL (1.8-2.4); NON-HDL-C 94 MG/DL; NT-PRO BNP 441 PG/ML (<450); PERCENT SATURATION 95.8 % (19.7-50.0); POTASSIUM SERUM 5.2 MEQ/L (3.5-5.1); SODIUM LEVEL 143 MEQ/L (136-145); TOTAL IRON BINDING CAPACITY 168 UG/DL (250-450); TOTAL PROTEIN 6.4 GM/DL (6.4-8.2); TRIGLYCERIDES LEVEL 101 MG/DL (<150)
[2020-04-23 16:35] LABS: PTH INTACT 8.3 PG/ML (18.5-88.0); VITAMIN B12 LEVEL > 2000 PG/ML (247-911)
== END ==
LOC: M SFHCPLAZ 14:10
PROVIDERS: ATTEND Family Medicine
DX: K72.10 Chronic hepatic failure without coma (principal); I11.0 Hypertensive heart disease with heart failure; E11.9 Type 2 diabetes mellitus without complications; I50.42 Chronic combined systolic (congestive) and diastolic (congestive) heart failure
CPT/HCPCS: 36415; 80053; 80061; 82140; 82607; 82728; 83550; 83735; 83880; 83970; 84439; 84443; 85025; 85049; 85055; 85610; 85730; G0463

== ENCOUNTER 2020-08-02 11:22 | Observation (INO) | payer MEDICARE, OTHER ==
[~2020-08-02] VITALS: Ht 165.1 cm; Wt 81.0 kg
[~2020-08-02 11:22] MED LIST changes: -CYAN500T10 PO; -MAG400TA PO; +MAGN400T35 PO; +VITA500T37 PO
[2020-08-02 12:15] LABS: BASO % 0.7 % (0.0-1.0); EOS # 0.1 10^3/uL (0.0-0.5); HEMOGLOBIN 9.9 g/dl (13.5-17.5); LYMPH # 0.8 10^3/uL (1.5-5.0); LYMPH % 19.6 % (24.0-44.0); MEAN CORPUSCULAR HEMOGLOBIN 37.9 pg (27.0-33.0); MEAN CORPUSCULAR HGB CONC 34.1 g/dl (32.0-36.5); MEAN CORPUSCULAR VOLUME 111.1 fl (80.0-96.0); MONO # 0.4 10^3/uL (0.0-0.8); MONO % 9.6 % (2.0-8.0); NEUTROPHILS # 2.8 10^3/uL (1.5-8.5); NEUTROPHILS % 67.6 % (36.0-66.0); PLATELET COUNT, AUTOMATED 53 10^3/uL (150-450); RED BLOOD COUNT 2.61 10^6/uL (4.30-6.10); WHITE BLOOD COUNT 4.1 10^3/uL (4.0-10.0)
[2020-08-02] MEDS ORDERED: NS 1,000 ML IV ONE (12:15)
--- NOTE | 2020-08-02 12:15 | REP ---
INDICATION: AMS. COMPARISON: 10/31/2019. TECHNIQUE: Portable AP chest with the patient sitting. FINDINGS: There is an incomplete inspiratory effort as previously. There is diffuse coarsening of the interstitial markings, unchanged, compatible with chronic lung disease. No focal infiltrates or pleural effusions are identified. There is chronic cardiomegaly, unchanged. There is a dual chamber pacemaker, unchanged. IMPRESSION: No acute cardiopulmonary findings. Chronic diffuse interstitial coarsening and chronic cardiomegaly. Dual chamber pacemaker, unchanged. <Electronically signed by Jesus Alberto Carrion > 08/02/20 1212
[2020-08-02 12:22] LABS: INR 1.3; PROTHROMBIN TIME 16.5 SECONDS (12.5-14.3)
[2020-08-02 12:23] LABS: PARTIAL THROMBOPLASTIN TIME 38.4 SECONDS (24.2-38.5)
[2020-08-02 12:43] LABS: ALBUMIN 2.6 GM/DL (3.2-5.2); BILIRUBIN,DIRECT 0.8 MG/DL (0.0-0.2); CALCIUM LEVEL 8.5 MG/DL (8.8-10.2); CK-MB VALUE MASS 1.6 NG/ML (<3.6); CREATININE FOR GFR 1.42 MG/DL (0.70-1.30); GLOMERULAR FILTRATION RATE 51.3 (>42); MAGNESIUM LEVEL 1.7 MG/DL (1.8-2.4); MB/CK RELATIVE INDEX 3.48 (< OR =4); TOTAL PROTEIN 5.9 GM/DL (6.4-8.2); TROPONIN I 0.02 NG/ML (< 0.10)
[2020-08-02] MEDS ORDERED: CARV6.25 PO (13:01)
--- NOTE | 2020-08-02 13:06 | REP ---
INDICATION: Altered Mental Status. COMPARISON: Comparison CT study is from December 11, 2018.. TECHNIQUE: Helical scanning is acquired. 5 mm axial images were reformatted. Coronal MPR images were generated. FINDINGS: Bone window settings demonstrate an intact bony calvarium. There is no evidence of skull fracture or incidental bony calvarial lesion. No intraorbital abnormality is seen. On soft tissue window setting images; the lateral, third, and fourth ventricles are normal in size and position. Stokes-white differentiation pattern is normal above and below the tentorium. There are is no evidence of intracranial hemorrhage. No mass, edema, infarction, or midline shift is seen. No extra-axial fluid collection is appreciated. There is moderate generalized volume loss. Small vessel atherosclerotic changes are again noted. Vascular calcification is seen in the distal internal carotid and distal vertebral arteries. There are mild mucosal changes in the maxillary and ethmoid sinuses bilaterally. IMPRESSION: No acute intracranial abnormality. Small-vessel atherosclerotic changes and generalized volume loss again noted. Vascular calcification.. <Electronically signed by Ran Meade > 08/02/20 [id number]
[2020-08-02] MEDS ORDERED: OMEP-221 PO (13:22)
--- NOTE | 2020-08-02 13:25 | REP ---
INDICATION: Altered Mental Status. COMPARISON: CT abdomen and pelvis with IV contrast, CT angiography dated 10/31/2019. TECHNIQUE: Abdomen/pelvis CT without IV contrast. FINDINGS: The visualized lung morrissey again demonstrate chronic fibrotic changes and cardiomegaly. This is these are unchanged. Is a hypodense mass along the lateral margin of the hepatic dome today measuring 3.5 cm. This measured 3.0 cm previously. Eight tips shunt catheter is again identified, unchanged. The unenhanced pancreas is unremarkable. The spleen is enlarged measuring up to 16 cm AP. This is unchanged. The adrenals are unremarkable. The unenhanced kidneys are unremarkable. Bilateral renal artery stenosis was identified on the prior CT angiography. The abdominal aorta is unremarkable. There is no periaortic adenopathy or mass. There is no bowel distention or obstruction. The mesentery is unremarkable. Pelvis: The bladder is distended but otherwise unremarkable. There is no adenopathy or ascites. The pelvic bowel loops are unremarkable. There is grade 4 compression and deformity of the T12 vertebral body, unchanged. IMPRESSION: There are no significant interval change except that the known hepatic mass has increased size. Tips shunt is again identified. Splenomegaly is again identified. There are fibrotic changes in the visualized lower lung morrissey, unchanged. There is cardiomegaly, unchanged. There is compression deformity of the T12 vertebral body, unchanged. Bilateral renal artery stenosis was identified on the previous CT angiography. <Electronically signed by Jesus Alberto Carrion > 08/02/20 [id number]
[2020-08-02] MEDS ORDERED: SOD POLYSTYRENE SULFONATE SUSP 15 GM/60 ML UD PO ONE (13:30)
[2020-08-02] MEDS ORDERED: LACTULOSE 20 GM/30 ML SYRUP UD PO ONE (13:45)
[2020-08-02] MEDS ORDERED: FLEET ENEMA PR PRN (13:50)
[2020-08-02] MEDS ORDERED: GLUCAGON INJ 1MG VIAL SC PRN (13:50)
[2020-08-02] MEDS ORDERED: NORCO, ANEXSIA 5/325MG TABLET (HYDROcodone/ACETAMINOPHEN) PO PRN (13:50)
[2020-08-02] MEDS ORDERED: GLUCOSE 4GM CHEW TABLET PO PRN (13:50)
[2020-08-02] MEDS ORDERED: DEXTROSE 50% 50 ML SYRINGE IV PRN (13:50)
[2020-08-02] MEDS ORDERED: ACETAMINOPHEN TAB 650MG DOSE (2X325MG) PO PRN (14:00)
[2020-08-02 14:11] LABS: AMPHETAMINES LEVEL URINE NEGATIVE (NEGATIVE); BARBITURATES URINE NEGATIVE (NEGATIVE); BENZODIAZEPINES URINE NEGATIVE (NEGATIVE); CANNABINOIDS URINE NEGATIVE (NEGATIVE); COCAINE METABOLITE URINE NEGATIVE (NEGATIVE); METHADONE URINE NEGATIVE (NEGATIVE); OPIATES URINE NEGATIVE (NEGATIVE); PHENCYCLIDINE URINE NEGATIVE (NEGATIVE)
[2020-08-02] MEDS ORDERED: MAG SULF 1GM/100ML (MAG RUN) 1 GM in IV 1 EA IV ONE (14:15)
[2020-08-02 14:16] LABS: ACETAMINOPHEN LEVEL < 2.0 UG/ML (10.0-30.0); ETHYL ALCOHOL (ETHANOL) < 0.003 % (0.000-0.010); SALICYLATE LEVEL < 1.7 MG/DL (5.0-30.0)
[2020-08-02] MEDS ORDERED: PILL CUTTER 1 EACH XX PRN (14:30)
--- NOTE | 2020-08-02 15:10 | REP ---
INDICATION: interrogating patency of TIPS shunt. COMPARISON: Comparison is made with today's CT study.. TECHNIQUE: Complete abdominal sonography and portal venous visceral Doppler interrogation. FINDINGS: The gallbladder is surgically absent. Scanning through the right upper quadrant the abdomen demonstrates a focal hypoechoic area in the right lobe of the liver 1.8 x 1.9 x 1.4 cm. This is not well seen. There is also a hyperechoic structure in the liver 1.7 x 1.6 x 0.9 cm which may be hemangioma. Scan quality is inhibited by bowel gas. No other focal lesion is seen. The common bile duct could not be seen. There is no evidence of hepatomegaly. The spleen is mildly enlarged and homogeneous in texture measuring 14.9 x 14.6 x 5.9 cm. There is no visible ascites. Renal cortical echogenicity pattern is normal in contours are smooth. No hydronephrosis is seen. Right renal dimensions are 8.6 x 4.2 x 4.1 cm. The left kidney measures 9.6 x 3.7 by 4.3 cm. The aorta is obscured by abdominal gas. Portal venous visceral Doppler ultrasound: Exam quality is extremely limited. Patient was unable to suspend respiration and bowel gas obscures visualization. The TIPS shunt is observed to be patent with velocities of 47.8 cm and 49.5 centimeters/second. In the splenic hilus, splenic venous velocity is normal in direction of flow is normal at 31.4 centimeters/second. Portal venous and hepatic arterial velocities could not be observed. IMPRESSION: Limited exam quality. Splenomegaly. Patent TIPS shunt. <Electronically signed by Ran Meade > 08/02/20 1724
--- NOTE | 2020-08-02 15:42 | HPEPDOC ---
[facility] Medical History & Physical Date of Admission Aug 02, 2020 Date of Service: Aug 02, 2020 Attending Physician: XOCHITL STYLES MD History and Physical CHIEF COMPLAINT: AMS HISTORY OF PRESENT ILLNESS: CHIEF COMPLAINT: Altered Mental Status HISTORY OF PRESENT ILLNESS: 79 year old M with a history of liver cirrhosis c/b ascites and hepatic encephalopathy s/p TIPS, however with frequent admissions for hepatic encephalopathy who presented to the [facility] ER with AMS characterized by confusion and somnolence. In the ED the patient was somnolent but arousable and denies chest pain, palpitations, nausea, recent emesis, bleeding in stool, dysuria, fever, chills, cough, nasal congestion or recent travel or sick contacts. He did endorse some diffuse abdominal discomfort. He was hemodynami adriel stable, afebrile and breathing comfortably on room air. Initial investigations included a CT A/P that reveal a slightly enlarged previously noted hepatic mass that now measures 3.5cm from prior 3cm, a TIPS shunt that appears well positioned and stable splenomegaly of 16cm. Labs showed an elevated ammonia level to 170 from his baseline 50s, no leukocytosis with WBC 4.1, stable angemia with Hgb 9.9, stable thrombocytopenia with platelets of 53, Na 142, K 5, Cr 1.42 at recent baseline, lipase 74, amylase 33, negative troponin and a bland UA. He had a CT head that showed no evidence of acute intracranial abnormalities. He is now being admitted to medicine for hepatic encephalopathy. PAST MEDICAL HISTORY: 1. Hypertension 2. Diabetes Mellitus Type 2 3. Liver Cirrhosis s/p TIPS procedure 4. Complete Heart Block s/p Pacemaker placement 5. CKD Stage III PAST SURGICAL HISTORY: 1. Hernia repair 2. Cholecystectomy 3. TIPS procedure 4. Pacemaker Placement SOCIAL HISTORY: Patient lives at home with . He denies alcohol use, smoking or iv illicit drug use FAMILY HISTORY: Patients mother has diabetes mellitus type 2. His siblings have CAD and PVD ALLERGIES: Please see below. REVIEW OF SYSTEMS: CONSTITUTIONAL: Denies fevers, chills, unintentional weight loss or weight gain HEENT: Denies dysphagia. Denies changes in vision. Denies pain on swallowing CARDIOVASCULAR: Denies chest pain, palpitations or feelings of the heart racing RESPIRATORY: Denies shortness of breath. Denies cough GASTROINTESTINAL: Has some mild abdominal pain. Denies diarrhea or constipation. Admits to loose stools often as he is on lactulose at baseline. Denies blood in stool or dark tarry stool GENITOURINARY: Denies dysuria. Denies increased frequency. SKIN: Denies rashes or lesion MUSCULOSKELETAL: Denies muscle weakness . NEUROLOGICAL: Denies changes in gait or speech. PSYCHIATRIC: Denies depression or anxiety ENDOCRINE: Admits to diabetes. HEMATOLOGIC/LYMPHATIC: Denies easy bleeding. Denies history of known thromboses HOME MEDICATIONS: Please see below. PHYSICAL EXAMINATION: VITAL SIGNS: see below. GENERAL APPEARANCE: Appears in no acute distress, somnolent but answering q uestions appropriately HEENT:Atraumatic, normocephalic. Eyes are nonicteric. Trachea is midline. Mucous membranes are pink and moist CARDIOVASCULAR: Normals S1, S2. Regular rhythm. No clicks, rubs or murmurs LUNGS: CTAB. Good respiratory effort. No wheezes, rhonchi, or rales ABDOMEN: Normoactive sounds, obese, soft, no dilated abdominal veins, mild diffuse tenderness with palpation, no noted fluid wave, mildly distended, tympanic. No rebound tenderness or guarding EXTREMITIES: Trace pitting edema in bilateral lower extremities. Full and equal pulses in bilateral upper and lower extremities NEUROLOGICAL: No focal neurological deficits. Patient does appear confused PSYCHIATRIC: Mood and affect appear appropriate LABORATORY DATA and IMAGING: summarized above MICROBIOLOGY: Please see below. ASSESSMENT: 79 year old M with a history of liver cirrhosis c/b ascites and hepatic encephalopathy s/p TIPS, however with frequent admissions for hepatic encephalopathy who presented to the [facility] ER with altered mental status and admitted for hepatic encephalopathy . PLAN: 1. Hepatic Encephalopathy 2/2 decompensated Liver Cirrhosis -is hyperammonemic to 170 -Imaging thus far negative for any acute pathology. TIPS shunt appears in position on CT, will do doppler US to interogate patency. Also liver lesion has enlarged in size. Will discuss with GI. -No ascites noted -Lactulose 45mg QID for goal 3-4 bowel movements -Rifaximin BID -repeat Ammonia level in AM -will add fleet enema BID for constipation as he is increasingly somnolent and may not be able to administer lactulose consistently 2. Decompensated Liver Cirrhosis -Low suspicion of intraabdominal infection with no ascites to note, CT without acute findings except for interval growth of known lesion? Will discuss lesion with his sales operations coordinator to see if has HCC surveillance and needs multiphasic imaging for the hepatic lesions that seem to have grown in size. -Continue Spironolactone -Continue omeprazole 3. Anemia: likely multifactorial chronic anemia given cirrhosis -daily CBC 4. Chronic thrombocytopenia 2/2 cirrhosis -monitor daily CBC while inpatient 5. DMII -Sliding scale insulin coverage ACHS and home dose levemir. FSBG AC/HS. Hypoglycemia protocol 6. Hypertension -Currently normotensive. -Will continue to monitor 7. DVT Prophylaxis -Mechanical Vital Signs Vital Signs Date Time Temp Pulse Resp B/P (MAP) Pulse Ox O2 Delivery O2 Flow Rate FiO2 08/02/20 13:15 65 18 148/72 (97) 100 Room Air Laboratory Data Labs 24H Laboratory Tests 2 08/02/20 11:57: Immature Granulocyte % (Auto) 0.5, Neutrophils (%) (Auto) 67.6H, Lymphocytes (%) (Auto) 19.6L, Monocytes (%) (Auto) 9.6H, Eosinophils (%) (Auto) 2.0, Basophils (%) (Auto) 0.7, Neutrophils # (Auto) 2.8, Lymphocytes # (Auto) 0.8L, Monocytes # (Auto) 0.4, Eosinophils # (Auto) 0.1, Basophils # (Auto) 0.0, Nucleated Red Blood Cells % (auto) 0.0, Immature Platelet Fraction 7.5, Prothrombin Time 16.5H, Prothromb Time International Ratio 1.30, Activated Partial Thromboplast Time 38.4, Anion Gap 4L, Glomerular Filtration Rate 51.3, Calcium Level 8.5L, Magnesium Level 1.7L, Total Bilirubin 2.0H, Direct Bilirubin 0.8H, Aspartate Amino Transf (AST/SGOT) 41H, Alanine Aminotransferase (ALT/SGPT) 28, Alkaline Phosphatase 123H, Ammonia 170H, Total Creatine Kinase 46, Creatine Kinase MB 1.6, Creatine Kinase MB Relative Index 3.48, Troponin I 0.02, Total Protein 5.9L, Albumin 2.6L, Albumin/Globulin Ratio 0.8, Amylase Level 33, Lipase 74 08/02/20 13:21: Urine Color YELLOW, Urine Appearance CLEAR, Urine pH 6.0, Urine Specific [place] 1.010, Urine Protein NEGATIVE, Urine Glucose (UA) NEGATIVE, Urine Ketones NEGATIVE, Urine Blood NEGATIVE, Urine Nitrite NEGATIVE, Urine Bilirubin NEGATIVE, Urine Urobilinogen 0.2, Urine Leukocyte Esterase NEGATIVE, Urine WBC (Auto) 1, Urine RBC (Auto) 0, Urine Hyaline Casts (Auto) 0, Urine Bacteria (Auto) NEGATIVE, Urine Squamous Epithelial Cells 0, Urine Sperm (Auto) CBC/BMP Laboratory Tests 08/02/20 11:57 Home Medications Scheduled Ascorbic Acid (Vitamin C) 500 Mg Tab, 500 MG PO QHS Carvedilol (Carvedilol) 6.25 Mg Tablet, 6.25 MG PO BID Cholecalciferol (Vitamin D3) (Vitamin D3) 1,000 Unit Tablet, 1,000 UNITS PO QHS Cyanocobalamin (Vitamin B-12) (Vitamin B-12) 500 Mcg Tablet, 500 MCG PO QHS Insulin Glargine (Lantus) 1 Units/0.01 Ml Susp, 40 UNITS SC QAM Insulin Glargine (Lantus) 1 Units/0.01 Ml Susp, 20 UNITS SC QHS Insulin Human Lispro (Humalog) 1 Units/0.01 Ml Inj, 1 DOSE SC AC PER SLIDING SCALE Lactulose (Lactulose) 10 Gm/15 Ml Solution, 45 ML PO QID Magnesium (Magnesium) 250 Mg Tablet, 250 MG PO BID Milk Thistle (Milk Thistle) 500 Mg Capsule, 500 MG PO BID Omeprazole (Omeprazole) 40 Mg Capsule.dr, 40 MG PO DAILY Rifaximin (Xifaxan) 550 Mg Tab, 550 MG PO BID Spironolactone (Spironolactone) 50 Mg Tab, 50 MG PO DAILY Tamsulosin Hcl (Tamsulosin HCl) 0.4 Mg Capsule, 0.4 MG PO QHS Travoprost (Travatan Z) 0.004% 2.5ML Drops, 1 DROP OU QHS Vitamin E (Vitamin E) 400 Unit Capsule, 400 UNIT PO QHS Scheduled PRN Hydrocodone/Acetaminophen (Hydrocodone-Acetamin 5-325 mg) 1 Each Tablet, 0.5 TAB PO TID PRN for PAIN TAKES 1/2 - 1 TAB Allergies Coded Allergies: lisinopril (Verified Adverse Reaction, Intermediate, HYPERKALEMIA, 11/07/18) A-FIB/CHADSVASC A-FIB History Current/History of A-Fib/PAF?: No Current PO Anticoag Therapy: No Age/Risk Factor Scoring CHADSVASC: CHADSVASC Response (Comments) Value Age Risk Factor Age >/= 75 years old 2 Gender Risk Factor Male 0 Hx of CHF No 0 Hx of HTN Yes 1 Hx of Stroke/TIA/or VTE No 0 Hx of Diabetes Yes 1 Hx of Vascular Disease No 0 Total 4 Treatment Treatment ordered: NONE Reason Anticoagulant not given: Not indicated/[id number] XOCHITL STYLES MD Aug 02, 2020 14:25
[2020-08-02 15:59] LABS: RSV AMPLIFICATION NEGATIVE (NEGATIVE)
[2020-08-02 18:00] VITALS: BP 150/81
[2020-08-02] MEDS: HumaLOG INSULIN (NovoLOG) PER UNIT SC SCH (18:31)
[2020-08-02] MEDS: LACTULOSE 20 GM/30 ML SYRUP UD PO SCH ×2 (18:31→22:30)
[2020-08-02] MEDS: FLEET ENEMA PR SCH ×2 (18:32→22:32)
[2020-08-02] MEDS ORDERED: ASCORBIC ACID 500 MG TAB PO SCH (21:00)
[2020-08-02] MEDS ORDERED: LEVEMIR (INSULIN DETEMIR) 1 UNITS/0.01ML SC SCH ×2 (21:00)
[2020-08-02] MEDS ORDERED: VITAMIN D 1,000 INTERNATIONAL UNITS TABLET PO SCH (21:00)
[2020-08-02] MEDS ORDERED: LATANOPROST 0.005% OPHTH SOLN 2.5 ML OU SCH (21:00)
[2020-08-02] MEDS ORDERED: HumaLOG INSULIN (NovoLOG) PER UNIT SC SCH (21:00)
[2020-08-02] MEDS ORDERED: TAMSULOSIN 0.4 MG CAP PO SCH (21:00)
[2020-08-02] MEDS ORDERED: VITAMIN E 400 INTERNATIONAL UNITS CAP PO SCH (21:00)
[2020-08-02] MEDS ORDERED: CYANOCOBALAMIN 500 MCG TAB PO SCH (21:00)
[2020-08-02 22:00] VITALS: BP 148/82
[2020-08-02] MEDS: MAGNESIUM OXIDE 400MG TAB (MAG-OX) PO SCH (22:31)
[2020-08-02] MEDS: rifAXIMin 550 MG TAB (XIFAXAN) PO SCH (22:32)
[2020-08-02] MEDS: CARVedilol 6.25 MG TAB PO SCH (22:32)
[2020-08-03] MEDS: FLEET ENEMA PR SCH (05:21)
[2020-08-03 06:00] VITALS: BP 144/81
[2020-08-03] MEDS: HumaLOG INSULIN (NovoLOG) PER UNIT SC SCH ×2 (08:09→12:04)
[2020-08-03 08:31] LABS: HEMATOCRIT 29.6 % (42.0-52.0); HEMOGLOBIN 9.8 g/dl (13.5-17.5); MEAN CORPUSCULAR HEMOGLOBIN 37.1 pg (27.0-33.0); MEAN CORPUSCULAR HGB CONC 33.1 g/dl (32.0-36.5); MEAN CORPUSCULAR VOLUME 112.1 fl (80.0-96.0); RED BLOOD COUNT 2.64 10^6/uL (4.30-6.10); WHITE BLOOD COUNT 5.4 10^3/uL (4.0-10.0)
[2020-08-03 08:32] LABS: PLATELET COUNT, AUTOMATED 56 10^3/uL (150-450)
[2020-08-03 08:46] VITALS: BP 144/81
[2020-08-03] MEDS: LACTULOSE 20 GM/30 ML SYRUP UD PO SCH (08:46)
[2020-08-03] MEDS: rifAXIMin 550 MG TAB (XIFAXAN) PO SCH (08:46)
[2020-08-03] MEDS: MAGNESIUM OXIDE 400MG TAB (MAG-OX) PO SCH (08:46)
[2020-08-03] MEDS: CARVedilol 6.25 MG TAB PO SCH (08:46)
[2020-08-03] MEDS ORDERED: LEVEMIR (INSULIN DETEMIR) 1 UNITS/0.01ML SC SCH (09:00)
[2020-08-03] MEDS ORDERED: OMEPRAZOLE 20 MG CAP PO SCH (09:00)
[2020-08-03] MEDS ORDERED: SPIRONOLACTONE 50 MG TAB PO SCH (09:00)
[2020-08-03 09:19] LABS: CREATININE FOR GFR 1.38 MG/DL (0.70-1.30); GLOMERULAR FILTRATION RATE 53.1 (>42)
--- NOTE | 2020-08-03 10:06 | DS.PDOC ---
Discharge Summary General Date of Admission Aug 02, 2020 at 11:23 Date of Discharge 08/03/2020 Attending Physician: XOCHITL STYLES MD Discharge Summary PROCEDURES PERFORMED DURING STAY: None ADMITTING DIAGNOSES: Hepatic encephalopathy DISCHARGE DIAGNOSES: Hepatic encephalopathy Hypertension Diabetes Mellitus Type 2 Liver Cirrhosis s/p TIPS procedure Complete Heart Block s/p Pacemaker placement CKD Stage III COMPLICATIONS/CHIEF COMPLAINT: Encephalopathy. HISTORY OF PRESENT ILLNESS: 79 year old M with a history of liver cirrhosis c/b ascites and hepatic encepha lopathy s/p TIPS, however with frequent admissions for hepatic encephalopathy who presented to the [facility] ER with AMS characterized by confusion and somnolence per . HOSPITAL COURSE: In the ED the patient was somnolent but arousable and denied chest pain, palpitations, nausea, recent emesis, bleeding in stool, dysuria, fever, chills, cough, nasal congestion or recent travel or sick contacts. He did endorse some diffuse abdominal discomfort. He was hemodynamically stable, afebrile and breathing comfortably on room air. Initial investigations included a CT A/P that reveal a slightly enlarged previously noted hepatic mass that now measures 3.5cm from prior 3cm, a TIPS shunt that appears well positioned and stable splenomegaly of 16cm. Follow up liver doppler US showed a patent TIPS shunt. Labs showed an elevated ammonia level to 170 from his baseline 50s, no leukocytosis with WBC 4.1, stable angemia with Hgb 9.9, stable thrombocytopenia with platelets of 53, Na 142, K 5, Cr 1.42 at recent baseline, lipase 74, amylase 33, negative troponin and a bland UA. He had a CT head that showed no evidence of acute intracranial abnormalities. He was admitted to medicine for hepatic encephalopathy and his mentation greatly improved with an aggressive bowel regimen and is now being discharged home with close follow up with Dr. Corea for referral to hepatology and will need multiphasic CT or MRI for HCC rule out and per cirrhosis guidelines given noted liver lesions which are not NEW but one was noted to have grown in size. DISCHARGE MEDICATIONS: Please see below. ALLERGIES: Please see below. PHYSICAL EXAMINATION ON DISCHARGE: VITAL SIGNS: Please see below. GENERAL APPEARANCE: Appears in no acute distress, awake, sitting up in chair, conversational HEENT:Atraumatic, normocephalic. Eyes are nonicteric. Trachea is midline. Mucous membranes are pink and moist CARDIOVASCULAR: Normals S1, S2. Regular rhythm. No clicks, rubs or murmurs LUNGS: CTAB. Good respiratory effort. No wheezes, rhonchi, or rales ABDOMEN: Normoactive sounds, obese, soft, no dilated abdominal veins, NTND. No rebound tenderness or guarding EXTREMITIES: Trace edema in bilateral lower extremities. Full and equal pulses in bilateral upper and lower extremities NEUROLOGICAL: No focal neurological deficits. Patient does appear confused PSYCHIATRIC: More awake, AOx3 LABORATORY DATA: Please see below. IMAGING: Liver doppler flow: The gallbladder is surgically absent. Scanning through the right upper quadrant the abdomen demonstrates a focal hypoechoic area in the right lobe of the liver 1.8 x 1.9 x 1.4 cm. This is not well seen. There is also a hyperechoic structure in the liver 1.7 x 1.6 x 0.9 cm which may be hemangioma. Scan quality is inhibited by bowel gas. No other focal lesion is seen. The common bile duct could not be seen. There is no evidence of hepatomegaly. The spleen is mildly enlarged and homogeneous in texture measuring 14.9 x 14.6 x 5.9 cm. There is no visible ascites. Renal cortical echogenicity pattern is normal in contours are smooth. No hydronephrosis is seen. Right renal dimensions are 8.6 x 4.2 x 4.1 cm. The left kidney measures 9.6 x 3.7 by 4.3 cm. The aorta is obscured by abdominal gas. Portal venous visceral Doppler ultrasound: Exam quality is extremely limited. Patient was unable to suspend respiration and bowel gas obscures visualization. The TIPS shunt is observed to be patent with velocities of 47.8 cm and 49.5 centimeters/second. In the splenic hilus, splenic venous velocity is normal in direction of flow is normal at 31.4 centimeters/second. Portal venous and hepatic arterial velocities could not be observed. IMPRESSION: Limited exam quality. Splenomegaly. Patent TIPS shunt. CT A/P: The visualized lung morrissey again demonstrate chronic fibrotic changes and cardiomegaly. This is these are unchanged. Is a hypodense mass along the lateral margin of the hepatic dome today measuring 3.5 cm. This measured 3.0 cm previously. Eight tips shunt catheter is again identified, unchanged. The unenhanced pancreas is unremarkable. The spleen is enlarged measuring up to 16 cm AP. This is unchanged. The adrenals are unremarkable. The unenhanced kidneys are unremarkable. Bilateral renal artery stenosis was identified on the prior CT angiography. The abdominal aorta is unremarkable. There is no periaortic adenopathy or mass. There is no bowel distention or obstruction. The mesentery is unremarkable. Pelvis: The bladder is distended but otherwise unremarkable. There is no adenopathy or ascites. The pelvic bowel loops are unremarkable. There is grade 4 compression and deformity of the T12 vertebral body, unchanged. IMPRESSION: There are no significant interval change except that the known hepatic mass has increased size. Tips shunt is again identified. Splenomegaly is again identified. There are fibrotic changes in the visualized lower lung morrissey, unchanged. There is cardiomegaly, unchanged. There is compression deformity of the T12 vertebral body, unchanged. Bilateral renal artery stenosis was identified on the previous CT angiography. Non contrast CT head: Bone window settings demonstrate an intact bony calvarium. There is no evidence of skull fracture or incidental bony calvarial lesion. No intraorbital abnormality is seen. On soft tissue window setting images; the lateral, third, and fourth ve ntricles are normal in size and position. Stokes-white differentiation pattern is normal above and below the tentorium. There are is no evidence of intracranial hemorrhage. No mass, edema, infarction, or midline shift is seen. No extra-axial fluid collection is appreciated. There is moderate generalized volume loss. Small vessel atherosclerotic changes are again noted. Vascular calcification is seen in the distal internal carotid and distal vertebral arteries. There are mild mucosal changes in the maxillary and ethmoid sinuses bilaterally. IMPRESSION: No acute intracranial abnormality. Small-vessel atherosclerotic changes and generalized volume loss again noted. Vascular calcification.. CXR: There is an incomplete inspiratory effort as previously. There is diffuse coarsening of the interstitial markings, unchanged, compatible with chronic lung disease. No focal infiltrates or pleural effusions are identified. There is chronic cardiomegaly, unchanged. There is a dual chamber pacemaker, unchanged. IMPRESSION: No acute cardiopulmonary findings. Chronic diffuse interstitial coarsening and chronic cardiomegaly. Dual chamber pacemaker, unchanged. PROGNOSIS: Good, but high risk for readmission for encephalopathy given reluctance to take lactulose ACTIVITY: As tolerated DIET: consistent carb, 2g sodium, 2L/24h DISCHARGE PLAN: Home with QID lactulose DISPOSITION: Home DISCHARGE INSTRUCTIONS: Home with QID lactulose. Please call Dr. Corea's office for prompt evaluation and referral to hepatology ITEMS TO FOLLOWUP ON ON OUTPATIENT: Liver cirrhosis Liver lesions, that have been previously noted DISCHARGE CONDITION: Stable TIME SPENT ON DISCHARGE: 45 minutes. Vital Signs/I&Os Vital Signs Date Time Temp Pulse Resp B/P (MAP) Pulse Ox O2 Delivery O2 Flow Rate FiO2 08/03/20 06:00 97.5 77 17 144/81 (102) 99 Room Air I&O- Last 24 Hours up to 6 AM 08/03/20 06:00 Intake Total 1880 ml Output Total 0 ml Balance 1880 ml Laboratory Data Labs 24H Laboratory Tests 2 08/02/20 11:57: Immature Granulocyte % (Auto) 0.5, Neutrophils (%) (Auto) 67.6H, Lymphocytes (%) (Auto) 19.6L, Monocytes (%) (Auto) 9.6H, Eosinophils (%) (Auto) 2.0, Basophils (%) (Auto) 0.7, Neutrophils # (Auto) 2.8, Lymphocytes # (Auto) 0.8L, Monocytes # (Auto) 0.4, Eosinophils # (Auto) 0.1, Basophils # (Auto) 0.0, Nucleated Red Blood Cells % (auto) 0.0, Immature Platelet Fraction 7.5, Prothrombin Time 16.5H, Prothromb Time International Ratio 1.30, Activated Partial Thromboplast Time 38.4, Anion Gap 4L, Glomerular Filtration Rate 51.3, Calcium Level 8.5L, Magnesium Level 1.7L, Total Bilirubin 2.0H, Direct Bilirubin 0.8H, Aspartate Amino Transf (AST/SGOT) 41H, Alanine Aminotransferase (ALT/SGPT) 28, Alkaline Phosphatase 123H, Ammonia 170H, Total Creatine Kinase 46, Creatine Kinase MB 1.6, Creatine Kinase MB Relative Index 3.48, Troponin I 0.02, Total Protein 5.9L, Albumin 2.6L, Albumin/Globulin Ratio 0.8, Amylase Level 33, Lipase 74 08/02/20 13:21: Urine Color YELLOW, Urine Appearance CLEAR, Urine pH 6.0, Urine Specific [place] 1.010, Urine Protein NEGATIVE, Urine Glucose (UA) NEGATIVE, Urine Ketones NEGATIVE, Urine Blood NEGATIVE, Urine Nitrite NEGATIVE, Urine Bilirubin NEGATIVE, Urine Urobilinogen 0.2, Urine Leukocyte Esterase NEGATIVE, Urine WBC (Auto) 1, Urine RBC (Auto) 0, Urine Hyaline Casts (Auto) 0, Urine Bacteria (Auto) NEGATIVE, Urine Squamous Epithelial Cells 0, Urine Sperm (Auto) , Lactic Acid Level 2.3*H, Salicylates Level < 1.7L, Urine Opiates Screen NEGATIVE, Urine Methadone Screen NEGATIVE, Acetaminophen Level < 2.0L, Urine Barbiturates Screen NEGATIVE, Urine Phencyclidine Screen NEGATIVE, Urine Amphetamines Screen NEGATIVE, Urine Benzodiazepines Screen NEGATIVE, Urine Cocaine Metabolite Screen NEGATIVE, Urine Cannabinoids Screen NEGATIVE, Ethyl Alcohol Level < 0.003 08/02/20 15:16: Coronavirus (COVID-19)(PCR) NEGATIVE, Influenza Type A (RT-PCR) NEGATIVE, Influe nza Type B (RT-PCR) NEGATIVE, Respiratory Syncytial Virus (PCR) NEGATIVE 08/02/20 17:46: Lactic Acid Followup at 4 Hours 2.0 08/02/20 18:25: Bedside Glucose (Misc Panel) 62L 08/02/20 18:34: Bedside Glucose (Misc Panel) 61L 08/02/20 18:35: Bedside Glucose (Misc Panel) 65L 08/02/20 18:53: Bedside Glucose (Misc Panel) 80L 08/02/20 20:54: Bedside Glucose (Misc Panel) 162H 08/03/20 06:07: Bedside Glucose (Misc Panel) 135H CBC/BMP Laboratory Tests 08/02/20 11:57 FSBS Laboratory Tests Test 08/02/20 18:25 08/02/20 18:34 08/02/20 18:35 08/02/20 18:53 Range/Units Bedside Glucose (Misc Panel) 62 61 65 80 83-110 MG/DL Test 08/02/20 20:54 08/03/20 06:07 Range/Units Bedside Glucose (Misc Panel) 162 135 83-110 MG/DL Microbiology Microbiology 08/02/20 Blood Culture, Received Pending 08/02/20 Blood Culture, Received Pending Discharge Medications Scheduled Ascorbic Acid (Vitamin C) 500 Mg Tab, 500 MG PO QHS, (Reported) Carvedilol (Carvedilol) 6.25 Mg Tablet, 6.25 MG PO BID, (Reported) Cholecalciferol (Vitamin D3) (Vitamin D3) 1,000 Unit Tablet, 1,000 UNITS PO QHS, (Reported) Cyanocobalamin (Vitamin B-12) (Vitamin B-12) 500 Mcg Tablet, 500 MCG PO QHS, (Reported) Insulin Glargine (Lantus) 1 Units/0.01 Ml Susp, 40 UNITS SC QAM, (Reported) Insulin Glargine (Lantus) 1 Units/0.01 Ml Susp, 20 UNITS SC QHS, (Reported) Insulin Human Lispro (Humalog) 1 Units/0.01 Ml Inj, 1 DOSE SC AC, (Reported) PER SLIDING SCALE Lactulose (Lactulose) 10 Gm/15 Ml Solution, 45 ML PO QID, (Reported) Magnesium (Magnesium) 250 Mg Tablet, 250 MG PO BID, (Reported) Milk Thistle (Milk Thistle) 500 Mg Capsule, 500 MG PO BID, (Reported) Omeprazole (Omeprazole) 40 Mg Capsule.dr, 40 MG PO DAILY, (Reported) Rifaximin (Xifaxan) 550 Mg Tab, 550 MG PO BID, (Reported) Spironolactone (Spironolactone) 50 Mg Tab, 50 MG PO DAILY, (Reported) Tamsulosin Hcl (Tamsulosin HCl) 0.4 Mg Capsule, 0.4 MG PO QHS, (Reported) Travoprost (Travatan Z) 0.004% 2.5ML Drops, 1 DROP OU QHS, (Reported) Vitamin E (Vitamin E) 400 Unit Capsule, 400 UNIT PO QHS, (Reported) Scheduled PRN Hydrocodone/Acetaminophen (Hydrocodone-Acetamin 5-325 mg) 1 Each Tablet, 0.5 TAB PO TID PRN for PAIN, (Reported) TAKES 1/2 - 1 TAB Allergies Coded Allergies: lisinopril (Verified Adverse Reaction, Intermediate, HYPERKALEMIA, 11/07/18) XOCHITL STYLES MD Aug 03, 2020 08:05
--- NOTE | 2020-08-03 10:07 | IPNPDOC ---
Text Note Date of Service The patient was seen on 08/03/20. NOTE SUBJECTIVE: -Mentation much improving, had 3 BMs overnight OBJECTIVE: VITAL SIGNS: see below. GENERAL APPEARANCE: Appears in no acute distress, awake on voice HEENT:Atraumatic, normocephalic. Eyes are nonicteric. Trachea is midline. Mucous membranes are pink and moist CARDIOVASCULAR: Normals S1, S2. Regular rhythm. No clicks, rubs or murmurs LUNGS: CTAB. Good respiratory effort. No wheezes, rhonchi, or rales ABDOMEN: Normoactive sounds, obese, soft, no dilated abdominal veins, NTND. No rebound tenderness or guarding EXTREMITIES: Trace pitting edema in bilateral lower extremities. Full and equal pulses in bilateral upper and lower extremities NEUROLOGICAL: No focal neurological deficits. Patient does appear confused PSYCHIATRIC: More awake, AOx3 now LABORATORY DATA and IMAGING: summarized above MICROBIOLOGY: Please see below. ASSESSMENT: 79 year old M with a history of liver cirrhosis c/b ascites and hepatic encephalopathy s/p TIPS, however with frequent admissions for hepatic encephalopathy who presented to the [facility] ER with altered mental status and admitted for hepatic encephalopathy . PLAN: 1. Hepatic Encephalopathy 2/2 decompensated Liver Cirrhosis -is hyperammonemic to 170 -Imaging thus far negative for any acute pathology. TIPS shunt appears in position on CT, and is patent on doppler US. Will refer back to [facility] for hepatology referral for liver lesions for triphasic imaging for HCC testing, will check AFP. -No ascites noted -Lactulose 45mg QID for goal 3-4 bowel movements -Rifaximin BID -f/u repeat Ammonia level in AM -fleet enema BIDP 2. Decompensated Liver Cirrhosis -Low suspicion of intraabdominal infection with no ascites to note, CT without acute findings except for interval growth of known lesion? Will discuss lesion with his mechanical integrity specialist to see if has HCC surveillance and needs multiphasic imaging for the hepatic lesions that seem to have grown in size. -Continue Spironolactone -Continue omeprazole -Imaging thus far negative for any acute pathology. TIPS shunt appears in position on CT, and is patent on doppler US. Will refer back to [facility] for hepatology referral for liver lesions for triphasic imaging for HCC testing, will check AFP. 3. Anemia: likely multifactorial chronic anemia given cirrhosis -daily CBC 4. Chronic thrombocytopenia 2/2 cirrhosis -monitor daily CBC while inpatient 5. DMII -Sliding scale insulin coverage ACHS and home dose levemir. FSBG AC/HS. Hypoglycemia protocol 6. Hypertension -Currently normotensive. -Will continue to monitor 7. DVT Prophylaxis -Mechanical Dispo: Likely home today after home safety eval VS,Fishbone, I+O VS, Fishbone, I+O Laboratory Tests 08/02/20 11:57 Vital Signs Date Time Temp Pulse Resp B/P (MAP) Pulse Ox O2 Delivery O2 Flow Rate FiO2 08/03/20 06:00 97.5 77 17 144/81 (102) 99 Room Air I&O- Last 24 Hours up to 6 AM 08/03/20 06:00 Intake Total 1880 ml Output Total 0 ml Balance 1880 ml XOCHITL STYLES MD Aug 03, 2020 07:55
--- NOTE | 2020-08-04 08:00 | ECGEPIP ---
[facility] - ED Test Date: 2020-08-02 Pat Name: VELASQUEZ GRUBBS Department: Room: - Gender: Male Rn Occupational: [employer] : 1940 Requested By: CHINO Vela Order Number: [id number] Reading MD: Carolann Lange Measurements Intervals [place] Rate: 67 P: 11 MI: 198 QRS: 63 QRSD: 136 T: -25 QT: 464 QTc: 490 Interpretive Statements Atrial-sensed ventricular-paced rhythm Electronically Signed on 08-04-2020 8:00:12 EDT by Carolann Lange
== END 2020-08-03 13:17 | disposition home health service (06) ==
LOC: EDBD 11:22 → M ED 11:22 → M MSPAV 11:23 → M ED 16:33
PROVIDERS: ADMIT Internal Medicine; ATTEND Internal Medicine
DX: K72.90 Hepatic failure, unspecified without coma (principal); I12.9 Hypertensive chronic kidney disease with stage 1 through stage 4 chronic kidney disease, or unspecified chronic kidney disease; E11.9 Type 2 diabetes mellitus without complications; K74.60 Unspecified cirrhosis of liver; Z96.89 Presence of other specified functional implants; Z95.828 Presence of other vascular implants and grafts; I44.2 Atrioventricular block, complete; Z95.0 Presence of cardiac pacemaker; N18.30 Chronic kidney disease, stage 3 unspecified; R41.82 Altered mental status, unspecified; E72.20 Disorder of urea cycle metabolism, unspecified; R16.0 Hepatomegaly, not elsewhere classified; R16.1 Splenomegaly, not elsewhere classified; D69.59 Other secondary thrombocytopenia; D64.9 Anemia, unspecified; R10.9 Unspecified abdominal pain; Z79.899 Other long term (current) drug therapy; Z79.4 Long term (current) use of insulin; Z79.2 Long term (current) use of antibiotics; Z88.8 Allergy status to other drugs, medicaments and biological substances
CPT/HCPCS: 36415; 70450; 71045; 74176; 76700; 80048; 80076; 80143; 80307; 81001; 82077; 82105; 82140; 82150; 82550; 82553; 83605; 83690; 83735; 84484; 85025; 85027; 85049; 85055; 85610; 85730; 86850; 86900; 86901; 87040; 87631; 93005; 93041; 93975; 97161; 99285; G0378; J3475

== ENCOUNTER → 2020-08-08 | Outpatient (REF) | payer MEDICARE, OTHER ==
[~2020-08-08] MED LIST changes: +FERR324T21 PO; -FERR325T16 PO; +OMEP-221 PO
[2020-08-08 15:10] LABS: BASO % 0.6 % (0.0-1.0); EOS # 0.2 10^3/uL (0.0-0.5); HEMATOCRIT 32.6 % (42.0-52.0); HEMOGLOBIN 10.6 g/dl (13.5-17.5); LYMPH # 1.3 10^3/uL (1.5-5.0); LYMPH % 20.6 % (24.0-44.0); MEAN CORPUSCULAR HEMOGLOBIN 37.5 pg (27.0-33.0); MEAN CORPUSCULAR HGB CONC 32.5 g/dl (32.0-36.5); MONO # 0.6 10^3/uL (0.0-0.8); MONO % 9.3 % (2.0-8.0); NEUTROPHILS # 4.1 10^3/uL (1.5-8.5); NEUTROPHILS % 65.9 % (36.0-66.0); RED BLOOD COUNT 2.83 10^6/uL (4.30-6.10); WHITE BLOOD COUNT 6.3 10^3/uL (4.0-10.0)
[2020-08-08 15:11] LABS: MEAN CORPUSCULAR VOLUME 115.2 fl (80.0-96.0)
[2020-08-08 15:12] LABS: PLATELET COUNT, AUTOMATED 65 10^3/uL (150-450)
[2020-08-08 15:23] LABS: PLATELET ESTIMATE DECREASED (NORMAL)
[2020-08-08 15:38] LABS: ALBUMIN 2.9 GM/DL (3.2-5.2); ALT/SGPT 34 U/L (12-78); BILIRUBIN,TOTAL 2.5 MG/DL (0.2-1.0); BLOOD UREA NITROGEN 19 MG/DL (7-18); CALCIUM LEVEL 9.1 MG/DL (8.8-10.2); CARBON DIOXIDE LEVEL 34 MEQ/L (21-32); CHLORIDE LEVEL 108 MEQ/L (98-107); CREATININE FOR GFR 1.26 MG/DL (0.70-1.30); GLOMERULAR FILTRATION RATE 58.9 (>42); GLUCOSE, FASTING 53 MG/DL (70-100); MAGNESIUM LEVEL 1.7 MG/DL (1.8-2.4); NT-PRO BNP 640 PG/ML (<450); POTASSIUM SERUM 5.6 MEQ/L (3.5-5.1); SODIUM LEVEL 144 MEQ/L (136-145); TOTAL PROTEIN 6.4 GM/DL (6.4-8.2)
[2020-08-12 09:29] LABS: ALBUMIN 3.25 GM/DL (3.29-5.55); ALBUMIN % 50.8 % (55.8-66.1); ALPHA-1-GLOBULINS 0.19 GM/DL (0.17-0.41); ALPHA-2-GLOBULINS 0.47 GM/DL (0.42-0.99); ALPHA-2-GLOBULINS % 7.3 % (7.1-11.8); BETA-1-GLOBULINS 0.28 GM/DL (0.28-0.60); BETA-1-GLOBULINS % 4.4 % (4.7-7.2); BETA-2-GLOBULINS 0.42 GM/DL (0.19-0.55); BETA-2-GLOBULINS % 6.6 % (3.2-6.5); GAMMA GLOBULIN % 27.9 % (11.1-18.8); GAMMA GLOBULINS 1.79 GM/DL (0.65-1.58)
== END ==
LOC: M SFHCPLAZ 13:17
PROVIDERS: ATTEND Family Medicine
DX: D50.9 Iron deficiency anemia, unspecified (principal); I50.42 Chronic combined systolic (congestive) and diastolic (congestive) heart failure
CPT/HCPCS: 36415; 80053; 82140; 83735; 83880; 84165; 85025; 85046; 85049; 85055; 86335; G0463

== ENCOUNTER → 2020-08-27 | Outpatient (REF) | payer MEDICARE, OTHER ==
[2020-08-27 18:28] LABS: BASO % 0.7 % (0.0-1.0); EOS # 0.1 10^3/uL (0.0-0.5); EOS % 2.6 % (0.0-3.0); HEMATOCRIT 31.7 % (42.0-52.0); HEMOGLOBIN 10.5 g/dl (13.5-17.5); LYMPH % 18.9 % (24.0-44.0); MEAN CORPUSCULAR HEMOGLOBIN 37.8 pg (27.0-33.0); MEAN CORPUSCULAR HGB CONC 33.1 g/dl (32.0-36.5); MONO # 0.5 10^3/uL (0.0-0.8); NEUTROPHILS # 3.6 10^3/uL (1.5-8.5); NEUTROPHILS % 67.2 % (36.0-66.0); RED BLOOD COUNT 2.78 10^6/uL (4.30-6.10); WHITE BLOOD COUNT 5.4 10^3/uL (4.0-10.0)
[2020-08-27 18:30] LABS: PLATELET COUNT, AUTOMATED 60 10^3/uL (150-450)
[2020-08-27 18:40] LABS: ALBUMIN 2.7 GM/DL (3.2-5.2); BILIRUBIN,TOTAL 2.9 MG/DL (0.2-1.0); CALCIUM LEVEL 9.5 MG/DL (8.8-10.2); CREATININE FOR GFR 1.31 MG/DL (0.70-1.30); GLOMERULAR FILTRATION RATE 56.3 (>42); MAGNESIUM LEVEL 1.7 MG/DL (1.8-2.4); POTASSIUM SERUM 5.2 MEQ/L (3.5-5.1); TOTAL PROTEIN 6.1 GM/DL (6.4-8.2)
== END ==
LOC: M SFHCPLAZ 15:45
PROVIDERS: ATTEND Physician Assistant
DX: R53.83 Other fatigue (principal); R53.1 Weakness

== ENCOUNTER 2020-09-01 21:39 | Inpatient (IN) | payer MEDICARE, OTHER ==
[~2020-09-01] VITALS: Ht 172.7 cm; Wt 81.2 kg
[2020-09-01 22:26] LABS: BASO % 0.4 % (0.0-1.0); EOS # 0.1 10^3/uL (0.0-0.5); EOS % 2.6 % (0.0-3.0); HEMATOCRIT 32.2 % (42.0-52.0); HEMOGLOBIN 10.6 g/dl (13.5-17.5); LYMPH # 0.9 10^3/uL (1.5-5.0); LYMPH % 17.9 % (24.0-44.0); MEAN CORPUSCULAR HEMOGLOBIN 37.5 pg (27.0-33.0); MEAN CORPUSCULAR HGB CONC 32.9 g/dl (32.0-36.5); MEAN CORPUSCULAR VOLUME 113.8 fl (80.0-96.0); MONO # 0.5 10^3/uL (0.0-0.8); NEUTROPHILS # 3.5 10^3/uL (1.5-8.5); NEUTROPHILS % 68.7 % (36.0-66.0); RED BLOOD COUNT 2.83 10^6/uL (4.30-6.10)
[2020-09-01 23:06] LABS: PLATELET COUNT, AUTOMATED 50 10^3/uL (150-450)
[2020-09-01 23:58] LABS: ALBUMIN 2.8 GM/DL (3.2-5.2); BILIRUBIN,DIRECT 0.9 MG/DL (0.0-0.2); BILIRUBIN,TOTAL 2.3 MG/DL (0.2-1.0); CALCIUM LEVEL 9.6 MG/DL (8.8-10.2); CREATININE FOR GFR 1.82 MG/DL (0.70-1.30); GLOMERULAR FILTRATION RATE 38.5 (>42); POTASSIUM SERUM 5.6 MEQ/L (3.5-5.1); TOTAL PROTEIN 6.4 GM/DL (6.4-8.2)
[2020-09-01 23:59] LABS: ACETONE/KETONE 1.35 MG/DL (<2.81); THYROID STIMULATING HORMONE 4.41 uIU/ML (0.358-3.740)
[2020-09-02] VITALS (14 sets, daily range): BP systolic 106–137; BP diastolic 49–62
[2020-09-02] MEDS ORDERED: NS 1,000 ML IV ONE (00:35)
[2020-09-02 01:20] LABS: VENOUS BASE EXCESS -1.3 (-2.0-2.0); VENOUS HCO3 23.5 MEQ/L (23.0-27.0); VENOUS O2 SATURATION 93.9 % (60.0-80.0); VENOUS PARTIAL PRESSURE CO2 39.5 mmHg (38.0-50.0); VENOUS PARTIAL PRESSURE O2 74.3 mmHg (30.0-50.0); VENOUS PH 7.392 UNITS (7.330-7.430); VENOUS STANDARD HCO3 23.3 MEQ/L; VENOUS TOTAL CO2 24.7 MEQ/L (24.0-28.0)
[2020-09-02] MEDS ORDERED: fentaNYL 100 MCG/2 ML INJECTION (J3010) IV ONE (03:20)
[2020-09-02] MEDS ORDERED: LACTULOSE 20 GM/30 ML SYRUP UD PO ONE (03:30)
[2020-09-02] MEDS ORDERED: CALCIUM GLUCONATE 1,000 MG in D5W MINI-BAG PLUS 100 ML IV ONE (03:30)
[2020-09-02 03:42] LABS: INR 1.3; PARTIAL THROMBOPLASTIN TIME 36.4 SECONDS (24.2-38.5); PROTHROMBIN TIME 16.5 SECONDS (12.5-14.3)
[2020-09-02] MEDS ORDERED: GLUCAGON INJ 1MG VIAL SC PRN (04:05)
[2020-09-02] MEDS ORDERED: DEXTROSE 50% 50 ML SYRINGE IV PRN (04:05)
[2020-09-02] MEDS ORDERED: HEPARIN SOD (PORCINE) 5000UNITS/ML 1ML VIAL/SYRINGE SC SCH (04:05)
[2020-09-02] MEDS ORDERED: MOM 30ML SUSPENSION UDC PO PRN (04:05)
[2020-09-02] MEDS ORDERED: NORCO, ANEXSIA 5/325MG TABLET (HYDROcodone/ACETAMINOPHEN) PO PRN (04:05)
[2020-09-02] MEDS ORDERED: ACETAMINOPHEN TAB 650MG DOSE (2X325MG) PO PRN (04:05)
[2020-09-02] MEDS ORDERED: MAALOX 30 ML SUSP *UDC PO PRN (04:05)
[2020-09-02] MEDS ORDERED: GLUCOSE 4GM CHEW TABLET PO PRN (04:05)
[2020-09-02] MEDS ORDERED: PILL CUTTER 1 EACH XX PRN (04:35)
--- NOTE | 2020-09-02 05:18 | HPEPDOC ---
[facility] Medical History & Physical Date of Admission Sep 02, 2020 Date of Service: Sep 02, 2020 Attending Physician: LIDIA MCKAY MD History and Physical CHIEF COMPLAINT: [This is a 79 y/o male with a c/c of weakness, hyperglycemia x1 day] HISTORY OF PRESENT ILLNESS: [This is a 79 y/o male with pmh of IDDM2, chronic hepatic failure s/p TIPS, CAD, heartbloack s/p pacemaker, htn, hld, GERD, and CKD who presents to the ED with , Sue. states that early afternoon of 09/01 she found him confused, so she thought to check his blood glucose which she found to be over 500. states that at this time she gave 20 units of his humalog but this was unable to bring his sugars down and they stayed in the 500s range. states that she decided to get her up to make him walk but he was too weak to walk. states that this is when she and her son helped him into the truck to bring him to the ED. Patient states that he is not sure what happened. He ate a good breakfast then had some crackers and milk with his lactulose but then felt very weak and confused. Patient states that as of now, he feels very weak and "just crappy." Patient also endorses generalized abdominal pain that is worse with movement and palpation. Patient also endorses headache. Patient denies dizziness, syncope, shortness of breath, chest pain, cough, n/v/d, constipation, dysuria, fever, chills, uri sx, rash. Upon workup in the ED, patient found to have elevated ammonia of 66, elevated cr of 1.8 from baseline 1.3 and hyperkalemia of 5.6. Glucose was 285.] PAST MEDICAL HISTORY: 1. [See HPI PAST SURGICAL HISTORY: 1. [TIPS]. 2. [Spinal fusion]. 3. [cholecystectomy 4. pacemaker placement 5. right inguinal hernia repair]. SOCIAL HISTORY: Marital status: []. Resides in: [Home with ] Children: [Son] Employment: [Retired] Tobacco use:[Former] ETOH: [Denies] Illicit drug use: [Denies] FAMILY HISTORY: Reviewed - none ALLERGIES: Please see below. REVIEW OF SYSTEMS: CONSTITUTIONAL: [See HPI]. HEENT: [See HPI]. CARDIOVASCULAR: [See HPI]. RESPIRATORY: [See HPI]. GASTROINTESTINAL: [See HPI]. GENITOURINARY: [See HPI]. SKIN: [Denies rash]. MUSCULOSKELETAL: [Denies acute joint pain]. NEUROLOGICAL: [Denies paresthesias]. ENDOCRINE: [Hx of DM]. HEMATOLOGIC/LYMPHATIC: [Denies easy bruising]. HOME MEDICATIONS: Please see below. PHYSICAL EXAMINATION: VITAL SIGNS: Please see below GENERAL APPEARANCE: [This is a chronically ill appearing 79 y/o male. He is mildly confused through exam but is oriented. His skin has a sharp-yellow tone.]. HEENT: [No mass or lesion. EOMI. Sclerae are icteric b/l. Nares patent. Oral mucosa dry.]. CARDIOVASCULAR: [Regular rate, irregular rhythm. No murmurs, rubs or gallops]. LUNGS: [Crackles heard in b/l lung bases]. ABDOMEN: [Distended, soft, tender throughout.]. MUSCULOSKELETAL: [No joint deformity]. EXTREMITIES: [B/l lower extremities with pitting pre-tibial edema to knees. No overlying skin changes. Pulses intact. No clubbing cyanosis.]. NEUROLOGICAL: [Speech slow, but clear. A+Ox3. No focal deficits]. PSYCHIATRIC: [Mood and affect appear appropriate]. LABORATORY DATA: See below. IMAGING: [Pending] MICROBIOLOGY: Please see below. ASSESSMENT: [this is a 79 year old male with an extensive pmh of chronic liver failure with cirrhosis s/p TIPS, IDDM2, htn, ckd, cad, s/p pacemaker placement who presents after an episode of profound confusion, weakness and hyperglycemia. Upon workup in ED is found to be hyperkalemic, have elevated ammonia and elevated cr.]. . PLAN: 1. [PRETTY - Possibly hepatorenal syndrome. Also potentially prerenal due to lessened oral intake. Patient has baseline CKD. - Renal us, ua, urine na and cr ordered - Will begin albumin replacement 2. Hepatic failure - Chronic issue with possible decompensation. Possible infectious etiology - UA is positive for bacteria, but patient denies any urinary symptoms. Chest x- ray, urine culture, blood cultures ordered. - Albumin replacement as stated - Will continue lactulose, rifaximin - Holding spironolactone for now to see if patient responds to fluid therapy with albumin. Can consider restarting and adding lasix if patient does not respond. - Liver US ordered. can consider paracentesis pending results - Will follow ammonia, liver enzymes 3. Hepatic encephalopathy - mental status has improved per . Patient likely had symptomatic hyperglycemia on top of chronic encephalopathy - Lactulose and rifixamin as stated 4. Hyperkalemia - Likely secondary to low clearance in setting of PRETTY - Calcium gluconate given - Likely to decrease as patient's kidney function is treated 5. DM - Continue at home basal insulin - Sliding scale insulin achs and hypoglycemic protocol 6. HTN - Continue coreg 7. GERD - continue omeprazole 8. BPH - continue tamsulosin 9. DVT prophylaxis - SCDs for now due to low platelets ]. Vital Signs Vital Signs Date Time Temp Pulse Resp B/P (MAP) Pulse Ox O2 Delivery O2 Flow Rate FiO2 09/02/20 03:45 18 09/02/20 03:24 64 100 09/02/20 03:15 137/60 (85) Room Air 09/01/20 21:40 97.6 Laboratory Data Labs 24H Laboratory Tests 2 09/01/20 22:05: Immature Granulocyte % (Auto) 0.4, Neutrophils (%) (Auto) 68.7H, Lymphocytes (%) (Auto) 17.9L, Monocytes (%) (Auto) 10.0H, Eosinophils (%) (Auto) 2.6, Basophils (%) (Auto) 0.4, Neutrophils # (Auto) 3.5, Lymphocytes # (Auto) 0.9L, Monocytes # (Auto) 0.5, Eosinophils # (Auto) 0.1, Basophils # (Auto) 0.0, Nucleated Red Blood Cells % (auto) 0.0, Immature Platelet Fraction 7.4, Anion Gap 5L, Glomerular Filtration Rate 38.5L, Calcium Level 9.6, Total Bilirubin 2.3H, Direct Bilirubin 0.9H, Aspartate Amino Transf (AST/SGOT) 46H, Alanine Aminotransferase (ALT/SGPT) 33, Alkaline Phosphatase 124H, Ammonia 67H, Total Protein 6.4, Albumin 2.8L, Albumin/Globulin Ratio 0.8, Thyroid Stimulating Hormone (TSH) 4.410H, B-Hydroxybutyrate 1.35 09/01/20 22:14: POC Glucose (Misc Panel) 297H, POC Sodium (Misc Panel) 139, POC Potassium (Misc Panel) 5.5H, POC Chloride (Misc Panel) 109, POC Total CO2 (Misc Panel) 23.0, POC Blood Urea Nitrogen (Misc Panel 23, POC Ionized Calcium (Misc Panel) 4.4L, POC Creatinine (Misc Panel) 1.5H, POC Hematocrit (Misc Panel) 36.0L 09/01/20 22:16: POC Troponin I (Misc) 0.01 09/02/20 00:23: Urine Color YELLOW, Urine Appearance CLEAR, Urine pH 5.0, Urine Specific [place] 1.020, Urine Protein NEGATIVE, Urine Glucose (UA) 3+H, Urine Ketones NEGATIVE, Urine Blood NEGATIVE, Urine Nitrite POSITIVEH, Urine Bilirubin NEGATIVE, Urine Urobilinogen 0.2, Urine Leukocyte Esterase NEGATIVE, Urine WBC (Auto) 1, Urine RBC (Auto) 6H, Urine Hyaline Casts (Auto) 0, Urine Bacteria (Auto) 1+H, Urine Squamous Epithelial Cells 0, Urine Transitional Epithelial Cells <1, Urine Amorphous Sediment SMALLH, Urine Sperm (Auto) , Blood Gas Bicarbonate Standard 23.3, Venous Blood pH 7.392, Venous Blood Partial Pressure CO2 39.5, Venous Blood Partial Pressure O2 74.3H, Venous Blood Total Carbon Dioxide 24.7, Venous Blood HCO3 23.5, Venous Blood Oxygen Saturation 93.9H, Venous Blood Base Excess -1.3 09/02/20 03:34: Prothrombin Time 16.5H, Prothromb Time International Ratio 1.30, Activated Partial Thromboplast Time 36.4 CBC/BMP Laboratory Tests 09/01/20 22:05 Microbiology Microbiology 09/02/20 Respiratory Virus Panel (PCR) (AMBROSIO) - Final, Complete 09/02/20 Urine Culture, Received Pending Home Medications Scheduled Carvedilol (Carvedilol) 6.25 Mg Tablet, 6.25 MG PO BID Cholecalciferol (Vitamin D3) (Vitamin D3) 1,000 Unit Tablet, 1,000 UNITS PO QHS Cyanocobalamin (Vitamin B-12) (Vitamin B-12) 500 Mcg Tablet, 500 MCG PO QHS Insulin Glargine (Lantus) 1 Units/0.01 Ml Susp, 40 UNITS SC QAM Insulin Glargine (Lantus) 1 Units/0.01 Ml Susp, 20 UNITS SC QHS Insulin Human Lispro (Humalog) 1 Units/0.01 Ml Inj, 1 DOSE SC AC PER SLIDING SCALE Lactulose (Lactulose) 10 Gm/15 Ml Solution, 45 ML PO QID Magnesium (Magnesium) 250 Mg Tablet, 250 MG PO BID Milk Thistle (Milk Thistle) 500 Mg Capsule, 500 MG PO BID Omeprazole (Omeprazole) 40 Mg Capsule.dr, 40 MG PO DAILY Rifaximin (Xifaxan) 550 Mg Tab, 550 MG PO BID Spironolactone (Spironolactone) 50 Mg Tab, 50 MG PO DAILY Tamsulosin Hcl (Tamsulosin HCl) 0.4 Mg Capsule, 0.4 MG PO QHS Travoprost (Travatan Z) 0.004% 2.5ML Drops, 1 DROP OU QHS Vitamin E (Vitamin E) 400 Unit Capsule, 400 UNIT PO QHS Scheduled PRN Hydrocodone/Acetaminophen (Hydrocodone-Acetamin 5-325 mg) 1 Each Tablet, 0.5 TAB PO TID PRN for PAIN TAKES 1/2 - 1 TAB Allergies Coded Allergies: lisinopril (Verified Adverse Reaction, Intermediate, HYPERKALEMIA, 11/07/18) A-FIB/CHADSVASC A-FIB History Current/History of A-Fib/PAF?: No Attending Note Attending Note time of service 640am Mr. Sterling is a 79 yr old M w a hx of liver cirrhosis s/p TIPS complicated by episode of hepatic encephalopathy esophageal varices thrombocytopenia splenomegaly, DM2, pacemaker for complete heart block, CKD 3, CAD/ MIs, T12 compression fx /osteoporosis , DLP & HFpEF(G2, EF 45%), CPP disease who will be admitted for management of multifactorial encephalopathy & PRETTY. #HE we will order liver US to screen for ascites prior to IR consult for diagnostic paracentesis to determine if he has SBP which can trigger HE and to r/o portal or hepatic vein thrombus which can also trigger HE PRETTY possibly 2/2 hepatorenal syndrome we will hold his diuretics and give albumin challenge with 25% albumin at 1G/kg body weight in divided doses for 2 days / f/u renal US /because hepatorenal syndrome, may be the sole presenting feature of spontaneous bacterial peritonitis (SBP) we will determine if he is a candidate for paracentesis rest per SMITHA Joseph's H&P OTMMY JOSEPH Sep 02, 2020 05:18 LIDIA MCKAY MD Sep 02, 2020 09:33
--- NOTE | 2020-09-02 06:21 | REPVR ---
PROCEDURE INFORMATION: Exam: XR Chest Exam date and time: 09/02/2020 5:36 AM Age: 79 years old Clinical indication: Fever; Additional info: R/O infection TECHNIQUE: Imaging protocol: XR of the chest. Views: 1 view. COMPARISON: HI Chest, 1 view 08/02/2020 11:42 AM FINDINGS: Tubes, catheters and devices: Left-sided dual lead pacer/ICD seen. Lungs: There is low lung volume with bilateral increased interstitial markings, right more than left more pronounced peripherally. Pleural spaces: Unremarkable. No pleural effusion. No pneumothorax. Heart/Mediastinum: The heart is enlarged. Bones/joints: Unremarkable. IMPRESSION: 1. Low lung volume with chronic interstitial lung changes grossly unchanged since the prior exam. No focal consolidation seen. 2. Cardiomegaly. Electronically signed by: Juwan Bertrand On 09/02/2020 06:21:58 AM
--- NOTE | 2020-09-02 06:24 | REPVR ---
PROCEDURE INFORMATION: Exam: US Retroperitoneal Limited, Kidneys Exam date and time: 09/02/2020 5:58 AM Age: 79 years old Clinical indication: Condition or disease; Kidney or ureter condition; Acute renal insufficiency; Additional info: Ascites TECHNIQUE: Imaging protocol: Real-time ultrasound of the retroperitoneum with image documentation. Examination was focused on the kidneys. COMPARISON: ABD COMPLETE US 11/01/2019 8:43 AM FINDINGS: Right kidney: The right kidney measures 9.9 x 3.7 x 4.1 centimetres and appears grossly unremarkable. No stones. No hydronephrosis. Left kidney: The left kidney measures 10.2 x 4.8 x 5.3 centimetres and appears unremarkable. No stones. No hydronephrosis. IMPRESSION: No acute findings. Electronically signed by: Juwan Bertrand On 09/02/2020 06:25:21 AM
--- NOTE | 2020-09-02 06:33 | REPVR ---
PROCEDURE INFORMATION: Exam: US Duplex Artery or Vein of the Abdominal and/or Reproductive Organs, Limited Liver Exam date and time: 09/02/2020 5:58 AM Age: 79 years old Clinical indication: Other: Altered mental status; Prior surgery; Surgery date: 6+ months; Surgery type: Tipps, cholecystectomy; Additional info: Ascities + doppler studies to R/O hepatic /portal thromobus TECHNIQUE: Imaging protocol: Real-time duplex ultrasound scan of the arterial or venous flow with color Doppler flow and spectral waveform analysis with image documentation. Limited Duplex exam focused on the liver and portal venous system. Duplex images were received to evaluate vascular conditions. COMPARISON: ABD COMPLETE US 11/01/2019 8:43 AM FINDINGS: Portal venous: Tips shunt is seen in appears to be patent with hepatopetal flow seen with peak systolic velocities ranging from 66-81 cm/s. Splenic veins: The splenic vein is patent with hepatopetal flow -flow toward the liver away from the spleen seen with peak systolic velocity of 16.8 cm/s. IMPRESSION: Patent splenic vein and TIPS shunt with hepatopetal flow seen. PROCEDURE INFORMATION: Exam: US Abdomen, Limited; Right Upper Quadrant Exam date and time: 09/02/2020 5:58 AM Age: 79 years old Clinical indication: Other: Altered mental status; Prior surgery; Surgery date: 6+ months; Surgery type: Tipps, cholecystectomy; Additional info: Ascities + doppler studies to R/O hepatic /portal thromobus TECHNIQUE: Imaging protocol: US abdomen. Real time ultrasound with image documentation. Limited exam focused on the right upper quadrant. COMPARISON: ABD COMPLETE US 11/01/2019 8:43 AM FINDINGS: Liver: The liver is only partially visualized with the majority of the liver being obscured. There is a faintly echogenic focus seen in the right hepatic lobe measuring 1.9 x 1.7 x 1.6 centimetres. Gallbladder: The patient is status post cholecystectomy. Common bile duct: The CBD is not visualized-obscured by bowel gas. Pancreas: The pancreas is obscured by bowel gas. Right kidney: Normal. No mass. No hydronephrosis. Spleen: The spleen is enlarged measuring 15.0 x 13.9 x 7.6 cm with no focal splenic lesion identified. Aorta: The aorta is obscured by bowel gas. IMPRESSION: 1. Significantly limited exam due to patient's body habitus and bowel gas with limited visualization of the liver and nonvisualization of the pancreas, CBD or aorta. 2. 1.9 x 1.7 x 1.6 cm right hepatic lobe echogenic focus possibly hemangioma, however incompletely characterized on this exam, grossly unchanged since the prior study. Correlation with prior CT or MRI is is suggested. If this lesion was not previously characterize, MRI with contrast may be obtained for further evaluation 3. Status post cholecystectomy. Electronically signed by: Juwan Bertrand On 09/02/2020 06:34:18 AM
[2020-09-02 08:06] LABS: ALBUMIN 2.8 GM/DL (3.2-5.2); BILIRUBIN,TOTAL 2.7 MG/DL (0.2-1.0); CALCIUM LEVEL 9.5 MG/DL (8.8-10.2); CREATININE FOR GFR 1.52 MG/DL (0.70-1.30); GLOMERULAR FILTRATION RATE 47.5 (>42); POTASSIUM SERUM 4.6 MEQ/L (3.5-5.1)
[2020-09-02 08:37] LABS: CREATININE,RANDOM URINE 74.3 MG/DL
--- NOTE | 2020-09-02 08:58 | REP ---
INDICATION: assess for ascites. COMPARISON: Comparison abdominal CT study August 02, 2020. Comparison sonography November 01, 2019.. TECHNIQUE: Limited 4 quadrant ascites survey. FINDINGS: Four quadrant sonographic scanning the abdomen and pelvis shows no evidence of ascitic fluid. IMPRESSION: No ascites seen. <Electronically signed by Ran Medae > 09/02/20 [id number]
[2020-09-02] MEDS ORDERED: SPIRONOLACTONE 50 MG TAB PO SCH (09:00)
[2020-09-02] MEDS: LACTULOSE 20 GM/30 ML SYRUP UD PO SCH ×4 (09:03→20:53)
[2020-09-02] MEDS: LEVEMIR (INSULIN DETEMIR) 1 UNITS/0.01ML SC SCH (09:04)
[2020-09-02] MEDS: HumaLOG INSULIN (NovoLOG) PER UNIT SC SCH ×4 (09:04→20:55)
[2020-09-02] MEDS: MAGNESIUM GLUCONATE 500 MG TAB PO SCH ×2 (09:04→20:54)
[2020-09-02 09:05] LABS: BASO % 0.5 % (0.0-1.0); EOS # 0.1 10^3/uL (0.0-0.5); EOS % 3.2 % (0.0-3.0); HEMATOCRIT 27.4 % (42.0-52.0); HEMOGLOBIN 9.3 g/dl (13.5-17.5); LYMPH # 0.8 10^3/uL (1.5-5.0); LYMPH % 20.3 % (24.0-44.0); MEAN CORPUSCULAR HGB CONC 33.9 g/dl (32.0-36.5); MEAN CORPUSCULAR VOLUME 111.8 fl (80.0-96.0); MONO # 0.4 10^3/uL (0.0-0.8); MONO % 9.8 % (2.0-8.0); NEUTROPHILS # 2.5 10^3/uL (1.5-8.5); NEUTROPHILS % 65.4 % (36.0-66.0); RED BLOOD COUNT 2.45 10^6/uL (4.30-6.10); WHITE BLOOD COUNT 3.8 10^3/uL (4.0-10.0)
[2020-09-02] MEDS: CARVedilol 6.25 MG TAB PO SCH (09:05)
[2020-09-02] MEDS: rifAXIMin 550 MG TAB (XIFAXAN) PO SCH ×2 (09:05→20:54)
[2020-09-02] MEDS: OMEPRAZOLE 20 MG CAP PO SCH (09:05)
[2020-09-02] MEDS: DOCUSATE SODIUM 100MG CAPSULE PO SCH ×2 (09:05→20:53)
[2020-09-02 09:07] LABS: PLATELET COUNT, AUTOMATED 36 10^3/uL (150-450)
--- NOTE | 2020-09-02 09:34 | ECGEPIP ---
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
[2020-09-02 12:54] LABS: FREE T4 1.06 NG/DL (0.76-1.46)
[2020-09-02] MEDS: TAMSULOSIN 0.4 MG CAP PO SCH (20:53)
[2020-09-02] MEDS: VITAMIN D 1,000 INTERNATIONAL UNITS TABLET PO SCH (20:54)
[2020-09-02] MEDS: CYANOCOBALAMIN 500 MCG TAB PO SCH (20:54)
[2020-09-02] MEDS: LATANOPROST 0.005% OPHTH SOLN 2.5 ML OU SCH (20:55)
[2020-09-02] MEDS ORDERED: LEVEMIR (INSULIN DETEMIR) 1 UNITS/0.01ML SC SCH (21:00)
[2020-09-03 04:12] VITALS: O2SAT 98
[2020-09-03 06:00] VITALS: BP 105/51
[2020-09-03 06:00] LABS: HEMATOCRIT 25.6 % (42.0-52.0); HEMOGLOBIN 8.6 g/dl (13.5-17.5); MEAN CORPUSCULAR HEMOGLOBIN 37.9 pg (27.0-33.0); MEAN CORPUSCULAR HGB CONC 33.6 g/dl (32.0-36.5); MEAN CORPUSCULAR VOLUME 112.8 fl (80.0-96.0); RED BLOOD COUNT 2.27 10^6/uL (4.30-6.10); WHITE BLOOD COUNT 3.4 10^3/uL (4.0-10.0)
[2020-09-03 06:01] LABS: PLATELET COUNT, AUTOMATED 42 10^3/uL (150-450)
[2020-09-03 06:31] LABS: ALBUMIN 2.5 GM/DL (3.2-5.2); CALCIUM LEVEL 8.3 MG/DL (8.8-10.2); CREATININE FOR GFR 1.43 MG/DL (0.70-1.30); GLOMERULAR FILTRATION RATE 50.9 (>42); MAGNESIUM LEVEL 1.1 MG/DL (1.8-2.4); POTASSIUM SERUM 4.7 MEQ/L (3.5-5.1); TOTAL PROTEIN 5.5 GM/DL (6.4-8.2)
[2020-09-03] MEDS ORDERED: LACTULOSE 20 GM/30 ML SYRUP UD PO ONE (08:05)
[2020-09-03] MEDS: CARVedilol 6.25 MG TAB PO SCH ×3 (09:00→20:37)
[2020-09-03] MEDS: rifAXIMin 550 MG TAB (XIFAXAN) PO SCH ×2 (09:09→20:37)
[2020-09-03] MEDS: OMEPRAZOLE 20 MG CAP PO SCH (09:10)
[2020-09-03] MEDS: LACTULOSE 20 GM/30 ML SYRUP UD PO SCH ×4 (09:11→20:36)
[2020-09-03] MEDS: MAGNESIUM GLUCONATE 500 MG TAB PO SCH ×2 (09:11→20:37)
[2020-09-03] MEDS: DOCUSATE SODIUM 100MG CAPSULE PO SCH ×2 (09:11→20:36)
[2020-09-03] MEDS: LEVEMIR (INSULIN DETEMIR) 1 UNITS/0.01ML SC SCH (09:12)
[2020-09-03] MEDS: HumaLOG INSULIN (NovoLOG) PER UNIT SC SCH ×4 (09:13→20:38)
[2020-09-03] MEDS ORDERED: MAG SULF 1GM/100ML (MAG RUN) 1 GM in IV 1 EA IV ONE (11:00)
[2020-09-03 14:00] VITALS: BP 114/52
[2020-09-03 16:51] VITALS: O2SAT 95
--- NOTE | 2020-09-03 17:35 | IPNPDOC ---
Date Seen The patient was seen on 09/03/20. Progress Note SUBJECTIVE: Feels lethargic this AM but AAOx 3 despite ammonia > 100. Given extra dose of lactulose this AM. One BM thus far at 5 PM- goal at least 2 BM daily. Received 3 albumin thus far, stopped other albumin infusions as albumin is > 2. Cr slightly improved. Occult blood ordered and sent, f/u results as H/H without abd pain. Denies shortness of breath, chest pain, n/v. OBJECTIVE: PHYSICAL EXAMINATION: VITAL SIGNS: Please see below GENERAL APPEARANCE: NAD, resting in bed, slightly lethargic, following commands, AAOx 3 HEENT: AT/NC NECK: no JVD, no lymphadenopathy CARDIOVASCULAR: S1S2 +, no M/R/G LUNGS: CTAB , no W/R/R ABDOMEN: nondistended, soft, nontender, BS + in 4 quadrants MUSCULOSKELETAL: No joint deformity EXTREMITIES: B/l lower extremities with pitting pre-tibial edema to knees +1. No overlying skin changes. Pulses intact. No clubbing cyanosis NEUROLOGICAL: Speech slow, but clear. No focal deficits, CN 2-12 intact PSYCHIATRIC: Mood and affect appear appropriate LABORATORY DATA: See below. MICROBIOLOGY: Resp panel neg BCx x 2 sets: NG UCx: contaminated IMAGING: Abd US 09/02/20: No ascites seen Liver US 09/02/20: 1. Significantly limited exam due to patient's body habitus and bowel gas with limited visualization of the liver and nonvisualization of the pancreas, CBD or aorta. 2. 1.9 x 1.7 x 1.6 cm right hepatic lobe echogenic focus possibly hemangioma, however incompletely characterized on this exam, grossly unchanged since the prior study. Correlation with prior CT or MRI is is suggested. If this lesion was not previously characterize, MRI with contrast may be obtained for further evaluation 3. Status post cholecystectomy. Renal US: No acute findings CXR 09/02/20: 1. Low lung volume with chronic interstitial lung changes grossly unchanged since the prior exam. No focal consolidation seen. 2. Cardiomegaly. ASSESSMENT: 79 year old male with an extensive pmh of chronic liver failure with cirrhosis s/p TIPS, IDDM2, htn, ckd, cad, s/p pacemaker placement who presents after an episode of profound confusion, weakness and hyperglycemia likely 2/2 to hepatic encephalopathy. PLAN: Hepatic encephalopathy likely 2/2 to liver cirrhosis -Mental status improving despite ammonia incr to >100 today -Denies abdominal pain, abdominal distention -Monitoring bowel movements, one large one today, given extra dose lactulose -CMP stable, labs at baseline -Imaging above -Consider MRI abd for ? right liver lobe hemangioma -C/w lactulose, rifampin, spironolactone -Follows with Dr. Corea as o/p (GI), can call to discuss case if needed -Daily CMP, ammonia level PRETTY on CKD Stage 2-3, likely prerenal cause -Improving Cr today at 1.4, not suspecting hepatorenal syndrome -Received 3 doses albumin, stopped today, albumin >2.5 -Avoid nephrotoxic medications if possible but continue with home spironolactone -Daily labs Anemia, acute on chronic -Not currently on IVFs so likely not dilutional -Occult blood neg -No abdominal tenderness to indicate acute abdominal process -F/u CBC in the AM, watch, transfuse if Hgb < 7 Uncontrolled DM type II -Incr home levemir BID -c/w ISS, consistent carb diet, FS AC/HS Right hepatic lobe echogenic focus possibly hemangioma -F/u MRI abd with contrast Acute hypomagnesemia -Mag low at 1.1 -Increased dose BID , gave mag run -F/u Mag in AM HTN -Continue coreg GERD -C/w omeprazole BPH - continue tamsulosin DVT prophylaxis - SCDs for now due to low platelets DISPOSITION: PT /OT today. Plan is discharge home when medically improved. VS, I&O, 24H, Fishbone Vital Signs/I&O Vital Signs Date Time Temp Pulse Resp B/P (MAP) Pulse Ox O2 Delivery O2 Flow Rate FiO2 09/03/20 16:51 95 Room Air 09/03/20 14:00 98.2 70 15 114/52 (72) I&O- Last 24 Hours up to 6 AM 09/03/20 06:00 Intake Total 2665.0 ml Output Total 1250 ml Balance 1415.0 ml Laboratory Data 24H LABS Laboratory Tests 2 09/02/20 20:01: Bedside Glucose (Misc Panel) 261H 09/03/20 05:23: Nucleated Red Blood Cells % (auto) 0.0, Immature Platelet Fraction 7.6, Anion Gap 5L, Glomerular Filtration Rate 50.9, Calcium Level 8.3L, Magnesium Level 1.1L, Total Bilirubin 2.0H, Aspartate Amino Transf (AST/SGOT) 38H, Alanine Omer otransferase (ALT/SGPT) 26, Alkaline Phosphatase 105, Ammonia 107H, Total Protein 5.5L, Albumin 2.5L, Albumin/Globulin Ratio 0.8 09/03/20 11:54: Bedside Glucose (Misc Panel) 349H 09/03/20 16:57: Bedside Glucose (Misc Panel) 236H CBC/BMP Laboratory Tests 09/03/20 05:23 Microbiology Microbiology 09/03/20 Stool Occult Blood (AMBROSIO) - Final, Complete 09/02/20 Blood Culture - Preliminary, Resulted No growth after 24 hours . All specim... 09/02/20 Blood Culture - Preliminary, Resulted No growth after 24 hours . All specim... 09/02/20 Respiratory Virus Panel (PCR) (AMBROSIO) - Final, Complete 09/02/20 Urine Culture - Final, Complete Betty Lozano MD Sep 03, 2020 17:35
[2020-09-03] MEDS: TAMSULOSIN 0.4 MG CAP PO SCH (20:37)
[2020-09-03] MEDS: CYANOCOBALAMIN 500 MCG TAB PO SCH (20:37)
[2020-09-03] MEDS: VITAMIN D 1,000 INTERNATIONAL UNITS TABLET PO SCH (20:37)
[2020-09-03] MEDS: LATANOPROST 0.005% OPHTH SOLN 2.5 ML OU SCH (20:38)
[2020-09-03] MEDS ORDERED: LEVEMIR (INSULIN DETEMIR) 1 UNITS/0.01ML SC SCH (21:00)
[2020-09-03 22:00] VITALS: BP 115/62
[2020-09-04 02:27] VITALS: O2SAT 97
[2020-09-04 05:43] LABS: HEMATOCRIT 25.1 % (42.0-52.0); HEMOGLOBIN 8.5 g/dl (13.5-17.5); MEAN CORPUSCULAR HEMOGLOBIN 37.8 pg (27.0-33.0); MEAN CORPUSCULAR HGB CONC 33.9 g/dl (32.0-36.5); MEAN CORPUSCULAR VOLUME 111.6 fl (80.0-96.0); PLATELET COUNT, AUTOMATED 41 10^3/uL (150-450); RED BLOOD COUNT 2.25 10^6/uL (4.30-6.10); WHITE BLOOD COUNT 3.1 10^3/uL (4.0-10.0)
[2020-09-04 06:00] VITALS: BP 102/54
[2020-09-04 06:08] LABS: ALBUMIN 2.5 GM/DL (3.2-5.2); CALCIUM LEVEL 9.2 MG/DL (8.8-10.2); CREATININE FOR GFR 1.37 MG/DL (0.70-1.30); GLOMERULAR FILTRATION RATE 53.5 (>42); MAGNESIUM LEVEL 1.3 MG/DL (1.8-2.4); TOTAL PROTEIN 5.1 GM/DL (6.4-8.2)
[2020-09-04] MEDS ORDERED: LEVEMIR (INSULIN DETEMIR) 1 UNITS/0.01ML SC SCH (09:00)
[2020-09-04] MEDS: MAGNESIUM GLUCONATE 500 MG TAB PO SCH (09:16)
[2020-09-04] MEDS: HumaLOG INSULIN (NovoLOG) PER UNIT SC SCH ×2 (09:16→12:10)
[2020-09-04] MEDS: OMEPRAZOLE 20 MG CAP PO SCH (09:16)
[2020-09-04] MEDS: DOCUSATE SODIUM 100MG CAPSULE PO SCH (09:16)
[2020-09-04] MEDS: LACTULOSE 20 GM/30 ML SYRUP UD PO SCH ×2 (09:16→12:10)
[2020-09-04] MEDS: rifAXIMin 550 MG TAB (XIFAXAN) PO SCH (09:16)
[2020-09-04 09:17] VITALS: BP 117/63
[2020-09-04] MEDS: CARVedilol 6.25 MG TAB PO SCH (09:17)
--- NOTE | 2020-09-04 20:13 | DS.PDOC ---
Discharge Summary General Date of Admission Sep 02, 2020 at 06:02 Date of Discharge 09/04/20 Attending Physician: Betty Lozano MD Discharge Summary HISTORY OF PRESENT ILLNESS: Pt is a 79 y/o male with PMH of IDDM2, chronic hepatic failure s/p TIPS, CAD, heart block s/p pacemaker, HTN, hld, GERD, and CKD who presents to the ED with , Sue. states that early afternoon of 09/01 she found him confused, so she thought to check his blood glucose which she found to be over 500. states that at this time she gave 20 units of his humalog but this was unable to bring his sugars down and they stayed in the 500s range. states that she decided to get her up to make him walk but he was too weak to walk. states that this is when she and her son helped him into the truck to bring him to the ED. Patient stated that he is not sure what happened. He ate a good breakfast then had some crackers and milk with his lactulose but then felt very weak and confused. Patient states that as of now, he feels very weak and "just crappy." Patient also endorses generalized abdominal pain that is worse with movement and palpation. Patient also endorses headache. Patient denies dizziness, syncope, shortness of breath, chest pain, cough, n/v/d, constipation, dysuria, fever, chills, uri sx, rash. Upon workup in the ED, patient found to have elevated ammonia of 66, elevated cr of 1.8 from baseline 1.3 and hyperkalemia of 5.6. Glucose was 285. HOSPITAL COURSE: Hepatic encephalopathy was likely 2/2 to liver cirrhosis, end stage per GI. Per GI, no more treatment options are offered to patient, s/p TIPS. Although ammonia levels increased, he remained having 4 BM daily. Mental status improved and by 09/03/20 patient was at baseline. He denies abdominal pain, abdominal distention. CMP stable, labs at baseline. Imaging below was performed. On 09/04/20, ammonia levels had increased further to 127- this was discussed with Dr. Corea, known to his practice. 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 Suggested discharge if patient is at baseline and mental status is not worsened. He was tolerating home medications lactulose QID, rifampin, spironolactone well. 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 Cr eventually improved to baseline. Anemia, acute on chronic was watched closely. On 09/04/20, H/H 8.5/35. W/u was neg for acute bleed, Occult blood neg. No abdominal tenderness to indicate acute abdominal process. Suggested in discharge instructions for PCP to follow anemia as o/p. Thrombocytopenia was found to be chronic, PLTs fluctuate at baseline. F/u with PCP, no s/s of bleeding. Other chronic issues remained stable. Patient's was concerned bout elevated ammonia levels- it was explained what GI had suggested and told me. At discharge, patient was at baseline, had no acute complaints. PAST MEDICAL HISTORY: IDDM2, chronic hepatic failure s/p TIPS, CAD, heart block s/p pacemaker, HTN, HLD, GERD, and CKD PAST SURGICAL HISTORY: TIPS Spinal fusion cholecystectomy pacemaker placement right inguinal hernia repair SOCIAL HISTORY: Marital status: []. Resides in: [Home with ] Children: [Son] Employment: [Retired] Tobacco use:[Former] ETOH: [Denies] Illicit drug use: [Denies] DISCHARGE MEDS: Please see below PHYSICAL EXAMINATION: VITAL SIGNS: Please see below GENERAL APPEARANCE: NAD, sitting up at bedside chair, following commands, AAOx 3 HEENT: AT/NC NECK: no JVD, no lymphadenopathy CARDIOVASCULAR: S1S2 +, no M/R/G LUNGS: CTAB , no W/R/R ABDOMEN: nondistended, soft, nontender, BS + in 4 quadrants MUSCULOSKELETAL: No joint deformity EXTREMITIES: B/l lower extremities with pitting pre-tibial edema to knees +1. No overlying skin changes. Pulses intact. No clubbing cyanosis NEUROLOGICAL: Speech clear. No focal deficits, CN 2-12 intact PSYCHIATRIC: Mood and affect appear appropriate LABORATORY DATA: See below. MICROBIOLOGY: Resp panel neg BCx x 2 sets: NG UCx: contaminated IMAGING: Abd US 09/02/20: No ascites seen Liver US 09/02/20: 1. Significantly limited exam due to patient's body habitus and bowel gas with limited visualization of the liver and nonvisualization of the pancreas, CBD or aorta. 2. 1.9 x 1.7 x 1.6 cm right hepatic lobe echogenic focus possibly hemangioma, however incompletely characterized on this exam, grossly unchanged since the prior study. Correlation with prior CT or MRI is is suggested. If this lesion was not previously characterize, MRI with contrast may be obtained for further evaluation 3. Status post cholecystectomy. Renal US: No acute findings CXR 09/02/20: 1. Low lung volume with chronic interstitial lung changes grossly unchanged since the prior exam. No focal consolidation seen. 2. Cardiomegaly. ASSESSMENT: 79 year old male with an extensive pmh of chronic liver failure with cirrhosis s/p TIPS, IDDM2, htn, ckd, cad, s/p pacemaker placement who presents after an episode of profound confusion, weakness and hyperglycemia likely 2/2 to hepatic encephalopathy. PLAN: Hepatic encephalopathy likely 2/2 to liver cirrhosis -Mental status appears to be at baseline improving despite ammonia incr 127 today -Denies abdominal pain, abdominal distention -4 BM over 24 hours. -CMP stable, labs at baseline -Imaging above -Discussed with Dr. Corea this AM due to increasing ammonia levels, known to his practice. 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 Suggested discharge if patient is at baseline and mental status is not worsened. -C/w lactulose, rifampin, spironolactone as o/p -F/u with PCP, GI if needed as o/p PRETTY on CKD Stage 2-3, likely prerenal cause -Cr at baseline -F/u PCP Anemia, acute on chronic -H/H 8.5/35 -Not currently on IVFs so likely not dilutional -Occult blood neg -No abdominal tenderness to indicate acute abdominal process -Suggested in discharge instructions for PCP to follow anemia as o/p. Uncontrolled DM type II -c/w home meds Right hepatic lobe echogenic focus possibly hemangioma -Consider MRI abd with contrast as o/p Hypomagnesemia, chronic -C/w home supplementation -F/u PCP HTN -Continue coreg GERD -C/w omeprazole BPH - continue tamsulosin Thrombocytopenia, chronic -PLTs fluctuate at baseline -F/u with PCP -No s/s of bleeding DISPOSITION: Discharge home today with f/u with PCP, GI if needed. TIME SPENT ON DISCHARGE: 35 minutes. Vital Signs/I&Os Vital Signs Date Time Temp Pulse Resp B/P (MAP) Pulse Ox O2 Delivery O2 Flow Rate FiO2 09/04/20 09:17 85 117/63 09/04/20 06:00 97.6 16 94 Room Air I&O- Last 24 Hours up to 6 AM 09/04/20 06:00 Intake Total 1480 ml Output Total 1050 ml Balance 430 ml Laboratory Data Labs 24H Laboratory Tests 2 09/04/20 05:28: Nucleated Red Blood Cells % (auto) 0.0, Immature Platelet Fraction 6.9, Anion Gap 5L, Glomerular Filtration Rate 53.5, Calcium Level 9.2, Magnesium Level 1.3L, Total Bilirubin 2.0H, Aspartate Amino Transf (AST/SGOT) 33, Alanine Aminotransferase (ALT/SGPT) 25, Alkaline Phosphatase 93, Ammonia 127H, Total Protein 5.1L, Albumin 2.5L, Albumin/Globulin Ratio 1.0 09/04/20 11:48: Bedside Glucose (Misc Panel) 303H CBC/BMP Laboratory Tests 09/04/20 05:28 FSBS Laboratory Tests Test 09/04/20 11:48 Range/Units Bedside Glucose (Misc Panel) 303 83-110 MG/DL Microbiology Microbiology 09/03/20 Stool Occult Blood (AMBROSIO) - Final, Complete 09/02/20 Blood Culture - Preliminary, Resulted No Growth after 48 hours. All Specime... 09/02/20 Blood Culture - Preliminary, Resulted No Growth after 48 hours. All Specime... 09/02/20 Respiratory Virus Panel (PCR) (AMBROSIO) - Final, Complete 09/02/20 Urine Culture - Final, Complete Discharge Medications Scheduled Carvedilol (Carvedilol) 6.25 Mg Tablet, 6.25 MG PO BID, (Reported) Cholecalciferol (Vitamin D3) (Vitamin D3) 1,000 Unit Tablet, 1,000 UNITS PO QHS, (Reported) Cyanocobalamin (Vitamin B-12) (Vitamin B-12) 500 Mcg Tablet, 500 MCG PO QHS, (Reported) Insulin Glargine (Lantus) 1 Units/0.01 Ml Susp, 40 UNITS SC QAM, (Reported) Insulin Glargine (Lantus) 1 Units/0.01 Ml Susp, 20 UNITS SC QHS, (Reported) Insulin Human Lispro (Humalog) 1 Units/0.01 Ml Inj, 1 DOSE SC AC, (Reported) PER SLIDING SCALE Lactulose (Lactulose) 10 Gm/15 Ml Solution, 45 ML PO QID, (Reported) Magnesium (Magnesium) 250 Mg Tablet, 250 MG PO BID, (Reported) Milk Thistle (Milk Thistle) 500 Mg Capsule, 500 MG PO BID, (Reported) Omeprazole (Omeprazole) 40 Mg Capsule.dr, 40 MG PO DAILY, (Reported) Rifaximin (Xifaxan) 550 Mg Tab, 550 MG PO BID, (Reported) Spironolactone (Spironolactone) 50 Mg Tab, 50 MG PO DAILY, (Reported) Tamsulosin Hcl (Tamsulosin HCl) 0.4 Mg Capsule, 0.4 MG PO QHS, (Reported) Travoprost (Travatan Z) 0.004% 2.5ML Drops, 1 DROP OU QHS, (Reported) Vitamin E (Vitamin E) 400 Unit Capsule, 400 UNIT PO QHS, (Reported) Scheduled PRN Hydrocodone/Acetaminophen (Hydrocodone-Acetamin 5-325 mg) 1 Each Tablet, 0.5 TAB PO TID PRN for PAIN, (Reported) TAKES 1/2 - 1 TAB Allergies Coded Allergies: lisinopril (Verified Adverse Reaction, Intermediate, HYPERKALEMIA, 11/07/18) Betty Lozano MD Sep 04, 2020 20:13
--- NOTE | 2020-09-05 08:40 | ECHO ---
DATE OF PROCEDURE: 09/04/2020 Age: 79 Gender: Male Height: 68 inches Weight: 180 pounds Body surface area: 1.96 meters squared. Inpatient: [address] [place] [id number] REFERRING PHYSICIAN: Jose Ramírez MD INDICATION: Fever MEASUREMENTS: 2D measurements: RV 4.4 cm LV 4.8 cm Septum 1.3 cm Posterior wall 1.2 cm Aortic root 3.2 cm Ascending aorta 3.5 cm LA 4.2 cm LVEF 75% Doppler measurements: AV 1.97 m/s LVOT 0.8 m/s Mean AV systolic gradient 9 mmHg Dimensionless index 0.38 MV - E 99, A 118, E/A ratio 0.8 Early mitral deceleration time 251 m/s E prime medial 6 A prime medial 10 E/E ratio 13.2/PCWP 18.3 mmHg PV 1.0 m/s Early mitral deceleration time 85 m/s RVSP 38 mmHg IVC 1.8 cm COMMENTS: Normal sinus rhythm with atrial sensing and tracking with consistent ventricular pace rhythm. Paced QRS complexes with left bundle branch block configuration. M-mode and 2 dimensional echocardiography was performed with pulse, continuous wave, color flow and tissue Doppler studies. Mild concentric left ventricular hypertrophy with hyperkinetic wall motion. Mildly dilated left atrium with grade 1 LV diastolic dysfunction and current estimated mean left atrial pressure mildly increased. Mildly dilated right heart chambers with normal wall motion and Doppler evidence of mild pulmonary hypertension. Normal IVC size and collapse against an elevated central venous pressure. Normal aortic root size, but borderline increased proximal ascending aorta. Mild calcific aortic stenosis with mild insufficiency. Mild mitral annular calcification without inflow tract obstruction and only mild insufficiency. Normal appearing tricuspid valve with mild insufficiency. No apparent intracardiac mass or pedunculated vegetation. No pericardial effusion. MTDD
== END 2020-09-04 15:21 | disposition home health service (06) | DRG 433 ==
LOC: M ED 21:39 → UNDOADMOB 21:40 → M ED INP 21:40 → ENRESERV 09-02 04:57 → OBSVTOIN 09-02 06:02 → INTOOBSV 09-02 06:02 → M ED INP 09-02 06:02 → M MSPAV 09-02 06:03 → M ED INP 09-02 06:03 → M MSPAV 09-02 18:23
PROVIDERS: ADMIT Internal Medicine; ATTEND Internal Medicine
DX: K74.60 Unspecified cirrhosis of liver (principal); N17.9 Acute kidney failure, unspecified; K72.90 Hepatic failure, unspecified without coma; N40.0 Benign prostatic hyperplasia without lower urinary tract symptoms; I25.10 Atherosclerotic heart disease of native coronary artery without angina pectoris; D64.9 Anemia, unspecified; E83.42 Hypomagnesemia; I12.9 Hypertensive chronic kidney disease with stage 1 through stage 4 chronic kidney disease, or unspecified chronic kidney disease; K21.9 Gastro-esophageal reflux disease without esophagitis; E11.65 Type 2 diabetes mellitus with hyperglycemia; E87.5 Hyperkalemia; E11.22 Type 2 diabetes mellitus with diabetic chronic kidney disease; N18.30 Chronic kidney disease, stage 3 unspecified; D69.6 Thrombocytopenia, unspecified; Z95.0 Presence of cardiac pacemaker; Z98.1 Arthrodesis status; Z90.49 Acquired absence of other specified parts of digestive tract; Z79.4 Long term (current) use of insulin; Z79.899 Other long term (current) drug therapy; Z88.8 Allergy status to other drugs, medicaments and biological substances

== ENCOUNTER → 2020-09-13 | Outpatient (REF) | payer MEDICARE, OTHER ==
[2020-09-13 13:12] LABS: BASO % 0.6 % (0.0-1.0); EOS # 0.2 10^3/uL (0.0-0.5); HEMATOCRIT 31.7 % (42.0-52.0); HEMOGLOBIN 10.4 g/dl (13.5-17.5); LYMPH # 1.2 10^3/uL (1.5-5.0); LYMPH % 21.4 % (24.0-44.0); MEAN CORPUSCULAR HEMOGLOBIN 37.5 pg (27.0-33.0); MEAN CORPUSCULAR HGB CONC 32.8 g/dl (32.0-36.5); MONO # 0.5 10^3/uL (0.0-0.8); MONO % 9.5 % (2.0-8.0); NEUTROPHILS # 3.5 10^3/uL (1.5-8.5); NEUTROPHILS % 64.8 % (36.0-66.0); RED BLOOD COUNT 2.77 10^6/uL (4.30-6.10); WHITE BLOOD COUNT 5.4 10^3/uL (4.0-10.0)
[2020-09-13 13:39] LABS: MEAN CORPUSCULAR VOLUME 114.4 fl (80.0-96.0); PLATELET COUNT, AUTOMATED 53 10^3/uL (150-450)
[2020-09-13 13:40] LABS: PLATELET ESTIMATE MARKED DECREASE (NORMAL)
[2020-09-13 13:44] LABS: ALBUMIN 2.9 GM/DL (3.2-5.2); BILIRUBIN,TOTAL 2.2 MG/DL (0.2-1.0); CREATININE FOR GFR 1.47 MG/DL (0.70-1.30); GLOMERULAR FILTRATION RATE 49.3 (>42); POTASSIUM SERUM 4.7 MEQ/L (3.5-5.1); TOTAL PROTEIN 6.3 GM/DL (6.4-8.2)
== END ==
LOC: M SFHCPLAZ 11:44
PROVIDERS: ATTEND Family Medicine
DX: D50.9 Iron deficiency anemia, unspecified (principal); K72.10 Chronic hepatic failure without coma; I50.42 Chronic combined systolic (congestive) and diastolic (congestive) heart failure
CPT/HCPCS: 36415; 80053; 82140; 83880; 85025; 85046; 85049; 85055; G0463

== ENCOUNTER → 2020-11-13 | Outpatient (CLI) | payer MEDICARE, OTHER ==
[~2020-11-13] MED LIST changes: +OMEP40CA4 PO; -OMEP40CA97 PO
[2020-11-13 15:31] LABS: BASO # 0.1 10^3/uL (0.0-0.2); BASO % 0.8 % (0.0-1.0); EOS # 0.2 10^3/uL (0.0-0.5); EOS % 3.4 % (0.0-3.0); HEMATOCRIT 32.6 % (42.0-52.0); HEMOGLOBIN 10.8 g/dl (13.5-17.5); MEAN CORPUSCULAR HEMOGLOBIN 37.1 pg (27.0-33.0); MEAN CORPUSCULAR HGB CONC 33.1 g/dl (32.0-36.5); MONO # 0.7 10^3/uL (0.0-0.8); MONO % 11.6 % (2.0-8.0); NEUTROPHILS # 4.1 10^3/uL (1.5-8.5); NEUTROPHILS % 66.4 % (36.0-66.0); RED BLOOD COUNT 2.91 10^6/uL (4.30-6.10); WHITE BLOOD COUNT 6.1 10^3/uL (4.0-10.0)
[2020-11-13 15:35] LABS: PLATELET COUNT, AUTOMATED 65 10^3/uL (150-450)
[2020-11-13 16:10] LABS: ALBUMIN 2.7 GM/DL (3.2-5.2); BILIRUBIN,TOTAL 3.2 MG/DL (0.2-1.0); CALCIUM LEVEL 8.7 MG/DL (8.8-10.2); CHOLESTEROL RISK RATIO 3.666 (<5); CREATININE FOR GFR 1.81 MG/DL (0.70-1.30); FREE T4 1.1 NG/DL (0.76-1.46); GLOMERULAR FILTRATION RATE 38.8 (>42); POTASSIUM SERUM 5.7 MEQ/L (3.5-5.1); PTH INTACT 15.3 PG/ML (18.5-88.0); THYROID PEROXIDASE ANTIBODY 30.8 U/ML (<60.0); THYROID STIMULATING HORMONE 3.65 uIU/ML (0.358-3.740); TOTAL 25(OH) VITAMIN D 27.2 NG/ML (30.0-100.0); TOTAL PROTEIN 6.3 GM/DL (6.4-8.2)
== END ==
LOC: M PLALAB 12:55
PROVIDERS: ATTEND Family Medicine
DX: K72.10 Chronic hepatic failure without coma (principal); D50.9 Iron deficiency anemia, unspecified; E78.2 Mixed hyperlipidemia; E55.9 Vitamin D deficiency, unspecified; I50.42 Chronic combined systolic (congestive) and diastolic (congestive) heart failure
CPT/HCPCS: 36415; 80053; 80061; 82140; 82306; 82728; 83880; 83970; 84439; 84443; 85025; 85049; 85055; 86376; G0463

== ENCOUNTER → 2020-11-15 | Outpatient (CLI) | payer MEDICARE, OTHER ==
[2020-11-15 11:25] LABS: ALBUMIN 2.5 GM/DL (3.2-5.2); BILIRUBIN,DIRECT 1.1 MG/DL (0.0-0.2); BILIRUBIN,TOTAL 3.6 MG/DL (0.2-1.0); CALCIUM LEVEL 8.8 MG/DL (8.8-10.2); CREATININE FOR GFR 1.57 MG/DL (0.70-1.30); GLOMERULAR FILTRATION RATE 45.7 (>42); POTASSIUM SERUM 5.3 MEQ/L (3.5-5.1)
== END ==
LOC: M PLALAB 09:08
PROVIDERS: ATTEND Family Medicine
DX: K72.10 Chronic hepatic failure without coma (principal)

== ENCOUNTER → 2020-12-10 | Outpatient (CLI) | payer MEDICARE, OTHER ==
[2020-12-10 17:45] LABS: ALBUMIN 2.6 GM/DL (3.2-5.2); BILIRUBIN,TOTAL 3.6 MG/DL (0.2-1.0); CALCIUM LEVEL 8.7 MG/DL (8.8-10.2); CREATININE FOR GFR 1.78 MG/DL (0.70-1.30); GLOMERULAR FILTRATION RATE 39.5 (>42); MAGNESIUM LEVEL 1.9 MG/DL (1.8-2.4); POTASSIUM SERUM 4.4 MEQ/L (3.5-5.1)
== END ==
LOC: M PLALAB 12:32
PROVIDERS: ATTEND Physician Assistant
DX: I87.2 Venous insufficiency (chronic) (peripheral) (principal); N18.30 Chronic kidney disease, stage 3 unspecified; I50.42 Chronic combined systolic (congestive) and diastolic (congestive) heart failure; E83.42 Hypomagnesemia
CPT/HCPCS: 36415; 80053; 83735; 83880; G0463

== ENCOUNTER → 2021-02-28 | Outpatient (CLI) | payer MEDICARE, OTHER ==
[2021-02-28 15:59] LABS: BASO # 0.1 10^3/uL (0.0-0.2); BASO % 0.8 % (0.0-1.0); EOS # 0.2 10^3/uL (0.0-0.5); EOS % 2.6 % (0.0-3.0); HEMATOCRIT 33.1 % (42.0-52.0); HEMOGLOBIN 10.9 g/dl (13.5-17.5); LYMPH # 1.1 10^3/uL (1.5-5.0); MEAN CORPUSCULAR HEMOGLOBIN 37.2 pg (27.0-33.0); MEAN CORPUSCULAR HGB CONC 32.9 g/dl (32.0-36.5); MONO # 0.5 10^3/uL (0.0-0.8); MONO % 8.3 % (2.0-8.0); NEUTROPHILS # 4.6 10^3/uL (1.5-8.5); NEUTROPHILS % 70.4 % (36.0-66.0); RED BLOOD COUNT 2.93 10^6/uL (4.30-6.10); WHITE BLOOD COUNT 6.5 10^3/uL (4.0-10.0)
[2021-02-28 16:02] LABS: PLATELET COUNT, AUTOMATED 74 10^3/uL (150-450)
[2021-02-28 16:05] LABS: ALBUMIN 2.3 GM/DL (3.2-5.2); CALCIUM LEVEL 8.7 MG/DL (8.8-10.2); CREATININE FOR GFR 2.02 MG/DL (0.70-1.30); GLOMERULAR FILTRATION RATE 34.1 (>42); POTASSIUM SERUM 4.6 MEQ/L (3.5-5.1); TOTAL PROTEIN 6.4 GM/DL (6.4-8.2)
== END ==
LOC: M PLALAB 13:59
PROVIDERS: ATTEND Internal Medicine Gastroenterology
DX: K74.60 Unspecified cirrhosis of liver (principal)